=== PATIENT | female | born 1995 | race Caucasian/White ===

== ENCOUNTER 2023-05-19 19:37 | Emergency (ER) | payer MEDICAID, SELFPAY ==
[2023-05-19 20:03] VITALS: BP 135/86; PULSE 97; RESP 18; TEMP 37.2; O2SAT 99; BMI 28.1
--- NOTE | 2023-05-19 20:19 | ECG_ITS ---
Test Reason : LT ARM PAIN Blood Pressure : / mmHG Vent. Rate : 085 BPM Atrial Rate : 085 BPM P-R Int : 142 ms QRS Dur : 072 ms QT Int : 364 ms P-R-T Axes : 050 095 011 degrees QTc Int : 433 ms Normal sinus rhythm Rightward axis Cannot rule out Anterior infarct , age undetermined Abnormal ECG No previous ECGs available Referred By: Generic ED Physician Electronically Signed By:ZEE RODRÍGUEZ
--- NOTE | 2023-05-19 20:37 | MHC.EDTECH ---
Patient brought into triage area,EKG taken per order and signed by provider,labs obtained and sent to lab.
[2023-05-19 20:43] LABS: MANUAL DIFF FLAG NO
[2023-05-19 20:44] LABS: Basophils Percent Auto 0.5 % (0-2); Eosinophils Absolute Auto 0.1 X10*3/uL (0.0-0.4); Eosinophils Percent Auto 2.4 % (0-4); Hematocrit 39.1 % (37.0-47.0); Hemoglobin 12.8 g/dl (12.0-16.0); Lymphocytes Absolute Auto 1.8 X10*3/uL (1.2-4.9); Lymphocytes Percent Auto 43.8 % (20-40); Mean Corpuscular HGB Conc 32.7 g/dl (31.0-35.0); Mean Corpuscular Volume 88.7 fL (80.0-98.0); Mean Platelet Volume 9.6 fL (9.4-12.3); Monocytes Absolute Auto 0.4 X10*3/uL (0.1-1.2); Neutrophils Absolute Auto 1.8 x10*3/uL (2.0-8.3); Neutrophils Percent Auto 44.3 % (45-73); Platelet Count 203 X10*3/uL (160-400); Red Blood Count 4.41 X10*6/uL (4.20-5.50); Red Cell Distribution Width 13.2 % (11.0-16.0); White Blood Count 4.1 X10*3/uL (4.8-10.8)
[2023-05-19 21:01] LABS: Alanine Aminotransferase 14 U/L (0-31); Albumin Level 4.2 g/dL (3.5-5.0); Alkaline Phosphatase 86 U/L (39-117); Anion Gap 12 (12-20); Aspartate Amino Transferase 23 U/L (5-31); Bilirubin Total 0.2 mg/dL (0.0-1.0); Blood Urea Nitrogen 15 mg/dL (9-16); Calcium 9.3 mg/dL (8.4-10.2); Carbon Dioxide 21 mmol/L (22-29); Chloride 110 mmol/L (96-108); Creatinine Clr Calc Pharmacy 96.7; Estimated Glomerular Filt Rate > 60; Glucose Random 84 mg/dL (60-115); Potassium 3.9 mmol/L (3.3-5.1); Sodium 139 mmol/L (135-145); Total Protein 7.4 g/dL (6.5-8.0)
[2023-05-19 21:08] LABS: Troponin-I High Sensitivity < 2.7 ng/L (<3.5-17.0)
--- NOTE | 2023-05-19 22:01 | ED.NECK ---
HPI - Neck Pain/Injury General Chief Complaint: Neck Pain/Injury Stated Complaint: Neck pain Time Seen by Provider: 05/19/23 21:58 Source: patient Mode of arrival: ambulatory Limitations: no limitations History of Present Illness HPI Narrative: Patient with history of Moebius syndrome woke up in a.m. with spasm of the left sternocleidomastoid muscles and pain no fever no chills no cough no sore throat no earache no injury Related Data Previous Rx's Medication Instructions Recorded cyclobenzaprine 10 mg tablet 10 mg PO Q8H #20 tabs 05/19/23 ibuprofen 600 mg tablet 600 mg PO Q6H PRN fever or pain 05/19/23 #30 tabs Allergies Allergy/AdvReac Type Severity Reaction Status Date / Time watermelon Allergy Anaphylaxis Verified 05/19/23 20:02 Review of Systems Review of Systems: Yes all other systems are reviewed and are negative [facility] Social History Social History Advance Directives: No Advance Directives Information Provided: No Physical Exam Vital Signs: Vital Signs: Last Vital Signs Temp 98.9 F 05/19/23 20:03 Pulse 97 05/19/23 20:03 Resp 18 05/19/23 20:03 BP 135/86 05/19/23 20:03 Pulse Ox 99 05/19/23 20:03 O2 Del Method Room Air 05/19/23 20:03 BMI result Body Mass Index 28.1 Appearance: Alert. Oriented X3. Features of Moebius syndrome++ ENT: Pharynx normal. Oral Mucosa moist Neck: Normal inspection. Neck supple. Spasm sternocleidomastoid muscle no lymph node enlarged no midline tenderness CVS: Normal heart rate and rhythm. Pulses normal. Respiratory: No respiratory distress. Equal air entry bilateral, Abdomen: Soft and nontender. Neuro: Oriented X 3. Medical Decision Making Medical Decision Making MDM Narrative: Patient clinically with torticollis/spasm on the left sternocleidomastoid labs normal discharge patient home on ibuprofen plaques Lab Data [facility] Lab Attestation statement: I reviewed the patient's lab results. 05/19/23 20:36 05/19/23 20:36 Labs: Lab Results 05/19/23 Range/Units 20:36 WBC 4.1 L (4.8-10.8) X10*3/uL RBC 4.41 (4.20-5.50) X10*6/uL Hgb 12.8 (12.0-16.0) g/dl Hct 39.1 (37.0-47.0) % MCV 88.7 (80.0-98.0) fL MCH 29.0 (27.0-33.0) pg MCHC 32.7 (31.0-35.0) g/dl RDW 13.2 (11.0-16.0) % Plt Count 203 (160-400) X10*3/uL MPV 9.6 (9.4-12.3) fL Immature Gran % (Auto) 0.0 (0.0-0.4) % Neut % (Auto) 44.3 L (45-73) % Lymph % (Auto) 43.8 H (20-40) % [place] % (Auto) 9.0 (2-11) % Eos % (Auto) 2.4 (0-4) % Baso % (Auto) 0.5 (0-2) % Lymph # (Auto) 1.8 (1.2-4.9) X10*3/uL [place] # (Auto) 0.4 (0.1-1.2) X10*3/uL Eos # (Auto) 0.1 (0.0-0.4) X10*3/uL Baso # (Auto) 0.0 (0.0-0.2) X10*3/uL Abs Immat Gran (auto) 0.00 (0.00-0.03) X10*3/uL Absolute Neuts (auto) 1.8 L (2.0-8.3) x10*3/uL Absolute Nucleated RBC 0.000 (0.0-0.012) X10*3/uL Nucleated RBC % (auto) 0.0 (0.0-0.2) /100WBC Sodium 139 (135-145) mmol/L Potassium 3.9 (3.3-5.1) mmol/L Chloride 110 H (96-108) mmol/L Carbon Dioxide 21 L (22-29) mmol/L Anion Gap 12 (12-20) BUN 15 (9-16) mg/dL Creatinine 0.73 (0.5-1.4) mg/dL Estim Creat Clear Calc 96.7 Estimated GFR > 60 Random Glucose 84 (60-115) mg/dL Calcium 9.3 (8.4-10.2) mg/dL Total Bilirubin 0.2 (0.0-1.0) mg/dL AST 23 (5-31) U/L ALT 14 (0-31) U/L Alkaline Phosphatase 86 (39-117) U/L Troponin I High Sens < 2.7 (<3.5-17.0) ng/L Total Protein 7.4 (6.5-8.0) g/dL Albumin 4.2 (3.5-5.0) g/dL Discharge Plan Discharge Clinical Impression: Torticollis Patient Disposition: Home, Self-Care Instructions: Cervical Sprain (ED) Additional Instructions: Apply ice at the painful area Ibuprofen and muscle relaxants as prescribed Prescriptions: New cyclobenzaprine 10 mg tablet 10 mg PO Q8H Qty: 20 0RF ibuprofen 600 mg tablet 600 mg PO Q6H PRN (Reason: fever or pain) Qty: 30 0RF
[2023-05-19] MEDS: Cyclobenzaprine HCl 10 MG TABLET PO (22:30)
[2023-05-19] MEDS: Ibuprofen 600 MG TABLET PO (22:30)
[2023-05-19 22:41] VITALS: BP 124/76; PULSE 77; RESP 16; TEMP 36.7; O2SAT 99
--- NOTE | 2023-05-19 22:43 | PC.NURSE ---
pt medicated according to mar. pt friend at bedside. pt calm and cooperative. pt provided with discharge packet. pt verbalized understanding of discharge plan
== END 2023-05-19 22:44 | disposition home or self-care (01) ==
PROVIDERS: Emergency Provider Internal Medicine
DX: M43.6 Torticollis (principal); Q87.0 Congenital malformation syndromes predominantly affecting facial appearance
CPT/HCPCS: 36415; 80053; 84484; 85025; 93005; 99283; 99285

== ENCOUNTER → 2023-05-19 20:19 | Outpatient (BNV) | payer MEDICAID, SELFPAY | PROVIDERS: Emergency Provider Internal Medicine; Visit Provider Internal Medicine | DX: R94.31 Abnormal electrocardiogram [ECG] [EKG] (principal) | CPT/HCPCS: 93010 ==

== ENCOUNTER 2023-07-07 22:27 | Inpatient (IN) | payer MEDICAID, SELFPAY ==
--- NOTE | ~2023-07-07 | XR_ITS ---
EXAMINATION: XR CHEST CLINICAL INFORMATION: Cough, fever COMPARISON: None available. TECHNIQUE: 2 views of the chest were obtained. FINDINGS: Lung volumes are symmetric. Hiatal hernia is present with adjacent retrocardiac opacity which may reflect atelectasis or potentially consolidation. Right lung appears well-aerated. No evidence of pneumothorax, pleural effusion, or pulmonary edema. Cardiac size appears within normal limits. No acute osseous findings are seen. XR/XR chest 2V IMPRESSION: Hiatal hernia with adjacent retrocardiac opacity which may reflect atelectasis or potentially consolidation.
--- NOTE | ~2023-07-07 | CT_ITS ---
EXAMINATION: CTA CHEST PE STUDY CLINICAL INFORMATION: fever, dyspnea, d-dimer>ULN COMPARISON: 07/07/2023 chest x-ray TECHNIQUE: Prior to contrast administration, noncontrast localization images were obtained. After the administration of 65 mL of Omnipaque nonionic IV contrast, contiguous thin slice helical images were obtained through the thorax. Reformatted MIP images in the coronal and sagittal planes were obtained at the acquisition workstation. This CT examination was performed using dose optimization techniques as appropriate, variously including the following: *Automated exposure control *Adjustment of mA and/or kV according to patient size (this includes techniques or standardized protocols for targeted exams where dose is matched to indication/reason for exam; i.e. extremities or head) *Use of iterative reconstruction technique DLP: 323 mGy-cm. FINDINGS: The bolus timing on this study was acceptable for visualization of the pulmonary arterial tree. There are no intraluminal pulmonary arterial filling defects present to suggest pulmonary embolism. Dense consolidation in the retrocardiac left lower lobe with more patchy airspace disease seen in the contralateral right upper lobe. Infectious etiology would be strongly suspected with this appearance. No abnormal pulmonary nodules or masses are appreciated. No significant hilar or mediastinal adenopathy. There is no evidence of pleural effusion or pneumothorax. The heart is normal in size. No evidence of ventricular septal bowing or right heart strain. Great vessels are normal. Otherwise the mediastinum is unremarkable. There is no pericardial effusion or pericardial thickening. Limited evaluation of the upper abdominal viscera is unremarkable. CT/CT angio chest PE protocol IMPRESSION: 1. No evidence for pulmonary emboli. 2. Dense consolidation in the retrocardiac left lower lobe with more patchy airspace disease in the contralateral right upper lobe. Infectious etiology would be strongly suspected with this appearance. 3. VTE: Negative.
[2023-07-07 22:38] VITALS: BP 138/85; PULSE 144; RESP 18; TEMP 39.3; O2SAT 95; BMI 28.3
[2023-07-07 23:03] LABS: IDNOW Serial# 08D9AD1C; Strep A Nucleic Acid Negative (Negative)
[2023-07-07] MEDS: Ibuprofen 600 MG TABLET PO (23:26)
[2023-07-07 23:34] LABS: Influenza A PCR NEGATIVE (Negative); Influenza B PCR NEGATIVE (Negative); Resp Syncy Virus RNA Qual PCR NEGATIVE (Negative); SARS COV2 PCR INHOUSE NEGATIVE (Negative)
--- NOTE | 2023-07-07 23:39 | ED_ITS ---
HPI - Fever General Chief Complaint: Upper Respiratory Symptoms Stated Complaint: fever, asthma sob Time Seen by Provider: 07/07/23 23:18 Source: patient Mode of arrival: ambulatory Limitations: no limitations History of Present Illness HPI Narrative: 28 yo female with PMH of omphalocele, gastroschisis, Moebius syndrome here with c/o having a cough and sudden onset chills and fever today. No travel, no sick contacts. Took two tylenol [employer]. Illness came on suddenly. She notes she is vaccinated against the flu and COVID. MD elicited complaint: fever Onset (ago): hour(s) (few) Exacerbating factors: nothing Relieving factors: acetaminophen Associated symptoms: chills, myalgias, headache and cough Treatments prior to arrival fever: acetaminophen Related Data Previous Rx's Medication Instructions Recorded cyclobenzaprine 10 mg tablet 10 mg PO Q8H #20 tabs 05/19/23 ibuprofen 600 mg tablet 600 mg PO Q6H PRN fever or pain 05/19/23 #30 tabs Allergies Allergy/AdvReac Type Severity Reaction Status Date / Time watermelon Allergy Anaphylaxis Verified 05/19/23 20:02 Review of Systems 2 Review of Systems: Constitutional : pos Fever, pos Chills ENT/Mouth : No Hoarseness, No sore throat, No Rhinorrhea Eyes: No Redness, No Discharge, No Vision Changes Cardiovascular : No Chest Pain, no SOB, no Dyspnea on Exertion, No Edema Respiratory : positive Cough, No Sputum, no Wheezing, Gastrointestinal : No Nausea, No Vomiting, No Diarrhea, No abdominal Pain Genitourinary : No Dysuria, No Hematuria Musculoskeletal : No joint pain, No Myalgias Skin : No rash Neuro : No Weakness, No Numbness, No Headache Psych : No anxiety, depression Heme/Lymph: No Bruising, No Bleeding Endocrine : No Polyuria, No Polydipsia All other systems reviewed and are negative [facility] Past Medical History Attestation statement: The following information was validated with the patient. Source: old records reviewed Medical History (Updated 07/08/23 @ 04:38 by Maria Luisa Tolbert DO) Moebius' syndrome Social History Social History Smoked in Last 30 Days: No Use of substances other than those prescribed or required for medical reasons: No Advance Directives: No Advance Directives Information Provided: No Patient : No Physical Exam 2 Vital Signs: Vital Signs: Last Vital Signs Temp 99.9 F 07/08/23 00:40 Pulse 111 H 07/08/23 00:40 Resp 16 07/08/23 00:40 BP 118/80 07/08/23 00:40 Pulse Ox 97 07/08/23 00:40 O2 Del Method Room Air 07/08/23 00:40 BMI result Body Mass Index 28.3 Appearance: Alert. Oriented X3. No acute distress. Eyes: Pupils equal, round and reactive to light. ENT: Pharynx normal. normal TMs bilaterally Neck: Normal inspection. Neck supple. CVS: Normal heart rate and rhythm. Pulses normal. Respiratory: No respiratory distress. Breath sounds normal. Abdomen: Soft and nontender. Skin: Skin warm and dry. Normal skin color. Normal skin turgor. Extremities: No lower extremity edema. No calf ttp Neuro: Oriented X 3. No motor deficit. No sensory deficit. Course Course Course Narrative: VS are improving at this time, HR coming down, fever responding to medications Reevaluation(s) Reevaluation #1: Chest xray showing possible pneumonia at this time bacterial infection suspected IV and labs, culture ordered along with IV ceftriaxone for pneumonia 128am Reevaluation #2: has been stuck will defer will give more PO potassium and oral ceftin azithromycin she agrees declines further IV attempts at this time Reevaluation #3: patient vomiting up PO antibiotics and PO K agrees to stay at this time will admit start on IV ceftriaxone and admit for pneumonia, intractable n/v Medications Administered Discontinued Medications Generic Name Dose Route Start Last Admin Trade Name Santhoshq PRN Reason Stop Dose Admin Cefuroxime Axetil 500 mg 07/08/23 03:16 07/08/23 03:22 Cefuroxime Axetil 500 Mg Tablet PO 07/08/23 03:17 500 mg ONCE ONE Administration Sodium Chloride 1,000 mls @ 999 mls/hr 07/08/23 01:30 07/08/23 03:18 Ns IV 07/08/23 02:30 Infused .Q1H1M WILVER Infusion Ceftriaxone Sodium 1 gm/ 50 mls @ 100 mls/hr 07/08/23 01:23 07/08/23 02:52 Sodium Chloride IV 07/08/23 01:52 Infused ONCE ONE Infusion Potassium Chloride 10 meq in 100 mls @ 100 mls/hr 07/08/23 02:05 07/08/23 03:18 Potassium Chloride/H20 IV 07/08/23 03:04 Not Given ONCE ONE Ibuprofen 600 mg 07/07/23 23:12 07/07/23 23:26 Ibuprofen 600 Mg Tablet PO 07/07/23 23:13 600 mg ONCE ONE Administration Ondansetron HCl 4 mg 07/08/23 01:25 07/08/23 02:13 Ondansetron Hcl 4 Mg/2 Ml Vial IVPUSH 07/08/23 01:26 4 mg ONCE ONE Administration Potassium Chloride 40 meq 07/08/23 02:05 07/08/23 03:22 Potassium Chloride Packet 20 Meq Packet PO 07/08/23 02:06 40 meq ONCE ONE Administration Potassium Chloride 20 meq 07/08/23 03:16 07/08/23 03:22 Potassium Chloride Packet 20 Meq Packet PO 07/08/23 03:17 20 meq ONCE ONE Administration Procedures EJ/Peripheral Line Arm R: Time Out Performed: Yes Skin Cleansed in Sterile Fashion: Yes Size (gauge): 20 IV Secured and Dressing Applied: Yes Patient Tolerated Procedure: well and no complications Additional Comments: US guided Medical Decision Making Medical Decision Making MDM Narrative: 28 yo female with PMH of moebius syndrome here with c/o abrupt onset cough and fevers tonight without travel or known sick contacts symptoms started suddenly suspect more viral pathology given diffuse body aches and sudden onset. Reports she was fine earlier. Will order viral panel, CXR, UA, motrin and reassess. No hypoxia no wheezing on exam, no resp distress. Differential Diagnosis Differential Diagnoses: The differential diagnosis associated with the presentation includes flu, covid viral pathology more likely given sudden onset Admission/Observation Consideration of admission/observation: Escalation of care including admission/observation considered cannot tolerate PO will admit for further management Consult Healthcare Provider Management of the patient was discussed with: Hospitalist (will admit) Lab Data MDM Lab Attestation statement: I reviewed the patient's lab results. 07/08/23 02:11 07/08/23 01:37 Labs: Lab Results 07/07/23 07/07/23 07/08/23 Range/Units 22:45 23:55 01:37 WBC (4.8-10.8) X10*3/uL RBC (4.20-5.50) X10*6/uL Hgb (12.0-16.0) g/dl Hct (37.0-47.0) % MCV (80.0-98.0) fL MCH (27.0-33.0) pg MCHC (31.0-35.0) g/dl RDW (11.0-16.0) % Plt Count (160-400) X10*3/uL MPV (9.4-12.3) fL Immature Gran % (Auto) (0.0-0.4) % Neut % (Auto) (45-73) % Lymph % (Auto) (20-40) % [place] % (Auto) (2-11) % Eos % (Auto) (0-4) % Baso % (Auto) (0-2) % Lymph # (Auto) (1.2-4.9) X10*3/uL [place] # (Auto) (0.1-1.2) X10*3/uL Eos # (Auto) (0.0-0.4) X10*3/uL Baso # (Auto) (0.0-0.2) X10*3/uL Abs Immat Gran (auto) (0.00-0.03) X10*3/uL Absolute Neuts (auto) (2.0-8.3) x10*3/uL Absolute Nucleated RBC (0.0-0.012) X10*3/uL Nucleated RBC % (auto) (0.0-0.2) /100WBC Sodium 141 (135-145) mmol/L Potassium 2.9 L* D (3.3-5.1) mmol/L Chloride 115 H (96-108) mmol/L Carbon Dioxide 15 L (22-29) mmol/L Anion Gap 14 (12-20) BUN 8 L (9-16) mg/dL Creatinine 0.67 (0.5-1.4) mg/dL Estim Creat Clear Calc 105.7 Estimated GFR > 60 Random Glucose 117 H (60-115) mg/dL Lactic Acid (0.5-2.0) mmol/L Calcium 9.5 (8.4-10.2) mg/dL Urine Color Yellow Urine Appearance Clear Urine pH 5.0 (5.0-9.0) Ur Specific [place] 1.020 (1.005-1.025) Urine Protein Negative (Neg-Trace) mg/dL Urine Glucose (UA) Negative (Negative) mg/dL Urine Ketones Negative (Negative) mg/dL Urine Blood Large (3+) H (Negative) Urine Nitrite Negative (Negative) Ur Leukocyte Esterase Negative (Negative) Urine RBC >20 H (0-2) /HPF Urine WBC 0-5 (0-5) /HPF Ur Squamous Epith Cells 3-5 (0-2) /HPF Urine Bacteria None Seen (None Seen) Hyaline Casts 0-2 (0-2) /LPF Influenza Type A (PCR) NEGATIVE (Negative) Influenza Type B (PCR) NEGATIVE (Negative) RSV RNA Qual (PCR) NEGATIVE (Negative) SARS-CoV-2 RNA (RT-PCR) NEGATIVE (Negative) S. pyogenes GrpA THOMAS Negative (Negative) 07/08/23 Range/Units 02:11 WBC 8.4 (4.8-10.8) X10*3/uL RBC 4.02 L (4.20-5.50) X10*6/uL Hgb 12.0 (12.0-16.0) g/dl Hct 34.7 L (37.0-47.0) % MCV 86.3 (80.0-98.0) fL MCH 29.9 (27.0-33.0) pg MCHC 34.6 (31.0-35.0) g/dl RDW 14.6 (11.0-16.0) % Plt Count 173 (160-400) X10*3/uL MPV 9.6 (9.4-12.3) fL Immature Gran % (Auto) 0.6 H (0.0-0.4) % Neut % (Auto) 86.6 H (45-73) % Lymph % (Auto) 4.7 L (20-40) % [place] % (Auto) 7.9 (2-11) % Eos % (Auto) 0.1 (0-4) % Baso % (Auto) 0.1 (0-2) % Lymph # (Auto) 0.4 L (1.2-4.9) X10*3/uL [place] # (Auto) 0.7 (0.1-1.2) X10*3/uL Eos # (Auto) 0.0 (0.0-0.4) X10*3/uL Baso # (Auto) 0.0 (0.0-0.2) X10*3/uL Abs Immat Gran (auto) 0.05 H (0.00-0.03) X10*3/uL Absolute Neuts (auto) 7.3 (2.0-8.3) x10*3/uL Absolute Nucleated RBC 0.000 (0.0-0.012) X10*3/uL Nucleated RBC % (auto) 0.0 (0.0-0.2) /100WBC Sodium (135-145) mmol/L Potassium (3.3-5.1) mmol/L Chloride (96-108) mmol/L Carbon Dioxide (22-29) mmol/L Anion Gap (12-20) BUN (9-16) mg/dL Creatinine (0.5-1.4) mg/dL Estim Creat Clear Calc Estimated GFR Random Glucose (60-115) mg/dL Lactic Acid 1.2 (0.5-2.0) mmol/L Calcium (8.4-10.2) mg/dL Urine Color Urine Appearance Urine pH (5.0-9.0) Ur Specific [place] (1.005-1.025) Urine Protein (Neg-Trace) mg/dL Urine Glucose (UA) (Negative) mg/dL Urine Ketones (Negative) mg/dL Urine Blood (Negative) Urine Nitrite (Negative) Ur Leukocyte Esterase (Negative) Urine RBC (0-2) /HPF Urine WBC (0-5) /HPF Ur Squamous Epith Cells (0-2) /HPF Urine Bacteria (None Seen) Hyaline Casts (0-2) /LPF Influenza Type A (PCR) (Negative) Influenza Type B (PCR) (Negative) RSV RNA Qual (PCR) (Negative) SARS-CoV-2 RNA (RT-PCR) (Negative) S. pyogenes GrpA THOMAS (Negative) Independent Interpretation I performed an independent interpretation of an: Plain X-Ray (?new pneumonia) Radiology Impression Discussion of test interpretation with radiology: I have reviewed the radiologist's reading. Independent Historian Clinical information obtained from an independent historian. History obtained from or confirmed by: Friend External Record Review External record reviewed: Inpatient record Critical Care Time Critical Care Time Critical Care Time: Yes Total Critical Care Time: 45 Attestation: repeat assessments, IVF, IV magnesium and IV potassium I attest to this time spent taking care of the patient Discharge Plan Discharge Clinical Impression: Intractable vomiting with nausea, Hypomagnesemia, Acute hypokalemia Pneumonia Qualifiers: Pneumonia type: due to unspecified organism Laterality: left Lung location: l ower lobe of lung Qualified Code(s): J18.9 - Pneumonia, unspecified organism Fever Qualifiers: Fever type: unspecified Qualified Code(s): R50.9 - Fever, unspecified Patient Disposition: Admitted As Inpatient
[2023-07-08] VITALS (10 sets, daily range): BP systolic 118–129; BP diastolic 72–88; PULSE 86–111; RESP 16–18; TEMP 36.2–37.7; O2SAT 96–98
--- NOTE | 2023-07-08 | ECG_ITS ---
Test Reason : CP Blood Pressure : / mmHG Vent. Rate : 089 BPM Atrial Rate : 089 BPM P-R Int : 138 ms QRS Dur : 088 ms QT Int : 370 ms P-R-T Axes : 063 105 054 degrees QTc Int : 450 ms Normal sinus rhythm Rightward axis Borderline ECG When compared with ECG of 19-MAY-2023 20:27, No significant change was found Referred By: Toya Henry Electronically Signed By:IVANIA CHUNG MD
[2023-07-08 00:01] LABS: Appearance Urine Clear; Color Urine Yellow; Glucose Urine UA Negative (Negative); Leukocyte Esterase Urine Negative (Negative); Nitrite Urine Negative (Negative); UMIC TRIGGER UACC YES; Urine Blood Large (3+) (Negative); Urine Ketones Negative (Negative); Urine Protein Negative (Neg-Trace)
[2023-07-08 00:06] LABS: Bacteria Urine None Seen (None Seen); Hyaline Casts Urine 0-2 /LPF (0-2); RBC Urine >20 /HPF (0-2); WBC Urine 0-5 /HPF (0-5)
[2023-07-08 02:01] LABS: Anion Gap 14 (12-20); Blood Urea Nitrogen 8 mg/dL (9-16); Calcium 9.5 mg/dL (8.4-10.2); Carbon Dioxide 15 mmol/L (22-29); Chloride 115 mmol/L (96-108); Creatinine Clr Calc Pharmacy 105.7; Estimated Glomerular Filt Rate > 60; Glucose Random 117 mg/dL (60-115); Potassium 2.9 mmol/L (3.3-5.1); Sodium 141 mmol/L (135-145)
[2023-07-08] MEDS: 0.9 % Sodium Chloride 1,000 ML 999 ML IV ×2 (02:12→04:43)
[2023-07-08] MEDS: cefTRIAXone sodium 1 GM in 0.9 % Sodium Chloride 50 ML IV ×2 (02:13→19:58)
[2023-07-08] MEDS: ondansetron HCL 4 MG/2 ML VIAL IVPUSH ×3 (02:13→13:15)
[2023-07-08 02:21] LABS: MANUAL DIFF FLAG NO
[2023-07-08 02:22] LABS: Basophils Percent Auto 0.1 % (0-2); Eosinophils Percent Auto 0.1 % (0-4); Hematocrit 34.7 % (37.0-47.0); Imm Gran Abs Auto 0.05 X10*3/uL (0.00-0.03); Imm Gran Pct Auto 0.6 % (0.0-0.4); Lymphocytes Absolute Auto 0.4 X10*3/uL (1.2-4.9); Lymphocytes Percent Auto 4.7 % (20-40); Mean Corpuscular HGB Conc 34.6 g/dl (31.0-35.0); Mean Corpuscular Hemoglobin 29.9 pg (27.0-33.0); Mean Corpuscular Volume 86.3 fL (80.0-98.0); Mean Platelet Volume 9.6 fL (9.4-12.3); Monocytes Absolute Auto 0.7 X10*3/uL (0.1-1.2); Monocytes Percent Auto 7.9 % (2-11); Neutrophils Absolute Auto 7.3 x10*3/uL (2.0-8.3); Neutrophils Percent Auto 86.6 % (45-73); Platelet Count 173 X10*3/uL (160-400); Red Blood Count 4.02 X10*6/uL (4.20-5.50); Red Cell Distribution Width 14.6 % (11.0-16.0); White Blood Count 8.4 X10*3/uL (4.8-10.8)
[2023-07-08 02:33] LABS: Lactic Acid 1.2 mmol/L (0.5-2.0)
[2023-07-08] MEDS: cefuroxime axetiL 500 MG TABLET PO (03:22)
[2023-07-08] MEDS: Potassium Chloride Packet 20 MEQ PACKET 40 MEQ PO (03:22)
[2023-07-08] MEDS: Potassium Chloride Packet 20 MEQ PACKET PO (03:22)
--- NOTE | 2023-07-08 03:30 | PC.NURSE ---
Multiple failed attempts at obtaining an IV line. 22G IV line obtained on the left foot. IV ab administered as ordered. Left foot IV line infiltrated. Failed attempt at obtaining an EJ by MD. IV meds changed to PO as per MD. Pt aware of plan of care.
--- NOTE | 2023-07-08 03:58 | PC.NURSE ---
Pt vomited po antibiotics and potassium given. aware and at bedside attempting U/S IV line. 20G place on the R AC. New orders placed in JUN.
[2023-07-08] MEDS: Potassium Chloride/H20 10 MEQ/100 ML PIGGYBACK 100 MEQ IV (04:00)
--- NOTE | 2023-07-08 04:33 | PM.IMHP ---
History of Present Illness Date of Service: 07/08/23 Chief Complaint: Fever This is a 28-year-old female with pertinent history of Moebius syndrome, gastroschisis, asthma not on home oxygen who presents to the emergency department for evaluation of fevers. Patient states she was doing well until on the day of presentation when she developed fevers and chills. Also has been having cough with intermittent sputum production. Endorses chest discomfort which worsens with deep inspiration. No coughing or choking with food or water. No dysuria. Patient has associated dyspnea which is worse with exertion and wheezing. Endorses nausea and nonbloody emesis. No chest discomfort, palpitations, abdominal pain, changes in urinary or bowel habits. In the emergency department, patient was found to be septic and imaging concerning for pneumonia. Review of Systems Constitutional: Constitutional: Reports chills and Reports fever(s) Cardiovascular: Cardiovascular: Reports dyspnea on exertion Respiratory: Respiratory: Reports cough, Reports dyspnea on exertion and Reports wheezing Gastrointestinal: Gastrointestinal: Reports no additional gastrointestinal complaints Genitourinary: Genitourinary: Reports no additional female genitourinary complaints Allergic/Immunologic: Allergic/Immunologic: Reports wheezing [facility] Medical History Asthma Moebius' syndrome Pertinent family history: No family history of early CAD Social History Smoked in Last 30 Days: No Use of substances other than those prescribed or required for medical reasons: No Advance Directives: No Advance Directives Information Provided: No Patient : No Meds Allergies Allergy/AdvReac Type Severity Reaction Status Date / [facility] An[facility] Verified 05/19/23 20:02 Active Medications: Current Medications Doxycycline Hyclate 100 mg/ (Sodium Chloride) 250 mls @ 166.67 mls/hr IV ONCE ONE Stop: 07/08/23 05:25 Sodium Chloride (Ns) 1,000 mls @ 999 mls/hr IV .Q1H1M WILVER Stop: 07/08/23 05:00 Potassium Chloride (Potassium Chloride/H20) 10 meq in 100 mls @ 100 mls/hr IV ONCE ONE Stop: 07/08/23 05:27 Physical Exam Vital Signs and Narrative: Vital Signs: Last Vital Signs Temp 99.9 F 07/08/23 00:40 Pulse 111 H 07/08/23 00:40 Resp 16 07/08/23 00:40 BP 118/80 07/08/23 00:40 Pulse Ox 97 07/08/23 00:40 O2 Del Method Room Air 07/08/23 00:40 BMI result Body Mass Index 28.3 Middle-aged female lying in bed in no distress Neck supple, no JVD Regular rate and rhythm, S1-S2 heard Bilateral wheezing appreciated Abdomen soft nontender, no guarding, no rigidity Patient is awake, alert and oriented to self, place, time and person ; no focal motor deficit Psych: Normal mood No pedal edema Results Labs 07/08/23 05:09 07/08/23 05:09 Labs: Laboratory Results - last 24 hr 07/07/23 07/07/23 07/08/23 22:45 23:55 01:37 MCV MCH MCHC RDW Plt Count MPV Immature Gran % (Auto) Neut % (Auto) Lymph % (Auto) [place] % (Auto) Eos % (Auto) Baso % (Auto) Lymph # (Auto) [place] # (Auto) Eos # (Auto) Baso # (Auto) Abs Immat Gran (auto) Absolute Neuts (auto) Absolute Nucleated RBC Nucleated RBC % (auto) Anion Gap 14 Estim Creat Clear Calc 105.7 Estimated GFR > 60 Random Glucose 117 H Lactic Acid Calcium 9.5 Urine Color Yellow Urine Appearance Clear Urine pH 5.0 Ur Specific [place] 1.020 Urine Protein Negative Urine Glucose (UA) Negative Urine Ketones Negative Urine Blood Large (3+) H Urine Nitrite Negative Ur Leukocyte Esterase Negative Urine RBC >20 H Urine WBC 0-5 Ur Squamous Epith Cells 3-5 Urine Bacteria None Seen Hyaline Casts 0-2 Influenza Type A (PCR) NEGATIVE Influenza Type B (PCR) NEGATIVE RSV RNA Qual (PCR) NEGATIVE SARS-CoV-2 RNA (RT-PCR) NEGATIVE S. pyogenes GrpA THOMAS Negative 07/08/23 02:11 MCV 86.3 MCH 29.9 MCHC 34.6 RDW 14.6 Plt Count 173 MPV 9.6 Immature Gran % (Auto) 0.6 H Neut % (Auto) 86.6 H Lymph % (Auto) 4.7 L [place] % (Auto) 7.9 Eos % (Auto) 0.1 Baso % (Auto) 0.1 Lymph # (Auto) 0.4 L [place] # (Auto) 0.7 Eos # (Auto) 0.0 Baso # (Auto) 0.0 Abs Immat Gran (auto) 0.05 H Absolute Neuts (auto) 7.3 Absolute Nucleated RBC 0.000 Nucleated RBC % (auto) 0.0 Anion Gap Estim Creat Clear Calc Estimated GFR Random Glucose Lactic Acid 1.2 Calcium Urine Color Urine Appearance Urine pH Ur Specific [place] Urine Protein Urine Glucose (UA) Urine Ketones Urine Blood Urine Nitrite Ur Leukocyte Esterase Urine RBC Urine WBC Ur Squamous Epith Cells Urine Bacteria Hyaline Casts Influenza Type A (PCR) Influenza Type B (PCR) RSV RNA Qual (PCR) SARS-CoV-2 RNA (RT-PCR) S. pyogenes GrpA THOMAS Imaging Radiologist's Impressions: Impressions Chest X-Ray 07/07/23 23:47 IMPRESSION: Hiatal hernia with adjacent retrocardiac opacity which may reflect atelectasis or potentially consolidation. Assessment and Plan (1) Fever: Qualifiers: Fever type: unspecified Qualified Code(s): R50.9 - Fever, unspecified Status: Acute (2) Pneumonia: Qualifiers: Laterality: left Lung location: lower lobe of lung Pneumonia type: due to unspecified organism Qualified Code(s): J18.9 - Pneumonia, unspecified organism Status: Acute Plan This is a 28-year-old female with pertinent history of Moebius syndrome, gastroschisis, asthma not on home oxygen who presents to the emergency department for evaluation of fevers. #. Sepsis due to community-acquired pneumonia: Resuscitated with IV crystalloids. Lactic acid and blood culture obtained. Initiating empiric IV antibiotics. D-dimer pending #. Acute respiratory distress in the setting of above leading to acute asthma exacerbation: Initiating IV steroids. Scheduled and p.r.n. DuoNebs. #. Hypokalemia and hypomagnesemia due to GI losses: Repleted DVT prophylaxis: Lovenox Full code Admit as inpatient and will require two night minimum hospital stay for IV antibiotics (as above), which is not possible in a lesser acute setting. Quality Stroke Does the patient have a stroke diagnosis?: No VTE Prior VTE?: No VTE Risk Level:: Medical - moderate - high VTE Device Contraindication: Treatment Not Indicated VTE Drug Contraindication: N/A - Med Ordered
[2023-07-08 04:38] LABS: Magnesium 1.3 mg/dL (1.6-2.6)
[2023-07-08] MEDS: Magnesium Sulfate/H2O 2 GM/50 ML PIGGYBACK IV (04:42)
[2023-07-08 05:13] LABS: MANUAL DIFF FLAG NO
[2023-07-08 05:14] LABS: Basophils Percent Auto 0.1 % (0-2); Eosinophils Percent Auto 0.1 % (0-4); Imm Gran Abs Auto 0.03 X10*3/uL (0.00-0.03); Imm Gran Pct Auto 0.3 % (0.0-0.4); Lymphocytes Absolute Auto 0.6 X10*3/uL (1.2-4.9); Lymphocytes Percent Auto 6.3 % (20-40); Mean Corpuscular HGB Conc 33.3 g/dl (31.0-35.0); Mean Corpuscular Hemoglobin 29.1 pg (27.0-33.0); Mean Corpuscular Volume 87.3 fL (80.0-98.0); Mean Platelet Volume 9.5 fL (9.4-12.3); Monocytes Absolute Auto 1.2 X10*3/uL (0.1-1.2); Monocytes Percent Auto 12.7 % (2-11); Neutrophils Absolute Auto 7.4 x10*3/uL (2.0-8.3); Neutrophils Percent Auto 80.5 % (45-73); Platelet Count 160 X10*3/uL (160-400); Red Blood Count 3.78 X10*6/uL (4.20-5.50); Red Cell Distribution Width 14.6 % (11.0-16.0); White Blood Count 9.2 X10*3/uL (4.8-10.8)
[2023-07-08 05:37] LABS: Anion Gap 11 (12-20); Blood Urea Nitrogen 6 mg/dL (9-16); Calcium 8.4 mg/dL (8.4-10.2); Carbon Dioxide 16 mmol/L (22-29); Chloride 117 mmol/L (96-108); Creatinine Clr Calc Pharmacy 128.8; Estimated Glomerular Filt Rate > 60; Glucose Random 143 mg/dL (60-115); Potassium 3.6 mmol/L (3.3-5.1); Sodium 140 mmol/L (135-145)
[2023-07-08] MEDS: Doxycycline Hyclate 100 MG in 0.9 % Sodium Chloride 250 ML 166.67 MG IV (06:06)
[2023-07-08 06:32] LABS: D Dimer High Sensitivity 271 NG/ML
[2023-07-08] MEDS: Enoxaparin Sodium 40 MG/0.4 ML SYRINGE SUBCUT (06:44)
--- NOTE | 2023-07-08 07:48 | PHA.MEDREC ---
Pharmacy Consult ? Medication Reconciliation Pharmacy has completed the medication reconciliation. Spoke with patient to confirm.
[2023-07-08] MEDS: methylPREDNISolone Sod Succ 40 MG/ML VIAL IVPUSH ×2 (07:58→18:40)
[2023-07-08] MEDS: Azithromycin 500 MG in 0.9 % Sodium Chloride 250 ML 125 MG IV (07:59)
--- NOTE | 2023-07-08 08:07 | PC.NURSE ---
patient resting quietly in bed watching tv, patient medicated per MAR, states she feels okay but not 100%. patient VSS, skin dry and intact, patient is alert and oriented x3. visitor at bedside
[2023-07-08] MEDS: iohexoL 350 MG/ML 75 ML INFUS..BTL 65 ML IV (08:50)
[2023-07-08] MEDS: Albuterol/Iprat 2.5/0.5MG 3 ML AMPUL.NEB INHALE ×4 (08:58→20:31)
--- NOTE | 2023-07-08 10:10 | PM.EVENT ---
Event Note Date of Service: 07/08/23 Event Note: Day hospitalist update S: febrile to 102.8 overnight c/o productive cough not hypoxic O: Temp Pulse Resp BP Pulse Ox O2 Del Method 98.4 F 87 18 118/88 96 Room Air 07/08/23 07:32 07/08/23 08:58 07/08/23 08:58 07/08/23 07:32 07/08/23 07:32 07/08/23 07:32 Gen: in no acute distress HEENT: sclera anicteric, moist mucus membranes Neck: supple Lungs: diminished L base Heart: regular rate and rhythm, no murmurs Abd: soft, non-tender, non-distended Ext: no edema Skin: warm/well-perfused Neuro: alert and oriented x3, no focal findings Psych: appropriate affect Chest X-Ray 07/07/23 23:47 IMPRESSION: Hiatal hernia with adjacent retrocardiac opacity which may reflect atelectasis or potentially consolidation. Chest CTA 07/08/23 09:12 IMPRESSION: 1. No evidence for pulmonary emboli. 2. Dense consolidation in the retrocardiac left lower lobe with more patchy airspace disease in the contralateral right upper lobe. Infectious etiology would be strongly suspected with this appearance. 3. VTE: Negative. A/P: d1 28yo F with Moebies syndrome, gastroschisis, mild intermittent asthma presenting with acute fever, dyspnea + productive cough; admitted for sepsis due to CAP sepsis due to CAP - follow BCx, check PCT + SpCx + HIV, continue ceftriaxone + azithromycin mild intermittent asthma with acute exacerbation - steroids, nebs hypoK - repleted hypoMg - repleted, recheck pending VTE ppx - LMWH dispo - eventual home In my clinical judgment, the patient requires continued inpatient hospitalization for the following reasons: IV ABX, electrolyte repletion Time Spent With Patient Time: Total time managing care of this patient today ____ minutes.
[2023-07-08 12:39] LABS: Procalcitonin 0.67 ng/mL
[2023-07-08 13:29] LABS: Magnesium 2.4 mg/dL (1.6-2.6)
[2023-07-08] MEDS: 0.9 % Sodium Chloride Flush 3 ML SYRINGE IVFLUSH ×2 (16:00→23:56)
[2023-07-08 16:59] LABS: Troponin-I High Sensitivity < 2.7 ng/L (<3.5-17.0)
[2023-07-08] MEDS: Lidocaine 4 % Patch ADH..PATCH 1 PATCH TRANSDERMA (17:10)
--- NOTE | 2023-07-08 17:45 | PC.NURSE ---
Approximately 1600- patient reported constant 7/10, sharp chest pain to the left upper chest that worsened with deep breathing. Vitals signs obtained and stable. Dr. Henry notified. STAT EKG and labs ordered, and obtained. CTA in ED negative for PE prior to admission to floor. Lidocaine patch ordered and applied. Of note- patient presenting with frequent, productive cough. Pain re-assessed after lidocaine patch application. Patient reports small improvement in pain. Pain is now tolerable at 6/10 pain.
[2023-07-08 20:18] LABS: Troponin-I High Sensitivity < 2.7 ng/L (<3.5-17.0)
[2023-07-09] VITALS (7 sets, daily range): BP systolic 112–135; BP diastolic 71–89; PULSE 54–100; RESP 16–20; TEMP 36.5–36.8; O2SAT 96–98
[2023-07-09] MEDS: guaiFENesin 100 MG/5 ML LIQUID PO ×2 (06:03→17:27)
[2023-07-09] MEDS: Enoxaparin Sodium 40 MG/0.4 ML SYRINGE SUBCUT (06:04)
[2023-07-09] MEDS: Azithromycin 500 MG in 0.9 % Sodium Chloride 250 ML 125 MG IV (06:05)
[2023-07-09] MEDS: methylPREDNISolone Sod Succ 40 MG/ML VIAL IVPUSH (06:05)
[2023-07-09] MEDS: Acetaminophen 325 MG TABLET 650 MG PO ×2 (06:17→17:27)
[2023-07-09] MEDS: Albuterol/Iprat 2.5/0.5MG 3 ML AMPUL.NEB INHALE ×3 (07:37→19:49)
[2023-07-09 08:23] LABS: Hematocrit 33.5 % (37.0-47.0); Hemoglobin 11.4 g/dl (12.0-16.0); Mean Corpuscular Hemoglobin 29.2 pg (27.0-33.0); Mean Corpuscular Volume 85.9 fL (80.0-98.0); Mean Platelet Volume 9.6 fL (9.4-12.3); Platelet Count 195 X10*3/uL (160-400); Red Cell Distribution Width 15.1 % (11.0-16.0); White Blood Count 10.1 X10*3/uL (4.8-10.8)
[2023-07-09] MEDS: Lidocaine 4 % Patch ADH..PATCH 1 PATCH TRANSDERMA (08:36)
[2023-07-09 08:49] LABS: Anion Gap 13 (12-20); Blood Urea Nitrogen 7 mg/dL (9-16); Carbon Dioxide 19 mmol/L (22-29); Chloride 115 mmol/L (96-108); Creatinine Clr Calc Pharmacy 114.2; Estimated Glomerular Filt Rate > 60; Glucose Random 129 mg/dL (60-115); Potassium 3.4 mmol/L (3.3-5.1); Sodium 144 mmol/L (135-145)
[2023-07-09 09:01] LABS: Calcium 9.6 mg/dL (8.4-10.2); HIV AB/AG Nonreactive (Nonreactive); HIV Num 1 0.07 S/CO (0.00-0.99)
--- NOTE | 2023-07-09 09:34 | MHC.CM.PN ---
pt lives with mother has no services has own ride home dc plan home no services
--- NOTE | 2023-07-09 11:39 | HO.PM.IMPN ---
Subjective Subjective Date of Service: 07/09/23 Interval History: Still notes some mild shortness of breath with minimal exertion. Review of Systems Denies chest pain Admit shortness of breath that has minimally improved since admission Denies nausea vomiting diarrhea Denies fever chills Physical Exam Vital Signs: Vital Signs: Last Vital Signs Temp 98.0 F 07/09/23 07:14 Pulse 80 07/09/23 07:37 Resp 18 07/09/23 07:37 BP 112/71 07/09/23 07:14 Pulse Ox 98 07/09/23 07:14 O2 Del Method Room Air 07/09/23 07:14 BMI result Body Mass Index 28.3 Const: Other: Awake alert no acute distress Resp: Other: Diminished at left base with scattered expiratory wheezes left greater than right Cardio: Other: No S4; positive S1-S2; no S3 murmurs rubs or gallops GI: Other: Soft nontender nondistended normoactive bowel sounds Neuro: Other: Cranial nerves 2-12 grossly intact as tested. Motor is 5/5 all extremities. Sensation is intact. Cognition appropriate. Gait steady Extrem: Other: No edema bilaterally Objective Data Active Medications Acetaminophen (Acetaminophen 325 Mg Tablet) 650 mg PO Q6H PRN PRN Reason: Pain, Mild (Pain Scale 1-3) Last Admin: 07/09/23 06:17 Dose: 650 mg Documented By: JENNIFER Albuterol Sulfate (Albuterol Sulfate 90 Mcg 8 Gm Inhaler) 2 puff INHALE RQ4H PRN PRN Reason: Shortness Of Breath Or Wheezing Albuterol/Ipratropium (Albuterol/Iprat 2.5/0.5mg 3 Ml Ampul.Neb) 3 ml INHALE RQ4H WHILE AWAKE [facility] Last Admin: 07/09/23 11:32 Dose: Not Given Documented By: DAVID Non-Admin Reason: Patient Refused Albuterol/Ipratropium (Albuterol/Iprat 2.5/0.5mg 3 Ml Ampul.Neb) 3 ml INHALE Q4H PRN PRN Reason: Wheezing Enoxaparin Sodium (Enoxaparin Sodium 40 Mg/0.4 Ml Syringe) 40 mg SUBCUT Q24H [facility] Last Admin: 07/09/23 06:04 Dose: 40 mg Documented By: JENNIFER Guaifenesin (Guaifenesin 100 Mg/5 Ml Liquid) 5 ml PO Q6H PRN PRN Reason: Cough Last Admin: 07/09/23 06:03 Dose: 5 ml Documented By: JENNIFER Ceftriaxone Sodium 1 gm/ (Sodium Chloride) 50 mls @ 100 mls/hr IV Q24H [facility] Last Infusion: 07/08/23 20:30 Dose: Infused Documented By: BRIANA Azithromycin 500 mg/ Sodium (Chloride) 250 mls @ 125 mls/hr IV Q24H [facility] Last Infusion: 07/09/23 08:38 Dose: Infused Documented By: RICHARD Lidocaine (Lidocaine 4 % Patch Adh..Patch) 1 patch TRANSDERMA DAILY [facility]; Protocol Last Admin: 07/09/23 08:36 Dose: 1 patch Documented By: RICHARD Melatonin (Melatonin 3 Mg Tablet) 6 mg PO BEDTIME PRN PRN Reason: Insomnia Methylprednisolone Sodium Succinate (Methylprednisolone Sod Succ 125 Mg/2 Ml Vial) 60 mg IVPUSH Q6H [place]IL[place] Ondansetron HCl (Ondansetron Hcl 4 Mg/2 Ml Vial) 4 mg IVPUSH Q8H PRN PRN Reason: Nausea and Vomiting Last Admin: 07/08/23 13:15 Dose: 4 mg Documented By: AGUILAR Sodium Chloride (0.9 % Sodium Chloride Flush 3 Ml Syringe) 3 ml IVFLUSH QSHIFT [facility] Last Admin: 07/09/23 07:34 Dose: Not Given Documented By: RICHARD Non-Admin Reason: IV Running Labs 07/09/23 08:17 07/09/23 08:17 Labs: Laboratory Results - last 24 hr 07/08/23 07/08/23 07/08/23 05:09 16:34 19:33 MCV MCH MCHC RDW Plt Count MPV Absolute Nucleated RBC Nucleated RBC % (auto) Anion Gap Estim Creat Clear Calc Estimated GFR Random Glucose Calcium Magnesium 2.4 Troponin I High Sens < 2.7 < 2.7 Procalcitonin 0.67 HIV 1&2 Ab/P24 Ag 4thGn 07/09/23 08:17 MCV 85.9 MCH 29.2 MCHC 34.0 RDW 15.1 Plt Count 195 MPV 9.6 Absolute Nucleated RBC 0.000 Nucleated RBC % (auto) 0.0 Anion Gap 13 Estim Creat Clear Calc 114.2 Estimated GFR > 60 Random Glucose 129 H Calcium 9.6 D Magnesium 2.0 Troponin I High Sens Procalcitonin HIV 1&2 Ab/P24 Ag 4thGn Nonreactive Microbiology Microbiology Results: Microbiology 07/08/23 02:11 Blood Culture - Preliminary Blood - Venous No growth after 24 hours. 07/08/23 01:37 Blood Culture - Preliminary Blood - Venous No growth after 24 hours. Assessment and Plan (1) Left lower lobe pneumonia: Status: Acute (2) Mild intermittent asthma with exacerbation: Status: Acute Plan 28-year-old female with pertinent past medical history of Moebius syndrome, gastroschisis, and mild intermittent asthma presents with worsening shortness of breath along with low-grade fevers. Seen in the emergency room given IV Solu-Medrol and a dose of ceftriaxone. CT scan of chest confirmed x-ray findings of retrocardiac shadow consistent with left lower lobe pneumonia 1. Left lower lobe pneumonia -ceftriaxone/azithromycin (2) -DuoNebs q.4 hours p.r.n. while awake -increase IV Solu-Medrol to 60 mg q.6 hours times 24 hours -re-evaluate in a.m. 2. Mild intermittent asthma with exacerbation -as per 1. 3. Moebius syndrome -stable and well compensated Full code Lovenox Patient requires ongoing hospitalization for IV antibiotics and IV steroids to treat asthma exacerbation in the backdrop of left lower lobe pneumonia. Patient is at high risk for outpatient failure at this time. Quality Stroke Does the patient have a stroke diagnosis?: No VTE Prior VTE?: No VTE Risk Level:: Medical - moderate - high VTE Device Contraindication: Treatment Not Indicated VTE Drug Contraindication: N/A - Med Ordered
[2023-07-09] MEDS: methylPREDNISolone Sod Succ 125 MG/2 ML VIAL 60 MG IVPUSH ×2 (12:41→17:27)
[2023-07-09] MEDS: 0.9 % Sodium Chloride Flush 3 ML SYRINGE IVFLUSH ×2 (17:28→21:19)
[2023-07-09] MEDS: cefTRIAXone sodium 1 GM in 0.9 % Sodium Chloride 50 ML IV (21:19)
[2023-07-09] MEDS: diphenhydrAMINE HCL 25 MG CAPSULE PO (21:19)
[2023-07-10] VITALS (10 sets, daily range): BP systolic 125–158; BP diastolic 49–93; PULSE 46–63; RESP 15–24; TEMP 36.1–36.7; O2SAT 95–99
[2023-07-10] MEDS: Ketorolac Tromethamine 30 MG/ML VIAL IVPUSH (02:26)
[2023-07-10] MEDS: guaiFENesin 100 MG/5 ML LIQUID PO ×2 (02:34→10:27)
--- NOTE | 2023-07-10 02:43 | PC.NURSE ---
Addendum entered by Annel Coker RN 07/10/23 06:42: Patient states relief now, napping on and off. Addendum entered by Annel Coker RN 07/10/23 04:58: Troponin negative, patient states chest hurts more with deep breaths and there is no relief yet with present treatment. Dr Reyes updated and is going to order Tramadol. Bradycardia, pulse 48, asymptomatic.Rest of vitals ok. Addendum entered by Annel Coker RN 07/10/23 03:43: EKG completed and reviewed by Dr Reyes. Troponin ordered. Patient states chest still feels tight ( Md aware). Tylenol and breathing treatment given. Addendum entered by Annel Coker RN 07/10/23 03:08: Reassessed BP 137/66 , pulse 46. patient states pain is still same. Dr Reyes updated. EKG ordered, recommended to give breathing treatment and Tylenol. Original Note: Patient is here for left lobe pneumonia ,c/o chest tightness very similar to that on admission 07/07. Slight wheezing left lung, BP elevated 158/93, rest vitals WNL. Non-productive cough, Robitussin given. Dr Reyes notified, Toradol one dose ordered and administered. No other orders at this time. Will continue to monitor.
--- NOTE | 2023-07-10 03:12 | ECG_ITS ---
Test Reason : Bradycardia Blood Pressure : / mmHG Vent. Rate : 044 BPM Atrial Rate : 044 BPM P-R Int : 132 ms QRS Dur : 070 ms QT Int : 452 ms P-R-T Axes : 072 106 076 degrees QTc Int : 386 ms Baseline wander Marked sinus bradycardia with Premature supraventricular complexes Rightward axis Nonspecific ST abnormality Abnormal ECG When compared with ECG of 08-JUL-2023 16:13, Premature supraventricular complexes are now Present Vent. rate has decreased BY 45 BPM QT has shortened Referred By: Tamara Acosta Electronically Signed By:IVANIA CHUNG MD
[2023-07-10] MEDS: Acetaminophen 325 MG TABLET 975 MG PO (03:20)
[2023-07-10] MEDS: Albuterol/Iprat 2.5/0.5MG 3 ML AMPUL.NEB INHALE ×4 (03:27→19:55)
[2023-07-10 04:27] LABS: MANUAL DIFF FLAG NO
[2023-07-10 04:28] LABS: Basophils Percent Auto 0.2 % (0-2); Hematocrit 33.7 % (37.0-47.0); Hemoglobin 11.1 g/dl (12.0-16.0); Imm Gran Abs Auto 0.07 X10*3/uL (0.00-0.03); Imm Gran Pct Auto 0.8 % (0.0-0.4); Lymphocytes Absolute Auto 0.7 X10*3/uL (1.2-4.9); Lymphocytes Percent Auto 7.5 % (20-40); Mean Corpuscular HGB Conc 32.9 g/dl (31.0-35.0); Mean Corpuscular Hemoglobin 29.4 pg (27.0-33.0); Mean Corpuscular Volume 89.2 fL (80.0-98.0); Mean Platelet Volume 10.2 fL (9.4-12.3); Monocytes Absolute Auto 0.3 X10*3/uL (0.1-1.2); Neutrophils Absolute Auto 7.7 x10*3/uL (2.0-8.3); Neutrophils Percent Auto 88.5 % (45-73); Platelet Count 228 X10*3/uL (160-400); Red Blood Count 3.78 X10*6/uL (4.20-5.50); Red Cell Distribution Width 15.1 % (11.0-16.0); White Blood Count 8.7 X10*3/uL (4.8-10.8)
[2023-07-10 04:42] LABS: Alanine Aminotransferase 59 U/L (0-31); Albumin Level 3.9 g/dL (3.5-5.0); Alkaline Phosphatase 60 U/L (39-117); Anion Gap 13 (12-20); Aspartate Amino Transferase 54 U/L (5-31); Bilirubin Total 0.3 mg/dL (0.0-1.0); Blood Urea Nitrogen 16 mg/dL (9-16); Calcium 9.4 mg/dL (8.4-10.2); Carbon Dioxide 20 mmol/L (22-29); Chloride 114 mmol/L (96-108); Creatinine Clr Calc Pharmacy 118.1; Estimated Glomerular Filt Rate > 60; Glucose Fasting 140 mg/dL (60-99); Potassium 3.5 mmol/L (3.3-5.1); Sodium 143 mmol/L (135-145)
[2023-07-10 04:51] LABS: Troponin-I High Sensitivity < 2.7 ng/L (<3.5-17.0)
[2023-07-10] MEDS: traMADoL HCL 50 MG TABLET 25 MG PO ×2 (05:34→12:24)
[2023-07-10] MEDS: Enoxaparin Sodium 40 MG/0.4 ML SYRINGE SUBCUT (05:35)
[2023-07-10] MEDS: methylPREDNISolone Sod Succ 125 MG/2 ML VIAL 60 MG IVPUSH ×5 (05:35→23:09)
[2023-07-10] MEDS: ondansetron HCL 4 MG/2 ML VIAL IVPUSH (05:52)
[2023-07-10] MEDS: Azithromycin 500 MG in 0.9 % Sodium Chloride 250 ML 125 MG IV (05:52)
[2023-07-10] MEDS: 0.9 % Sodium Chloride Flush 3 ML SYRINGE IVFLUSH ×3 (08:10→23:09)
--- NOTE | 2023-07-10 14:12 | HO.PM.IMPN ---
Subjective Subjective Date of Service: 07/10/23 Interval History: Breathing slowly improving; still short of breath with minimal movement Review of Systems Denies chest pain Admit shortness of breath that has minimally improved since admission Denies nausea vomiting diarrhea Denies fever chills Physical Exam Vital Signs: Vital Signs: Last Vital Signs Temp 97.8 F 07/10/23 07:59 Pulse 52 07/10/23 11:19 Resp 18 07/10/23 11:19 BP 128/65 07/10/23 07:59 Pulse Ox 97 07/10/23 07:59 O2 Del Method Room Air 07/10/23 07:59 BMI result Body Mass Index 28.3 Const: Other: Awake alert no acute distress Resp: Other: Diminished at left base with scattered expiratory wheezes left greater than right; now with audible crackles left lower lobe Cardio: Other: No S4; positive S1-S2; no S3 murmurs rubs or gallops GI: Other: Soft nontender nondistended normoactive bowel sounds Neuro: Other: Cranial nerves 2-12 grossly intact as tested. Motor is 5/5 all extremities. Sensation is intact. Cognition appropriate. Gait steady Extrem: Other: No edema bilaterally Objective Data Active Medications Acetaminophen (Acetaminophen 325 Mg Tablet) 975 mg PO Q6H PRN PRN Reason: Pain, Severe (Pain Scale 7-10) Last Admin: 07/10/23 03:20 Dose: 975 mg Documented By: JENNIFER Albuterol Sulfate (Albuterol Sulfate 90 Mcg 8 Gm Inhaler) 2 puff INHALE RQ4H PRN PRN Reason: Shortness Of Breath Or Wheezing Albuterol/Ipratropium (Albuterol/Iprat 2.5/0.5mg 3 Ml Ampul.Neb) 3 ml INHALE RQ4H WHILE AWAKE [facility] Last Admin: 07/10/23 11:19 Dose: 3 ml Documented By: DAVID Albuterol/Ipratropium (Albuterol/Iprat 2.5/0.5mg 3 Ml Ampul.Neb) 3 ml INHALE Q4H PRN PRN Reason: Wheezing Diphenhydramine HCl (Diphenhydramine Hcl 25 Mg Capsule) 25 mg PO BEDTIME [facility] Last Admin: 07/09/23 21:19 Dose: 25 mg Documented By: JENNIFER Enoxaparin Sodium (Enoxaparin Sodium 40 Mg/0.4 Ml Syringe) 40 mg SUBCUT Q24H [facility] Last Admin: 07/10/23 05:35 Dose: 40 mg Documented By: JENNIFER Guaifenesin (Guaifenesin 100 Mg/5 Ml Liquid) 5 ml PO Q6H PRN PRN Reason: Cough Last Admin: 07/10/23 10:27 Dose: 5 ml Documented By: RICHARD Guaifenesin/Codeine Phosphate (Guaifen/Codeine Sf 200/20/10ml 10 Ml Liquid) 10 ml PO Q4H PRN PRN Reason: Cough Ceftriaxone Sodium 1 gm/ (Sodium Chloride) 50 mls @ 100 mls/hr IV Q24H [facility] Last Infusion: 07/09/23 22:06 Dose: Infused Documented By: JENNIFER Azithromycin 500 mg/ Sodium (Chloride) 250 mls @ 125 mls/hr IV Q24H [facility] Last Infusion: 07/10/23 07:52 Dose: Infused Documented By: RICHARD Lidocaine (Lidocaine 4 % Patch Adh..Patch) 1 patch TRANSDERMA DAILY [facility]; Protocol Last Admin: 07/10/23 08:11 Dose: Not Given Documented By: RICHARD Non-Admin Reason: Patient Refused Methylprednisolone Sodium Succinate (Methylprednisolone Sod Succ 125 Mg/2 Ml Vial) 60 mg IVPUSH Q6H [facility] Last Admin: 07/10/23 12:25 Dose: 60 mg Documented By: RICHARD Ondansetron HCl (Ondansetron Hcl 4 Mg/2 Ml Vial) 4 mg IVPUSH Q8H PRN PRN Reason: Nausea and Vomiting Last Admin: 07/10/23 05:52 Dose: 4 mg Documented By: JENNIFER Sodium Chloride (0.9 % Sodium Chloride Flush 3 Ml Syringe) 3 ml IVFLUSH QSHIFT [facility] Last Admin: 07/10/23 08:10 Dose: 3 ml Documented By: RICHARD Tramadol HCl (Tramadol Hcl 50 Mg Tablet) 25 mg PO Q6H PRN PRN Reason: Pain, Severe (Pain Scale 7-10) Last Admin: 07/10/23 12:24 Dose: 25 mg Documented By: RICHARD Labs 07/10/23 04:14 07/10/23 04:14 Labs: Laboratory Results - last 24 hr 07/10/23 04:14 MCV 89.2 MCH 29.4 MCHC 32.9 RDW 15.1 Plt Count 228 MPV 10.2 Immature Gran % (Auto) 0.8 H Neut % (Auto) 88.5 H Lymph % (Auto) 7.5 L [place] % (Auto) 3.0 Eos % (Auto) 0.0 Baso % (Auto) 0.2 Lymph # (Auto) 0.7 L [place] # (Auto) 0.3 Eos # (Auto) 0.0 Baso # (Auto) 0.0 Abs Immat Gran (auto) 0.07 H Absolute Neuts (auto) 7.7 Absolute Nucleated RBC 0.000 Nucleated RBC % (auto) 0.0 Anion Gap 13 Estim Creat Clear Calc 118.1 Estimated GFR > 60 Fasting Glucose 140 H Calcium 9.4 Total Bilirubin 0.3 AST 54 H ALT 59 H Alkaline Phosphatase 60 Troponin I High Sens < 2.7 Total Protein 7.0 Albumin 3.9 Microbiology Microbiology Results: Microbiology 07/08/23 15:55 Gram Stain - Final Sputum - Expectorated Sputum Culture - Preliminary Culture in progress. 07/08/23 02:11 Blood Culture - Preliminary Blood - Venous No growth after 48 hours. 07/08/23 01:37 Blood Culture - Preliminary Blood - Venous No growth after 48 hours. Assessment and Plan (1) Left lower lobe pneumonia: Status: Acute (2) Mild intermittent asthma with exacerbation: Status: Acute Plan 28-year-old female with pertinent past medical history of Moebius syndrome, gastroschisis, and mild intermittent asthma presents with worsening shortness of breath along with low-grade fevers. Seen in the emergency room given IV Solu-Medrol and a dose of ceftriaxone. CT scan of chest confirmed x-ray findings of retrocardiac shadow consistent with left lower lobe pneumonia 1. Left lower lobe pneumonia -ceftriaxone/azithromycin (3) -DuoNebs q.4 hours p.r.n. while awake -increase IV Solu-Medrol to 60 mg q.6 hours times 24 hours -likely 24 hours additional steroids 2. Mild intermittent asthma with exacerbation -as per 1. 3. Moebius syndrome -stable and well compensated Full code Lovenox Patient requires ongoing hospitalization for IV antibiotics and IV steroids to treat asthma exacerbation in the backdrop of left lower lobe pneumonia. Patient is at high risk for outpatient failure at this time. Quality Stroke Does the patient have a stroke diagnosis?: No VTE Prior VTE?: No VTE Risk Level:: Medical - moderate - high VTE Device Contraindication: Treatment Not Indicated VTE Drug Contraindication: N/A - Med Ordered
[2023-07-10] MEDS: guaiFEN/Codeine SF 200/20/10ML 10 ML LIQUID PO (17:26)
[2023-07-10] MEDS: cefTRIAXone sodium 1 GM in 0.9 % Sodium Chloride 50 ML IV (21:35)
[2023-07-10] MEDS: diphenhydrAMINE HCL 25 MG CAPSULE PO (23:09)
[2023-07-11 03:12] VITALS: BP 131/85; PULSE 48; RESP 16; TEMP 36.4; O2SAT 96
[2023-07-11] MEDS: traMADoL HCL 50 MG TABLET 25 MG PO (03:16)
[2023-07-11] MEDS: methylPREDNISolone Sod Succ 125 MG/2 ML VIAL 60 MG IVPUSH (05:23)
[2023-07-11] MEDS: Enoxaparin Sodium 40 MG/0.4 ML SYRINGE SUBCUT (05:24)
[2023-07-11] MEDS: Azithromycin 500 MG in 0.9 % Sodium Chloride 250 ML 125 MG IV (06:29)
[2023-07-11] MEDS: guaiFEN/Codeine SF 200/20/10ML 10 ML LIQUID PO (06:44)
[2023-07-11 06:54] VITALS: BP 150/80; PULSE 54; RESP 16; TEMP 35.5; O2SAT 96
[2023-07-11] MEDS: Albuterol/Iprat 2.5/0.5MG 3 ML AMPUL.NEB INHALE (08:06)
[2023-07-11 08:08] VITALS: PULSE 65; RESP 16; O2SAT 95
[2023-07-11] MEDS: Acetaminophen 325 MG TABLET 975 MG PO (08:28)
[2023-07-11] MEDS: 0.9 % Sodium Chloride Flush 3 ML SYRINGE IVFLUSH (08:30)
[2023-07-11 09:21] VITALS: BP 134/85
--- NOTE | 2023-07-11 10:32 | MHC.CM.PN ---
pt home no servies self arranged transport home
--- NOTE | 2023-07-11 10:35 | PM.DS ---
DS: Providers Provider Date of Service: 07/11/23 Date of admission: 07/08/23 04:31 Date of discharge: 07/11/23 Primary care physician: Unknown Physician DS: Diagnosis Discharge Diagnosis (1) Left lower lobe pneumonia: Status: Acute (2) Mild intermittent asthma with exacerbation: Status: Acute DS: Summary Hospital Course Hospital Course: 28-year-old female with pertinent history of Moebius syndrome, gastroschisis, asthma not on home oxygen who presents to the emergency department for evaluation of fevers. Patient states she was doing well until on the day of presentation when she developed fevers and chills. Also has been having cough with intermittent sputum production. Endorses chest discomfort which worsens with deep inspiration. No coughing or choking with food or water. No dysuria. Patient has associated dyspnea which is worse with exertion and wheezing. Endorses nausea and nonbloody emesis. No chest discomfort, palpitations, abdominal pain, changes in urinary or bowel habits. Hospital Course Patient admitted to general medical floor and started on pulse dose steroids. Chest x-ray did demonstrate a retrocardiac infiltrate for which she was started on ceftriaxone and azithromycin. Over the next 48 hours she responded well to steroids and antibiotics and at this point is requesting discharge. She is without an O2 requirement and ambulating without difficulties. She is medically acceptable for same. She will be discharged to complete an oral course of doxycycline along with a prednisone taper Time Attestation Discharge Coordination Time (in mins): 35 Quality: Safe Use of Opioids Does Pt have an Active Cancer Diagnosis on the Problem List?: No Quality: Stroke Does the patient have a stroke diagnosis?: No Physical Exam Vital Signs: Vital Signs: Last Vital Signs Temp 96 F L 07/11/23 06:54 Pulse 65 07/11/23 08:08 Resp 16 07/11/23 08:08 BP 134/85 07/11/23 09:21 Pulse Ox 96 07/11/23 06:54 O2 Del Method Room Air 07/11/23 06:54 BMI result Body Mass Index 28.3 Const: Other: Awake alert no acute distress Resp: Other: Diminished at left base with scattered expiratory wheezes left greater than right; now with audible crackles left lower lobe Cardio: Other: No S4; positive S1-S2; no S3 murmurs rubs or gallops GI: Other: Soft nontender nondistended normoactive bowel sounds Neuro: Other: Cranial nerves 2-12 grossly intact as tested. Motor is 5/5 all extremities. Sensation is intact. Cognition appropriate. Gait steady Extrem: Other: No edema bilaterally DS: Data Data Completed and Pending Labs on day of discharge: Preliminary micro results at discharge 07/08/23 15:55 Sputum Culture - Preliminary Sputum - Expectorated Culture in progress. 07/08/23 02:11 Blood Culture - Preliminary Blood - Venous No growth after 48 hours. 07/08/23 01:37 Blood Culture - Preliminary Blood - Venous No growth after 48 hours. Discharge Plan Discharge Anticipated Discharge Date/Time: 07/11/23 10:26 Patient Disposition: Home, Self-Care Discharge Diagnosis: Left lower lobe pneumonia Referrals: Physician,Unknown J [Primary Care Provider] - 1 Week Discharge Medications: New doxycycline hyclate 100 mg tablet 100 mg PO BID Qty: 14 0RF prednisone 20 mg tablet See Rx Instructions .Route .COMPLEX Qty: 18 0RF Rx Instructions: 20 mg orally; 3 tabs daily for 3 days, 2 tabs daily for 3 days, 1 tab daily for 3 days hydrocodone-acetaminophen 5-325 mg tablet 1 tab PO Q6H PRN (Reason: cough/pain) Qty: 14 0RF Rx Instructions: Partial Fill upon patient request. Continued albuterol sulfate 90 mcg/actuation Hfa Aerosol Inhaler 2 puff INHALATION Q4-6H PRN (Reason: Shortness Of Breath Or Wheezing) Discharge Orders: Discharge Order (Routine); Ordered 07/11/23 Ordered By: Branden Helton Diet: Advance to usual diet Activity on Discharge: As tolerated Stand Alone Forms: Patient Portal Discharge page Care Plan Goals: Complete course of doxycycline twice daily for 7 days; prednisone taper as outlined Health Concerns: Take 1/2-1 Vicodin with 2 tsp of Robitussin for cough Plan of Treatment: Follow up with PCP next available Assessment: See discharge summary Patient Instructions: Viral Pneumonia (DC)
== END 2023-07-11 11:34 | disposition home or self-care (01) | DRG 720 ==
LOC: HO.ED 07-08 03:56 → HO.EDOVER 07-08 05:01 → HO.S3 07-08 10:40
PROVIDERS: Family Medicine; Internal Medicine; Admitting Provider Student in an Organized Health Care Education/Training Program; Emergency Provider Emergency Medicine; Visit Provider Hospitalist
DX: A41.9 Sepsis, unspecified organism (principal); Q79.3 Gastroschisis; J18.9 Pneumonia, unspecified organism; J45.21 Mild intermittent asthma with (acute) exacerbation; Q87.0 Congenital malformation syndromes predominantly affecting facial appearance; E87.6 Hypokalemia; E83.42 Hypomagnesemia; R06.03 Acute respiratory distress; Z20.822 Contact with and (suspected) exposure to COVID-19; Z79.899 Other long term (current) drug therapy
CPT/HCPCS: 0241U; 36415; 71046; 71275; 80048; 80053; 81001; 81003; 83605; 83735; 84145; 84484; 85025; 85027; 85379; 87040; 87070; 87205; 87389; 87651; 93005; 94640; 99285; J0456; J0696; J1650; J1885; J2405; J2920; J2930; J3475; J3480; Q9967

== ENCOUNTER 2023-07-08 04:31 | Outpatient (BNV) | payer MEDICAID, SELFPAY | END 2023-07-08 16:13 | PROVIDERS: Admitting Provider Student in an Organized Health Care Education/Training Program; Emergency Provider Emergency Medicine; Visit Provider Internal Medicine Cardiovascular Disease | DX: R07.9 Chest pain, unspecified (principal) | CPT/HCPCS: 93010 ==

== ENCOUNTER 2023-07-08 04:31 | Outpatient (BNV) | payer MEDICAID, SELFPAY | END 2023-07-10 03:12 | PROVIDERS: Admitting Provider Student in an Organized Health Care Education/Training Program; Emergency Provider Emergency Medicine; Visit Provider Internal Medicine Cardiovascular Disease | DX: R00.1 Bradycardia, unspecified (principal) | CPT/HCPCS: 93010 ==

== ENCOUNTER → 2023-07-08 04:31 | Outpatient (BNV) | payer MEDICAID, SELFPAY | PROVIDERS: Admitting Provider Student in an Organized Health Care Education/Training Program; Emergency Provider Emergency Medicine; Visit Provider Student in an Organized Health Care Education/Training Program | DX: J18.9 Pneumonia, unspecified organism (principal); J45.21 Mild intermittent asthma with (acute) exacerbation | CPT/HCPCS: 99222; 99232; 99239; 99499 ==

== ENCOUNTER 2023-07-17 17:54 | Emergency (ER) | payer MEDICAID, SELFPAY ==
--- NOTE | ~2023-07-17 | XR_ITS ---
EXAMINATION: XR CERVICAL SPINE CLINICAL INFORMATION: Right-sided neck pain. COMPARISON: None available. TECHNIQUE: AP, lateral, open-mouth, and foraminal views of the cervical spine were obtained. FINDINGS: There are no prevertebral soft tissue or bony abnormalities demonstrated. No compression fractures or subluxations are identified. Alignment is maintained at the atlanto-axial articulation. The disc spaces are preserved. No endplate changes are seen. The prevertebral soft tissues are normal. The foramina are patent. XR/XR cervical spine 2V IMPRESSION: Unremarkable examination.
[2023-07-17 18:45] VITALS: BP 130/96; PULSE 111; RESP 16; TEMP 37.1; O2SAT 97; BMI 28.6
--- NOTE | 2023-07-17 18:46 | ED.GENADULT ---
HPI - General Adult General Chief complaint: Headache Stated complaint: Neck pain, weakness Time Seen by Provider: 07/18/23 01:12 Source: patient Mode of arrival: ambulatory Limitations: no limitations History of Present Illness HPI narrative: Patient is a 28-year-old female who presents emergency department for evaluation of a diffuse headache with onset Sunday night, right lateral neck pain described as stiffness with onset Sunday morning reports associated nausea and multiple episodes of vomiting, reports 5 episodes of vomiting today she reports that she was recently admitted to the hospital and treated for pneumonia, discharged home with doxycycline and prednisone, she did feel as though things were improving until the headache and neck pain began. Denies any dizziness, lightheadedness, vision changes, fall or injury, chest pain, shortness of breath. Related Data Home Medications ?Medication ?Instructions ?Recorded ?Confirmed albuterol sulfate 90 mcg/actuation 2 puff inhalation Q4-6H PRN 07/08/23 07/08/23 aerosol inhaler Shortness Of Breath Or Wheezing Previous Rx's ?Medication ?Instructions ?Recorded doxycycline hyclate 100 mg tablet 100 mg PO BID #14 tabs 07/11/23 hydrocodone 5 mg-acetaminophen 325 1 tab PO Q6H PRN cough/pain #14 07/11/23 mg tablet tabs prednisone 20 mg tablet See Rx Instructions .Route 07/11/23 .COMPLEX #18 tabs ondansetron 4 mg disintegrating 4 mg PO Q6H PRN nausea and 07/18/23 tablet vomiting #3 tabs Allergies Allergy/AdvReac Type Severity Reaction Status Date / Time watermelon Allergy Anaphylaxis Verified 07/17/23 18:48 Review of Systems Review of Systems: Yes all other systems are reviewed and are negative PMFSH Past Medical History Attestation statement: The following information was validated with the patient. Source: old records reviewed Medical History Asthma Moebius' syndrome Social History Social History Household Members: Family Housing: House Do you presently have visiting nurse or other home services: No Patient Tobacco Use Status: Never used Tobacco Smoked in Last 30 Days: No Use of substances other than those prescribed or required for medical reasons: No Advance Directives: No Advance Directives Information Provided: Yes service: No Physical Exam ED Vital Signs: Vital Signs - 24 hr 07/17/23 18:45 07/17/23 22:08 07/18/23 01:34 Temperature 98.7 F 99.0 F 97.8 F Pulse Rate 111 H 109 H 86 Respiratory Rate 16 20 18 Blood Pressure 130/96 H 146/86 H 110/83 Pulse Oximetry 97 98 100 Oxygen Delivery Method Room Air Room Air Room Air 07/18/23 04:00 07/18/23 06:00 Temperature 97.7 F 97.6 F Pulse Rate 77 83 Respiratory Rate 16 18 Blood Pressure 100/69 105/67 Pulse Oximetry 98 100 Oxygen Delivery Method Room Air Room Air BMI result Body Mass Index 28.6 Appearance: Alert.?Oriented to person, place and time. No acute distress.?Normal affect. Eyes: Pupils equal, round and reactive to light.? EOMI. No nystagmus. ENT: Pharynx normal.?? Neck: Normal inspection.? Neck supple.??Full AROM is present, exacerbation of pain with lateral rotation words affected side CVS: Heart sounds normal. Normal heart rate and rhythm.? Pulses normal.?? Respiratory: No respiratory distress.? Lung sounds clear to auscultation bilaterally?? Abdomen: Soft and non-tender. Normoactive bowel sounds. ? Skin: Skin warm and dry.? Normal skin color.? Extremities: No lower extremity edema.? Neuro: Moves all extremities spontaneously. Sensation intact bilaterally. Negative Kernig sign, negative Brudzinski sign. CN II-XII intact. No focal neuro deficits. Ambulates with normal steady gait. Course Course Course Narrative: RME:?28 yo female with PMH of omphalocele, gastroschisis, Moebius syndrome here with complaint of headache and neck pain that began last night while she was lying down. assoc nausea secondary to pain. recently admitted to medicine for pneumonia, discharged home w/ antibiotics which she has been taking as prescribed. basic labs, xr c spine ordered Full HPI, ROS and PE to be performed by the primary ED provider. Reevaluation(s) Reevaluation #1: Patient signed out to ED attending, Dr. Poole pending re-evaluation after medication and disposition. Time: 02:00 Reevaluation #2: Patient re-evaluated, feeling much better after medications. Workup reassuring. Patient requesting school note as well as nausea medication. Patient discharged with Zofran, given strict return precautions. She understands agrees with plan. Patient stable for discharge. Time: 08:47 Medications Administered Discontinued Medications Generic Name Dose Route Start Last Admin Trade Name Corey PRN Reason Stop Dose Admin Diphenhydramine HCl 25 mg 07/18/23 01:30 07/18/23 02:03 Diphenhydramine Hcl 50 Mg/Ml Vial IVPUSH 07/18/23 01:31 25 mg ONCE ONE Administration Sodium Chloride 1,000 mls @ 999 mls/hr 07/18/23 01:30 07/18/23 03:30 Ns IV 07/18/23 02:30 Infused .Q1H1M WILVER Infusion Ketorolac Tromethamine 15 mg 07/18/23 01:30 07/18/23 02:03 Ketorolac Tromethamine 15 Mg/Ml Vial IVPUSH 07/18/23 01:31 15 mg ONCE ONE Administration Ondansetron HCl 4 mg 07/17/23 22:01 07/17/23 22:04 Ondansetron Odt 4 Mg Tab.Rapdis TRANSLINGU 07/17/23 22:02 4 mg ONCE ONE Administration Ondansetron HCl 4 mg 07/18/23 01:30 07/18/23 02:03 Ondansetron Hcl 4 Mg/2 Ml Vial IVPUSH 07/18/23 01:31 4 mg ONCE ONE Administration Medical Decision Making Medical Decision Making [facility] [place] Narrative: Patient is a 28-year-old female with past medical history of omphalocele, gastroschisis, Moebius syndrome presenting to emergency department for evaluation of headache and right lateral neck pain as per HPI. On exam she has no nuchal rigidity, clinically have lower suspicion for meningitis. She has no focal neurological deficits. Her abdominal examination is benign. Has pain and tenderness upon palpation of the right sternocleidomastoid muscle exacerbated with rotation of the head towards the affected sign, concerning for muscular etiology, with resultant tension headache. Labs were obtained prior to my assumption of care, CBC reveals no leukocytosis or anemia. CMP is overall unremarkable. HCG negative. Viral panel is negative. XR of the cervical spine is without acute pathology. Patient received normal saline 1 L IV fluid, in addition to Toradol and Zofran. Differential Diagnosis Differential Diagnoses: The differential diagnosis associated with the presentation includes (See narrative above) Admission/Observation Consideration of admission/observation: Escalation of care including admission/observation considered Lab Data MDM Lab Attestation statement: I reviewed the patient's lab results. (See narrative above) 07/17/23 19:01 07/17/23 19:01 Labs: Lab Results 07/17/23 07/18/23 Range/Units 19:01 01:36 WBC 4.9 (4.8-10.8) X10*3/uL RBC 5.01 D (4.20-5.50) X10*6/uL Hgb 14.5 D (12.0-16.0) g/dl Hct 43.3 D (37.0-47.0) % MCV 86.4 (80.0-98.0) fL MCH 28.9 (27.0-33.0) pg MCHC 33.5 (31.0-35.0) g/dl RDW 14.5 (11.0-16.0) % Plt Count TNP MPV Not Reportable Immature Gran % (Auto) 2.0 H (0.0-0.4) % Neut % (Auto) 52.3 (45-73) % Lymph % (Auto) 33.1 (20-40) % [place] % (Auto) 9.1 (2-11) % Eos % (Auto) 3.3 (0-4) % Baso % (Auto) 0.2 (0-2) % Lymph # (Auto) 1.6 (1.2-4.9) X10*3/uL [place] # (Auto) 0.5 (0.1-1.2) X10*3/uL Eos # (Auto) 0.2 (0.0-0.4) X10*3/uL Baso # (Auto) 0.0 (0.0-0.2) X10*3/uL Abs Immat Gran (auto) 0.10 H (0.00-0.03) X10*3/uL Absolute Neuts (auto) 2.6 (2.0-8.3) x10*3/uL Absolute Nucleated RBC 0.000 (0.0-0.012) X10*3/uL Nucleated RBC % (auto) 0.0 (0.0-0.2) /100WBC Smear Tech's Comments VERIFIED Sodium 140 (135-145) mmol/L Potassium 4.4 D (3.3-5.1) mmol/L Chloride 102 (96-108) mmol/L Carbon Dioxide 26 (22-29) mmol/L Anion Gap 16 (12-20) BUN 14 (9-16) mg/dL Creatinine 0.65 (0.5-1.4) mg/dL Estim Creat Clear Calc 109.6 Estimated GFR > 60 Random Glucose 91 (60-115) mg/dL Calcium 10.6 H D (8.4-10.2) mg/dL Magnesium 2.4 (1.6-2.6) mg/dL Total Bilirubin 0.4 (0.0-1.0) mg/dL AST 22 (5-31) U/L ALT 35 H (0-31) U/L Alkaline Phosphatase 74 (39-117) U/L Total Protein 7.8 (6.5-8.0) g/dL Albumin 4.4 (3.5-5.0) g/dL Beta HCG, Quant < 2 mIU/mL Urine Color Yellow Urine Appearance Cloudy Urine pH 7.0 (5.0-9.0) Ur Specific Baker 1.015 (1.005-1.025) Urine Protein Negative (Neg-Trace) mg/dL Urine Glucose (UA) Negative (Negative) mg/dL Urine Ketones Negative (Negative) mg/dL Urine Blood Moderate (2+) H (Negative) Urine Nitrite Negative (Negative) Ur Leukocyte Esterase Negative (Negative) Urine RBC 11-20 H (0-2) /HPF Urine WBC 0-5 (0-5) /HPF Ur Squamous Epith Cells >20 (0-2) /HPF Urine Bacteria Trace (None Seen) Hyaline Casts 0-2 (0-2) /LPF Influenza Type A (PCR) NEGATIVE (Negative) Influenza Type B (PCR) NEGATIVE (Negative) RSV RNA Qual (PCR) NEGATIVE (Negative) SARS-CoV-2 RNA (RT-PCR) NEGATIVE (Negative) Independent Interpretation I performed an independent interpretation of an: Plain X-Ray (No acute fracture/subluxation) Radiology Impression Discussion of test interpretation with radiology: I have reviewed the radiologist's reading. Radiologist Impression: XR/XR cervical spine 2V IMPRESSION: Unremarkable examination. Independent Historian Clinical information obtained from an independent historian. History obtained from or confirmed by: Friend (Present who confirms history) External Record Review External record reviewed: Inpatient record Admitted to [facility] 07/08/2023-07/11/2023 for retrocardiac infiltrate treated with ceftriaxone, azithromycin, and pulse steroids - was discharged home with doxycycline and prednisone taper over 9 days Discharge Plan Discharge Clinical Impression: Headache, Cervical strain Patient Disposition: Still a Patient Instructions: Acute Headache (ED), Cervical Strain (ED) Additional Instructions: You were seen in the emergency department due to a headache. Your labs were reassuring. Your CT scan of your neck was normal. Please rest, stay well hydrated. I am prescribing a medication called Odansetron. Only use this as needed for nausea. If any new or worsening symptoms occur including but not limited to worsening headaches, dizziness, lightheadedness, chest pain, shortness of breath, please return for re-evaluation. Prescriptions: New ondansetron 4 mg tablet,disintegrating 4 mg PO Q6H PRN (Reason: nausea and vomiting) Qty: 3 0RF No Action albuterol sulfate 90 mcg/actuation Hfa Aerosol Inhaler 2 puff INHALATION Q4-6H PRN (Reason: Shortness Of Breath Or Wheezing) doxycycline hyclate 100 mg tablet 100 mg PO BID Qty: 14 0RF prednisone 20 mg tablet See Rx Instructions .Route .COMPLEX Qty: 18 0RF Rx Instructions: 20 mg orally; 3 tabs daily for 3 days, 2 tabs daily for 3 days, 1 tab daily for 3 days hydrocodone-acetaminophen 5-325 mg tablet 1 tab PO Q6H PRN (Reason: cough/pain) Qty: 14 0RF Rx Instructions: Partial Fill upon patient request. Stand Alone Forms: Work/School Release Print Language: [place] Citizen
[2023-07-17 19:14] LABS: Basophils Percent Auto 0.2 % (0-2); Eosinophils Absolute Auto 0.2 X10*3/uL (0.0-0.4); Eosinophils Percent Auto 3.3 % (0-4); Hematocrit 43.3 % (37.0-47.0); Hemoglobin 14.5 g/dl (12.0-16.0); Lymphocytes Absolute Auto 1.6 X10*3/uL (1.2-4.9); Lymphocytes Percent Auto 33.1 % (20-40); MANUAL DIFF FLAG SCAN; Mean Corpuscular HGB Conc 33.5 g/dl (31.0-35.0); Mean Corpuscular Hemoglobin 28.9 pg (27.0-33.0); Mean Corpuscular Volume 86.4 fL (80.0-98.0); Monocytes Absolute Auto 0.5 X10*3/uL (0.1-1.2); Monocytes Percent Auto 9.1 % (2-11); Neutrophils Absolute Auto 2.6 x10*3/uL (2.0-8.3); Neutrophils Percent Auto 52.3 % (45-73); PLT CLUMP 1; Red Blood Count 5.01 X10*6/uL (4.20-5.50); Red Cell Distribution Width 14.5 % (11.0-16.0); SCAN SMEAR FLAG 1
[2023-07-17 19:35] LABS: White Blood Count 4.9 X10*3/uL (4.8-10.8)
[2023-07-17 19:36] LABS: SLIDE REVIEW VERIFIED
[2023-07-17 19:39] LABS: Alanine Aminotransferase 35 U/L (0-31); Albumin Level 4.4 g/dL (3.5-5.0); Alkaline Phosphatase 74 U/L (39-117); Anion Gap 16 (12-20); Aspartate Amino Transferase 22 U/L (5-31); Bilirubin Total 0.4 mg/dL (0.0-1.0); Blood Urea Nitrogen 14 mg/dL (9-16); Calcium 10.6 mg/dL (8.4-10.2); Carbon Dioxide 26 mmol/L (22-29); Chloride 102 mmol/L (96-108); Creatinine Clr Calc Pharmacy 109.6; Estimated Glomerular Filt Rate > 60; Glucose Random 91 mg/dL (60-115); HCG Quantitative < 2 mIU/mL; Magnesium 2.4 mg/dL (1.6-2.6); Potassium 4.4 mmol/L (3.3-5.1); Sodium 140 mmol/L (135-145); Total Protein 7.8 g/dL (6.5-8.0)
[2023-07-17 19:47] LABS: Influenza A PCR NEGATIVE (Negative); Influenza B PCR NEGATIVE (Negative); Resp Syncy Virus RNA Qual PCR NEGATIVE (Negative); SARS COV2 PCR INHOUSE NEGATIVE (Negative)
[2023-07-17] MEDS: Ondansetron ODT 4 MG TAB.RAPDIS TRANSLINGU (22:04)
[2023-07-17 22:08] VITALS: BP 146/86; PULSE 109; RESP 20; TEMP 37.2; O2SAT 98
--- NOTE | 2023-07-17 22:16 | PC.NURSE ---
pt waiting in waiting room per ed reg staff pt reports feeling like going to pass out pt brought back into triage. pt reports multiple episode of vomiting in waiting room. pt vomiting in triage. pt medicated with po zofran. revitaled HR 109 charge histotechnologist made aware. pt placed in wheelchair and placed back to waiting room per charge histotechnologist
[2023-07-18 01:34] VITALS: BP 110/83; PULSE 86; RESP 18; TEMP 36.6; O2SAT 100
--- NOTE | 2023-07-18 01:34 | MHC.EDTECH ---
Patient ambulated to bathroom with a steady gait,urine sample obtained and sent to lab.Hourly rounds and vitals completed,patient changed into hospital attire,call barnes in reach
[2023-07-18 01:45] LABS: Appearance Urine Cloudy; Color Urine Yellow; Glucose Urine UA Negative (Negative); Leukocyte Esterase Urine Negative (Negative); Nitrite Urine Negative (Negative); Specific Gravity - Urine 1.015 (1.005-1.025); UMIC TRIGGER UACC YES; Urine Blood Moderate (2+) (Negative); Urine Ketones Negative (Negative); Urine Protein Negative (Neg-Trace)
[2023-07-18 01:50] LABS: Bacteria Urine Trace (None Seen); Hyaline Casts Urine 0-2 /LPF (0-2); Squamous Epithelial Cell Urine >20 /HPF (0-2); WBC Urine 0-5 /HPF (0-5)
[2023-07-18] MEDS: Ketorolac Tromethamine 15 MG/ML VIAL IVPUSH (02:03)
[2023-07-18] MEDS: diphenhydrAMINE HCL 50 MG/ML VIAL 25 MG IVPUSH (02:03)
[2023-07-18] MEDS: 0.9 % Sodium Chloride 1,000 ML 999 ML IV (02:03)
[2023-07-18] MEDS: ondansetron HCL 4 MG/2 ML VIAL IVPUSH (02:03)
[2023-07-18 04:00] VITALS: BP 100/69; PULSE 77; RESP 16; TEMP 36.5; O2SAT 98
--- NOTE | 2023-07-18 04:21 | MHC.EDTECH ---
Hourly rounds and vitals completed,patient is resting at this time,call barnes in reach
[2023-07-18 06:00] VITALS: BP 105/67; PULSE 83; RESP 18; TEMP 36.4; O2SAT 100
[2023-07-18 09:31] VITALS: BP 105/67; PULSE 83; RESP 18; TEMP 36.4; O2SAT 100
== END 2023-07-18 09:47 | disposition still patient (30) ==
PROVIDERS: Nurse Practitioner Family; Physician Assistant Medical; Emergency Provider Emergency Medicine Emergency Medical Services
DX: S16.1XXA Strain of muscle, fascia and tendon at neck level, initial encounter (principal); R51.9 Headache, unspecified; M54.2 Cervicalgia; R11.2 Nausea with vomiting, unspecified; X58.XXXA Exposure to other specified factors, initial encounter; Y93.9 Activity, unspecified; Y92.9 Unspecified place or not applicable; Y99.8 Other external cause status; Z03.818 Encounter for observation for suspected exposure to other biological agents ruled out; Z79.899 Other long term (current) drug therapy
CPT/HCPCS: 0241U; 36415; 72040; 80053; 81001; 83735; 84702; 85025; 96361; 96374; 96375; 99284; J1200; J1885; J2405

== ENCOUNTER 2023-12-19 11:35 | Emergency (ER) | payer MEDICAID, SELFPAY ==
--- NOTE | ~2023-12-19 | XR_ITS ---
EXAMINATION: XR CHEST CLINICAL INFORMATION: Chest pain. COMPARISON: X-ray chest 11/12/2023, CTA chest 11/13/2023. TECHNIQUE: Frontal view of the chest was obtained. FINDINGS: Lungs are well-inflated. There is no gross pneumothorax. S-shaped thoracolumbar scoliosis. Heart size within normal limits. No pleural effusion. Redemonstration of retrocardiac air-fluid level, possibly related to previously identified hiatal hernia. Mild streaky opacities at the left lung base may represent atelectasis, although an infectious/inflammatory process should also be considered in the appropriate clinical setting. XR/XR chest 1V IMPRESSION: Mild streaky opacities at the left lung base may represent atelectasis, although an infectious/inflammatory process should also be considered in the appropriate clinical setting. This study was presented today 12/19/2023 for interpretation. Stat results provided at this time as requested by referring provider. Electronically signed by: Josselyn Devries MD 12/19/2023 01:17 PM EDT
--- NOTE | 2023-12-19 11:37 | ECG_ITS ---
Test Reason : CHEST PAIN Blood Pressure : / mmHG Vent. Rate : 093 BPM Atrial Rate : 093 BPM P-R Int : 134 ms QRS Dur : 072 ms QT Int : 358 ms P-R-T Axes : 059 115 009 degrees QTc Int : 445 ms Normal sinus rhythm Right axis deviation Abnormal ECG When compared with ECG of 10-JUL-2023 03:11, Premature supraventricular complexes are no longer Present Vent. rate has increased BY 49 BPM Nonspecific T wave abnormality no longer evident in Lateral leads QT has lengthened Referred By: Rishabh Peck Electronically Signed By:MAKAYLA GALEANO
[2023-12-19 12:23] VITALS: BP 131/78; PULSE 102; RESP 18; TEMP 36.8; O2SAT 96; BMI 27.3
--- NOTE | 2023-12-19 12:27 | ED_ITS ---
HPI - URI/Sore Throat General Chief Complaint: Upper Respiratory Symptoms Stated Complaint: CP-cough Time Seen by Provider: 12/19/23 12:48 Source: patient Mode of arrival: ambulatory Limitations: no limitations History of Present Illness ED Provider: Sadia MEDELLIN HPI Narrative: 28yo F hx of asthma presenting with a few days of cough and chest discomfort secondary to cough, rhinorrhea, sinus congestion, sore throat, subjective fevers. Friend tested (+) for COVID recently. Denies N/V, SOB, drooling. Related Data Home Medications ?Medication ?Instructions ?Recorded ?Confirmed albuterol sulfate 90 mcg/actuation 2 puff inhalation Q4-6H PRN 07/08/23 07/08/23 aerosol inhaler Shortness Of Breath Or Wheezing Previous Rx's ?Medication ?Instructions ?Recorded doxycycline hyclate 100 mg tablet 100 mg PO BID #14 tabs 07/11/23 hydrocodone 5 mg-acetaminophen 325 1 tab PO Q6H PRN cough/pain #14 07/11/23 mg tablet tabs prednisone 20 mg tablet See Rx Instructions .Route 07/11/23 .COMPLEX #18 tabs ondansetron 4 mg disintegrating 4 mg PO Q6H PRN nausea and 07/18/23 tablet vomiting #3 tabs albuterol sulfate 90 mcg/actuation 2 inh inhalation Q4-6H PRN 12/19/23 breath activated powder inhaler shortness of breath or wheezing #1 ea Allergies Allergy/AdvReac Type Severity Reaction Status Date / Time watermelon Allergy Anaphylaxis Verified 12/19/23 12:24 Review of Systems Review of Systems: Yes all other systems are reviewed and are negative PMFSH Past Medical History Attestation statement: The following information was validated with the patient. Source: old records reviewed and nursing notes reviewed Medical History Asthma Moebius' syndrome Social History Social History Household Members: Family Housing: House Do you presently have visiting nurse or other home services: No Patient Tobacco Use Status: Never used Tobacco Do you have a plan to hurt others: No Plan service: No Physical Exam Vital Signs: Vital Signs: Last Vital Signs Temp 98.3 F 12/19/23 12:23 Pulse 102 H 12/19/23 12:23 Resp 18 12/19/23 12:23 BP 131/78 12/19/23 12:23 Pulse Ox 96 12/19/23 12:23 O2 Del Method Room Air 12/19/23 12:23 BMI result Body Mass Index 27.3 VSS Appearance: Alert.? Oriented X3.? No acute distress.? Head: Normocephalic, atraumatic, no step-offs or deformities Eyes: Pupils equal, round and reactive to light.? CVS: Normal heart rate and rhythm.? Pulses normal.? Respiratory: No respiratory distress.? Breath sounds normal.? Skin: Skin warm and dry.? Normal skin color.? Normal skin turgor.? Extremities: No lower extremity edema.? No calf ttp. 5/5 strength to bilateral upper and lower extremities Neuro: Oriented X 3.? No motor deficit.? No sensory deficit. CN 2-12 intact Course Course Course Narrative: This is an RME done by RUSTY Peck: Additional HPI, ROS, PE not included below will be deferred to primary provider. 28yo F hx of asthma presenting with a few days of cough and chest discomfort secondary to cough, rhinorrhea, sinus congestion, sore throat, subjective fevers. Friend tested (+) for COVID recently. Denies N/V, SOB, drooling. Appearance: Alert.? Oriented X3.? No acute cardiopulmonary distress distress.? Head: Normocephalic, atraumatic, no step-offs or deformities CVS: Pulses normal.? Respiratory: No respiratory distress.? Skin: ? Normal skin color. Neuro: Oriented X 3.? Reevaluation(s) Reevaluation #1: Labs pending. EKG normal. CXR unremarkable. Time: 12:53 Medical Decision Making Medical Decision Making MDM Narrative: 28yo F hx of asthma presenting with a few days of cough and chest discomfort secondary to cough, rhinorrhea, sinus congestion, sore throat, subjective fevers. Friend tested (+) for COVID recently. Denies N/V, SOB, drooling. PE: Diffuse b/l expiratory wheezing, mild Hx and PE concerning for COVID-19. Less likely, epiglotitis, pneumonia, PE, ACS, discetion, ARDS, threat to airway, metabolic derangements Plan: serology Differential Diagnosis Differential Diagnoses: The differential diagnosis associated with the presentation includes (Hx and PE concerning for COVID-19. Less likely, epiglotitis, pneumonia, PE, ACS, discetion, ARDS, threat to airway, metabolic derangements) Admission/Observation Consideration of admission/observation: Escalation of care including admission/observation considered (Not indicated) Lab Data MDM Lab Attestation statement: I reviewed the patient's lab results. Labs: Lab Results 12/19/23 Range/Units 12:13 COVID-19 (ZAK) Positive A (Negative) COVID-19 Clin Com See Note Independent Interpretation I performed an independent interpretation of an: EKG (Vent. Rate : 093 BPM Atrial Rate : 093 BPM P-R Int : 134 ms QRS Dur : 072 ms QT Int : 358 ms P-R-T Axes : 059 115 009 degrees QTc Int : 445 ms Normal sinus rhythm Right axis deviation Abnormal ECG When compared with ECG of 10-JUL-2023 03:11, Premature supraventricular ) and Plain X-Ray Radiology Impression Discussion of test interpretation with radiology: I have reviewed the radiologist's reading. External Record Review External record reviewed: Inpatient record, Office record, Outpatient record, Prior outpatient labs and Prior outpatient radiology Prescription Management I considered prescription management with: Other (Inhaler) Chronic Conditions Patient?s care impacted by: Other (Asthma) Discharge Plan Discharge Clinical Impression: COVID-19 Patient Disposition: Home, Self-Care Instructions: COVID-19 (Coronavirus Disease 2019) (ED) Additional Instructions: Take your medications as prescribed. If you were prescribed antibiotics today, it is important that you take your medication to their entirety, do not skip any doses, do not finish them early. Today you tested positive for COVID-19. Take Ibuprofen or Tylenol as needed for fevers or body aches. Quarantine for 5 days and ensure you wear a mask. After 5 days you should wear a mask for 5 days after that. Practice social distancing and good hand hygiene. Drink plenty of fluids. Follow-up with your primary care provider this week. Return to the emergency department with new or worsening symptoms. In case of emergency call 911 You can purchase a pulse oximeter from your local pharmacy or grocery store, and monitor your oxygen saturation if it goes below 94% you should return to the emergency department for further evaluation. Prescriptions: New albuterol sulfate 90 mcg/actuation aerosol powdr breath activated 2 inh inhalation Q4-6H PRN (Reason: shortness of breath or wheezing) Qty: 1 0RF No Action albuterol sulfate 90 mcg/actuation Hfa Aerosol Inhaler 2 puff INHALATION Q4-6H PRN (Reason: Shortness Of Breath Or Wheezing) doxycycline hyclate 100 mg tablet 100 mg PO BID Qty: 14 0RF prednisone 20 mg tablet See Rx Instructions .Route .COMPLEX Qty: 18 0RF Rx Instructions: 20 mg orally; 3 tabs daily for 3 days, 2 tabs daily for 3 days, 1 tab daily for 3 days hydrocodone-acetaminophen 5-325 mg tablet 1 tab PO Q6H PRN (Reason: cough/pain) Qty: 14 0RF Rx Instructions: Partial Fill upon patient request. ondansetron 4 mg tablet,disintegrating 4 mg PO Q6H PRN (Reason: nausea and vomiting) Qty: 3 0RF Referrals: Physician,Nonstaff [Primary Care Provider] - 2 days Print Language: Peruvian
[2023-12-19 12:32] LABS: COVID-19 Test Positive (Negative); IDNOW Serial# 08D9AD1C
[2023-12-19 12:51] LABS: Troponin-I High Sensitivity < 2.7 ng/L (<3.5-17.0)
[2023-12-19 12:52] VITALS: BP 131/78; PULSE 102; RESP 18; TEMP 36.8; O2SAT 96
[2023-12-19 17:45] LABS: Alanine Aminotransferase 21 U/L (0-31); Albumin Level 4.5 g/dL (3.5-5.0); Alkaline Phosphatase 84 U/L (39-117); Anion Gap 13 (12-20); Aspartate Amino Transferase 33 U/L (5-31); Bilirubin Total 0.3 mg/dL (0.0-1.0); Blood Urea Nitrogen 7 mg/dL (9-16); Calcium 9.4 mg/dL (8.4-10.2); Carbon Dioxide 22 mmol/L (22-29); Chloride 109 mmol/L (96-108); Creatinine Clr Calc Pharmacy 96.7; Estimated Glomerular Filt Rate > 60; Glucose Random 88 mg/dL (60-115); Magnesium 2.4 mg/dL (1.6-2.6); Potassium 4.6 mmol/L (3.3-5.1); Sodium 139 mmol/L (135-145)
== END 2023-12-19 12:55 | disposition home or self-care (01) ==
LOC: HO.ED 12:55
PROVIDERS: Physician Assistant; Emergency Provider Emergency Medicine Emergency Medical Services
DX: U07.1 COVID-19 (principal); R07.89 Other chest pain; R05.9 Cough, unspecified; R50.9 Fever, unspecified; Z79.899 Other long term (current) drug therapy
CPT/HCPCS: 36415; 71045; 80053; 83735; 84484; 87635; 93005; 99283

== ENCOUNTER 2024-01-01 03:18 | Inpatient (IN) | payer MEDICAID, SELFPAY ==
[2024-01-01] VITALS (7 sets, daily range): BP systolic 101–133; BP diastolic 52–80; PULSE 58–91; RESP 15–20; TEMP 36.1–37.3; O2SAT 96–100; BMI 27.3
--- NOTE | ~2024-01-01 | FL_ITS ---
EXAMINATION: FL SMALL BOWEL SERIES CLINICAL INFORMATION: Abdominal pain. Concern for small bowel obstruction. COMPARISON: CT scan January 01, 2024 TECHNIQUE: Following a senior capital markets specialist image of the abdomen, contrast was administered orally, and interval abdominal radiographs were performed to assess for contrast progression through the small bowel. Following contrast transit through the small bowel and into the colon, the patient was placed on the fluoroscopy table, and multiple spot images were obtained. FINDINGS: Culled Fruit Packer image of the abdomen demonstrates a nonspecific bowel gas pattern with a large amount of stool noted in the right and left colon. After 30 minutes, Gastrografin is observed in the left colon. There are some mildly dilated loops of small bowel in the lower central and left pelvis, as seen on recent CT. Contrast does become diluted as it passes to the right colon. A moderate amount of contrast still present in the stomach. FLUOROSCOPY TIME: 2 seconds DOSE AREA PRODUCT: 731.2 uGy-m2 (microgray-meter squared) FL/FL small bowel follow through IMPRESSION: 1. Mildly dilated loops of small bowel in the pelvis as seen on recent CT. Contrast is seen in the left colon after 30 minutes. This suggest a low-grade or partial small bowel obstruction. 2. Constipation. 3. When correlating proximal dilated ileal loops with recent CT scan, there are a few enhancing foci noted in the dilated proximal ileal loops. These may represent small polyps but is nonspecific. IBD is a consideration. This is best seen on coronal series 7, images 21 through 26. Consider correlating with capsule endoscopy. Alternatively, MR or CT enterography could be performed. This procedure was performed by Bryant Diaz PA-C, and supervised by Dr. Canales Electronically signed by: Edwin Canales MD 01/04/2024 04:20 PM EDT
--- NOTE | ~2024-01-01 | XR_ITS ---
EXAMINATION: XR ABDOMEN KUB CLINICAL INDICATION: Partial small bowel obstruction COMPARISON: CT abdomen from January 01, 2024 TECHNIQUE: AP view of the abdomen. FINDINGS: There is nonspecific bowel gas pattern through the colon with moderate amount of retained feces is no evidence of free air or bowel obstruction. XR/XR KUB IMPRESSION: Nonspecific bowel gas pattern Electronically signed by: Jan Bernardo MD 01/03/2024 04:18 PM EDT
--- NOTE | ~2024-01-01 | CT_ITS ---
EXAMINATION: CT ABDOMEN AND PELVIS WITH CONTRAST CLINICAL INFORMATION: COMPARISON: None available. TECHNIQUE: Multidetector volumetric images were obtained from the superior aspect of the liver through the pubic symphysis following administration 85 mL of Omnipaque 350 intravenous contrast. Sagittal and 7/22, sagittal 8:61. Reformatted images were obtained on the technologist's workstation. Oral contrast: No This CT examination was performed using dose optimization techniques as appropriate, variously including the following: *Automated exposure control *Adjustment of mA and/or kV according to patient size (this includes techniques or standardized protocols for targeted exams where dose is matched to indication/reason for exam; i.e. extremities or head) *Use of iterative reconstruction technique DLP: 691 mGy-cm FINDINGS: BELT BUILDER HELPER: Nonobstructive bowel pattern. LUNG BASES: Mild atelectasis. LIVER, GALLBLADDER, AND BILIARY TREE: The liver is normal in size, shape, and attenuation. No focal hepatic lesion or biliary ductal dilatation is present. The gallbladder is unremarkable with no evidence of radiopaque gallstones, gallbladder wall thickening, or obvious pericholecystic inflammatory changes. PANCREAS: Unremarkable. SPLEEN: Unremarkable. ADRENAL GLANDS: Unremarkable. KIDNEYS AND URETERS: The kidneys are normal in size, shape, and attenuation. No hydronephrosis, hydroureter, or calculi seen. No perinephric stranding. BLADDER: Decompressed. GASTROINTESTINAL TRACT: Moderately large hiatal hernia. GE junction clips again seen. Decompressed stomach with posterior gastric diverticulum. Several prominent fluid-filled small bowel loops in the midabdomen and pelvis. Fairly abrupt transition from dilated fluid-filled small bowel loops to decompressed small bowel loop in the mid anterior pelvis, axial CT , coronal 7:22, sagittal 8:61. Terminal ileum is unremarkable. Question previous appendectomy. Moderately severe fecal retention. Descending colon is decompressed with possible mild wall thickening and stranding. Small amount of left pericolonic fluid again seen. ABDOMINAL WALL: No significant hernia is appreciated. Nonspecific anterior midline infra and supraclavicular umbilical soft tissue stranding. LYMPH NODES: Normal. VASCULAR: Unremarkable. PELVIC VISCERA: Prominent heterogeneous uterus and endometrium, similar to previous. Involuting right ovarian follicle. OSSEOUS STRUCTURES: Unremarkable. CT/CT abdomen pelvis w IV con IMPRESSION: Multiple prominent fluid-filled small bowel loops mid abdomen and pelvis with possible zone of transition distal small bowel as described above. Partial small bowel obstruction questioned. Descending colonic wall thickening and mild pericolonic stranding, mild colitis not excluded. Moderately severe fecal retention. Small amount of left paracolic gutter fluid is also seen on previous study. Redemonstration prominent heterogeneous uterus and endometrial. If symptoms are referable, consider pelvic ultrasound. Fleischner guidelines were followed. Electronically signed by: Ann Alexander MD 01/01/2024 11:30 AM EDT
--- NOTE | 2024-01-01 03:31 | ECG_ITS ---
Test Reason : ABD PAIN Blood Pressure : / mmHG Vent. Rate : 085 BPM Atrial Rate : 085 BPM P-R Int : 142 ms QRS Dur : 074 ms QT Int : 368 ms P-R-T Axes : 068 115 021 degrees QTc Int : 437 ms Normal sinus rhythm Right axis deviation Abnormal ECG When compared with ECG of 19-DEC-2023 11:38, No significant change was found Referred By: Generic ED Physician Electronically Signed By:MAKAYLA GALEANO
[2024-01-01 04:16] LABS: Basophils Percent Auto 0.4 % (0-2); Eosinophils Absolute Auto 0.2 X10*3/uL (0.0-0.4); Eosinophils Percent Auto 3.6 % (0-4); Hematocrit 39.1 % (37.0-47.0); Hemoglobin 13.1 g/dl (12.0-16.0); Imm Gran Abs Auto 0.02 X10*3/uL (0.00-0.03); Imm Gran Pct Auto 0.4 % (0.0-0.4); Lymphocytes Absolute Auto 0.8 X10*3/uL (1.2-4.9); Lymphocytes Percent Auto 15.5 % (20-40); MANUAL DIFF FLAG SCAN; Mean Corpuscular HGB Conc 33.5 g/dl (31.0-35.0); Mean Corpuscular Hemoglobin 29.2 pg (27.0-33.0); Mean Corpuscular Volume 87.1 fL (80.0-98.0); Mean Platelet Volume 9.6 fL (9.4-12.3); Monocytes Absolute Auto 0.4 X10*3/uL (0.1-1.2); Monocytes Percent Auto 8.3 % (2-11); Neutrophils Absolute Auto 3.6 x10*3/uL (2.0-8.3); Neutrophils Percent Auto 71.8 % (45-73); PLT CLUMP 1; Red Blood Count 4.49 X10*6/uL (4.20-5.50); Red Cell Distribution Width 15.6 % (11.0-16.0); SCAN SMEAR FLAG 1
[2024-01-01 04:17] LABS: White Blood Count 4.9 X10*3/uL (4.8-10.8)
[2024-01-01 04:34] LABS: Platelet Count 239 X10*3/uL (160-400)
[2024-01-01 04:38] LABS: SLIDE REVIEW VERIFIED
[2024-01-01 04:39] LABS: Alanine Aminotransferase 15 U/L (0-31); Albumin Level 4.3 g/dL (3.5-5.0); Alkaline Phosphatase 70 U/L (39-117); Anion Gap 13 (12-20); Aspartate Amino Transferase 24 U/L (5-31); Bilirubin Total 0.6 mg/dL (0.0-1.0); Blood Urea Nitrogen 10 mg/dL (9-16); Calcium 9.7 mg/dL (8.4-10.2); Carbon Dioxide 20 mmol/L (22-29); Chloride 112 mmol/L (96-108); Estimated Glomerular Filt Rate > 60; Glucose Random 109 mg/dL (60-115); Lipase 53 U/L (8-78); Potassium 4.4 mmol/L (3.3-5.1); Sodium 141 mmol/L (135-145); Total Protein 7.4 g/dL (6.5-8.0); Troponin-I High Sensitivity < 2.7 ng/L (<3.5-17.0)
[2024-01-01 04:45] LABS: Influenza A PCR NEGATIVE (Negative); Influenza B PCR NEGATIVE (Negative); Resp Syncy Virus RNA Qual PCR NEGATIVE (Negative); SARS COV2 PCR INHOUSE NEGATIVE (Negative)
--- NOTE | 2024-01-01 06:35 | ED_ITS ---
HPI - Abdominal Pain General Chief Complaint: Abdominal Pain Stated Complaint: stomach pain Time Seen by Provider: 01/01/24 06:27 Source: patient Mode of arrival: ambulatory Limitations: no limitations History of Present Illness ED Provider: Gautam Frazier PA-C HPI narrative: 28 yo female with history of gastrochisis, Moebius syndrome, asthma, hx PNA, hx bowel obstruction x2 in the past who presents to the ER for evaluation of acute onset of severe central abdominal pain that started at 2-3am along with 3 episodes of vomiting. She reports the pain is 10/10 and constant. No further vomiting since arrival to the ER. Her last bowel movement was yesterday and was normal. She denies any fevers or chills. No cough or upper respiratory symptoms. No pelvic pain or urinary symptoms. MD elicited complaint: abdominal pain Pertinent past history: other (hx bowel obstruction) Onset (ago): hour(s) (4) Pain Consistency: constant Location: periumbilical Severity: severe Pain scale (0-10): 10 Quality: stabbing Radiation: epigastric Migration to: no migration Exacerbating factors: nothing Relieving factors: nothing Context: history of similar episodes Associated symptoms: nausea and vomiting Related Data Home Medications ?Medication ?Instructions ?Recorded ?Confirmed albuterol sulfate 90 mcg/actuation 2 puff inhalation Q4-6H PRN 07/08/23 07/08/23 aerosol inhaler Shortness Of Breath Or Wheezing albuterol sulfate 90 mcg/actuation inhalation 01/01/24 breath activated powder inhaler (ProAir RespiClick) Allergies Allergy/AdvReac Type Severity Reaction Status Date / Time watermelon Allergy Anaphylaxis Verified 01/01/24 03:24 metoclopramide [From Reglan] AdvReac Shakiness Verified 01/01/24 03:35 Review of Systems Review of Systems Yes all other systems are reviewed and are negative [facility] Past Medical History Medical History (Updated 01/01/24 @ 12:55 by RUSTY Marcano) Asthma Moebius' syndrome Surgical History (Updated 01/01/24 @ 12:49 by Moon Liu PA-C) History of laparotomy Social History Social History Household Members: Family Housing: House Do you presently have visiting nurse or other home services: No Patient Tobacco Use Status: Never used Tobacco Smoked in Last 30 Days: No Use of substances other than those prescribed or required for medical reasons: No Advance Directives: No Advance Directives Information Provided: No Do you have a plan to hurt others: No Plan service: No Physical Exam ED Vital Signs: Vital Signs - 24 hr 01/01/24 03:23 01/01/24 06:15 01/01/24 08:12 Temperature 97.9 F 97.0 F 98 F Pulse Rate 91 85 58 Respiratory Rate 18 17 18 Blood Pressure 119/74 102/57 L 103/62 Pulse Oximetry 96 100 98 Oxygen Delivery Method Room Air Room Air Room Air 01/01/24 12:42 Temperature 98.2 F Pulse Rate 68 Respiratory Rate 16 Blood Pressure 101/52 L Pulse Oximetry 97 Oxygen Delivery Method Room Air BMI result Body Mass Index 27.3 Appearance: Alert. Oriented X3. No acute distress. Head: normocephalic, atraumatic. Eyes: Pupils equal, round and reactive to light. ENT: Pharynx normal. No tonsillar swelling or exudate. Neck: Normal inspection. Neck supple. CVS: Normal heart rate and rhythm. Pulses normal. Respiratory: No respiratory distress. Breath sounds normal. Abdomen: Well-healed longitudinal surgical scar, distended and tender abdomen with guarding, tenderness mostly in the periumbilical area in the right middle abdomen. Decreased but present +BS x4 Skin: Skin warm and dry. Normal skin color. Normal skin turgor. No rashes. Extremities: No lower extremity edema. No joint swelling. 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 Normal speech and cognition. 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 Abdomen is tender with guarding throughout, somewhat firm. No vomiting. She is nontoxic appearing. She is reporting 10/10 pain. IV was established she was given IV morphine. Lab work shows normal CBC. Urinalysis negative for infection and . Upon re-evaluation patient reports the pain was decreased but is now increasing back to an 8. Repeat morphine ordered with good effect. CT scan was done that shows evidence of a possible small bowel obstruction with a transition point. Will plan for admission to the hospital, Dr. Huber accepts patient for admission. Differential Diagnosis Differential Diagnoses: The differential diagnosis associated with the presentation includes SBO, gastroenteritis, ileus, pancreatitis, cholecystitis, appendicitis, perforated bowel Admission/Observation Consideration of admission/observation: Escalation of care including admission/observation considered Consult Healthcare Provider Management of the patient was discussed with: Clinical Research Physician Dr. Huber Lab Data MDM Lab Attestation statement: I reviewed the patient's lab results. Mild anemia, mildly elevated chloride, no major other metabolic derangement 01/01/24 04:03 01/01/24 04:03 Labs: Lab Results 01/01/24 01/01/24 Range/Units 04:03 07:37 WBC 4.9 (4.8-10.8) X10*3/uL RBC 4.49 (4.20-5.50) X10*6/uL Hgb 13.1 (12.0-16.0) g/dl Hct 39.1 (37.0-47.0) % MCV 87.1 (80.0-98.0) fL MCH 29.2 (27.0-33.0) pg MCHC 33.5 (31.0-35.0) g/dl RDW 15.6 (11.0-16.0) % Plt Count 239 (160-400) X10*3/uL MPV 9.6 (9.4-12.3) fL Immature Gran % (Auto) 0.4 (0.0-0.4) % Neut % (Auto) 71.8 (45-73) % Lymph % (Auto) 15.5 L (20-40) % [place] % (Auto) 8.3 (2-11) % Eos % (Auto) 3.6 (0-4) % Baso % (Auto) 0.4 (0-2) % Lymph # (Auto) 0.8 L (1.2-4.9) X10*3/uL [place] # (Auto) 0.4 (0.1-1.2) X10*3/uL Eos # (Auto) 0.2 (0.0-0.4) X10*3/uL Baso # (Auto) 0.0 (0.0-0.2) X10*3/uL Abs Immat Gran (auto) 0.02 (0.00-0.03) X10*3/uL Absolute Neuts (auto) 3.6 (2.0-8.3) x10*3/uL Absolute Nucleated RBC 0.000 (0.0-0.012) X10*3/uL Nucleated RBC % (auto) 0.0 (0.0-0.2) /100WBC Smear Tech's Comments VERIFIED Sodium 141 (135-145) mmol/L Potassium 4.4 (3.3-5.1) mmol/L Chloride 112 H (96-108) mmol/L Carbon Dioxide 20 L (22-29) mmol/L Anion Gap 13 (12-20) BUN 10 (9-16) mg/dL Creatinine 0.67 (0.5-1.4) mg/dL Estim Creat Clear Calc 104.0 Estimated GFR > 60 Random Glucose 109 (60-115) mg/dL Calcium 9.7 (8.4-10.2) mg/dL Total Bilirubin 0.6 (0.0-1.0) mg/dL AST 24 (5-31) U/L ALT 15 (0-31) U/L Alkaline Phosphatase 70 (39-117) U/L Troponin I High Sens < 2.7 (<3.5-17.0) ng/L Total Protein 7.4 (6.5-8.0) g/dL Albumin 4.3 (3.5-5.0) g/dL Lipase 53 (8-78) U/L Urine Color Yellow Urine Appearance Cloudy Urine pH >= 9.0 (5.0-9.0) Ur Specific [place] 1.025 (1.005-1.025) Urine Protein 30 (1+) H (Neg-Trace) mg/dL Urine Glucose (UA) Negative (Negative) mg/dL Urine Ketones Negative (Negative) mg/dL Urine Blood Small (1+) H (Negative) Urine Nitrite Negative (Negative) Ur Leukocyte Esterase Trace H (Negative) Urine RBC 0-2 (0-2) /HPF Urine WBC 0-5 (0-5) /HPF Ur Squamous Epith Cells >20 (0-2) /HPF Urine Bacteria Trace (None Seen) Hyaline Casts 0-2 (0-2) /LPF Urine Test NEGATIVE (NEGATIVE) Influenza Type A (PCR) NEGATIVE (Negative) Influenza Type B (PCR) NEGATIVE (Negative) RSV RNA Qual (PCR) NEGATIVE (Negative) SARS-CoV-2 RNA (RT-PCR) NEGATIVE (Negative) Independent Interpretation I performed an independent interpretation of an: CT Scan Interpretation: Multiple dilated loops of bowel, agrees radiology read Radiology Impression Discussion of test interpretation with radiology: I have reviewed the radiologist's reading. Radiologist Impression: EXAMINATION: CT ABDOMEN AND PELVIS WITH CONTRAST CLINICAL INFORMATION: COMPARISON: None available. TECHNIQUE: Multidetector volumetric images were obtained from the superior aspect of the liver through the pubic symphysis following administration 85 mL of Omnipaque 350 intravenous contrast. Sagittal and 7/22, sagittal 8:61. Reformatted images were obtained on the technologist's workstation. Oral contrast: No This CT examination was performed using dose optimization techniques as appropriate, variously including the following: *Automated exposure control *Adjustment of mA and/or kV according to patient size (this includes techniques or standardized protocols for targeted exams where dose is matched to indication/reason for exam; i.e. extremities or head) *Use of iterative reconstruction technique DLP: 691 mGy-cm FINDINGS: MOTORCOACH DRIVER: Nonobstructive bowel pattern. LUNG BASES: Mild atelectasis. LIVER, GALLBLADDER, AND BILIARY TREE: The liver is normal in size, shape, and attenuation. No focal hepatic lesion or biliary ductal dilatation is present. The gallbladder is unremarkable with no evidence of radiopaque gallstones, gallbladder wall thickening, or obvious pericholecystic inflammatory changes. PANCREAS: Unremarkable. SPLEEN: Unremarkable. ADRENAL GLANDS: Unremarkable. KIDNEYS AND URETERS: The kidneys are normal in size, shape, and attenuation. No hydronephrosis, hydroureter, or calculi seen. No perinephric stranding. BLADDER: Decompressed. GASTROINTESTINAL TRACT: Moderately large hiatal hernia. GE junction clips again seen. Decompressed stomach with posterior gastric diverticulum. Several prominent fluid-filled small bowel loops in the midabdomen and pelvis. Fairly abrupt transition from dilated fluid-filled small bowel loops to decompressed small bowel loop in the mid anterior pelvis, axial CT , coronal 7:22, sagittal 8:61. Terminal ileum is unremarkable. Question previous appendectomy. Moderately severe fecal retention. Descending colon is decompressed with possible mild wall thickening and stranding. Small amount of left pericolonic fluid again seen. ABDOMINAL WALL: No significant hernia is appreciated. Nonspecific anterior midline infra and supraclavicular umbilical soft tissue stranding. LYMPH NODES: Normal. VASCULAR: Unremarkable. PELVIC VISCERA: Prominent heterogeneous uterus and endometrium, similar to previous. Involuting right ovarian follicle. OSSEOUS STRUCTURES: Unremarkable. CT/CT abdomen pelvis w IV con IMPRESSION: Multiple prominent fluid-filled small bowel loops mid abdomen and pelvis with possible zone of transition distal small bowel as described above. Partial small bowel obstruction questioned. Descending colonic wall thickening and mild pericolonic stranding, mild colitis not excluded. Moderately severe fecal retention. Small amount of left paracolic gutter fluid is also seen on previous study. Redemonstration prominent heterogeneous uterus and endometrial. If symptoms are referable, consider pelvic ultrasound. External Record Review External record reviewed: Inpatient record, Outpatient record, Prior outpatient labs and Prior outpatient radiology Prescription Management I considered prescription management with: Pain Medication and Antibiotic Chronic Conditions Patient?s care impacted by: Other (History of bowel obstructions in the past) Medications Administered Discontinued Medications Generic Name Dose Route Start Last Admin Trade Name Freq PRN Reason Stop Dose Admin Sodium Chloride 1,000 mls @ 999 mls/hr 01/01/24 08:45 01/01/24 12:00 Ns IVCONT 01/01/24 09:45 Infused .Q1H1M WILVER Infusion Iohexol 85 ml 01/01/24 08:30 01/01/24 08:30 Iohexol 350 Mg/Ml 100 Ml Infus..Btl IV 01/01/24 08:31 85 ml ONCE ONE Administration Morphine Sulfate 4 mg 01/01/24 06:50 01/01/24 07:54 Morphine Sulfate 4 Mg/Ml Cartridge IVPUSH 01/01/24 06:51 4 mg ONCE ONE Administration Protocol Morphine Sulfate 4 mg 01/01/24 12:06 01/01/24 12:15 Morphine Sulfate 4 Mg/Ml Cartridge IVPUSH 01/01/24 12:07 4 mg ONCE ONE Administration Protocol Ondansetron HCl 4 mg 01/01/24 06:50 01/01/24 07:54 Ondansetron Hcl 4 Mg/2 Ml Vial IVPUSH 01/01/24 06:51 4 mg ONCE ONE Administration Critical Care Time Critical Care Time Critical Care Time: Yes Total Critical Care Time: 36 Attestation: I have personally provided critical care time exclusive of time spent on separately billable procedures. Time includes review of lab data, radiology results, discussion with consultants, bedside re-evaluation after administration of IV narcotics and monitoring for potential decompensation. Intervention performed as documented. Discharge Plan Discharge Clinical Impression: Partial small bowel obstruction Patient Disposition: Admitted As Inpatient Print Language: Polish
[2024-01-01 07:47] LABS: Appearance Urine Cloudy; Color Urine Yellow; Glucose Urine UA Negative (Negative); Leukocyte Esterase Urine Trace (Negative); Nitrite Urine Negative (Negative); PH >= 9.0 (5.0-9.0); Specific Gravity - Urine 1.025 (1.005-1.025); UMIC TRIGGER UACC YES; Urine Blood Small (1+) (Negative); Urine Ketones Negative (Negative); Urine Protein 30 (1+) mg/dL (Neg-Trace)
[2024-01-01 07:48] LABS: UPreg QC Valid YES; Urine Pregnancy NEGATIVE (NEGATIVE)
[2024-01-01 07:54] LABS: Bacteria Urine Trace (None Seen); Hyaline Casts Urine 0-2 /LPF (0-2); RBC Urine 0-2 /HPF (0-2); Squamous Epithelial Cell Urine >20 /HPF (0-2); WBC Urine 0-5 /HPF (0-5)
[2024-01-01] MEDS: ondansetron HCL 4 MG/2 ML VIAL IVPUSH (07:54)
[2024-01-01] MEDS: Morphine Sulfate 4 MG/ML CARTRIDGE IVPUSH ×4 (07:54→20:46)
[2024-01-01] MEDS: iohexoL 350 MG/ML 100 ML INFUS..BTL 85 ML IV (08:30)
[2024-01-01] MEDS: 0.9 % Sodium Chloride 1,000 ML 999 ML IVCONT (08:55)
--- NOTE | 2024-01-01 12:46 | PM.HPGS ---
History of Present Illness History of Present Illness Date of Service: 01/01/24 <Moon Liu PA-C - Last Filed: 01/01/24 14:14> 01/01/24 <Alyson Huber MD - Last Filed: 01/01/24 21:40> Chief complaint: PSBO <Moon Liu PA-C - Last Filed: 01/01/24 14:14> Narrative: Cecille Matthew is a 28 year old female PMH of Moebius syndrome, gastroschisis, asthma who presented to the ED with complaints of acute onset of abdominal pain and vomiting. She reports she developed mid abdominal pain last night. She was able to fall asleep but the pain continued to wake her up overnight. The pain became more severe and diffuse and she then developed nausea and vomiting. She reports this is similar to her prior episodes of SBOs. She reports her last episode was in 2018 and required surgery at [place]. She is unsure of the details but knows an appendectomy was performed. An NGT is usually placed without difficulty. Due to the severity of pain, she presented to the ED for evaluation. Work up in the ED included CBC, BMP, LFTs which were WNL. CT scan abd/pelvis shows prominent fluid filled small bowel loops in the midabdomen and pelvis with possible transition point in the mid anterior pelvis. She reports feeling somewhat improved now. She has some mild nausea but has not vomited since early this morning. She reports she has not passed flatus today but had a BM yesterday which was normal. She normally goes every 2-3 days. SHe is on oral iron therapy for anemia secondary to menorrhagia. She denies fever, chills, hematemesis, diarrhea, melena, hematochezia, sick contacts. She was sick with Covid 2 weeks prior. <Moon Liu PA-C - Last Filed: 01/01/24 14:14> Review of Systems Constitutional: Constitutional: Denies chills and Denies fever(s) <LACIE Montes Last Filed: 01/01/24 14:14> ENT: Denies dizziness <Moon Liu PA-C - Last Filed: 01/01/24 14:14> Cardiovascular: Cardiovascular: Denies chest pain and Denies dyspnea <Moon Liu PA-C - Last Filed: 01/01/24 14:14> Respiratory: Respiratory: Denies cough and Denies dyspnea <Moon Liu PA-C - Last Filed: 01/01/24 14:14> Gastrointestinal: Gastrointestinal: Reports as per HPI <Moon Liu PA-C - Last Filed: 01/01/24 14:14> Genitourinary: Genitourinary: Denies dysuria <oMon Liu PA-C - Last Filed: 01/01/24 14:14> Musculoskeletal: Musculoskeletal: Denies numbness <Moon Liu PA-C - Last Filed: 01/01/24 14:14> Integumentary/Breasts: Skin/Breast: Denies rash and Denies jaundice <Moon Liu PA-C - Last Filed: 01/01/24 14:14> Neurologic: Denies dizziness and Denies numbness <Moon Liu PA-C - Last Filed: 01/01/24 14:14> [facility] Past Medical History Medical History: Medical History (Updated 01/01/24 @ 12:55 by RUSTY Marcano) Asthma Moebius' syndrome <Moon Liu PA-C - Last Filed: 01/01/24 14:14> Surgical History Surgical History: Surgical History (Updated 01/01/24 @ 12:49 by Moon Liu PA-C) History of laparotomy <Moon Liu PA-C - Last Filed: 01/01/24 14:14> Social History Social History: Social History Household Members: Family Housing: House Do you presently have visiting nurse or other home services: No Patient Tobacco Use Status: Never used Tobacco Smoked in Last 30 Days: No Use of substances other than those prescribed or required for medical reasons: No Advance Directives: No Advance Directives Information Provided: No Do you have a plan to hurt others: No Plan Nutrition Risks: No Nutritional Risk service: No <Moon Liu PA-C - Last Filed: 01/01/24 14:14> Meds Allergies/Adverse reactions: Allergies Allergy/AdvReac Type Severity Reaction Status Date / Time watermelon Allergy Anaphylaxis Verified 01/01/24 03:24 metoclopramide [From Reglan] AdvReac Shakiness Verified 01/01/24 03:35 <Moon Liu PA-C - Last Filed: 01/01/24 14:14> Active Medications: Current Medications Acetaminophen (Acetaminophen 325 Mg Tablet) 650 mg PO Q6H PRN PRN Reason: Pain, Mild (Pain Scale 1-3), fever or headache Lactated Ringer's (Lr) 1,000 mls @ 100 mls/hr IVCONT .Q10H WILVER Ketorolac Tromethamine (Ketorolac Tromethamine 30 Mg/Ml Vial) 30 mg IVPUSH Q6H PRN PRN Reason: Pain, Mild (Pain Scale 1-3) Stop: 01/06/24 12:40 Melatonin (Melatonin 3 Mg Tablet) 6 mg PO BEDTIME PRN PRN Reason: Insomnia Morphine Sulfate (Morphine Sulfate 4 Mg/Ml Cartridge) 4 mg IVPUSH Q4H PRN; Protocol PRN Reason: Pain, Severe (Pain Scale 7-10) Ondansetron HCl (Ondansetron Hcl 4 Mg/2 Ml Vial) 4 mg IVPUSH Q8H PRN PRN Reason: Nausea and Vomiting Sodium Biphosphate/Sodium Phosphate (Sodium Phosphate,[place]-Dibasic 133 Ml Enema) 133 ml MI ONCE ONE Stop: 01/01/24 16:42 Sodium Chloride (0.9 % Sodium Chloride Flush 3 Ml Syringe) 3 ml IVFLUSH QSHIFT [facility] <Moon Liu PA-C - Last Filed: 01/01/24 14:14> Home medications: Home Medications ?Medication ?Instructions ?Recorded ?Confirmed ?Last Taken ?Type albuterol sulfate 90 mcg/actuation 2 inh inhalation Q4-6H PRN 01/01/24 01/01/24 Unknown History breath activated powder inhaler Shortness Of Breath Or Wheezing (ProAir RespiClick) iron,carbonyl 65 mg-vitamin C 125 1 tab PO Q OTHER DAY 01/01/24 01/01/24 12/31/23 History mg tablet,delayed release (Vitron-C) <LACIE Montes Last Filed: 01/01/24 14:14> Physical Exam Vital Signs: Vital Signs: Last Vital Signs Temp 98.2 F 01/01/24 12:42 Pulse 68 01/01/24 12:42 Resp 16 01/01/24 12:42 BP 101/52 L 01/01/24 12:42 Pulse Ox 97 01/01/24 12:42 O2 Del Method Room Air 01/01/24 12:42 BMI result Body Mass Index 27.3 <Moon Vázquezdeau RUSTY Last Filed: 01/01/24 14:14> Const: General: comfortable, no acute distress and alert <Moon Vázquezkatrina [facility] Last Filed: 01/01/24 14:14> Orientation/consciousness: patient oriented x3 <Moon Vázquezdeau [facility] Filed: 01/01/24 14:14> Neck: Neck: No JVD <Moonzack Vázquezdeau [facility] Filed: 01/01/24 14:14> Resp: Effort & Inspection: normal respiratory effort <Moon Liu RUSTY Filed: 01/01/24 14:14> Cardio: Rate: regular rate <Moon Liu [facility] Filed: 01/01/24 14:14> GI: Inspection: No distended and Yes scar <Moonzack Vázquezdeau [facility] Last Filed: 01/01/24 14:14> Palpation (GI): Soft to palpation, Tenderness to palpation present (GI) (mild diffuse tenderness) with no rebound tenderness, no guarding and not rigid <Moon Vázquezdeau [facility] Last Filed: 01/01/24 14:14> Percussion: Yes normal to percussion <Moonzack Vázquezkatrina [facility] [employer] Last Filed: 01/01/24 14:14> Abdomen image: 1. 2. <Moon Alvareznadir RUSTY [facility] Filed: 01/01/24 14:14> Skin: General skin exam: no rashes or lesions noted and no jaundice <Moon Alvareznadir [facility] [employer] Filed: 01/01/24 14:14> Neuro: General: patient oriented x3 <Moon Liu PA-C Last Filed: 01/01/24 14:14> Results Results Labs: Short CBC 01/01/24 Range/Units 04:03 WBC 4.9 (4.8-10.8) X10*3/uL Hgb 13.1 (12.0-16.0) g/dl Hct 39.1 (37.0-47.0) % Plt Count 239 (160-400) X10*3/uL BMP 01/01/24 04:03 Sodium 141 Potassium 4.4 Chloride 112 H Carbon Dioxide 20 L BUN 10 Creatinine 0.67 Calcium 9.7 Liver Function 01/01/24 Range/Units 04:03 Total Bilirubin 0.6 (0.0-1.0) mg/dL AST 24 (5-31) U/L ALT 15 (0-31) U/L Alkaline Phosphatase 70 (39-117) U/L Albumin 4.3 (3.5-5.0) g/dL Urine 01/01/24 Range/Units 07:37 Urine Color Yellow Urine Appearance Cloudy Urine pH >= 9.0 (5.0-9.0) Ur Specific [place] 1.025 (1.005-1.025) Urine Protein 30 (1+) H (Neg-Trace) mg/dL Urine Glucose (UA) Negative (Negative) mg/dL Urine Test NEGATIVE (NEGATIVE) <LACIE Montes Last Filed: 01/01/24 14:14> Abdomen CT scan report/results: report reviewed and image reviewed <Moon iLu PA-C Last Filed: 01/01/24 14:14> Assessment and Plan (1) Partial small bowel obstruction: Status: Acute <LACIE Montes Last Filed: 01/01/24 14:14> 28 year old female PMH of Moebius syndrome, gastroschisis, asthma with hx of SBOs requiring laparotomy presenting with acute onset of diffuse abdominal pain and vomiting overnight with CT scan showing dilated fluid filled small bowel loops concerning for PSBO. The patient will be admitted to the surgical service for further treatment. Patient is clinically appearing well with an overall benign abdominal exam. Will therefore continue nonoperative measures. Continue NPO status, IVF, PRN antiemetics and pain control. Will hold off on NGT insertion as she feels somewhat improved and has stopped vomiting. Further plan dependent on clinical course but hopefully surgical intervention can be avoided. Patient is comfortable with plan. Colon FOS. Will order enemas, place on bowel regimen once PSBO resolves. <Moon Liu PA-C - Last Filed: 01/01/24 14:14> 28 year old female PMH of Moebius syndrome, gastroschisis, asthma with hx of SBOs requiring laparotomy presenting with acute onset of diffuse abdominal pain and vomiting overnight with CT scan showing dilated fluid filled small bowel loops concerning for PSBO. The patient will be admitted to the surgical service for further treatment. Patient is clinically appearing well with an overall benign abdominal exam. Will therefore continue nonoperative measures. Continue NPO status, IVF, PRN antiemetics and pain control. Will hold off on NGT insertion as she feels somewhat improved and has stopped vomiting. Further plan dependent on clinical course but hopefully surgical intervention can be avoided. Patient is comfortable with plan. Colon FOS. Will order enemas, place on bowel regimen once PSBO resolves. pt seen and examined - pt with multiple previous surgeries and now with psbo - ? secondary to adhesion. abdo soft nondistended hypo but present bowel sounds. labs ok plan to npo ivf and reassess tomorow. <Alyson Huber MD - Last Filed: 01/01/24 21:40> Quality Stroke Does the patient have a stroke diagnosis?: No <Moon Liu PA-C - Last Filed: 01/01/24 14:14> VTE Prior VTE?: No <Moon Liu PA-C - Last Filed: 01/01/24 14:14> VTE Risk Level:: Medical - low <Moon Liu PA-C - Last Filed: 01/01/24 14:14> VTE Device Contraindication: N/A - Device Ordered <Moon Liu PA-C - Last Filed: 01/01/24 14:14> VTE Drug Contraindication: Treatment Not Indicated <Moon Liu PA-C - Last Filed: 01/01/24 14:14> Procedures Date of Service Date of Service: 01/01/24 <Moon Liu PA-C - Last Filed: 01/01/24 14:14> 01/01/24 <Alyson Huber MD - Last Filed: 01/01/24 21:40>
[2024-01-01] MEDS: Lactated Ringers 1,000 ML 100 ML IVCONT ×2 (13:16→21:57)
--- NOTE | 2024-01-01 13:58 | PHA.MEDREC ---
Addendum entered by Fred Peng RPh 01/01/24 14:02: Reviewed by [facility] Original Note: Pharmacy Consult ? Medication Reconciliation Pharmacy has completed the medication reconciliation. Spoke to patient to confirm medications.
--- NOTE | 2024-01-01 17:33 | PC.NURSE ---
Ok to have sips of liquids and ice chips until midnight tonight. Strict NPO at 00:00 on 01/02/24, per RUSTY Terrazas.
[2024-01-01] MEDS: Ketorolac Tromethamine 30 MG/ML VIAL IVPUSH (22:01)
[2024-01-01] MEDS: Melatonin 3 MG TABLET 6 MG PO (22:01)
[2024-01-02] MEDS: Morphine Sulfate 4 MG/ML CARTRIDGE IVPUSH ×5 (02:08→23:11)
--- NOTE | 2024-01-02 02:10 | PC.NURSE ---
Assumed patient care @2300. PRN Pain medication administered per provider's order for c/o ABD pain 10/16. Pt ambulated to the bathroom w/o difficulties independently. Call barnes within [facility].
[2024-01-02 06:39] LABS: Anion Gap 12 (12-20); Blood Urea Nitrogen 8 mg/dL (9-16); Calcium 8.7 mg/dL (8.4-10.2); Carbon Dioxide 19 mmol/L (22-29); Chloride 112 mmol/L (96-108); Creatinine Clr Calc Pharmacy 107.2; Estimated Glomerular Filt Rate > 60; Glucose Random 79 mg/dL (60-115); Potassium 4.3 mmol/L (3.3-5.1); Sodium 139 mmol/L (135-145)
[2024-01-02 06:52] VITALS: BP 103/59; PULSE 57; RESP 17; TEMP 36.4; O2SAT 97
--- NOTE | 2024-01-02 07:00 | PC.NURSE ---
report recieved from previous RN, patient resting on stretcher, medicated for pain by previous RN, offering no complaints at this time awaiting admission plan
[2024-01-02] MEDS: Lactated Ringers 1,000 ML 100 ML IVCONT ×2 (07:33→18:26)
--- NOTE | 2024-01-02 09:37 | PC.NURSE ---
patient ambulatory with steady gait to take shower on unit, not offering any complaints at this time. ADLs performed independently.
[2024-01-02 09:50] LABS: MANUAL DIFF FLAG NO
[2024-01-02 09:55] LABS: Eosinophils Absolute Auto 0.2 X10*3/uL (0.0-0.4); Eosinophils Percent Auto 5.8 % (0-4); Hematocrit 37.9 % (37.0-47.0); Hemoglobin 12.4 g/dl (12.0-16.0); Imm Gran Abs Auto 0.01 X10*3/uL (0.00-0.03); Imm Gran Pct Auto 0.3 % (0.0-0.4); Lymphocytes Absolute Auto 1.3 X10*3/uL (1.2-4.9); Lymphocytes Percent Auto 42.4 % (20-40); Mean Corpuscular HGB Conc 32.7 g/dl (31.0-35.0); Mean Corpuscular Volume 88.8 fL (80.0-98.0); Mean Platelet Volume 9.9 fL (9.4-12.3); Monocytes Absolute Auto 0.4 X10*3/uL (0.1-1.2); Monocytes Percent Auto 11.3 % (2-11); Neutrophils Absolute Auto 1.2 x10*3/uL (2.0-8.3); Neutrophils Percent Auto 39.2 % (45-73); Platelet Count 184 X10*3/uL (160-400); Red Blood Count 4.27 X10*6/uL (4.20-5.50); Red Cell Distribution Width 15.5 % (11.0-16.0); White Blood Count 3.1 X10*3/uL (4.8-10.8)
--- NOTE | 2024-01-02 10:15 | PM.PNGS ---
Subjective Subjective Date of Service: 01/03/24 Interval history: Says she still has abdominal pain although better compared to yesterday No further vomiting since admission Denies flatus Physical Exam Vital Signs: Vital Signs: Last Vital Signs Temp 97.6 F 01/02/24 06:52 Pulse 57 01/02/24 06:52 Resp 17 01/02/24 06:52 BP 103/59 L 01/02/24 06:52 Pulse Ox 97 01/02/24 06:52 O2 Del Method Room Air 01/02/24 06:52 BMI result Body Mass Index 27.3 Const: General: no acute distress Orientation/consciousness: patient oriented x3 Resp: Effort & Inspection: normal respiratory effort Cardio: Rate: regular rate GI: Other: Some tenderness diffusely with no guarding rebound Palpation (GI): Soft to palpation and not firm Neuro: General: patient oriented x3 Objective Data Active Medications Acetaminophen (Acetaminophen 325 Mg Tablet) 650 mg PO Q6H PRN PRN Reason: Pain, Mild (Pain Scale 1-3), fever or headache Albuterol Sulfate (Albuterol Sulfate 90 Mcg 8 Gm Inhaler) 2 puff INHALE Q4H PRN PRN Reason: Shortness Of Breath Or Wheezing Lactated Ringer's (Lr) 1,000 mls @ 100 mls/hr IVCONT .Q10H WILVER Last Admin: 01/02/24 07:33 Dose: 100 mls/hr Documented By: ASHA Ketorolac Tromethamine (Ketorolac Tromethamine 30 Mg/Ml Vial) 30 mg IVPUSH Q6H PRN PRN Reason: Pain, Mild (Pain Scale 1-3) Stop: 01/06/24 12:40 Last Admin: 01/01/24 22:01 Dose: 30 mg Documented By: COLTON Melatonin (Melatonin 3 Mg Tablet) 6 mg PO BEDTIME PRN PRN Reason: Insomnia Last Admin: 01/01/24 22:01 Dose: 6 mg Documented By: COLTON Morphine Sulfate (Morphine Sulfate 4 Mg/Ml Cartridge) 4 mg IVPUSH Q4H PRN; Protocol PRN Reason: Pain, Severe (Pain Scale 7-10) Last Admin: 01/02/24 06:46 Dose: 4 mg Documented By: CARMELA Ondansetron HCl (Ondansetron Hcl 4 Mg/2 Ml Vial) 4 mg IVPUSH Q8H PRN PRN Reason: Nausea and Vomiting Sodium Chloride (0.9 % Sodium Chloride Flush 3 Ml Syringe) 3 ml IVFLUSH QSHIFT [facility] Last Admin: 01/02/24 07:34 Dose: Not Given Documented By: ASHA Non-Admin Reason: IV Running Labs 01/02/24 09:46 01/02/24 06:05 Labs: Laboratory Results - last 24 hr 01/02/24 01/02/24 06:05 09:46 MCV 88.8 MCH 29.0 MCHC 32.7 RDW 15.5 Plt Count 184 MPV 9.9 Immature Gran % (Auto) 0.3 Neut % (Auto) 39.2 L Lymph % (Auto) 42.4 H Mccracken % (Auto) 11.3 H Eos % (Auto) 5.8 H Baso % (Auto) 1.0 Lymph # (Auto) 1.3 [place]racken # (Auto) 0.4 Eos # (Auto) 0.2 Baso # (Auto) 0.0 Abs Immat Gran (auto) 0.01 Absolute Neuts (auto) 1.2 L Absolute Nucleated RBC 0.000 Nucleated RBC % (auto) 0.0 Anion Gap 12 Estim Creat Clear Calc 107.2 Estimated GFR > 60 Random Glucose 79 Calcium 8.7 D Laboratory Results WBC 3.1 X10*3/uL (4.8-10.8) L 01/02/24 09:46 RBC 4.27 X10*6/uL (4.20-5.50) 01/02/24 09:46 Hgb 12.4 g/dl (12.0-16.0) 01/02/24 09:46 Hct 37.9 % (37.0-47.0) 01/02/24 09:46 MCV 88.8 fL (80.0-98.0) 01/02/24 09:46 MCH 29.0 pg (27.0-33.0) 01/02/24 09:46 MCHC 32.7 g/dl (31.0-35.0) 01/02/24 09:46 RDW 15.5 % (11.0-16.0) 01/02/24 09:46 Plt Count 184 X10*3/uL (160-400) 01/02/24 09:46 MPV 9.9 fL (9.4-12.3) 01/02/24 09:46 Immature Gran % (Auto) 0.3 % (0.0-0.4) 01/02/24 09:46 Neut % (Auto) 39.2 % (45-73) L 01/02/24 09:46 Lymph % (Auto) 42.4 % (20-40) H 01/02/24 09:46 M[place]racken % (Auto) 11.3 % (2-11) H 01/02/24 09:46 Eos % (Auto) 5.8 % (0-4) H 01/02/24 09:46 Baso % (Auto) 1.0 % (0-2) 01/02/24 09:46 Lymph # (Auto) 1.3 X10*3/uL (1.2-4.9) 01/02/24 09:46 M[place]racken # (Auto) 0.4 X10*3/uL (0.1-1.2) 01/02/24 09:46 Eos # (Auto) 0.2 X10*3/uL (0.0-0.4) 01/02/24 09:46 Baso # (Auto) 0.0 X10*3/uL (0.0-0.2) 01/02/24 09:46 Abs Immat Gran (auto) 0.01 X10*3/uL (0.00-0.03) 01/02/24 09:46 Absolute Neuts (auto) 1.2 x10*3/uL (2.0-8.3) L 01/02/24 09:46 Absolute Nucleated RBC 0.000 X10*3/uL (0.0-0.012) 01/02/24 09:46 Nucleated RBC % (auto) 0.0 /100WBC (0.0-0.2) 01/02/24 09:46 Smear Tech's Comments VERIFIED 01/01/24 04:03 Sodium 139 mmol/L (135-145) 01/02/24 06:05 Potassium 4.3 mmol/L (3.3-5.1) 01/02/24 06:05 Chloride 112 mmol/L (96-108) H 01/02/24 06:05 Carbon Dioxide 19 mmol/L (22-29) L 01/02/24 06:05 Anion Gap 12 (12-20) 01/02/24 06:05 BUN 8 mg/dL (9-16) L 01/02/24 06:05 Creatinine 0.65 mg/dL (0.5-1.4) 01/02/24 06:05 Estim Creat Clear Calc 107.2 01/02/24 06:05 Estimated GFR > 60 01/02/24 06:05 Random Glucose 79 mg/dL (60-115) 01/02/24 06:05 Calcium 8.7 mg/dL (8.4-10.2) D 01/02/24 06:05 Total Bilirubin 0.6 mg/dL (0.0-1.0) 01/01/24 04:03 AST 24 U/L (5-31) 01/01/24 04:03 ALT 15 U/L (0-31) 01/01/24 04:03 Alkaline Phosphatase 70 U/L (39-117) 01/01/24 04:03 Troponin I High Sens < 2.7 ng/L (<3.5-17.0) 01/01/24 04:03 Total Protein 7.4 g/dL (6.5-8.0) 01/01/24 04:03 Albumin 4.3 g/dL (3.5-5.0) 01/01/24 04:03 Lipase 53 U/L (8-78) 01/01/24 04:03 Urine Color Yellow 01/01/24 07:37 Urine Appearance Cloudy 01/01/24 07:37 Urine pH >= 9.0 (5.0-9.0) 01/01/24 07:37 Ur Specific [place] 1.025 (1.005-1.025) 01/01/24 07:37 Urine Protein 30 (1+) mg/dL (Neg-Trace) H 01/01/24 07:37 Urine Glucose (UA) Negative mg/dL (Negative) 01/01/24 07:37 Urine Ketones Negative mg/dL (Negative) 01/01/24 07:37 Urine Blood Small (1+) (Negative) H 01/01/24 07:37 Urine Nitrite Negative (Negative) 01/01/24 07:37 Ur Leukocyte Esterase Trace (Negative) H 01/01/24 07:37 Urine RBC 0-2 /HPF (0-2) 01/01/24 07:37 Urine WBC 0-5 /HPF (0-5) 01/01/24 07:37 Ur Squamous Epith Cells >20 /HPF (0-2) 01/01/24 07:37 Urine Bacteria Trace (None Seen) 01/01/24 07:37 Hyaline Casts 0-2 /LPF (0-2) 01/01/24 07:37 Urine Test NEGATIVE (NEGATIVE) 01/01/24 07:37 Influenza Type A (PCR) NEGATIVE (Negative) 01/01/24 04:03 Influenza Type B (PCR) NEGATIVE (Negative) 01/01/24 04:03 RSV RNA Qual (PCR) NEGATIVE (Negative) 01/01/24 04:03 SARS-CoV-2 RNA (RT-PCR) NEGATIVE (Negative) 01/01/24 04:03 Impressions Abdomen/Pelvis CT 01/01/24 06:50 IMPRESSION: Multiple prominent fluid-filled small bowel loops mid abdomen and pelvis with possible zone of transition distal small bowel as described above. Partial small bowel obstruction questioned. Descending colonic wall thickening and mild pericolonic stranding, mild colitis not excluded. Moderately severe fecal retention. Small amount of left paracolic gutter fluid is also seen on previous study. Redemonstration prominent heterogeneous uterus and endometrial. If symptoms are referable, consider pelvic ultrasound. Fleischner guidelines were followed. Electronically signed by: Ann Alexander MD 01/01/2024 11:30 AM EDT RP Procedures Date of Service Date of Service: 01/03/24 Progress Note: A&P Assessment and plan (1) Partial small bowel obstruction: Status: Acute Assessment and Plan: No further vomiting Pain and tenderness improving slowly We will keep NPO except ice chips and small sips Stool softeners Abdomen soft and benign otherwise IV fluids Time Spent With Patient Time: Total time managing care of this patient today ____ minutes. Quality Stroke Does the patient have a stroke diagnosis?: No VTE Prior VTE?: No VTE Risk Level:: Medical - low VTE Device Contraindication: N/A - Device Ordered VTE Drug Contraindication: Treatment Not Indicated
--- NOTE | 2024-01-02 11:34 | PC.NURSE ---
patient resting comfortably on stretcher at this time, not offering any complaints to this RN, had endorsed some nausea to surgical PA, was provided with ice chips, no nausea or vomiting noted at this time. per Surgical PA if patient continues to have persistent nausea or vomiting to alert them ?NG tube placement, educated PA that if patient requires NG tube that she cannot be in the Overflow unit. will continue to monitor patient for nausea or vomiting, charge weigher to be updated on potential plan of care
[2024-01-02] MEDS: ondansetron HCL 4 MG/2 ML VIAL IVPUSH (11:42)
--- NOTE | 2024-01-02 12:43 | MHC.CM.PN ---
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 PT WILL SELF ARRANGE TRANSPORT AT [place]
--- NOTE | 2024-01-02 12:46 | PC.NURSE ---
patient ambulatory with steady gait to bathroom
--- NOTE | 2024-01-02 13:40 | PM.EVENT ---
Event Note Date of Service: 01/02/24 Event Note: Seen on follow-up afternoon rounds Complains of abdominal pain, not worse Abdomen is soft no guarding no rebound some diffuse tenderness No further vomiting She looks well overall Keep NPO IV fluids Follow-up KUB tomorrow Time Spent With Patient Time: Total time managing care of this patient today ____ minutes.
--- NOTE | 2024-01-02 14:22 | PC.NURSE ---
patient continues to endorse some nausea and pain despite medication administration, MD Milton made aware, plan of care to remain the same at this time.
--- NOTE | 2024-01-02 15:55 | PC.NURSE ---
PIV noted to be infiltrated, removed and this rn placed new 20g PIV in left shoulder. IV appears patent, patient denies pain, IV running on IV pump without complications, patient endorsing comfort with new IV site.
[2024-01-02 16:16] VITALS: BP 112/66; PULSE 85; RESP 16; TEMP 37; O2SAT 95
--- NOTE | 2024-01-02 17:09 | PC.NURSE ---
patient resting comfortably on stretcher, occasionally ambulatory to restroom independently. still offering some complaints of discomfort but states if she rests it gets a little better, remains NPO at this time. plan of care ongoing
[2024-01-02] MEDS: Docusate Sodium 100 MG CAPSULE PO (20:27)
[2024-01-02 21:17] VITALS: BP 122/66; PULSE 64; RESP 14; TEMP 36.9; O2SAT 100
[2024-01-03] MEDS: Lactated Ringers 1,000 ML 100 ML IVCONT ×2 (04:45→15:18)
[2024-01-03] MEDS: Morphine Sulfate 4 MG/ML CARTRIDGE IVPUSH ×3 (05:55→18:00)
--- NOTE | 2024-01-03 07:50 | PC.NURSE ---
pt being transported to [facility] at this time.
[2024-01-03] MEDS: Docusate Sodium 100 MG CAPSULE PO ×2 (08:17→20:31)
--- NOTE | 2024-01-03 08:18 | PC.NURSE ---
dr. gallo bedside discussing plan of care w/ pt. pt medicated per provider order. per dr. chacon, small sips of water as well as ice chips are allowed. pt currently reports 7/10 generalized abd pain and nausea at this time. no sob/wob noted. respirations even/unlabored. plan of care ongoing. call barnes placed within reach.
[2024-01-03 08:26] VITALS: BP 121/58; PULSE 69; RESP 16; O2SAT 97
--- NOTE | 2024-01-03 09:03 | P.PNGS_ITS ---
Subjective Subjective Date of Service: 01/03/24 Interval history: Denies flatus Some pain but clinically seems to be much improved Has some nausea but no vomiting Physical Exam 2 Vital Signs: Vital Signs: Last Vital Signs Temp 98.5 F 01/02/24 21:17 Pulse 69 01/03/24 08:26 Resp 16 01/03/24 08:26 BP 121/58 L 01/03/24 08:26 Pulse Ox 97 01/03/24 08:26 O2 Del Method Room Air 01/03/24 08:26 BMI result Body Mass Index 27.3 Const: General: comfortable and no acute distress Resp: Effort & Inspection: normal respiratory effort Cardio: Rate: regular rate GI: Palpation (GI): Soft to palpation, not firm, Tenderness to palpation present (GI) (Mild tenderness diffusely) and no guarding Objective Data Active Medications Acetaminophen (Acetaminophen 325 Mg Tablet) 650 mg PO Q6H PRN PRN Reason: Pain, Mild (Pain Scale 1-3), fever or headache Albuterol Sulfate (Albuterol Sulfate 90 Mcg 8 Gm Inhaler) 2 puff INHALE Q4H PRN PRN Reason: Shortness Of Breath Or Wheezing Docusate Sodium (Docusate Sodium 100 Mg Capsule) 100 mg PO BID [facility] Last Admin: 01/03/24 08:17 Dose: 100 mg Documented By: SINA Lactated Ringer's (Lr) 1,000 mls @ 100 mls/hr IVCONT .Q10H [facility] Last Admin: 01/03/24 04:45 Dose: 100 mls/hr Documented By: YARELY Ketorolac Tromethamine (Ketorolac Tromethamine 30 Mg/Ml Vial) 30 mg IVPUSH Q6H PRN PRN Reason: Pain, Mild (Pain Scale 1-3) Stop: 01/06/24 12:40 Last Admin: 01/01/24 22:01 Dose: 30 mg Documented By: COLTON Melatonin (Melatonin 3 Mg Tablet) 6 mg PO BEDTIME PRN PRN Reason: Insomnia Last Admin: 01/01/24 22:01 Dose: 6 mg Documented By: COLTON Morphine Sulfate (Morphine Sulfate 4 Mg/Ml Cartridge) 4 mg IVPUSH Q3H PRN; Protocol PRN Reason: Pain, Severe (Pain Scale 7-10) Last Admin: 01/03/24 05:55 Dose: 4 mg Documented By: YARELY Ondansetron HCl (Ondansetron Hcl 4 Mg/2 Ml Vial) 4 mg IVPUSH Q8H PRN PRN Reason: Nausea and Vomiting Last Admin: 01/02/24 11:42 Dose: 4 mg Documented By: ASHA Promethazine HCl (Promethazine Hcl 25 Mg Tablet) 25 mg PO Q6H PRN PRN Reason: Nausea Sodium Chloride (0.9 % Sodium Chloride Flush 3 Ml Syringe) 3 ml IVFLUSH QSHIFT [facility] Last Admin: 01/03/24 07:37 Dose: Not Given Documented By: SINA Non-Admin Reason: IV Running Labs 01/02/24 09:46 01/02/24 06:05 Labs: Laboratory Results - last 24 hr 01/02/24 09:46 MCV 88.8 MCH 29.0 MCHC 32.7 RDW 15.5 Plt Count 184 MPV 9.9 Immature Gran % (Auto) 0.3 Neut % (Auto) 39.2 L Lymph % (Auto) 42.4 H [place] % (Auto) 11.3 H Eos % (Auto) 5.8 H Baso % (Auto) 1.0 Lymph # (Auto) 1.3 [place] # (Auto) 0.4 Eos # (Auto) 0.2 Baso # (Auto) 0.0 Abs Immat Gran (auto) 0.01 Absolute Neuts (auto) 1.2 L Absolute Nucleated RBC 0.000 Nucleated RBC % (auto) 0.0 Procedures Date of Service Date of Service: 01/03/24 Progress Note: A&P Assessment and plan (1) Partial small bowel obstruction: Status: Acute Assessment and Plan: Has had no vomiting Abdomen soft and benign KUB seen - good amounts of air in the colon We will try on clear liquids Labs okay I explained above to the patient Time Spent With Patient Time: Total time managing care of this patient today ____ minutes. Quality Stroke Does the patient have a stroke diagnosis?: No VTE Prior VTE?: No VTE Risk Level:: Medical - low VTE Device Contraindication: N/A - Device Ordered VTE Drug Contraindication: Treatment Not Indicated
[2024-01-03] MEDS: ondansetron HCL 4 MG/2 ML VIAL IVPUSH ×2 (09:30→18:00)
--- NOTE | 2024-01-03 09:38 | PC.NURSE ---
Pt requested pain meds for increased abd pain. Has been ambultory. Awaits update from Dr Milton.
[2024-01-03 09:57] VITALS: BP 115/59; PULSE 61; RESP 16; O2SAT 96
[2024-01-03 11:26] VITALS: BP 109/63; PULSE 65; RESP 16; TEMP 36.6; O2SAT 95
[2024-01-03 11:29] VITALS: BMI 30.7
[2024-01-03 15:14] VITALS: BP 121/83; PULSE 87; RESP 18; TEMP 36.2; O2SAT 99
--- NOTE | 2024-01-03 15:29 | PM.EVENT ---
Event Note Date of Service: 01/03/24 Event Note: Seen on afternoon rounds Looks much better Says she has less pain Denies flatus Abdomen soft benign, much less tender Clinically looks well Keep on clear liquids for now and likely advance tomorrow Time Spent With Patient Time: Total time managing care of this patient today ____ minutes.
[2024-01-03 18:00] VITALS: RESP 17
[2024-01-03 19:10] VITALS: BP 125/58; PULSE 75; RESP 18; TEMP 36.7; O2SAT 94
[2024-01-04] MEDS: ondansetron HCL 4 MG/2 ML VIAL IVPUSH (00:24)
[2024-01-04] MEDS: Morphine Sulfate 4 MG/ML CARTRIDGE IVPUSH ×2 (00:25→09:26)
[2024-01-04] MEDS: Lactated Ringers 1,000 ML 100 ML IVCONT ×3 (00:25→20:35)
[2024-01-04 03:46] VITALS: BP 96/50; PULSE 70; RESP 16; TEMP 36.3; O2SAT 94
[2024-01-04 07:25] VITALS: BP 144/91; PULSE 99; RESP 14; TEMP 36.6; O2SAT 96
--- NOTE | 2024-01-04 07:40 | P.PNGS_ITS ---
Subjective Subjective Date of Service: 01/04/24 <Moon Liu PA-C - Last Filed: 01/04/24 08:44> 01/04/24 <Jon Milton MD - Last Filed: 01/04/24 09:23> Interval history: Increasing pain following liquids, nausea this morning. Continues to deny flatus or BM. Has been OOB and ambulating. <Moon Liu PA-C - Last Filed: 01/04/24 08:44> Physical Exam 2 Vital Signs: Vital Signs: Last Vital Signs Temp 97.8 F 01/04/24 07:25 Pulse 99 01/04/24 07:25 Resp 14 01/04/24 07:25 BP 144/91 H 01/04/24 07:25 Pulse Ox 96 01/04/24 07:25 O2 Del Method Room Air 01/04/24 07:25 BMI result Body Mass Index 30.7 <Moon Liu PA-C - Last Filed: 01/04/24 08:44> Const: Orientation/consciousness: patient oriented x3 <Moon Liu PA-C - Last Filed: 01/04/24 08:44> Resp: Effort & Inspection: normal respiratory effort <LACIE Montes Last Filed: 01/04/24 08:44> GI: Inspection: No distended <Moon Liu PA-C - Last Filed: 01/04/24 08:44> Palpation (GI): Soft to palpation, Tenderness to palpation present (GI) (mild diffuse) and no guarding <Moon Liu PA-C - Last Filed: 01/04/24 08:44> Percussion: Yes normal to percussion <Moon Liu PA-C - Last Filed: 01/04/24 08:44> Skin: General skin exam: no rashes or lesions noted <LACIE Montes Last Filed: 01/04/24 08:44> Neuro: General: patient oriented x3 and moves all extremities <LACIE Montes Last Filed: 01/04/24 08:44> Objective Data Active Medications Acetaminophen (Acetaminophen 325 Mg Tablet) 650 mg PO Q6H PRN PRN Reason: Pain, Mild (Pain Scale 1-3), fever or headache Albuterol Sulfate (Albuterol Sulfate 90 Mcg 8 Gm Inhaler) 2 puff INHALE Q4H PRN PRN Reason: Shortness Of Breath Or Wheezing Docusate Sodium (Docusate Sodium 100 Mg Capsule) 100 mg PO BID [facility] Last Admin: 01/03/24 20:31 Dose: 100 mg Documented By: JENNIFER Lactated Ringer's (Lr) 1,000 mls @ 100 mls/hr IVCONT .Q10H [facility] Last Admin: 01/04/24 00:25 Dose: 100 mls/hr Documented By: JENNIFER Ketorolac Tromethamine (Ketorolac Tromethamine 30 Mg/Ml Vial) 30 mg IVPUSH Q6H PRN PRN Reason: Pain, Mild (Pain Scale 1-3) Stop: 01/06/24 12:40 Last Admin: 01/01/24 22:01 Dose: 30 mg Documented By: COLTON Melatonin (Melatonin 3 Mg Tablet) 6 mg PO BEDTIME PRN PRN Reason: Insomnia Last Admin: 01/01/24 22:01 Dose: 6 mg Documented By: COLTON Morphine Sulfate (Morphine Sulfate 4 Mg/Ml Cartridge) 4 mg IVPUSH Q3H PRN; Protocol PRN Reason: Pain, Severe (Pain Scale 7-10) Last Admin: 01/04/24 00:25 Dose: 4 mg Documented By: JENNIFER Ondansetron HCl (Ondansetron Hcl 4 Mg/2 Ml Vial) 4 mg IVPUSH Q8H PRN PRN Reason: Nausea and Vomiting Last Admin: 01/04/24 00:24 Dose: 4 mg Documented By: JENNIFER Promethazine HCl (Promethazine Hcl 25 Mg Tablet) 25 mg PO Q6H PRN PRN Reason: Nausea Sodium Chloride (0.9 % Sodium Chloride Flush 3 Ml Syringe) 3 ml IVFLUSH QSHIFT [facility] Last Admin: 01/04/24 00:13 Dose: Not Given Documented By: JENNIFER Non-Admin Reason: IV Running <Moon Liu PA-C - Last Filed: 01/04/24 08:44> Labs CBC & Chem 7: 01/02/24 09:46 01/02/24 06:05 <Moon Liu PA-C - Last Filed: 01/04/24 08:44> Procedures Date of Service Date of Service: 01/04/24 <Moon Liu PA-C - Last Filed: 01/04/24 08:44> 01/04/24 <Jon Milton MD - Last Filed: 01/04/24 09:23> Progress Note: A&P Assessment and plan (1) Partial small bowel obstruction: Status: Acute <Moon Liu PA-C - Last Filed: 01/04/24 08:44> Assessment and Plan: Says she was able to rest overnight However, she says some pain with oral intake Abdomen remained soft and benign Small-bowel follow-through order Looks well overall No vomiting Seen and examined independently <Jon Milton MD - Last Filed: 01/04/24 09:23> Assessment and Plan: Overall abdomen remains benign but continued discomfort. SBFT ordered for today. Cont IVF, ambulation, clears as tolerated. <Moon Liu PA-C - Last Filed: 01/04/24 08:44> Time Spent With Patient Time: Total time managing care of this patient today ____ minutes. <Moon Liu PA-C - Last Filed: 01/04/24 08:44> Quality Stroke Does the patient have a stroke diagnosis?: No <Moon Liu PA-C - Last Filed: 01/04/24 08:44> VTE Prior VTE?: No <Moon Liu PA-C - Last Filed: 01/04/24 08:44> VTE Risk Level:: Medical - low <Moon Liu PA-C - Last Filed: 01/04/24 08:44> VTE Device Contraindication: N/A - Device Ordered <Moon Liu PA-C - Last Filed: 01/04/24 08:44> VTE Drug Contraindication: Treatment Not Indicated <Moon Liu PA-C - Last Filed: 01/04/24 08:44>
[2024-01-04] MEDS: Diatrizoate Meglumine, Sodium 120 ML SOLUTION 240 ML PO (08:17)
[2024-01-04] MEDS: Docusate Sodium 100 MG CAPSULE PO ×2 (09:26→20:19)
[2024-01-04 10:06] LABS: Anion Gap 14 (12-20); Blood Urea Nitrogen 4 mg/dL (9-16); Calcium 10.1 mg/dL (8.4-10.2); Carbon Dioxide 21 mmol/L (22-29); Chloride 112 mmol/L (96-108); Creatinine Clr Calc Pharmacy 98.3; Estimated Glomerular Filt Rate > 60; Glucose Random 97 mg/dL (60-115); Potassium 4.4 mmol/L (3.3-5.1); Sodium 143 mmol/L (135-145)
--- NOTE | 2024-01-04 10:28 | MHC.CM.PN ---
Patient not medically cleared for dc. CM will continue to follow.
[2024-01-04] MEDS: Potassium Chloride Packet 20 MEQ PACKET 40 MEQ PO (11:15)
[2024-01-04 15:27] VITALS: BP 111/53; PULSE 64; RESP 20; TEMP 36.6; O2SAT 97
[2024-01-04 19:40] VITALS: BP 145/80; PULSE 88; RESP 20; TEMP 36.6; O2SAT 92
[2024-01-05 03:39] VITALS: BP 115/71; PULSE 71; RESP 16; TEMP 36.4; O2SAT 98
[2024-01-05] MEDS: Lactated Ringers 1,000 ML 100 ML IVCONT ×2 (05:42→16:04)
[2024-01-05] MEDS: Morphine Sulfate 4 MG/ML CARTRIDGE IVPUSH ×3 (05:49→20:04)
[2024-01-05] MEDS: ondansetron HCL 4 MG/2 ML VIAL IVPUSH (05:49)
[2024-01-05 07:57] VITALS: BP 97/49; PULSE 54; RESP 16; TEMP 36.2; O2SAT 98
--- NOTE | 2024-01-05 09:05 | PM.PNGS ---
Subjective Subjective Date of Service: 01/05/24 Interval history: Patient did report some abdominal pain earlier this morning feels improved today. Has past multiple liquid stools consistent with oral contrast. She tolerated clear liquids well without nausea or vomiting and is interested in trying some pudding and ice pops. Physical Exam Vital Signs: Vital Signs: Last Vital Signs Temp 97.1 F 01/05/24 07:57 Pulse 54 01/05/24 07:57 Resp 16 01/05/24 07:57 BP 97/49 L 01/05/24 07:57 Pulse Ox 98 01/05/24 07:57 O2 Del Method Room Air 01/05/24 07:57 BMI result Body Mass Index 30.7 Const: General: no acute distress Nutritional Appearance: well nourished Orientation/consciousness: patient oriented x3 Resp: Effort & Inspection: normal respiratory effort GI: Inspection: Yes normal to inspection Palpation (GI): Soft to palpation, nontender, no guarding and not rigid Percussion: Yes normal to percussion Neuro: General: patient oriented x3 Objective Data Active Medications Acetaminophen (Acetaminophen 325 Mg Tablet) 650 mg PO Q6H PRN PRN Reason: Pain, Mild (Pain Scale 1-3), fever or headache Albuterol Sulfate (Albuterol Sulfate 90 Mcg 8 Gm Inhaler) 2 puff INHALE Q4H PRN PRN Reason: Shortness Of Breath Or Wheezing Docusate Sodium (Docusate Sodium 100 Mg Capsule) 100 mg PO BID [facility] Last Admin: 01/04/24 20:19 Dose: 100 mg Documented By: JENNIFER Lactated Ringer's (Lr) 1,000 mls @ 100 mls/hr IVCONT .Q10H [facility] Last Admin: 01/05/24 05:42 Dose: 100 mls/hr Documented By: JENNIFER Ketorolac Tromethamine (Ketorolac Tromethamine 30 Mg/Ml Vial) 30 mg IVPUSH Q6H PRN PRN Reason: Pain, Mild (Pain Scale 1-3) Stop: 01/06/24 12:40 Last Admin: 01/01/24 22:01 Dose: 30 mg Documented By: COLTON Melatonin (Melatonin 3 Mg Tablet) 6 mg PO BEDTIME PRN PRN Reason: Insomnia Last Admin: 01/01/24 22:01 Dose: 6 mg Documented By: COLTON Morphine Sulfate (Morphine Sulfate 4 Mg/Ml Cartridge) 4 mg IVPUSH Q3H PRN; Protocol PRN Reason: Pain, Severe (Pain Scale 7-10) Last Admin: 01/05/24 05:49 Dose: 4 mg Documented By: JENNIFER Ondansetron HCl (Ondansetron Hcl 4 Mg/2 Ml Vial) 4 mg IVPUSH Q8H PRN PRN Reason: Nausea and Vomiting Last Admin: 01/05/24 05:49 Dose: 4 mg Documented By: JENNIFER Promethazine HCl (Promethazine Hcl 25 Mg Tablet) 25 mg PO Q6H PRN PRN Reason: Nausea Sodium Chloride (0.9 % Sodium Chloride Flush 3 Ml Syringe) 3 ml IVFLUSH QSHIFT [facility] Last Admin: 01/05/24 07:36 Dose: Not Given Documented By: ERIC Non-Admin Reason: IV Running Labs 01/02/24 09:46 01/04/24 09:37 Labs: Laboratory Results - last 24 hr 01/04/24 09:37 Anion Gap 14 Estim Creat Clear Calc 98.3 Estimated GFR > 60 Random Glucose 97 Calcium 10.1 D Procedures Date of Service Date of Service: 01/05/24 Progress Note: A&P Assessment and plan (1) Partial small bowel obstruction: Status: Acute Plan 20-year-old female patient with multiple previous abdominal surgeries presenting with a partial small-bowel obstruction due to adhesions. This is now resolving and she is passing the oral contrast. She tolerated clear liquids with only mild abdominal pain. We will advance her to a full liquid diet for today. Patient expressed understanding and agrees with the plan. Time Spent With Patient Time: Total time managing care of this patient today ____ minutes. Quality Stroke Does the patient have a stroke diagnosis?: No VTE Prior VTE?: No VTE Risk Level:: Medical - low VTE Device Contraindication: N/A - Device Ordered VTE Drug Contraindication: Treatment Not Indicated
[2024-01-05 15:23] VITALS: BP 111/80; PULSE 64; RESP 16; TEMP 36.4; O2SAT 99
[2024-01-05 19:31] VITALS: BP 127/71; PULSE 66; RESP 20; TEMP 36.4; O2SAT 100
[2024-01-05] MEDS: Docusate Sodium 100 MG CAPSULE PO (20:03)
[2024-01-06] MEDS: ondansetron HCL 4 MG/2 ML VIAL IVPUSH ×3 (00:25→19:55)
[2024-01-06] MEDS: Morphine Sulfate 4 MG/ML CARTRIDGE IVPUSH ×4 (00:26→19:55)
[2024-01-06] MEDS: Lactated Ringers 1,000 ML 100 ML IVCONT ×2 (00:28→11:41)
[2024-01-06 04:00] VITALS: BP 101/63; PULSE 61; RESP 16; TEMP 36.1; O2SAT 98
[2024-01-06 07:56] VITALS: BP 105/79; PULSE 52; RESP 16; TEMP 36.3; O2SAT 96
[2024-01-06] MEDS: Docusate Sodium 100 MG CAPSULE PO ×2 (08:46→19:56)
--- NOTE | 2024-01-06 09:27 | P.PNGS_ITS ---
Subjective Subjective Date of Service: 01/06/24 Interval history: Alma Rosa again noted some abdominal pain this morning but is improved currently. She was able to tolerate her pudding without nausea or vomiting. She wishes to continue with the full liquid diet at this time. Physical Exam 2 Vital Signs: Vital Signs: Last Vital Signs Temp 97.3 F 01/06/24 07:56 Pulse 52 01/06/24 07:56 Resp 16 01/06/24 07:56 BP 105/79 01/06/24 07:56 Pulse Ox 96 01/06/24 07:56 O2 Del Method Room Air 01/06/24 07:56 BMI result Body Mass Index 30.7 Const: General: no acute distress Nutritional Appearance: well nourished Orientation/consciousness: patient oriented x3 Resp: Effort & Inspection: normal respiratory effort GI: Inspection: Yes normal to inspection Palpation (GI): Soft to palpation, nontender, no guarding and not rigid Percussion: Yes normal to percussion Neuro: General: patient oriented x3 Objective Data Active Medications Acetaminophen (Acetaminophen 325 Mg Tablet) 650 mg PO Q6H PRN PRN Reason: Pain, Mild (Pain Scale 1-3), fever or headache Albuterol Sulfate (Albuterol Sulfate 90 Mcg 8 Gm Inhaler) 2 puff INHALE Q4H PRN PRN Reason: Shortness Of Breath Or Wheezing Docusate Sodium (Docusate Sodium 100 Mg Capsule) 100 mg PO BID [facility] Last Admin: 01/06/24 08:46 Dose: 100 mg Documented By: AIDEN Lactated Ringer's (Lr) 1,000 mls @ 100 mls/hr IVCONT .Q10H [facility] Last Admin: 01/06/24 00:28 Dose: 100 mls/hr Documented By: GRETCHEN Melatonin (Melatonin 3 Mg Tablet) 6 mg PO BEDTIME PRN PRN Reason: Insomnia Last Admin: 01/01/24 22:01 Dose: 6 mg Documented By: COLTON Morphine Sulfate (Morphine Sulfate 4 Mg/Ml Cartridge) 4 mg IVPUSH Q3H PRN; Protocol PRN Reason: Pain, Severe (Pain Scale 7-10) Last Admin: 01/06/24 07:46 Dose: 4 mg Documented By: AIDEN Ondansetron HCl (Ondansetron Hcl 4 Mg/2 Ml Vial) 4 mg IVPUSH Q8H PRN PRN Reason: Nausea and Vomiting Last Admin: 01/06/24 08:46 Dose: 4 mg Documented By: AIDEN Promethazine HCl (Promethazine Hcl 25 Mg Tablet) 25 mg PO Q6H PRN PRN Reason: Nausea Sodium Chloride (0.9 % Sodium Chloride Flush 3 Ml Syringe) 3 ml IVFLUSH QSHIFT [facility] Last Admin: 01/06/24 07:50 Dose: Not Given Documented By: AIDEN Non-Admin Reason: IV Running Labs 01/02/24 09:46 01/04/24 09:37 Procedures Date of Service Date of Service: 01/06/24 Progress Note: A&P Assessment and plan (1) Partial small bowel obstruction: Status: Acute Plan 20-year-old female patient with multiple previous abdominal surgeries presenting with a partial small-bowel obstruction due to adhesions. She continues to pass loose stool but does have occasional abdominal discomfort. She is tolerating the full liquid diet but does not feel she can tolerate a regular diet at this time. We will continue the full liquid diet. Time Spent With Patient Time: Total time managing care of this patient today ____ minutes. Quality Stroke Does the patient have a stroke diagnosis?: No VTE Prior VTE?: No VTE Risk Level:: Medical - low VTE Device Contraindication: N/A - Device Ordered VTE Drug Contraindication: Treatment Not Indicated
[2024-01-06] MEDS: Promethazine HCL 25 MG TABLET PO (14:13)
[2024-01-06 15:45] VITALS: BP 122/74; PULSE 67; RESP 16; TEMP 36.6; O2SAT 98
[2024-01-06] MEDS: 0.9 % Sodium Chloride Flush 3 ML SYRINGE IVFLUSH ×2 (16:35→20:04)
[2024-01-06 20:00] VITALS: BP 115/61; PULSE 78; RESP 20; TEMP 36.8; O2SAT 94
[2024-01-07] MEDS: Morphine Sulfate 4 MG/ML CARTRIDGE IVPUSH ×5 (00:48→23:29)
[2024-01-07] MEDS: Melatonin 3 MG TABLET 6 MG PO (00:49)
[2024-01-07 03:28] VITALS: BP 110/62; PULSE 54; RESP 18; TEMP 36.7; O2SAT 100
[2024-01-07] MEDS: ondansetron HCL 4 MG/2 ML VIAL IVPUSH ×3 (03:56→23:27)
[2024-01-07] MEDS: 0.9 % Sodium Chloride Flush 3 ML SYRINGE IVFLUSH ×3 (07:37→23:36)
[2024-01-07] MEDS: Docusate Sodium 100 MG CAPSULE PO ×2 (07:37→21:14)
--- NOTE | 2024-01-07 07:51 | PM.PNGS ---
Subjective Subjective Date of Service: 01/07/24 <Moon Liu PA-C - Last Filed: 01/07/24 07:53> 01/07/24 <Jon Milton MD - Last Filed: 01/07/24 08:02> Interval history: Tolerated full liquid diet. Continues to pass liquid stools. C/o crampy pain overnight but improved this morning. <Moon Liu PA-C - Last Filed: 01/07/24 07:53> Physical Exam Vital Signs: Vital Signs: Last Vital Signs Temp 98.1 F 01/07/24 03:28 Pulse 54 01/07/24 03:28 Resp 18 01/07/24 03:28 BP 110/62 01/07/24 03:28 Pulse Ox 100 01/07/24 03:28 O2 Del Method Room Air 01/07/24 03:28 BMI result Body Mass Index 30.7 <Moon Liu PA-C - Last Filed: 01/07/24 07:53> Const: General: comfortable, no acute distress and alert <Moon Liu PA-C - Last Filed: 01/07/24 07:53> Orientation/consciousness: patient oriented x3 <Moon Liu PA-C - Last Filed: 01/07/24 07:53> Resp: Effort & Inspection: normal respiratory effort <Moon Liu PA-C - Last Filed: 01/07/24 07:53> GI: Inspection: No distended <Moon Liu PA-C - Last Filed: 01/07/24 07:53> Palpation (GI): Soft to palpation, nontender and no guarding <Moon Liu PA-C - Last Filed: 01/07/24 07:53> Neuro: General: patient oriented x3 <LACIE Montes Last Filed: 01/07/24 07:53> Objective Data Active Medications Acetaminophen (Acetaminophen 325 Mg Tablet) 650 mg PO Q6H PRN PRN Reason: Pain, Mild (Pain Scale 1-3), fever or headache Albuterol Sulfate (Albuterol Sulfate 90 Mcg 8 Gm Inhaler) 2 puff INHALE Q4H PRN PRN Reason: Shortness Of Breath Or Wheezing Docusate Sodium (Docusate Sodium 100 Mg Capsule) 100 mg PO BID [facility] Last Admin: 01/07/24 07:37 Dose: 100 mg Documented By: ERIC Melatonin (Melatonin 3 Mg Tablet) 6 mg PO BEDTIME PRN PRN Reason: Insomnia Last Admin: 01/07/24 00:49 Dose: 6 mg Documented By: GRETCHEN Morphine Sulfate (Morphine Sulfate 4 Mg/Ml Cartridge) 4 mg IVPUSH Q4H PRN; Protocol PRN Reason: Pain, Severe (Pain Scale 7-10) Ondansetron HCl (Ondansetron Hcl 4 Mg/2 Ml Vial) 4 mg IVPUSH Q8H PRN PRN Reason: Nausea and Vomiting Last Admin: 01/07/24 03:56 Dose: 4 mg Documented By: GRETCHEN Oxycodone HCl (Oxycodone Hcl Immed Release 5 Mg Tablet) 5 mg PO Q4H PRN PRN Reason: Pain, Moderate(Pain Scale 4-6) Promethazine HCl (Promethazine Hcl 25 Mg Tablet) 25 mg PO Q6H PRN PRN Reason: Nausea Last Admin: 01/06/24 14:13 Dose: 25 mg Documented By: AIDEN Sodium Chloride (0.9 % Sodium Chloride Flush 3 Ml Syringe) 3 ml IVFLUSH QSHIFT [facility] Last Admin: 01/07/24 07:37 Dose: 3 ml Documented By: ERIC <Moon Liu PA-C - Last Filed: 01/07/24 07:53> Labs CBC & Chem 7: 01/02/24 09:46 01/04/24 09:37 <Moon Liu PA-C - Last Filed: 01/07/24 07:53> Procedures Date of Service Date of Service: 01/07/24 <Moon Liu PA-C - Last Filed: 01/07/24 07:53> 01/07/24 <Jon Milton MD - Last Filed: 01/07/24 08:02> Progress Note: A&P Assessment and plan (1) Partial small bowel obstruction: Status: Acute <Moon Liu PA-C - Last Filed: 01/07/24 07:53> Assessment and Plan: Says she feels better this morning Tolerating full liquids Denies significant abdominal pain Soft and benign Passing flatus and BMs Okay to try on regular food again Seen and examined independently <Jon Milton MD - Last Filed: 01/07/24 08:02> Assessment and Plan: C/o occasional crampy abdominal pains but tolerating full liquids and with good GI function. Abd remains very benign. Will advance to solid diet. Reassess later today. <Moon Liu PA-C - Last Filed: 01/07/24 07:53> Time Spent With Patient Time: Total time managing care of this patient today ____ minutes. <Moon Liu PA-C - Last Filed: 01/07/24 07:53> Quality Stroke Does the patient have a stroke diagnosis?: No <Moon Liu PA-C - Last Filed: 01/07/24 07:53> VTE Prior VTE?: No <Moon Liu PA-C - Last Filed: 01/07/24 07:53> VTE Risk Level:: Medical - low <Moon Liu PA-C - Last Filed: 01/07/24 07:53> VTE Device Contraindication: N/A - Device Ordered <Moon Liu PA-C - Last Filed: 01/07/24 07:53> VTE Drug Contraindication: Treatment Not Indicated <Moon Liu PA-C - Last Filed: 01/07/24 07:53>
[2024-01-07 07:53] VITALS: BP 105/76; PULSE 71; RESP 16; TEMP 36.8; O2SAT 98
--- NOTE | 2024-01-07 10:52 | MHC.CM.PN ---
Per MD patient not medically cleared for dc at this time. CM will continue to follow.
[2024-01-07 15:23] VITALS: BP 132/89; PULSE 78; RESP 18; TEMP 37.2; O2SAT 96
[2024-01-07 19:14] VITALS: BP 103/59; PULSE 62; RESP 18; TEMP 36.9; O2SAT 94
[2024-01-07 23:26] VITALS: BP 133/70; PULSE 66; RESP 16; O2SAT 98
[2024-01-08 03:30] VITALS: BP 104/46; PULSE 64; RESP 18; TEMP 37; O2SAT 97
[2024-01-08 04:17] VITALS: BP 110/57; PULSE 64; RESP 16
[2024-01-08] MEDS: Promethazine HCL 25 MG TABLET PO (04:19)
[2024-01-08] MEDS: Morphine Sulfate 4 MG/ML CARTRIDGE IVPUSH (04:20)
[2024-01-08] MEDS: 0.9 % Sodium Chloride Flush 3 ML SYRINGE IVFLUSH (07:19)
[2024-01-08] MEDS: Docusate Sodium 100 MG CAPSULE PO (07:20)
--- NOTE | 2024-01-08 07:38 | P.PNGS_ITS ---
Subjective Subjective Date of Service: 01/11/24 Interval history: staets she feels welll tolerating diet denies signficant pain states she feels ready to go home Physical Exam 2 Vital Signs: Vital Signs: Last Vital Signs Temp 98.6 F 01/08/24 03:30 Pulse 64 01/08/24 04:17 Resp 16 01/08/24 04:17 BP 110/57 L 01/08/24 04:17 Pulse Ox 97 01/08/24 03:30 O2 Del Method Room Air 01/08/24 03:30 BMI result Body Mass Index 30.7 Const: General: comfortable and no acute distress Resp: Effort & Inspection: normal respiratory effort Cardio: Rate: regular rate GI: Palpation (GI): Soft to palpation, not firm, nontender and no guarding Objective Data Active Medications Acetaminophen (Acetaminophen 325 Mg Tablet) 650 mg PO Q6H PRN PRN Reason: Pain, Mild (Pain Scale 1-3), fever or headache Albuterol Sulfate (Albuterol Sulfate 90 Mcg 8 Gm Inhaler) 2 puff INHALE Q4H PRN PRN Reason: Shortness Of Breath Or Wheezing Docusate Sodium (Docusate Sodium 100 Mg Capsule) 100 mg PO BID WILVER Last Admin: 01/08/24 07:20 Dose: 100 mg Documented By: ERIC Melatonin (Melatonin 3 Mg Tablet) 6 mg PO BEDTIME PRN PRN Reason: Insomnia Last Admin: 01/07/24 00:49 Dose: 6 mg Documented By: GRETCHEN Morphine Sulfate (Morphine Sulfate 4 Mg/Ml Cartridge) 4 mg IVPUSH Q4H PRN; Protocol PRN Reason: Pain, Severe (Pain Scale 7-10) Last Admin: 01/08/24 04:20 Dose: 4 mg Documented By: HILDA Ondansetron HCl (Ondansetron Hcl 4 Mg/2 Ml Vial) 4 mg IVPUSH Q8H PRN PRN Reason: Nausea and Vomiting Last Admin: 01/07/24 23:27 Dose: 4 mg Documented By: HILDA Oxycodone HCl (Oxycodone Hcl Immed Release 5 Mg Tablet) 5 mg PO Q4H PRN PRN Reason: Pain, Moderate(Pain Scale 4-6) Promethazine HCl (Promethazine Hcl 25 Mg Tablet) 25 mg PO Q6H PRN PRN Reason: Nausea Last Admin: 01/08/24 04:19 Dose: 25 mg Documented By: TUMASY Sodium Chloride (0.9 % Sodium Chloride Flush 3 Ml Syringe) 3 ml IVFLUSH QSHIFT [facility] Last Admin: 01/08/24 07:19 Dose: 3 ml Documented By: TERESSAA Labs 01/02/24 09:46 01/04/24 09:37 Procedures Date of Service Date of Service: 01/11/24 Progress Note: A&P Assessment and plan (1) Partial small bowel obstruction: Status: Acute Assessment and Plan: symptoms resolved denies pain passing flatus has BMs tolerating diet looks well she states she is ready to be discharged plan to dc home later today Time Spent With Patient Time: Total time managing care of this patient today ____ minutes. Quality Stroke Does the patient have a stroke diagnosis?: No VTE Prior VTE?: No VTE Risk Level:: Medical - low VTE Device Contraindication: N/A - Device Ordered VTE Drug Contraindication: Treatment Not Indicated
[2024-01-08 07:44] VITALS: BP 100/56; PULSE 52; RESP 16; TEMP 36.3; O2SAT 97
[2024-01-08] MEDS: ondansetron HCL 4 MG/2 ML VIAL IVPUSH (08:45)
--- NOTE | 2024-01-08 10:54 | MHC.CM.PN ---
Patient medically cleared for dc. Friend will provide transport home at 3pm. May wait in dc lounge. RN aware.
--- NOTE | 2024-01-08 13:47 | P.DS_ITS ---
DS: Providers Provider Date of Service: 01/08/24 Date of admission: 01/01/24 12:42 Date of discharge: 01/08/24 Primary care physician: Shay Physician Attending physician on admission: Alyson Huber Attending physician on discharge: Jon Milton DS: Diagnosis Discharge Diagnosis (1) Partial small bowel obstruction: Status: Acute DS: Summary Hospital Course Hospital Course: HPI AT ADMISSION: Cecille Matthew is a 28 year old female PMH of Moebius syndrome, gastroschisis, asthma who presented to the ED with complaints of acute onset of abdominal pain and vomiting. She reports she developed mid abdominal pain last night. She was able to fall asleep but the pain continued to wake her up overnight. The pain became more severe and diffuse and she then developed nausea and vomiting. She reports this is similar to her prior episodes of SBOs. She reports her last episode was in 2018 and required surgery at [facility]. She is unsure of the details but knows an appendectomy was performed. An NGT is usually placed without difficulty. Due to the severity of pain, she presented to the ED for evaluation. Work up in the ED included CBC, BMP, LFTs which were WNL. CT scan abd/pelvis shows prominent fluid filled small bowel loops in the midabdomen and pelvis with possible transition point in the mid anterior pelvis. She reports feeling somewhat improved now. She has some mild nausea but has not vomited since early this morning. She reports she has not passed flatus today but had a BM yesterday which was normal. She normally goes every 2-3 days. SHe is on oral iron therapy for anemia secondary to menorrhagia. She denies fever, chills, hematemesis, diarrhea, melena, hematochezia, sick contacts. She was sick with Covid 2 weeks prior. HOSPITAL COURSE: The patient was admitted to the surgical service for further treatment of the PSBO secondary to adhesions. She was clinically appearing well with an overall benign abdominal exam and nonoperative measures were continued with bowel rest, IVF, PRN antiemetics and pain control. Will hold off on NGT insertion as she feels somewhat improved and has stopped vomiting. Further plan dependent on clinical course but hopefully surgical intervention can be avoided. Patient is comfortable with plan. Her colon FOS. Enemas were ordered and bowel regimen initiated. She had an uncomplicated hospital stay but had slow improvement in her symptoms. She had continued crampy abdominal pain and nausea without evidence of GI function after a few days of bowel rest. SBFT was obtained with contrast seen in the left colon after 30 minutes. She began to have liquid bowel movements and her abdominal pain improved. Her diet was slowly advanced following this. On the day of discharge, she was tolerating a solid diet, she denied significant pain, she had good GI function. Her abdomen was benign nondistended and soft. She was discharged to home on 01/08/24 on a bowel regimen. She is to follow up with her PCP. Status at Discharge Functional status at discharge: independent ambulation Time Attestation Discharge Coordination Time (in mins): 40 Quality: Safe Use of Opioids Does Pt have an Active Cancer Diagnosis on the Problem List?: No Quality: Stroke Does the patient have a stroke diagnosis?: No Physical Exam Vital Signs: Vital Signs: Last Vital Signs Temp 97.3 F 01/08/24 07:44 Pulse 52 01/08/24 07:44 Resp 16 01/08/24 07:44 BP 100/56 L 01/08/24 07:44 Pulse Ox 97 01/08/24 07:44 O2 Del Method Room Air 01/08/24 07:44 BMI result Body Mass Index 30.7 Const: General: comfortable, no acute distress and alert Orientation/consciousness: patient oriented x3 Resp: Effort & Inspection: normal respiratory effort GI: Inspection: No distended Palpation (GI): Soft to palpation and no guarding Skin: General skin exam: no rashes or lesions noted Neuro: General: patient oriented x3 Discharge Plan Discharge Anticipated Discharge Date/Time: 01/05/24 13:18 Patient Disposition: Home, Self-Care Discharge Diagnosis: PSBO Referrals: Physician,Unknown J [Primary Care Provider] - 1 Week Discharge Medications: New docusate sodium [Colace] 100 mg capsule 100 mg PO BID Qty: 60 0RF polyethylene glycol 3350 [Miralax] 17 gram/dose powder 17 g PO DAILY Qty: 238 0RF Continued ProAir RespiClick 90 mcg/actuation aerosol powdr breath activated 2 inh inhalation Q4-6H PRN (Reason: Shortness Of Breath Or Wheezing) Vitron-C 65 mg iron- 125 mg tablet,delayed release (DR/EC) 1 tab PO Q OTHER DAY Discharge Orders: Discharge Order (Routine); Ordered 01/08/24 Ordered By: Jon Milton Diet: Advance to usual diet Activity on Discharge: As tolerated Stand Alone Forms: Patient Portal Discharge page, Work/School Release Print Language: [place] Care Plan Goals: Return to baseline health and resume normal activities. Health Concerns: hx of multiple abdominal surgeries PSBO constipation Plan of Treatment: Supportive management F/u with PCP bowel regimen Assessment: Improved Discharge Date/Time: 01/08/24 12:29
== END 2024-01-08 12:29 | disposition home or self-care (01) | DRG 247 ==
LOC: HO.ED 12:55 → HO.EDOVER 12:56 → HO.S3 01-03 10:21
PROVIDERS: Surgery; Admitting Provider Physician Assistant Surgical; Emergency Provider Emergency Medicine; Visit Provider Physician Assistant Surgical
DX: K56.51 Intestinal adhesions [bands], with partial obstruction (principal); Q87.0 Congenital malformation syndromes predominantly affecting facial appearance; Z20.822 Contact with and (suspected) exposure to COVID-19; Z79.899 Other long term (current) drug therapy
CPT/HCPCS: 0241U; 36415; 74018; 74177; 74250; 80048; 80053; 81001; 81025; 83690; 84484; 85025; 93005; 99285; J1885; J2270; J2405; J7120; Q9967

== ENCOUNTER 2024-01-01 12:42 | Outpatient (BNV) | payer MEDICAID, SELFPAY | END 2024-01-04 07:47 | PROVIDERS: Admitting Provider Physician Assistant Surgical; Emergency Provider Emergency Medicine; Visit Provider Radiology Diagnostic Radiology | DX: K56.600 Partial intestinal obstruction, unspecified as to cause (principal) | CPT/HCPCS: 74250 ==

== ENCOUNTER → 2024-01-01 12:42 | Outpatient (BNV) | payer MEDICAID, SELFPAY | PROVIDERS: Admitting Provider Physician Assistant Surgical; Emergency Provider Emergency Medicine; Visit Provider Physician Assistant Surgical | DX: K56.600 Partial intestinal obstruction, unspecified as to cause (principal) | CPT/HCPCS: 99222; 99232; 99239; 99499 ==

== ENCOUNTER 2024-05-12 15:23 | Emergency (ER) | payer MEDICAID, SELFPAY ==
--- NOTE | ~2024-05-12 | XR_ITS ---
CLINICAL HISTORY: Cough, SOB 2 view chest x-ray Comparison: CR/SR - XR CHEST 1V - 12/19/23 11:59 EDT Findings: The lungs are clear. Heart size is normal. No acute fracture. IMPRESSION: 1. No acute findings. This document has been electronically signed by: Lela Chaidez MD on 05/12/2024 17:09:29
[2024-05-12 15:58] VITALS: BP 130/88; PULSE 91; RESP 18; TEMP 36.7; O2SAT 96; BMI 28.7
--- NOTE | 2024-05-12 16:00 | ED_ITS ---
HPI - URI/Sore Throat General Chief Complaint: Upper Respiratory Symptoms Stated Complaint: Headache/sore throat/cough Time Seen by Provider: 05/12/24 19:41 Source: patient Mode of arrival: ambulatory Limitations: no limitations History of Present Illness ED Provider: Lina Luque PA-C HPI Narrative: Patient is a 29 year old assigned female at with a history of asthma presenting to the emergency department today with a headache, sore throat, and cough. Patient states that over the last day she has had a sore throat, cough, and headache. Patient denies any dizziness, lightheadedness, abdominal pain, nausea, vomiting, fever, chills, blurry vision, double vision, loss of vision, chest pain, difficulty breathing, shortness of breath, back pain, night sweats, pain with urination, increased urinary frequency, increased urinary urgency, blood in her urine or stool, syncope or a near syncopal episode, recent trauma or falls, bowel incontinence, bladder incontinence, or any other complaints at this time. MD elicited complaint: cough and sore throat Treatments prior to arrival: none Related Data Home Medications ?Medication ?Instructions ?Recorded ?Confirmed albuterol sulfate 90 mcg/actuation 2 inh inhalation Q4-6H PRN 01/01/24 01/01/24 breath activated powder inhaler Shortness Of Breath Or Wheezing (ProAir RespiClick) iron,carbonyl 65 mg-vitamin C 125 1 tab PO Q OTHER DAY 01/01/24 01/01/24 mg tablet,delayed release (Vitron-C) Previous Rx's ?Medication ?Instructions ?Recorded docusate sodium 100 mg capsule 100 mg PO BID #60 caps 01/03/24 (Colace) polyethylene glycol 3350 17 17 g PO DAILY #238 grams 01/03/24 gram/dose oral powder (Miralax) penicillin V potassium 500 mg 500 mg PO BID 10 days #20 tabs 05/12/24 tablet Allergies Allergy/AdvReac Type Severity Reaction Status Date / Time watermelon Allergy Anaphylaxis Verified 05/12/24 16:00 metoclopramide [From Reglan] AdvReac Shakiness Verified 05/12/24 16:00 Review of Systems Constitutional: Constitutional: Reports no additional constitutional complaints, Denies chills, Denies fever(s), Reports headache(s) and Denies night sweats Eyes: Eyes: Reports no additional eye complaints, Denies blurry vision, Denies change in vision, Denies diplopia, Denies eye discharge, Denies loss of vision and Denies eye pain ENT: Denies dizziness, Reports headache(s) and Reports sore throat Cardiovascular: Cardiovascular: Reports no additional cardiovascular complaints, Denies chest pain, Denies lightheadedness, Denies Loss of Consciousness and Denies dyspnea Respiratory: Respiratory: Reports no additional respiratory complaints, Reports cough and Denies dyspnea Gastrointestinal: Gastrointestinal: Reports no additional gastrointestinal complaints, Denies abdominal pain, Denies melena, Denies hematochezia, Denies change in bowel habits and Denies change in stool character Genitourinary: Genitourinary: Denies hematuria, Denies urinary frequency, Denies dysuria, Denies urinary incontinence, Denies urinary hesitancy and Denies urinary urgency Musculoskeletal: Musculoskeletal: Reports no additional musculoskeletal complaints, Denies numbness and Denies tingling Neurologic: Denies dizziness, Reports headache(s), Denies loss of vision, Denies numbness and Denies tingling Psychiatric: Psychiatric: Reports no additional psychiatric complaints Endocrine: Endocrine: Reports no additional endocrine complaints Hematologic/Lymphatic: Hematologic/Lymphatic: Reports no additional hematologic/lymphatic complaints Allergic/Immunologic: Allergic/Immunologic: Reports no additional allergic/immunologic complaints [facility] Past Medical History Attestation statement: The following information was validated with the patient. Source: old records reviewed and nursing notes reviewed Medical History Asthma Moebius' syndrome Surgical History History of laparotomy Social History Social History Household Members: Family Housing: House Do you presently have visiting nurse or other home services: No Patient Tobacco Use Status: Never used Tobacco Second Hand Smoke Exposure: No Advance Directives: No Advance Directives Information Provided: No Do you have a plan to hurt others: No Plan service: No Physical Exam Vital Signs: Vital Signs: Last Vital Signs Temp 98.3 F 05/12/24 19:45 Pulse 90 05/12/24 19:45 Resp 18 05/12/24 19:45 BP 134/104 H 05/12/24 19:45 Pulse Ox 100 05/12/24 19:45 O2 Del Method Room Air 05/12/24 19:45 BMI result Body Mass Index 28.7 Const: General: cooperative, no acute distress, alert and awake Nutritional Appearance: well nourished Orientation/consciousness: patient oriented x3 Limitations: no limitations HEENT: Head: Yes normal to inspection and Yes atraumatic Ears: hearing grossly normal bilaterally and external ears normal General nose exam: Normal external nose present, no nasal discharge noted and no epistaxis Face and sinus: Yes normal facial exam, No abrasion and No laceration Mouth: Normal oral and palatal mucosa present, no drooling and no muffled voice Eyes: General: appearance normal, both eyes and all related structures Periorbital: periorbital findings normal Eyelids: Yes eyelids normal Conjunctivae: conjunctivae normal Pupils: Equal, round and reactive pupils present EOM: EOMs intact bilaterally Neck: Neck: Yes normal visual inspection, Yes full ROM and Yes no lymphadenopathy Chest: Chest palpation & inspection: normal inspection of the chest Resp: Effort & Inspection: normal respiratory effort and able to speak in complete sentences GI: Inspection: Yes normal to inspection Neuro: General: patient oriented x3 and moves all extremities Cranial nerves: Yes Equal, round and reactive pupils present Cognition (Neuro): normal cognition Extrem: General: Yes normal to inspection, Yes full ROM and Yes capillary refill normal Psych: Appearance: grossly normal Mental Status: mental status grossly normal Affect: normal affect Attitude: cooperative Thought process: Normal thought process present Thought content: Normal thought content present Insight: Good insight present (Psych) Course Course Course Narrative: This is a Rapid Medical Exam performed in triage by Antoinette Rangel PA-C. Full HPI, ROS and PE to be performed by primary ED provider. 29-year-old female with a past medical history of asthma presenting to the ED c/o sore throat, cough, headache, neck pain x yesterday PE: Mild posterior oropharyngeal erythema. Diffuse expiratory wheeze. Uvula midline Plan: SARs, Rapid strep, CXR, ED bronch protocol Medications Administered Discontinued Medications Generic Name Dose Route Start Last Admin Trade Name Freq PRN Reason Stop Dose Admin Albuterol Sulfate 2.5 mg/ 0 mg 05/12/24 16:13 05/12/24 16:15 Albuterol/Ipratropium 3 ml INHALE 05/12/24 16:14 1 dose ONCE ONE Administration Medical Decision Making Medical Decision Making [facility] Narrative: Patient is a 29 year old assigned female at with a history of asthma presenting to the emergency department today with a headache, sore throat, and cough. Patient's physical exam was unremarkable. Patient's chest x-ray showed no acute process. Patient's RSV and strep testing were positive. I explained my physical exam findings as well as all test results to the patient. I answered all questions asked by the patient. I stressed the importance of the patient taking her medication as directed (either prescribed or as the over the counter packaging recommends). I stressed the importance of the patient following up with her primary care provider. I stressed the importance of the patient returning to the emergency department immediately if her symptoms were to worsen or if she were to develop any dizziness, shortness of breath, difficulty breathing, chest pain, blurry vision, loss of vision, nausea, vomiting, abdom inal pain, fever, chills, back pain, or any other complaints. Patient verbalized agreement and understanding with this treatment plan and discharge. Differential Diagnosis Differential Diagnoses: The differential diagnosis associated with the presentation includes RSV Viral illness Influenza COVID-19 Strep pharyngitis Admission/Observation Consideration of admission/observation: Escalation of care including admission/observation considered Patient would have been admitted to the hospital had her work up had any findings where hospital admission was appropriate and her clinical presentation warranted hospital admission. Lab Data [facility] Lab Attestation statement: I reviewed the patient's lab results. My interpretation of these results are in the [facility] Rationale portion of this note . Labs: Lab Results 05/12/24 Range/Units 16:30 Influenza Type A (PCR) NEGATIVE (Negative) Influenza Type B (PCR) NEGATIVE (Negative) RSV RNA Qual (PCR) POSITIVE A (Negative) SARS-CoV-2 RNA (RT-PCR) NEGATIVE (Negative) S. pyogenes GrpA THOMAS Positive A (Negative) Independent Interpretation I performed an independent interpretation of an: Plain X-Ray Interpretation: My interpretation is in agreement with the radiologist's impression of this imaging study. CLINICAL HISTORY: Cough, SOB 2 view chest x-ray Comparison: CR/SR - XR CHEST 1V - 12/19/23 11:59 EDT Findings: The lungs are clear. Heart size is normal. No acute fracture. IMPRESSION: 1. No acute findings. This document has been electronically signed by: Lela Chaidez MD on 05/12/2024 17:09:29 Dictated By: Lela Chaidez MD Signed By: Electronically signed by Lela Chaidez MD 05/12/24 1710 Radiology Impression Discussion of test interpretation with radiology: I have reviewed the radiologist's reading. Prescription Management I considered prescription management with: Antibiotic (patient prescribed an antibiotic for strep pharyngitis) Discharge Plan Discharge Clinical Impression: Respiratory syncytial virus (RSV), Strep pharyngitis Patient Disposition: Home, Self-Care Instructions: Respiratory Syncytial Virus (ED), Strep Throat (DC) Additional Instructions: You should throw away your toothbrush 24 hours after being on antibiotics to avoid giving yourself strep again. Follow up with your primary care provider. Return to the emergency department immediately if your symptoms worsen or if you develop any dizziness, shortness of breath, difficulty breathing, chest pain, blurry vision, loss of vision, nausea, vomiting, abdominal pain, fever, chills, back pain, or any other complaints. Prescriptions: New penicillin V potassium 500 mg tablet 500 mg PO BID 10 Days Qty: 20 0RF No Action ProAir RespiClick 90 mcg/actuation aerosol powdr breath activated 2 inh inhalation Q4-6H PRN (Reason: Shortness Of Breath Or Wheezing) Vitron-C 65 mg iron- 125 mg tablet,delayed release (DR/EC) 1 tab PO Q OTHER DAY docusate sodium [Colace] 100 mg capsule 100 mg PO BID Qty: 60 0RF polyethylene glycol 3350 [Miralax] 17 gram/dose powder 17 g PO DAILY Qty: 238 0RF Referrals: [facility] [place] Family Medicine [Provider Group] (Call to establish and follow up with a primary care provider. If you already have a primary care provider, please follow up with them.) [facility] [place] Primary Care, Jeri [Provider Group] (Call to establish and follow up with a primary care provider. If you already have a primary care provider, please follow up with them.) [facility] [place] Primary [facility] [Provider Group] (Call to establish and follow up with a primary care provider. If you already have a primary care provider, please follow up with them.) Stand Alone Forms: Work/School Release Interventions: ED Discharge Assessment Last Done: 05/12/24 19:45 Discharge Date/Time: 05/12/24 19:46 Print Language: Bulgarian
[2024-05-12] MEDS: Albuterol Sulfate 2.5 MG, Albuterol/Iprat 2.5/0.5MG 3 ML 3 ML INHALE (16:15)
[2024-05-12 16:17] VITALS: PULSE 91; RESP 18; O2SAT 96
[2024-05-12 16:53] LABS: IDNOW Serial# 58CA691E; Strep A Nucleic Acid Positive (Negative)
--- OUTSIDE RECORDS SUMMARY | 2024-05-12 17:21 | XMS_ITS | Clinical Summary ---
Author Organization [facility] Building Address [address] [place] [address] Phone Care Team Providers Care Book Repairer Name Role Phone Katharine Hernández MD Primary Care Provider [phone] Allergies Active Allergy Reactions Criticality Noted Date Comments Fentanyl Hives,Itching 06/08/2019 Metoclopramide Anaphylaxis High 12/14/2019 Watermelon Anaphylaxis High 10/24/2013 Medications Medication Sig Dispensed Refills Start Date End Date Status albuterol HFA (PROAIR HFA ; PROVENTIL HFA ; VENTOLIN HFA) 90 mcg/actuation inhaler Inhale 2 puffs by mouth every 6 hours as needed. 07/20/2021 Active diclofenac (VOLTAREN) 1 % topical gel Apply 8 g topically daily. 04/03/2023 Active methocarbamoL (ROBAXIN) 500 mg tablet Take 1 tablet (500 mg total) by mouth 4 (four) times a day. 08/07/2023 Active benzonatate (TESSALON) 200 mg capsule Take 1 capsule (200 mg total) by mouth every 8 hours as needed. 02/20/2024 Active Symbicort 160-4.5 mcg/actuation inhaler Inhale 2 puffs by mouth 2 (two) times a day. Rinse mouth with water after use to reduce aftertaste and incidence of candidiasis. Do not swallow. 68 each 03/04/2024 Active clotrimazole-betame thasone (LOTRISONE) 1-0.05 % cream Apply topically 2 (two) times a day. 15 g 03/04/2024 05/03/2024 Active Problems Problem Noted Date Diagnosed Date Cyst of left ovary 12/02/2023 Overview (12/02/2023): 10/10 USN: Left ovarian cystic mass 2.9x3.5x3.8cm, complex. Likely hemorrhagic. Repeat scan in 6-8 weeks recommended. 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 Encounters Date Type Department Care Team Description 05/07/2024 12:30 PM EST Telemedicine [address] [phone] Esperanza Aviles, RENTAL SALES ASSOCIATE Adjustment disorder with mixed anxiety and depressed mood (Primary Dx) 04/16/2024 8:00 AM EST Telemedicine [address] [phone] Esperanza Aviles, RENTAL SALES ASSOCIATE Adjustment disorder with mixed anxiety and depressed mood (Primary Dx) 04/10/2024 1:30 PM EST Telemedicine [address] [phone] Esperanza Aviles, RENTAL SALES ASSOCIATE Adjustment disorder with mixed anxiety and depressed mood (Primary Dx) 04/04/2024 11:00 AM EST Telemedicine [address] [place] [phone] Esperanza Aviles, RENTAL SALES ASSOCIATE Adjustment disorder with mixed anxiety and depressed mood (Primary Dx) 03/27/2024 2:30 PM EST Telemedicine [address] [phone] Esperanza Aviles, RENTAL SALES ASSOCIATE Adjustment disorder with mixed anxiety and depressed mood (Primary Dx) 03/19/2024 4:30 PM EST Telemedicine [address] [phone] Esperanza Aviles, CELINA Adjustment disorder with mixed anxiety and depressed mood (Primary Dx) 03/05/2024 12:30 PM EST Telemedicine [facility] [address] [place] [address] Esperanza Aviles LCSW Adjustment disorder with anxiety (Primary Dx) 03/04/2024 2:31 PM EST - 03/04/2024 11:59 PM EST Hospital Encounter [facility] [address] [place] [phone] Right foot pain Discharge Disposition: Home or Self Care 03/04/2024 1:30 PM EST Office Visit [facility] - [place] [address] [place] [phone] Katharine Hernández MD Right foot pain (Primary Dx); Dry skin; Moderate persistent asthma without complication 02/28/2024 8:00 AM EST Telemedicine [facility] [address] [phone] Esperanza Aviles LCSW Adjustment disorder with anxiety (Primary Dx) 02/13/2024 10:00 AM EST Telemedicine [facility] [address] [place] [address] Esperanza Aviles, CELINA Adjustment disorder with anxiety (Primary Dx) from Last 3 Months Immunizations Name Administration Dates Next Due Influenza Quadrivalent, 0.5m l, preservative free (Fluarix; FluLaval; Fluzone) ages 6mo and older (Afluria) 3yo and older 04/03/2023,01/18/2022,06/16/2019,2017 Influenza trivalent, 0.5mL, preservative free (Fluarix; FluLaval; Fluzone) ages 6mo and older (Afluria) 3 years and older 03/04/2024 MePlease SARS-CoV-2 COVID-19, mRNA, LNP-S, preservative free 06/14/2021,09/17/2020,08/27/2020 Pneumococcal conjugate 20 va lent (Prevnar 20, PCV 20) 2mo and older 04/03/2023 Surgical History Surgery Date Site/Laterality Comments FOOT SURGERY Right PROCEDURE:FOOT SURGERY;COMMENT:as baby ABDOMINAL SURGERY PROCEDURE:ABDOMINAL SURGERY;COMMENT:gastroschisis repair at LAPAROSCOPY DIAGNOSTIC / BIOPSY / ASPIRATION / LYSIS 09/07/2016 N/A PROCEDURE:DIAGNOSTIC LAPAROSCOPY;COMMENT:Procedure: LAPAROSCOPY DIAGNOSTIC; Surgeon: Salomon Canela MD; Location: [facility] RO[facility]; Service: General; Laterality: N/A; EXPLORATORY LAPAROTOMY 09/07/2016 N/A PROCEDURE:EXPLORATORY LAPAROTOMY;COMMENT:Procedure: LAPAROTOMY EXPLORATORY; Surgeon: Salomon Canela MD; Location: [facility]; Service: General; Laterality: N/A; ABDOMINAL SURGERY 09/07/2016 N/A PROCEDURE:ABDOMINAL SURGERY;COMMENT:Procedure: LAPAROTOMY LYSIS OF ADHESIONS; Surgeon: Salomon Canela MD; Location: [facility]; Service: General; Laterality: N/A; APPENDECTOMY 09/07/2016 N/A PROCEDURE:APPENDECTOMY;COMMENT :Procedure: APPENDECTOMY; Surgeon: Salomon Canela MD; Location: [facility]; Service: General; Laterality: N/A; UPPER GASTROINTESTINAL ENDOSCOPY 06/12/2019 N/A PROCEDURE:UPPER GASTROINTESTINAL ENDOSCOPY;COMMENT:Procedure: UPPER ENDOSCOPY-EGD; Surgeon: Lennie Rosen MD; Location: [facility]; Service: Gastroenterology; Laterality: N/A; Medical History Medical History Date Comments Asthma DX:Asthma Moebius syndrome DX:Moebius synd artem Gastroschisis, congenital DX:Gas troschisis, congenital Partial small bowel obstruction (CMS/HCC) DX:Partial small bowel obstruction (HCC) Left ovarian cyst DX:Left ovaria n cyst Migraine DX:Migraine 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 For example, children counselor or elderly care for an older adult? [...] Date Recorded What is your living situation? 1 05/04/2023 Sex and Gender Information Value Date Recorded Sex Assigned at Not on file Gender Identity Not on file Sexual Orientation Not on file Job Start Date Occupation Industry Not on file Not on file Not on file Obstetrics History Last Filed Vital Signs Vital Sign Reading Time Taken Comments Blood Pressure 102/64 03/04/2024 1:26 PM EST Pulse 101 03/04/2024 1:26 PM EST Temperature 36.3 ??C (97.4 ??F) 03/04/2024 1:26 PM ES T Respiratory Rate 18 03/04/2024 1:26 PM EST Oxygen Saturation 93% 03/04/2024 1:26 PM EST Inhaled Oxygen Concentration - - Weight 66.7 kg (147 lb) 03/04/2024 1:26 PM EST Height 152.4 cm (5') 03/04/2024 1:26 PM EST Body Mass Index 28.71 03/04/2024 1:26 PM EST Plan of Treatment Upcoming Encounters Date Type Department Care Team (Late st Contact Info) Description 05/21/2024 3:30 PM EST Telemedicine [address] [place] [phone] Esperanza Aviles, [facility] [address] [address] 06/03/2024 9:00 AM EST Telemedicine [address] [place] [phone] Esperanza Aviles, [facility] [address] [address] 06/05/2024 1:00 PM EST Office Visit Hematology and Oncology - [place] [address] [place] [phone] Cecille Herrera PA [address] [place], [place] [phone] 06/19/2024 3:00 PM EDT Office Visit [facility] [place] [address] [place] [address] Katharine Hernández MD [address] [place] [address] Health Maintenance Due Date Last Done Comments IPV Vaccines (4 of 4 - 4-dose series) 1999 1995, 1995, 1995 DTaP,Tdap,and Td Vaccines (6 - Tdap) 2006 01/31/1999, 07/21/1996, 1995, Additional history exists HPV Vaccines (3 - 2-dose series) 07/08/2010 03/16/2010, 01/07/2010 Hepatitis A Vaccines (2 of 2 - 2-dose series) 07/08/2010 01/07/2010 COVID-19 Vaccine ( season) 2023 06/14/2021, 09/17/2020, 08/27/2020 Depression Screening 03/04/2025 03/04/2024, 04/03/20 23 Social Influencers of Health Screening 03/04/2025 03/04/2024 Cervical Cancer Screening: Pap Smear 10/11/2025 10/11/2022, 10/11/2022, 10/16/2018 Hepatitis B Vaccines Completed 05/09/1996, 1995, 1995 HIB Vaccines Completed 07/21/1996, 09/07, 1995, Additional history exists MMR Vaccines Completed 08/31/1999, 05/09/1996 Meningococcal ACWY Vaccine Aged Out 09/03/2008 N o longer eligible based on patient's age to complete this topic Varicella Vaccines Completed 09/03/2008, 07/21/1996 Pneumococcal Vaccine: Pediatrics (0 to 5 Years) and At-Risk Patients (6 to 64 Years) Completed 04/03/2023 HIV Screening Completed 08/02/2023 Hepatitis C Screening Completed 08/02/2023, 024 Influenza Vaccine Completed 03/04/2024, , 01/18/2022, Additional history exists RSV Immunization Patients Under 20 months Aged Out No longer eligible based on patient's age to complete this topic Procedures Procedure Name Priority Date/Time Associated Diagnosis Comments XR FOOT 3+ VIEWS RIGHT Routine 03/04/2024 2:47 PM EST Right foot pain HEPATITIS C SCREENING Routine 08/02/2023 HIV SCREENING Routine 08/02/2023 DEPRESSION SCREENING Routine 04/03/2023 PAP SMEAR Routine 10/11/2022 12:00 AM EDT from Last 3 Months or Most Recently Relevant to Health Maintenance Results * XR Foot 3+ Views Right (03/04/2024 2:47 PM EST) Anatomical Region Laterality Modality Lower Extremities, Foot Right Radiogra phic Imaging 03/04/2024 2:57 PM EST Impressions 03/04/2024 3:05 PM EST 1. Chronic cavus foot. 2. Valgus first toe 3. No arthritis is seen. 4. No fracture is seen. Report reviewed and signed by : Dr. Saqib Wong on 03/04/2024 3:05 PM. Workstation Name - [id number] -------- FINAL REPORT -------- Dictated By: Saqib Wong Dictated Date: 03/04/2024 14:57 ET Assigned Physician: Saqib Wong Reviewed and Electronically Signed By: Saqib Wong Signed Date: 03/04/2024 15:05 ET Workstation ID: [id number] Transcribed By: Self Edit Transcribed Date: 03/04/2024 14:57 ET Narrative 03/04/2024 3:05 PM EST Study: Radiographs right foot HISTORY: Right foot swelling and pain TECHNIQUE: 3 views of the right foot COMPARISON: Radiographs of the right foot performed on 03/14/2013 FINDINGS: There is a cavus foot. There is a valgus deformity of the great toe. A mild second hammertoe is present. No osteoporosis is noted. No acute fracture is seen. No posttraumatic arthritis, inflammatory arthritis or depositional arthritis can be seen. There is no significant interval change in the appearance of the right foot when compared to the prior radiographs that were performed on 03/14/2013. Procedure Note Saqib Wong MD - 03/04/2024 Study: Radiographs right foot HISTORY: Right foot swelling and pain TECHNIQUE: 3 views of the right foot COMPARISON: Radiographs of the right foot performed on 03/14/2013 FINDINGS: There is a cavus foot. There is a valgus deformity of the greattoe. A mild second hammertoe is present. No osteoporosis is noted. Noacute fracture is seen. No posttraumatic arthritis, inflammatory arthritisor depositional arthritis can be seen. There is no significant interval change in the appearance of the rightfoot when compared to the prior radiographs that were performed on03/14/2013. IMPRESSION: 1. Chronic cavus foot. 2. Valgus first toe 3. No arthritis is seen. 4. No fracture is seen. Report reviewed and signed by : Dr. Saqib Wong on 03/04/2024 3:05PM. Workstation Name - [id number] -------- FINAL REPORT -------- Dictated By: Saqib Wong Dictated Date: 03/04/2024 14:57 ET Assigned Physician: Saqib Wong Reviewed and Electronically Signed By: Saqib Wong Signed Date: 03/04/2024 15:05 ET Workstation ID: [id number] Transcribed By: Self Edit Transcribed Date: 03/04/2024 14:57 ET Salomon Rand MD IMG XR PROCEDURE S * HIV Screening (08/02/2023) Pathologist [facility] HIV Screening ABSTRACTED Historical Provider [facility] E * Hepatitis C Screening (08/02/2023) [facility] Hepatitis C Screening ABSTRACTED Historical Provider [facility] E * Depression Screening (04/03/2023) [facility] Depression Screening ABSTRACTED Historical Provider [facility] E * Pap smear (10/11/2022 12:00 AM EDT) Case Results Patient Name: VIVIEN MATTHEW MR#: [id number] Collected Date: 10/11/2022 Reported Date: 10/30/2022 Specimen #[id number] Final Diagnosis Satisfactory for evaluation. ??Endocervical transformation zone component present. Negative for Intraepithelial Lesion or Malignancy. Clinical Diagnosis Z12.4 Source: A: ThinPrep Imaged Pap Cervical-SC Electronically Signed Out By Zakia Sawant [facility](ASCP) Note: The Pap test is a screening test with an inherent false negative rate. Automated prescreening of all liquid based specimens is performed by the ThinPrep Imaging System unless otherwise stated. Test Performed by: [address] ??[id number] Nida Hickey M.D., Director HISTORICAL TESTING LAB RESULTING AGENCY 10/11/2022 Olivia Payne MD LAB CYTOLOGY ORDERAB LES HISTORICAL TESTING LAB RESULTING AGENCY from Last 3 Months or Most Recently Relevant to Health Maintenance Care Teams Book Repairer Relationship Specialty Start Date End Date Katharine Hernández MD [address] [place] [phone] PCP - General 10/13/22
--- OUTSIDE RECORDS SUMMARY | 2024-05-12 17:21 | XMS_ITS | Encounter Summary ---
Author Organization [facility] Address [address] [place] [address] Care Team Providers Care Multimedia Coordinator Name Role Phone Susan Best MD Primary Care Provider Unavailabl e Encounter Details Date Type Department Care Team (Late st Contact Info) Description 02/01/2021 Orders Only [place] [phone] Darlin Frias DMD, MD Neutropenia, unspecified type (HCC) (Primary Dx) Social History Tobacco Use Types Packs/Day Years Used Date Smoking Tobacco: Never Assessed Comments Unknown Sex and Gender Information Value Date Recorded Sex Assigned at Not on file Legal Sex Female 2:06 AM EST Gender Identity Not on file Sexual Orientation Not on file documented as of this encounter Plan of Treatment Scheduled Orders Name Type Priority Associated Diagnoses Orde r Schedule Complete blood count (CBC) and differential Lab STAT Neutropenia, unspecified type (HCC) Expected: 02/02/2021, Expires: 08/02/2022 documented as of this encounter Visit Diagnoses Diagnosis Neutropenia, unspecified type (HCC)- Primary documented in this encounter Care Teams Multimedia Coordinator Relationship Specialty Start Date End Date Susan Best MD [address] [place] [id number] PCP - General 07/01/17 documented as of this encounter
--- OUTSIDE RECORDS SUMMARY | 2024-05-12 17:21 | XMS_ITS | Clinical Summary ---
Author Organization [facility] Address [address] [place] [address] Care Team Providers Care Tractor Trailer Driver Name Role Phone Katharine Hernández MD Primary Care Provider Unava ilable Allergies Active Allergy Reactions Criticality Noted Date Comments Fentanyl Hives,Itching 06/08/2019 Metoclopramide Anaphylaxis High 12/14/2019 Watermelon Anaphylaxis High 10/24/2013 Medications Medication Sig Dispensed Refills Start Date End Date Status albuterol 108 (90 Base) MCG/ACT inhaler Inhale 2 puffs into the lungs every 6 (six) hours as needed for wheezing. 8 g 3 07/20/2021 Active Diclofenac Sodium 1 % GEL Apply 8 g topically daily. 350 g 0 04/03/2023 Active ibuprofen 600 MG tablet Take 1 tablet (600 mg total) by mouth every 8 (eight) hours as needed for pain. One tid prn pain 20 tablet 0 08/07/2023 Active methocarbamol (ROBAXIN) 500 MG tablet Take 1 tablet (500 mg total) by mouth 4 (four) times a day. 30 tablet 0 08/07/2023 Active polyethylene glycol (MIRALAX) 17 g packetIndications:Con stipation, unspecified constipation type Take 17 g by mouth daily. 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 Likely hemorrhagic. Repeat scan in 6-8 weeks recommended. Resolved Problems Problem Noted Date Diagnosed Date Resolved Date Musculoskeletal strain 11/01/202003/29 Enteritis 06/09/2019 03/29/2023 Encounter for gynecological examination without abnormal finding 10/16/2018 03/29/2023 Constipation by delayed colonic transit 10/23/2016 03/29/2023 Postoperative ileus 09/18/2016 05/15/19 18 SBO (small bowel obstruction) 09/07/2016 11/17/2016 Abdominal pain 03/29/2023 Pelvic pain in female 2022 Immunizations Name Administration Dates Next Due Covid-19 (Pfizer) Dilution Required 09/17/2020,0 08/27/2020 Influenza Quad (Fluarix/Fluzone/FluLaval) 0.5mL (SD-IIV4) 04/03/2023,01/18/2022,06/16/2019,2017 Pneumococcal Conjugate PCV20 04/03/2023 Family History Medical History Relation Name Comments Asthma Father Diabetes Maternal Grandmother Hypertension Maternal Grandmother Arthritis Mother Asthma Mother Breast cancer Neg Hx Ovarian cancer Neg Hx Uterine cancer Neg Hx Relation Name Status Comments Father Alive Maternal Grandmother Alive Mother Alive Social History Tobacco Use Types Packs/Day Years Used Date Smoking Tobacco: Never Smokeless Tobacco: Never Tobacco Cessation:Counseling Given: Not Answered Alcohol Use Standard Drinks/Week Comments No 0 (1 standard drink = 0.6 oz pur e alcohol) Sex and Gender Information Value Date Recorded Sex Assigned at Female 05/19/2018 6:12 PM EST Gender Identity Female 08/06/2023 6:20 PM EDT Sexual Orientation Not on file Job Start Date Occupation Industry Not on file Not on file Not on file Last Filed Vital Signs Vital Sign Reading Time Taken Comments Blood Pressure 144/83 02/05/2024 9:29 AM EDT Pulse 90 02/05/2024 9:29 AM EDT Temperature 36.1 ??C (97 ??F) 02/05/2024 9:29 AM EDT Respiratory Rate 18 01/31/2024 7:54 AM EDT Oxygen Saturation 98% 02/05/2024 9:29 AM EDT Inhaled Oxygen Concentration - - Weight 65.8 kg (145 lb) 02/05/2024 9:29 AM EDT Height 152.4 cm (5') 02/05/2024 9:29 AM EDT Body Mass Index 28.32 02/05/2024 9:29 AM EDT Plan of Treatment Health Maintenance Due Date Last Done Comments DTap / Tdap / Td (6 - Tdap) 01/19/200601/08, 07/21/1996, 1995, Additional history exists Preventative Health Evaluation 10/12/2023 10/11/2022, 10/16/2018 COVID-19 Vaccine ( season) 2023 06/14/2021, 09/17/2020, 08/27/2020 Influenza Vaccine (#1) 2023 , 01/18/2022, 02/02/2020, Additional history exists BMI Counseling 01/30/2024 01/29/2023, 02/0 06/2021, 11/09/2020, Additional history exists Depression Screening 04/03/2024 04/03/2023, 01/29/2023, 09/06/2022, Additional history exists Cervical Cancer Screening (Pap Smear) 10/11/2025 10/11/2022, 10/16/2018 Hepatitis B Vaccines Completed 05/09/1996, 1995, 1995 Pneumococcal Vaccine Aged Out 04/03/2023 No long er eligible based on patient's age to complete this topic Hepatitis C Screening Completed 08/02/2023 , 10/11/2022, 05/28/2018 RSV Ped < 20 months Aged Out No longe r eligible based on patient's age to complete this topic Advance Directives For more information, please contact: [phone] Latest Code Status on File Code Status Date Activated Date Inactivated Comments Full Code 06/09/2019 12:06 AM 06/16/2019 5:27 PM Discus sed bedside with pt Code Status History Code Status Date Activated Date Inactivated Comments Full Code 06/08/2019 10:35 PM 06/09/2019 12:05 AM Full Code 10/23/2016 2:16 AM 10/25/2016 10:01 PM This code status was ascertained in the following way: discussion with patient . Full Code 10/14/2016 1:31 AM 10/16/2016 12:54 AM This code status was ascertained in the following way: discussion with patient . Full Code 10/11/2016 6:53 AM 10/12/2016 1:41 AM This co de status was ascertained in the following way: discussion with patient . Care Teams Tractor Trailer Driver Relationship Specialty Start Date End Date Katharine Hernández MD PCP - General Internal Medicine 10/13/22
--- OUTSIDE RECORDS SUMMARY | 2024-05-12 17:21 | XMS_ITS | Encounter Summary ---
Author Organization [facility] Address [address] [place] [address] Care Team Providers Care Dub Room Engineer Name Role Phone Katharine Hernández MD Primary Care Provider Encounter Details Date Type Department Care Team (Late st Contact Info) Description 02/05/2024 12:03 PM EDT Hospital Encounter TH HISTORIC ENCOUNTERS EAST[facility] CONVERSION ONLY Cecille Herrera PA [address] [place], [place] [phone] Social History Tobacco Use Types Packs/Day Years [...] care for your loved ones. For example, child care centre director or elderly care for an older adult? [...] file Not on file Not on file documented as of this encounter Last Filed [...] Info) Description 05/21/2024 3:30 PM EST Telemedicine [address] [place] [address] Esperanza Aviles, TELEVISION TECHNICIAN [address] [facility] [address] [place] [address] 06/03/2024 9:00 AM EST Telemedicine [facility] [address] [place] [address] Esperanza Aviles, TELEVISION TECHNICIAN [address] [facility] [address] [place] [address] 06/05/2024 1:00 PM EST Office Visit Hematology and Oncology - [place] [address] [place] [phone] Cecille Herrera PA [address] [place], [place] [phone] 06/19/2024 3:00 PM EDT Office Visit [facility] [place] [address] [place] [phone] Katharine Hernández MD [address] [place] [phone] documented as of this encounter Visit Diagnoses Not on filedocumented in this encounter Care Teams Dub Room Engineer Relationship Specialty Start Date End Date Katharine Hernández MD [address] [place] [phone] PCP - General 10/13/22 documented as of this encounter
--- OUTSIDE RECORDS SUMMARY | 2024-05-12 17:21 | XMS_ITS ---
Author Name [facility] Organization Unknown Results Test Name/Text Value Interpretation Date Range Source Globulin Ser Calc-mCnc 3.1g/dL Normal [id number] 1.5 - 3.9 [facility] ALT SerPl-cCnc 18U/L Normal [id number] 10 - 50 HH CCT AST SerPl-cCnc 32U/L Normal [id number] 10 - 50 HH CCT GFR/BSA.pred SerPlBld LAL-CLA-[id number] 90 Normal 59 - [facility] Albumin SerPl-mCnc 4.6g/dL Normal 3.5 - 5 [facility] Albumin/Glob SerPl 1.5Ratio Normal 1 - 3 [facility] Creat SerPl-mCnc 0.6mg/dL Normal 0.4 - 1.1 [facility] Bilirub SerPl-mCnc 0.3mg/dL Normal 0.2 - 1 [facility] Anion Gap Bld-sCnc 12 Normal [id number] 7 - 17 [facility] Sodium SerPl-sCnc 141mmol/L Normal [id number] 136 - 145 [facility] Potassium SerPl-sCnc 3.8mmol/L Normal 3.4 - 5.3 [facility] Chloride SerPl-sCnc 108mmol/L Above high normal [id number] 98 - 107 [facility] Glucose SerPl-mCnc 88mg/dL Normal [id number] 65 - 99 [facility] Prot SerPl-mCnc 7.7g/dL Normal 6.3 - 8.3 H [facility] BUN/Creat SerPl 17Ratio Normal 10 - 25 H [facility] Calcium SerPl-mCnc 9.7mg/dL Normal 8.7 - 10 .5 [facility] CO2 SerPl-sCnc 21mmol/L Below low normal [id number] 22 - 33 [facility] BUN SerPl-mCnc 10mg/dL Normal [id number] 8 - 21 HH CCT ALP SerPl-cCnc 75U/L Normal [id number] 32 - 122 HH CCT Imm Granulocytes/leuk NFr Bld Auto 0.6% Normal [id number] [facility] Lymphocytes/leuk NFr Bld Auto 43.3% Normal [id number] [facility] PMV Bld Auto 9.2fL Normal [id number] 7.5 - 12.[address] Monocytes num Bld Auto 0.3Thou/uL Normal [id number] 0.2 - 1.5 [facility] Hct VFr Bld Auto 38.8% Normal [id number] 35 - 47 [facility] Neutrophils num Bld Auto 1.59Thou/uL Below low normal [id number] 2 - 7.5 [facility] Neutrophils/leuk NFr Bld Auto 43.6% Normal [id number] [facility] Basophils/leuk NFr Bld Auto 0.3% Normal [id number] [facility] Basophils num Bld Auto 0.01Thou/uL Normal [id number] 0 - 0.2 [facility] Monocytes/leuk NFr Bld Auto 8.3% Normal [id number] [facility] Eosinophil num Bld Auto 0.14Thou/uL Normal [id number] 0 - 0.7 [facility] MCH RBC Qn Auto 29.5pg Normal [id number] 26 - 34 H [facility] Eosinophil/leuk NFr Bld Auto 3.9% Normal [id number] [facility] Imm Granulocytes num Bld Auto 0.02Thou/uL Normal [id number] 0 - 0.1 [facility] RDW RBC Auto-Rto 14.5% Normal [id number] 11.5 - 14.5 [facility] Platelet num Bld Auto 309Thou/uL Normal [id number] 150 - 450 [facility] MCHC RBC Auto-mCnc 33g/dL Normal [id number] 30 - 36 [facility] MCV RBC Auto 89fL Normal [id number] 80 - 100 [facility] T WBC num Bld Auto 3.6Thou/uL Below low normal [id number] 4 - 11 [facility] RBC num Bld Auto 4.34Mil/uL Normal [id number] 4 - 5.4 [facility] Hgb Bld-mCnc 12.8g/dL Normal 11.7 - 15.7 [facility] Lymphocytes num Bld Auto 1.57Thou/uL Normal 1.5 - 4.5 [facility] DIFFERENTIAL TYPE AUTOMATED Normal [facility] NEUTROPHILS NFR BLD AUTO 38.7% Below low normal 44 - 74 [facility] BASOPHILS NFR BLD AUTO 0.7% Normal 0 - 2 [facility] MONOCYTES NFR BLD AUTO 10% Normal 2 - 12 [facility] HCT VFR BLD AUTO 40.9% Normal 37 - 47 [facility] MONOCYTES NO. BLD AUTO 0.3K/uL Normal 0 - 0.8 [facility] RDW RBC AUTO RTO 15.4% Normal 12.1 - 16.2 [facility] PLATELET NO. BLD AUTO 211K/uL Normal 150 - 450 [facility] EOSINOPHIL NO. BLD AUTO 0.2K/uL Normal 0 - 0.5 [facility] RBC NO. BLD AUTO 4.62M/uL Normal 4.2 - 5.4 [facility] MCH RBC QN AUTO 29.3pg Normal 25 - 33 [facility] MCHC RBC AUTO MCNC 33.1g/dL Normal 32 - 36 [facility] HGB BLD MCNC 13.5g/dL Normal 12.5 - 16 [facility] BASOPHILS IN BLOOD BY AUTOMATED COUNT 0K/uL Normal 0 - 0.2 [facility] WBC NO. BLD AUTO 2.8K/uL Below low normal 4 - 10.5 [facility] EOSINOPHIL NFR BLD AUTO 7.3% Above high normal 0 - 6 [facility] LYMPHOCYTES NFR BLD AUTO 43.3% Normal 20 - 48 [facility] MCV RBC AUTO 88.6fL Normal [id number] 78 - 100 [facility] NEUTROPHILS NO. BLD AUTO 1.1K/uL Below low normal [id number] 1.8 - 7.8 [facility] LYMPHOCYTES NO. BLD AUTO 1.2K/uL Normal [id number] 1 - 3.2 [facility] PMV BLD AUTO 8.6fL Normal [id number] 7.4 - 11.4 [facility] FERRITIN SERPL MCNC 10ng/mL Normal [id number] 10 - 12 0 [facility] TIBC SERPL MCNC 423ug/dL Normal [id number] 250 - 450 [facility] UIBC SERPL MCNC 256ug/dL Normal 155 - 355 [facility] IRON SERPL MCNC 167mcg/dL Normal 37 - 170 [facility] IRON SATN MFR SERPL 39% Normal 20 - 45 [facility] NEUTROPHILS NFR BLD AUTO 36.7% Below low normal [id number] 44 - 74 [facility] BASOPHILS NFR BLD AUTO 1.2% Normal [id number] 0 - 2 [facility] MONOCYTES NFR BLD AUTO 13.2% Above high normal [id number] 2 - 12 [facility] HCT VFR BLD AUTO 41.1% Normal [id number] 37 - 47 [facility] MONOCYTES NO. BLD AUTO 0.4K/uL Normal [id number] 0 - 0.8 [facility] RDW RBC AUTO RTO 15.6% Normal [id number] 12.1 - 16.2 [facility] PLATELET NO. BLD AUTO 237K/uL Normal [id number] 150 - 450 [facility] EOSINOPHIL NO. BLD AUTO 0.3K/uL Normal [id number] 0 - 0.5 [facility] RBC NO. BLD AUTO 4.57M/uL Normal [id number] 4.2 - 5.4 [facility] MCH RBC QN AUTO 29.4pg Normal [id number] 25 - 33 [facility] MCHC RBC AUTO MCNC 32.8g/dL Normal [id number] 32 - 36 [facility] HGB BLD MCNC 13.4g/dL Normal [id number] 12.5 - 16 [facility] BASOPHILS IN BLOOD BY AUTOMATED COUNT 0K/uL Normal [id number] 0 - 0.2 [facility] WBC NO. BLD AUTO 2.7K/uL Below low normal [id number] 4 - 10.5 [facility] EOSINOPHIL NFR BLD AUTO 10.4% Above high normal [id number] 0 - 6 [facility] LYMPHOCYTES NFR BLD AUTO 38.5% Normal [id number] 20 - 48 [facility] MCV RBC AUTO 89.9fL Normal [id number] 78 - 100 [facility] NEUTROPHILS NO. BLD AUTO 1K/uL Below low normal [id number] 1.8 - 7.8 [facility] LYMPHOCYTES NO. BLD AUTO 1K/uL Normal [id number] 1 - 3.2 [facility] PMV BLD AUTO 7.4fL Normal [id number] 7.4 - 11.4 [facility] Neutrophils num Bld Auto 1.89Thou/uL Below low normal [id number] 2 - 7.5 [facility] Monocytes num Bld Auto 0.44Thou/uL Normal [id number] 0.2 - 1.5 [facility] Eosinophil num Bld Auto 0.09Thou/uL Normal [id number] 0 - 0.7 [facility] WBC num Bld Auto 3.8Thou/uL Below low normal [id number] 4 - 11 [facility] MCHC RBC Auto-mCnc 32.2g/dL Normal [id number] 30 - 36 [facility] Monocytes/leuk NFr Bld Auto 11.5% Normal [id number] H[facility] Hct VFr Bld Auto 36.7% Normal [id number] 35 - 47 [facility] RBC num Bld Auto 4.24Mil/uL Normal [id number] 4 - 5.4 [facility] RDW RBC Auto-Rto 14.3% Normal [id number] 11.5 - 14.5 [facility] PMV Bld Auto 10.3fL Normal [id number] 7.5 - 12.[address] Eosinophil/leuk NFr Bld Auto 2.4% Normal [id number] [facility]CT MCH RBC Qn Auto 27.8pg Normal [id number] 26 - 34 H [facility] Basophils/leuk NFr Bld Auto 0.5% Normal [id number] [facility] Basophils num Bld Auto 0.02Thou/uL Normal [id number] 0 - 0.2 [facility] Platelet num Bld Auto 192Thou/uL Normal [id number] 150 - 450 [facility] Neutrophils/leuk NFr Bld Auto 49.5% Normal [id number] [facility]CT MCV RBC Auto 87fL Normal [id number] 80 - 100 [facility] T Lymphocytes/leuk NFr Bld Auto 36.1% Normal [id number] [facility]CT Lymphocytes num Bld Auto 1.38Thou/uL Below low normal [id number] 1.5 - 4.5 [facility] Imm Granulocytes/leuk NFr Bld Auto 0% Normal [id number] [facility] Hgb Bld-mCnc 11.8g/dL Normal [id number] 11.7 - 15.7 [facility] Imm Granulocytes num Bld Auto 0Thou/uL Normal [id number] 0 - 0.1 [facility] B-HCG Preg SerPl Ql Normal [id number] - [facility] Delta Normal [id number] - 3 [facility]CT Troponin T SerPl-mCnc 6ng/L Normal [id number] - 15 [facility] AST SerPl-cCnc 30U/L Normal [id number] 10 - 50 HH CCT ALT SerPl-cCnc 15U/L Normal [id number] 10 - 50 HH CCT Creat SerPl-mCnc 0.6mg/dL Normal [id number] 0.4 - 1.1 [facility] Globulin Ser Calc-mCnc 3g/dL Normal [id number] 1.5 - 3.9 [facility]CT CO2 SerPl-sCnc 21mmol/L Below low normal [id number] 22 - 33 [facility] Albumin/Glob SerPl 1.4Ratio Normal [id number] 1 - 3 [facility] Anion Gap Bld-sCnc 15 Normal [id number] 7 - 17 [facility]CT Potassium SerPl-sCnc 4.2mmol/L Normal [id number] 3.4 - 5.3 H[facility]CT Bilirub SerPl-mCnc 0.3mg/dL Normal [id number] 0.2 - 1 [facility] Calcium SerPl-mCnc 9.9mg/dL Normal [id number] 8.7 - 10 .5 [facility]CT BUN SerPl-mCnc 9mg/dL Normal [id number] 8 - 21 HH CCT ALP SerPl-cCnc 76U/L Normal [id number] 32 - 122 HH CCT GFR/BSA.pred SerPlBld WEZ-TSH-PjQUgr 90 Normal [id number] 59 - HHCCT Chloride SerPl-sCnc 104mmol/L Normal [id number] 98 - 10 7 [facility]CT BUN/Creat SerPl 15Ratio Normal [id number] 10 - 25 H HCCT Albumin SerPl-mCnc 4.3g/dL Normal [id number] 3.5 - 5 [facility]CT Prot SerPl-mCnc 7.3g/dL Normal [id number] 6.3 - 8.3 H HCCT Glucose SerPl-mCnc 96mg/dL Normal [id number] 65 - 99 [facility]CT Sodium SerPl-sCnc 140mmol/L Normal [id number] 136 - 145 [facility] Comment Abnormal [id number] - [facility]HCCT D dimer FEU PPP-mCnc 333ng/mLDDU Above high normal [id number] 501 - 230 [facility] FERRITIN SERPL MCNC 7ng/mL Below low normal [id number] 10 - 120 [facility] FOLATE SERPL MCNC 18ng/mL Normal [id number] 3 - [facility] VIT B12 SER MCNC 251pg/mL Normal [id number] 180 - 914 [facility] TIBC SERPL MCNC 439ug/dL Normal [id number] 250 - 450 C [facility] UIBC SERPL MCNC 401ug/dL Above high normal [id number] 155 - 355 [facility] IRON SERPL MCNC 38mcg/dL Normal [id number] 37 - 170 C [facility] IRON SATN MFR SERPL 9% Below low normal [id number] 20 - 45 [facility] NEUTROPHILS NFR BLD AUTO 57.3% Normal [id number] 44 - 74 [facility] BASOPHILS NFR BLD AUTO 0.8% Normal [id number] 0 - 2 [facility] MONOCYTES NFR BLD AUTO 8.7% Normal [id number] 2 - 12 [facility] HCT VFR BLD AUTO 39.1% Normal [id number] 37 - 47 [facility] MONOCYTES NO. BLD AUTO 0.3K/uL Normal [id number] 0 - 0.8 [facility] RDW RBC AUTO RTO 14.6% Normal [id number] 12.1 - 16.2 [facility] PLATELET NO. BLD AUTO 217K/uL Normal [id number] 150 - 450 [facility] EOSINOPHIL NO. BLD AUTO 0.1K/uL Normal [id number] 0 - 0.5 [facility] RBC NO. BLD AUTO 4.58M/uL Normal [id number] 4.2 - 5.4 [facility] MCH RBC QN AUTO 27.7pg Normal [id number] 25 - 33 C [facility] MCHC RBC AUTO MCNC 32.4g/dL Normal [id number] 32 - 36 [facility] HGB BLD MCNC 12.7g/dL Normal [id number] 12.5 - 16 [facility] BASOPHILS IN BLOOD BY AUTOMATED COUNT 0K/uL Normal [id number] 0 - 0.2 [facility] WBC NO. BLD AUTO 3.9K/uL Below low normal [id number] 4 - 10.5 [facility] EOSINOPHIL NFR BLD AUTO 2.8% Normal [id number] 0 - 6 [facility] LYMPHOCYTES NFR BLD AUTO 30.4% Normal [id number] 20 - 48 [facility] MCV RBC AUTO 85.3fL Normal [id number] 78 - 100 [facility] NEUTROPHILS NO. BLD AUTO 2.2K/uL Normal [id number] 1.8 - 7.8 [facility] LYMPHOCYTES NO. BLD AUTO 1.2K/uL Normal [id number] 1 - 3.2 [facility] PMV BLD AUTO 8.8fL Normal [id number] 7.4 - 11.4 [facility]TT [facility] PLATELET NO. BLD AUTO 211K/uL Normal [id number] 150 - 450 [facility] PMV BLD AUTO 8.5fL Normal [id number] 7.4 - 11.4 [facility]TT [facility] MONOCYTES NFR BLD MANUAL 6% Normal [id number] 2 - 12 [facility] LYMPHOCYTES NFR BLD MANUAL 40% Normal [id number] 20 - 48 [facility] POLYS NFR BLD MANUAL 50% Normal [id number] 44 - 7 4 [facility] NEUTS BAND NFR BLD MANUAL 1% Normal [id number] 0 - 15 [facility] EOSINOPHIL NFR BLD MANUAL 3% Normal [id number] 0 - 6 [facility] RBC NO. BLD AUTO 4.46M/uL Normal [id number] 4.2 - 5.4 [facility] MCH RBC QN AUTO 29pg Normal [id number] 25 - 33 C [facility] MCHC RBC AUTO MCNC 33.2g/dL Normal [id number] 32 - 36 [facility] HGB BLD MCNC 12.9g/dL Normal [id number] 12.5 - 16 [facility] WBC NO. BLD AUTO 3K/uL Below low normal [id number] 4 - 10.5 [facility] HCT VFR BLD AUTO 38.9% Normal [id number] 37 - 47 [facility] MCV RBC AUTO 87.2fL Normal [id number] 78 - 100 [facility] RDW RBC AUTO RTO 14.6% Normal [id number] 12.1 - 16.2 [facility] FERRITIN SERPL MCNC 7ng/mL Below low normal [id number] 10 - 120 [facility] TIBC SERPL MCNC 471ug/dL Above high normal [id number] 250 - 450 [facility] UIBC SERPL MCNC 423ug/dL Above high normal [id number] 155 - 355 [facility] IRON SERPL MCNC 48mcg/dL Normal [id number] 37 - 170 C [facility] IRON SATN MFR SERPL 10% Below low normal [id number] 20 - 45 [facility] C trach rRNA Cvx Ql PCR NEGATIVE Normal [id number] - [facility] N gonorrhoea rRNA Cvx Ql PCR NEGATIVE Normal [id number] - [facility] T vaginalis rRNA Cvx Ql PCR NEGATIVE Normal [id number] - [facility] MARYAN DNA VAG QL BDNA NEGATIVE Normal [id number] - [facility] T VAGINALIS DNA VAG QL BDNA NEGATIVE Normal [id number] - [facility] G VAGINALIS DNA VAG QL BDNA NEGATIVE Normal [id number] - [facility] HBV SURFACE AG SER QL EIA NEGATIVE Normal [id number] - [facility] HCV IGG SER QL EIA NEGATIVE Normal [id number] - [facility] SPECIMEN SOURCE GENITAL Normal C [facility] SPECIMEN SOURCE XXX GENITAL Normal [facility] Antineutrophil Ab (M-TH) Normal [facility] ALBUMIN % 59.5 Normal [facility] AN GAMMA % 16.5 Normal [facility] GAMMA G/DL 1.2 Normal CT[facility] RAN ALPHA 2 % 8.6 Normal [facility] BETA G/DL 0.8 Normal [facility] AN ALPHA 1 % 3.8 Normal [facility] AN ALPHA 2 G/DL 0.6 Normal [facility] ALPHA 1 G/DL 0.3 Normal [facility] TOTAL PROTEIN 7.3 Normal CTT [facility] ALBUMIN G/DL 4.3 Normal [facility] SFR[facility] BETA % 11.6 Normal [facility] AN Free [place] Light Chains 1.99 Above high normal [facility] Free Lambda Light Chains 1.1 Normal [facility] K/L FLC Ratio 1.81 Above high normal [facility] IGM SER MCNC 123mg/dL Normal 45 - 281 [facility] IGG SERPL-MCNC 1174mg/dL Normal 635 - 1741 C [facility] IGA SERPL-MCNC 164mg/dL Normal 66 - 433 [facility] FERRITIN SERPL MCNC 10ng/mL Normal 10 - 12 0 [facility] TIBC SERPL MCNC 405ug/dL Normal 250 - 450 C [facility] UIBC SERPL MCNC 364ug/dL Above high normal 155 - 355 [facility] IRON SERPL MCNC 41mcg/dL Normal 37 - 170 C [facility] IRON SATN MFR SERPL 10% Below low normal 20 - 45 [facility] NEUTROPHILS NFR BLD AUTO 56.2% Normal 44 - 74 [facility] BASOPHILS NFR BLD AUTO 0.7% Normal 0 - 2 [facility] MONOCYTES NFR BLD AUTO 7.8% Normal 2 - 12 [facility] HCT VFR BLD AUTO 38.8% Normal 37 - 47 [facility] MONOCYTES NO. BLD AUTO 0.2K/uL Normal 0 - 0.8 [facility] RDW RBC AUTO RTO 13.9% Normal 12.1 - 16.2 [facility] PLATELET NO. BLD AUTO 186K/uL Normal 150 - 450 [facility] EOSINOPHIL NO. BLD AUTO 0.1K/uL Normal 0 - 0.5 [facility] RBC NO. BLD AUTO 4.31M/uL Normal 4.2 - 5.4 [facility] MCH RBC QN AUTO 30.1pg Normal 25 - 33 C [facility] MCHC RBC AUTO MCNC 33.4g/dL Normal 32 - 36 [facility] HGB BLD MCNC 13g/dL Normal 12.5 - 16 [facility] BASOPHILS IN BLOOD BY AUTOMATED COUNT 0K/uL Normal 0 - 0.2 [facility] WBC NO. BLD AUTO 3.2K/uL Below low normal 4 - 10.5 [facility] EOSINOPHIL NFR BLD AUTO 3.5% Normal 0 - 6 [facility] LYMPHOCYTES NFR BLD AUTO 31.8% Normal 20 - 48 [facility] MCV RBC AUTO 90fL Normal 78 - 100 [facility] NEUTROPHILS NO. BLD AUTO 1.8K/uL Normal 1.8 - 7.8 [facility] LYMPHOCYTES NO. BLD AUTO 1K/uL Normal [id number] 1 - 3.2 [facility] PMV BLD AUTO 8.3fL Normal 7.4 - 11.4 [facility]TT [facility] N GONORRHOEA RRNA UR QL PCR NEGATIVE Normal [id number] - [facility] C TRACH RRNA UR QL PCR NEGATIVE Normal - [facility] Glucose Ur Ql Strip.auto NEGATIVE Normal - [facility] Prot Ur Ql Strip.auto NEGATIVE Normal - [facility] Nitrite Ur Ql Strip.auto NEGATIVE Normal - [facility] Hgb Ur Ql Strip.auto NEGATIVE Normal - [facility] Leukocyte esterase Ur Ql Strip.auto NEGATIVE Normal - [facility] Clarity Ur Refract.auto SLIGHTLY CLOUDY Normal [facility] Ketones Ur Ql Strip.auto NEGATIVE Normal - [facility] Color Ur Auto YELLOW Normal [facility] pH Ur Strip.auto 7 Normal 4.5 - 8 [facility] Sp Gr Ur Strip.auto 1.015 Normal 1.0 05 - 1.03 [facility] LIPASE SERPL CCNC 51U/L Normal 11 - 82 [facility] CREAT SERPL MCNC 0.6mg/dL Normal 0.5 - 1 [facility] SODIUM SERPL SCNC 141mmol/L Normal 135 - 145 [facility] GLUCOSE SERPL MCNC 82mg/dL Normal 70 - 199 [facility] CHLORIDE SERPL SCNC 105mmol/L Normal 98 - 10 7 [facility] HCO3 SER SCNC 25mmol/L Normal 24 - 32 [facility] POTASSIUM SERPL SCNC 4.2mmol/L Normal 3.5 - 5.1 [facility] ANION GAP SERPL SCNC 11mmol/L Normal 5 - 14 [facility] BUN SERPL MCNC 10mg/dL Normal 7 - 17 [facility] CALCIUM SERPL MCNC 10.3mg/dL Above high normal 8.4 - 10.2 [facility] ALP SERPL-CCNC 81U/L Normal 34 - 104 [facility] AST SERPL [facility] 24U/L Normal 5 - 40 CT [facility] LDH SERPL L TO P CCNC 281U/L Above high normal 125 - 220 [facility] ALT SERPL CCNC 8U/L Normal 7 - 52 [facility] BILIRUB SERPL MCNC 0.4mg/dL Normal 0.3 - 1 [facility] BILIRUB DIRECT SERPL MCNC 0.1mg/dL Normal 0 - 0.2 [facility] AMYLASE SERPL CCNC 88U/L Normal 29 - 103 [facility] RBC NO. BLD AUTO 4.91M/uL Normal 4.2 - 5.4 [facility] MCH RBC QN AUTO 30.2pg Normal 25 - 33 C [facility] MCHC RBC AUTO MCNC 33.1g/dL Normal 32 - 36 [facility] HGB BLD MCNC 14.8g/dL Normal 12.5 - 16 [facility] WBC NO. BLD AUTO 4.8K/uL Normal 4 - 10.5 [facility] HCT VFR BLD AUTO 44.8% Normal 37 - 47 [facility] MCV RBC AUTO 91.1fL Normal 78 - 100 [facility] RDW RBC AUTO RTO 13.9% Normal 12.1 - 16.2 [facility] PLATELET NO. BLD AUTO 231K/uL Normal 150 - 450 [facility] PMV BLD AUTO 8.5fL Normal 7.4 - 11.4 [facility] SPECIMEN SOURCE XXX URINE CLEAN CATCH Normal [facility] RBC NO. BLD AUTO 4.4M/uL Normal [id number] 4.2 - 5.4 [facility] MCH RBC QN AUTO 30.6pg Normal [id number] 25 - 33 C [facility] MCHC RBC AUTO MCNC 33.4g/dL Normal [id number] 32 - 36 [facility] HGB BLD MCNC 13.5g/dL Normal [id number] 12.5 - 16 [facility] WBC NO. BLD AUTO 3.1K/uL Below low normal [id number] 4 - 10.5 [facility] HCT VFR BLD AUTO 40.3% Normal [id number] 37 - 47 [facility] MCV RBC AUTO 91.7fL Normal [id number] 78 - 100 [facility] RDW RBC AUTO RTO 13.7% Normal [id number] 12.1 - 16.2 [facility] PLATELET NO. BLD AUTO 194K/uL Normal [id number] 150 - 450 [facility] PMV BLD AUTO 8fL Normal [id number] 7.4 - 11.4 CTT [facility] TIBC SERPL MCNC 377ug/dL Normal [id number] 250 - 450 C [facility] UIBC SERPL MCNC 295ug/dL Normal [id number] 155 - 355 C [facility] IRON SERPL MCNC 82mcg/dL Normal [id number] 37 - 170 C [facility] IRON SATN MFR SERPL 22% Normal [id number] 20 - 45 [facility] History of Medication Use Medication Directions Dispensed Refills Start Date End Date Stat norethindrone-ethin yl estradiol (04/28) 1-20 MG-MCG per tablet Take 1 tablet by mouth daily. 10/11/2022 10/12/2023 active Lidocaine 4 % 1 patch 1 patch, Transdermal, Once, On Sun08/06/23 at 2045, For 1 doseApply to affected area??APPLY IN AM- REMOVE AFTER 12 HRS-MAY CUT...Apply patch to intact skin to cover the most painful area. 08/07/2023 active diclofenac (VOLTAREN) 1 % topical gel Apply 8 g topically daily. 04/03/2023 active Iron-Vitamin C 65-125 MG TABS Take 1 tablet by mouth every other day. 11/24/2022 11/08/2023 active bisacodyl (Dulcolax) [address] 1 suppository (10 mg total) rectally daily. 10/14/2022 active bisacodyl (Dulcolax) [address] 1 suppository (10 mg total) rectally daily. 10/14/2022 active senna (SENOKOT) 8.6 MG tablet Take 1 tablet by mouth daily as needed for constipation. active methocarbamol (ROBAXIN) 500 MG tablet Take 1 tablet (500 mg total) by mouth 4 (four) times a day. 08/07/2023 active influenza virus quadrivalent vaccine (FLUARIX) injection (6 MO+) 0.5 mL 01/29/2023 active influenza virus quadrivalent vaccine (FLUARIX) injection (6 MO+) 0.5 mL 01/29/2023 active polyethylene glycol (MIRALAX) 17 g packet Take 17 g by mouth daily. 10/14/2022 active pneumococcal vaccine (PREVNAR 20) injection 0.5 mL 01/29/2023 active lidocaine (LIDODERM) 5 % Place 1 patch onto the skin daily. Remove & Discard patch within 12 hours or as directed by 08/07/2023 active senna (SENOKOT) 8.6 MG tablet Take 1 tablet by mouth daily as needed for constipation. active olopatadine (drops) Instill 1 drop into both eyes once daily 08/24/2023 completed methocarbamol (ROBAXIN) 500 MG tablet Take 1 tablet (500 mg total) by mouth 4 (four) times a day. 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 [facility] AN Cyst of left ovary active 2023-12-02 ProblemAct [facility] Adjustment disorder with mixed anxiety and depressed mood active EncounterDiagnosisAct [facility] Iron deficiency anemia active 2024-01-31 ProblemAct [facility] Iron deficiency anemia due to chronic blood loss active EncounterDiagnosisAct [facility] MG Constipation, unspecified constipation type active EncounterDiagnosisAct C TTHSFRAN Cyst of left ovary active ProblemAct [facility] Immunizations Vaccine Date Source Lot Number Status Influenza Quadrivalent, 0.5m l, preservative free (Fluarix; FluLaval; Fluzone) ages 6mo and older (Afluria) 3yo and older 05/15/2017 [facility] [id number] completed Influenza Quadrivalent, 0.5m l, preservative free (Fluarix; FluLaval; Fluzone) ages 6mo and older (Afluria) 3yo and older 06/16/2019 [facility] ER [id number] completed Influenza Quadrivalent, 0.5m l, preservative free (Fluarix; FluLaval; Fluzone) ages 6mo and older (Afluria) 3yo and older 01/18/2022 [facility] [id number] completed [place] SARS-CoV-2 COVID-19, mRNA, LNP-S, preservative free 08/27/2020 [facility] [id number] completed [place] SARS-CoV-2 COVID-19, mRNA, LNP-S, preservative free 06/14/2021 [facility] [id number] completed Influenza Quadrivalent, 0.5m l, preservative free (Fluarix; FluLaval; Fluzone) ages 6mo and older (Afluria) 3yo and older 04/03/2023 [facility] ER [id number] completed Pneumococcal conjugate 20 va lent (Prevnar 20, PCV 20) 2mo and older 04/03/2023 [facility] ER [id number] comple yulissa [place] SARS-CoV-2 COVID-19, mRNA, LNP-S, preservative free 09/17/2020 [facility] [id number] completed Influenza trivalent, 0.5mL, preservative free (Fluarix; FluLaval; Fluzone) ages 6mo and older (Afluria) 3 years and older 03/04/2024 [facility] [id number] completed
--- OUTSIDE RECORDS SUMMARY | 2024-05-12 17:21 | XMS_ITS | Clinical Summary ---
Author Organization [facility] Address [address] [place] [address] Care Team Providers Care Hypo Dipper Name Role Phone Pcp, No Primary Care Provider Unavailabl e Allergies Active Allergy Reactions Criticality Noted Date Comments Metoclopramide Anaphylaxis High 12/14/2019 Watermelon Anaphylaxis High 10/24/2013 Medications Medication Sig Dispensed Refills Start Date End Date Status predniSONE (DELTASONE) 20 MG tablet Take 2 tablets (40 mg total) by mouth daily. 14 tablet 02/20/2024 Active benzonatate (TESSALON) 200 MG capsule Take 1 capsule (200 mg total) by mouth 3 times daily (every 8 hours) as needed for cough. 20 capsule 02/20/2024 Active albuterol (PROVENTIL HFA; VENTOLIN HFA) 108 (90 Base) MCG/ACT inhaler Inhale 1-2 puffs every 4 (four) hours as needed for wheezing. 1 each 02/20/2024 Active guaiFENesin (MUCINEX) 600 MG 12 hr tablet Take 2 tablets (1,200 mg total) by mouth 2 (two) times a day. 28 tablet 03/18/2024 Active Encounters Date Type Department Care Team Description 03/18/2024 4:24 PM EST - 03/18/2024 9:45 PM [facility] [address] [place] [address] Cough (Primary Dx) Discharge Disposition: Home or Self Care 03/18/2024 Travel 02/20/2024 1:29 PM EST - 02/20/2024 6:21 PM [facility] [address] [place] [address] Steph Kwok MD Asthma exacerbation (Primary Dx); Cough Discharge Disposition: Home or Self Care 02/20/2024 Travel from Last 3 Months Immunizations Name Administration Dates Next Due Covid-19 MRNA Vaccine - Pfizer 12+ (Purple Cap) 06/14/2021 Social History Tobacco Use Types Packs/Day Years Used Date Smoking Tobacco: Never Smokeless Tobacco: Never Tobacco Cessation:Counseling Given: Not Answered Alcohol Use Standard Drinks/Week Comments Never 0 (1 standard drink = 0.6 oz pur e alcohol) Sex and Gender Information Value Date Recorded Sex Assigned at Female 11/12/2023 3:55 PM EDT Gender Identity Female 11/12/2023 3:55 PM EDT Sexual Orientation Choose not to disclose 2023 3:55 PM EDT Last Filed Vital Signs Vital Sign Reading Time Taken Comments Blood Pressure 123/83 03/18/2024 4:22 PM EST Pulse 88 03/18/2024 9:39 PM EST Temperature 36.6 ??C (97.8 ??F) 03/18/2024 4:22 PM ES T Respiratory Rate 18 03/18/2024 4:22 PM EST Oxygen Saturation 97% 03/18/2024 4:22 PM EST Inhaled Oxygen Concentration - - Weight - - Height - - Body Mass Index - - Plan of Treatment Health Maintenance Due Date Last Done Comments Hepatitis C Virus Screening 1995 DTaP/Tdap/Td Vaccines (1 - Tdap) 2014 Hepatitis B Vaccines (1 of 3 - 19+ 3-dose series) 2014 Pap Smear (Ages 21-65) 01/20/2016 COVID-19 Vaccine ( season) 2023 06/14/2021, 09/17/2020, 08/27/2020 HIV Screening Completed 05/28/2018 Influenza Vaccine Completed 03/04/2024, , 01/18/2022, Additional history exists HPV Vaccines Aged Out No longer eligi ble based on patient's age to complete this topic Pneumococcal Vaccine: Pediatric (0-5 Years) and At-Risk Patients (6 to 49 Years) Aged Out No longer eligible based on patient's age to complete this topic Procedures Procedure Name Priority Date/Time Associated Diagnosis Comments XR CHEST 2 VIEWS STAT 03/18/2024 4:59 PM EST POCT , URINE STAT 02/20/2024 4:33 PM EST COMPREHENSIVE METABOLIC PANEL STAT 02/20/2024 1:49 PM EST COMPLETE BLOOD COUNT, WITH DIFFERENTIAL STAT 02/20/2024 1:49 PM EST XR CHEST 2 VIEWS STAT 02/20/2024 1:46 PM EST from Last 3 Months Results * XR Chest 2 views (03/18/2024 4:59 PM EST) Only the most recent of2 resultswithin the time period is included. Anatomical Region Laterality Modality Chest Computed Radiogr aphy 03/18/2024 4:30 PM EST Impressions 03/18/2024 5:44 PM EST No acute pulmonary findings. Interpreted by: ??Preston Garner DO Equ[employer]et I personally reviewed the images and the resident's preliminary report and AGREE with the report as it is now presented (RADPAL1). Narrative 03/18/2024 5:44 PM EST EXAMINATION: XR CHEST 2 VIEWS CLINICAL INFORMATION: Cough COMPARISON: Chest radiograph 02/20/2024 TECHNIQUE: AP view of the chest was obtained. FINDINGS: The lungs are well-expanded. No focal consolidation or opacities. No pneumothorax. No pleural effusions. Normal sized, unchanged cardiomediastinal silhouette. No acute osseous abnormalities. Procedure Note Arose, Maury Esposito MD - 03/18/2024 EXAMINATION: XR CHEST 2 VIEWS CLINICAL INFORMATION: Cough COMPARISON: Chest radiograph 02/20/2024 TECHNIQUE: AP view of the chest was obtained. FINDINGS: The lungs are well-expanded. No focal consolidation or opacities. No pneumothorax. No pleural effusions. Normal sized, unchanged cardiomediastinal silhouette. No acute osseous abnormalities. IMPRESSION: No acute pulmonary findings. Interpreted by: Preston Garner DO [employer]et I personally reviewed the images and the resident's preliminary report and AGREE with the report as it is now presented (RADPAL1). Lea OJEDA IMG DIAGNOSTIC IMAGI NG ORDERABLES * POCT , Urine (02/20/2024 4:33 PM EST) Preg Test, Ur Negative Lot Number [id number] Aerosol Supervisor Pass Urine Brian Pineda PA-C POINT OF CARE TEST O RDERABLES * (ABNORMAL) Complete Blood Count, with Differential (02/20/2024 1:49 PM EST) Pathologist [facility] White Blood Cell Count 3.6(L) 4.0 - 11.0 Thou/uL 02/20/2024 2:40 PM [facility] Platelet Count 309 150 - 450 Thou/uL 02/20/2024 2:40 PM [facility] Hemoglobin 12.8 11.7 - 15.7 g/dL 02/20/2024 2:40 PM [facility] Hematocrit 38.8 35.0 - 47.0 % 02/20/2024 2:40 PM [facility] Red Blood Cell Count 4.34 4.00 - 5.40 Mil/uL 02/20/2024 2:40 PM [facility] MCV 89 80 - 100 fL 02/20/2024 2:40 PM [facility] MCH 29.5 26.0 - 34.0 pg 02/20/2024 2:40 PM [facility] MCHC 33.0 30.0 - 36.0 g/dL 02/20/2024 2:40 PM [facility] RDW 14.5 11.5 - 14.5 % 02/20/2024 2:40 PM [facility] MPV 9.2 7.5 - 12.5 fL 02/20/2024 2:40 PM [facility] Neutrophils Auto 43.6 % 02/20/20 2:40 PM [facility] Immature Granulocytes 0.6 % 02/20/2024 2:40 PM [facility] Lymphocytes Auto 43.3 % 02/20/20 2:40 PM [facility] Monocytes Auto 8.3 % 02/20/2024 2:40 PM [facility] Eosinophils Auto 3.9 % 02/20/20 2:40 PM [facility] Basophils Auto 0.3 % 02/20/2024 2:40 PM [facility] Abs Neutrophils Auto 1.59(L) 2.00 - 7.50 Thou/uL 02/20/2024 2:40 PM [facility] Abs Immature Granulocytes 0.02 0.00 - 0.10 Thou/uL 02/20/2024 2:40 PM [facility] Abs Lymphocytes Auto 1.57 1.50 - 4.50 Thou/uL 02/20/2024 2:40 PM [facility] Abs Monocytes Auto 0.30 0.20 - 1.50 Thou/uL 02/20/2024 2:40 PM [facility] Abs Eosinophils Auto 0.14 0.00 - 0.70 Thou/uL 02/20/2024 2:40 PM [facility] Abs Basophils Auto 0.01 0.00 - 0.20 Thou/uL 02/20/2024 2:40 PM [facility] Blood Blood specimen / Unknown 02/20/2024 1:49 PM EST 02/20/2024 2:10 PM EST Brian Pineda PA-C [place] [address], [place] [address] * (ABNORMAL) Comprehensive Metabolic Panel (02/20/2024 1:49 PM EST) Glucose 88 65 - 99 mg/dL 02/20/2024 2:56 PM [facility] Comment:Fasting: <100 mg/dL, Non-Fasting: <200 mg/dL (ADA 2005) Blood Urea Nitrogen (BUN) 10 8 - 21 mg/dL 02/20/2024 2:56 PM [facility] Creatinine 0.6 0.4 - 1.1 mg/dL 02/20/2024 2:56 PM [facility] eGFR >90 >59 02/20/2024 2:56 PM [facility] Comment:CKD-EPI (2020) in mL /min/1.73 sq meters. Sodium 141 136 - 145 mmol/L 02/20/2024 2:56 PM [facility] Potassium 3.8 3.4 - 5.3 mmol/L 02/20/2024 2:56 PM [facility] Chloride 108(H) 98 - 107 mmol/L 02/20/2024 2:56 PM [facility] CO2 21(L) 22 - 33 mmol/L 02/20/2024 2:56 PM [facility] Calcium 9.7 8.7 - 10.5 mg/dL 02/20/2024 2:56 PM [facility] Alkaline Phosphatase 75 32 - 122 U/L 02/20/2024 2:56 PM [facility] Aspartate Aminotrans (AST) 32 10 - 50 U/L 02/20/2024 2:56 PM [facility] Alanine Aminotrans (ALT) 18 10 - 50 U/L 02/20/2024 2:56 PM [facility] Bilirubin, Total 0.3 0.2 - 1.0 mg/dL 02/20/2024 2:56 PM [facility] Protein, Total 7.7 6.3 - 8.3 g/dL 02/20/2024 2:56 PM [facility] Albumin 4.6 3.5 - 5.0 g/dL 02/20/2024 2:56 PM [facility] BUN/Creatinine Ratio 17 10.0 - 25.0 Ratio 02/20/2024 2:56 PM [facility] Globulin 3.1 1.5 - 3.9 g/dL 02/20/2024 2:56 PM [facility] Albumin/Globulin Ratio 1.5 1.0 - 3.0 Ratio 02/20/2024 2:56 PM [facility] Anion Gap 12 7 - 17 02/20/2024 2:56 PM [facility] Blood (Plasma/Serum) 02/20/2024 1:49 PM EST 02/20/2024 2:10 PM EST Brian Pineda PA-C LAB BLOOD ORDERABLES [facility] [address] [place] [address], [address] [address] from Last 3 Months Care Teams Hypo Dipper Relationship Specialty Start Date End Date Pcp, No PCP - General General Medicine 06/10/21
[2024-05-12 17:22] LABS: Influenza A PCR NEGATIVE (Negative); Influenza B PCR NEGATIVE (Negative); Resp Syncy Virus RNA Qual PCR POSITIVE (Negative); SARS COV2 PCR INHOUSE NEGATIVE (Negative)
--- OUTSIDE RECORDS SUMMARY | 2024-05-12 17:22 | XMS_ITS | Referral Summary ---
Author Organization [facility] Address [address] [place] [id number] Care Team Providers Care Machine Cementer Name Role Phone Self, Referred Primary Care Provider Unavailabl e Source Comments Please note that some or all of the patient's information could have additional privacy protections. State laws allow health care providers to render certain types of treatment to minors without parental consent. Please do not assume that this information can be shared solely by obtaining just the consent of the patient's parent/guardian. Please determine if all or part of the patient's care was rendered without parent/guardian involvement. 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 ) Abdominal pain 10/16/2013 Partial small bowel obstruction 10/16/2013 Social History Tobacco Use Types Packs/Day Years Used Date Smoking Tobacco: Never Alcohol Use Standard Drinks/Week Comments Not Asked 0 (1 standard drink = 0.6 oz pur e alcohol) Comments Unknown Sex and Gender Information Value Date Recorded Sex Assigned at Not on file Legal Sex Female 2:12 AM EST Gender Identity Not on file Sexual Orientation Not on file Last Filed Vital Signs Vital Sign Reading Time Taken Comments Blood Pressure 122/88 12/13/2019 9:28 PM EDT Pulse 89 12/13/2019 9:28 PM EDT Temperature 36.9 ??C (98.4 ??F) 12/13/2019 9:28 PM ED T Respiratory Rate 16 12/13/2019 9:28 PM EDT Oxygen Saturation 99% 12/13/2019 9:28 PM EDT Inhaled Oxygen Concentration - - Weight 55.7 kg (122 lb 12.7 oz) 12/13/2019 9:31 PM EDT Height 152.4 cm (5') 12/13/2019 9:28 PM EDT Body Mass Index 23.98 12/13/2019 9:28 PM EDT Plan of Treatment Not on file Insurance [employer] Care Teams Machine Cementer Relationship Specialty Start Date End Date Self, Referred [address] [place] [address] PCP - General 12/25/17
--- OUTSIDE RECORDS SUMMARY | 2024-05-12 17:22 | XMS_ITS | Clinical Summary ---
Author Organization [facility] Address [address] [place] [address] Care Team Providers Care Electronic Engineering Draftsperson Name Role Phone Self, Referred Primary Care [...] so, obtain the minor's consent prior to disclosure.[facility] Allergies Active Allergy Reactions Criticality Noted [...] pain 10/16/2013 Partial small bowel obstruction 10/16/2013 Family History Medical History Relation Name Comments Anesthesia problems Neg Hx Bleeding disorder Neg Hx Social History Tobacco Use Types Packs/Day Years [...] 12/13/2019 9:28 PM EDT Plan of Treatment Health Maintenance Due Date Last Done Comments DTaP/TDAP/TD VACCINES (1 - Tdap) 2002 ADOLESCENT HIV SCREENING 01/20/2008 COVID-19 Vaccine (2023-2 5 season) 2023 INFLUENZA (#1) 2023 NIRSEVIMAB VACCINES UNDER 8 MONTHS Aged Out No longer eligible based on patient's age to complete this topic Insurance [employer] Care Teams Electronic Engineering Draftsperson Relationship Specialty Start Date End Date Self, Referred [address] [place] [address] PCP - General 12/25/17
--- OUTSIDE RECORDS SUMMARY | 2024-05-12 17:22 | XMS_ITS | Clinical Summary ---
Author Organization [facility] Address [address] [place] [address] Care Team Providers Care Investor Relations Associate Name Role Phone Pcp, No MD Primary Care Provider Unavailabl e Social History Tobacco Use Types Packs/Day Years Used Date Smoking Tobacco: Never Assessed Comments Unknown Sex and Gender Information Value Date Recorded Sex Assigned at Not on file Legal Sex Female 2:06 AM EST Gender Identity Not on file Sexual Orientation Not on file Plan of Treatment Health Maintenance Due Date Last Done Comments DTaP,Tdap,and Td Vaccines (6 - Tdap) 2006 01/31/1999, 07/21/1996, 1995, Additional history exists HPV Vaccines (3 - 2-dose series) 07/08/2010 03/16/2010, 01/07/2010 Hepatitis A Vaccines (2 of 2 - 2-dose series) 07/08/2010 01/07/2010 Hepatitis C Screening 2013 COVID-19 Vaccine ( season) 2023 06/14/2021, 09/17/2020, 08/27/2020 Pap Smear 10/11/2025 10/11/2022 Zoster Vaccines (1 of 2) 2045 Hepatitis B Vaccines Completed 05/09/1996, 1995, 1995 MMR Vaccines Completed 08/31/1999, 05/09/1996 Meningococcal Vaccine Aged Out 09/03/2008 No emmanuelle chikis eligible based on patient's age to complete this topic Pneumococcal Vaccine: Pediatrics (0 to 5 Years) and At-Risk Patients (6 to 64 Years) Aged Out 04/03/2023 No longer eligible based on patient's age to complete this topic HIV Screening Completed 08/02/2023, 08/2022, 05/28/2018 Influenza Vaccine Completed 03/04/2024, , 01/18/2022, Additional history exists Insurance MEDICAID HUSKY D Care Teams Investor Relations Associate Relationship Specialty Start Date End Date Susan Best MD [address] [place] [address] PCP - General 07/01/17
--- OUTSIDE RECORDS SUMMARY | 2024-05-12 17:22 | XMS_ITS | Encounter Summary ---
Author Organization [facility] Address [address] [place] [address] Care Team Providers Care Strip Catcher Name Role Phone Katharine Hernández MD Primary Care Provider Encounter Details Date Type Department Care Team (Late st Contact Info) Description 05/07/2024 12:30 PM EST Telemedicine [facility] [address] [place] [phone] Esperanza Aviles, [facility] [address] [facility] [address] [place] [address] Adjustment disorder with mixed anxiety and depressed mood (Primary Dx) Social History Tobacco Use Types [...] for your loved ones. For example, child development assistant or elderly care for an older adult? [...] as of this encounter Plan of Treatment Upcoming Encounters Date Type Department Care Team (Late st Contact Info) Description 05/21/2024 3:30 PM EST Telemedicine [facility] [address] [place] [address] Esperanza Aviles, [facility] [address] [address] 06/03/2024 9:00 AM EST Telemedicine [facility] [address] [place] [address] Esperanza Aviles, JANITOR SUPERVISOR [address] [place] [address] 06/05/2024 1:00 PM EST Office Visit Hematology and Oncology - [place] [address] [place] [phone] Cecille Herrera PA [address] [place], [place] [phone] 06/19/2024 3:00 PM EDT Office Visit Internal Medicine Clinic - [place] [address] [place] [address] Katharine Hernández MD [address] [place] [address] documented as of this encounter Visit Diagnoses Diagnosis Adjustment disorder with mixed anxiety and depressed mood- Primary documented in this encounter Additional Health Concerns Assessment Noted Time PHQ-9 Depression Total Score: 1 03/04/20 24 1:07 PM EST documented as of this encounter Care Teams Strip Catcher Relationship Specialty Start Date End Date Katharine Hernández MD [address] [place] [address] PCP - General 10/13/22 documented as of this encounter
--- OUTSIDE RECORDS SUMMARY | 2024-05-12 17:22 | XMS_ITS | Encounter Summary ---
Author Organization [facility] Address [address] [place] [address] Care Team Providers Care Ecclesiastical Worker Name Role Phone Katharine Hernández MD Primary Care Provider Encounter Details Date Type Department Care Team (Late st Contact Info) Description 04/16/2024 8:00 AM EST Telemedicine [address] [place] [phone] Esperanza Aviles, [facility] [address] [facility] [address] [place] [address] Adjustment disorder with mixed anxiety [...] care for your loved ones. For example, professor of early childhood education or elderly care for an older adult? [...] Info) Description 05/21/2024 3:30 PM EST Telemedicine [facility] [address] [place] [address] Esperanza Aviles, [facility] [address] [address] 06/03/2024 9:00 AM EST Telemedicine [facility] [address] [place] [address] Esperanza Aviles, OPERATIONS SUPERVISOR [address] [place] [address] 06/05/2024 1:00 PM EST Office Visit Hematology and Oncology - [place] [address] [place] [phone] Cecille Herrera PA [address] [place], [place] [phone] 06/19/2024 3:00 PM EDT Office Visit [facility] [place] [address] [place] [address] Katharine Hernández MD [address] [place] [address] documented as of this encounter Visit Diagnoses Diagnosis Adjustment disorder with mixed anxiety and depressed mood- Primary documented in this encounter Additional Health Concerns Assessment Noted Time PHQ-9 Depression Total Score: 1 03/04/20 24 1:07 PM EST documented as of this encounter Care Teams Ecclesiastical Worker Relationship Specialty Start Date End Date Katharine Hernández MD [address] [place] [address] PCP - General 10/13/22 documented as of this encounter
[2024-05-12 19:41] VITALS: BP 134/104; PULSE 90; RESP 18; TEMP 36.8; O2SAT 100
[2024-05-12 19:45] VITALS: BP 134/104; PULSE 90; RESP 18; TEMP 36.8; O2SAT 100
== END 2024-05-12 19:46 | disposition home or self-care (01) ==
PROVIDERS: Physician Assistant; Emergency Provider Emergency Medicine Emergency Medical Services
DX: J22 Unspecified acute lower respiratory infection (principal); B97.4 Respiratory syncytial virus as the cause of diseases classified elsewhere; J02.0 Streptococcal pharyngitis; R05.9 Cough, unspecified; R51.9 Headache, unspecified; Z03.818 Encounter for observation for suspected exposure to other biological agents ruled out
CPT/HCPCS: 0241U; 71046; 87651; 94640; 99283; 99284

== ENCOUNTER → 2024-05-12 16:01 | Outpatient (BNV) | payer MEDICAID, SELFPAY | PROVIDERS: Visit Provider Radiology Diagnostic Radiology | DX: R06.02 Shortness of breath (principal) | CPT/HCPCS: 71046 ==

== ENCOUNTER 2024-05-28 19:41 | Emergency (ER) | payer MEDICAID, SELFPAY ==
--- NOTE | ~2024-05-28 | XR_ITS ---
CLINICAL HISTORY: cough 2 view chest x-ray Comparison: Chest x-ray from 05/12/2024 Findings: Mild bibasilar atelectasis. No pneumothorax or pleural effusion. Gas in the right hemidiaphragm is redemonstrated and appears within hepatic flexure. New cajxn-ek-whdtiupx hiatal hernia. Imaged mediastinum and osseous structures appear unchanged. IMPRESSION: 1. Mild bibasilar atelectasis. 2. Partially imaged hiatal hernia. This document has been electronically signed by: Goran Gomez MD on 05/28/2024 20:46:47
--- NOTE | 2024-05-28 19:48 | ED_ITS ---
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 Reports 2 weeks ago she had RSV as well as strep throat infection for which she completed her antibiotics. She was feeling better. But she states that tonight she began experiencing a mild headache, productive cough now with green phlegm previously cough had decreased significantly and was without phlegm. Denies fevers, chills, dizziness, neck pain, neck stiffness, chest pain, shortness of breath, difficulty breathing, sore throat, nausea, vomiting, abdominal pain, numbness or tingling of the extremities, genitourinary symptoms. Related Data Home Medications ?Medication ?Instructions ?Recorded ?Confirmed albuterol sulfate 90 mcg/actuation 2 inh inhalation Q4-6H PRN 01/01/24 01/01/24 breath activated powder inhaler Shortness Of Breath Or Wheezing (ProAir RespiClick) iron,carbonyl 65 mg-vitamin C 125 1 tab PO Q OTHER DAY 01/01/24 01/01/24 mg tablet,delayed release (Vitron-C) Previous Rx's ?Medication ?Instructions ?Recorded docusate sodium 100 mg capsule 100 mg PO BID #60 caps 01/03/24 (Colace) polyethylene glycol 3350 17 17 g PO DAILY #238 grams 01/03/24 gram/dose oral powder (Miralax) penicillin V potassium 500 mg 500 mg PO BID 10 days #20 tabs 05/12/24 tablet azithromycin 250 mg tablet See Rx Instructions PO .COMPLEX #6 05/29/24 tabs prednisone 20 mg tablet 40 mg (2 x 20 mg) PO DAILY #10 tabs 05/29/24 Allergies Allergy/AdvReac Type Severity Reaction Status Date / Time watermelon Allergy Anaphylaxis Verified 05/28/24 19:52 metoclopramide [From Reglan] AdvReac Shakiness Verified 05/28/24 19:52 Review of Systems Review of Systems: Yes all other systems are reviewed and are negative PMFSH Past Medical History Attestation statement: The following information was validated with the patient. Source: old records reviewed Medical History Asthma Moebius' syndrome Surgical History History of laparotomy Social History Social History Household Members: Family Housing: House Do you presently have visiting nurse or other home services: No Patient Tobacco Use Status: Never used Tobacco Smoked in Last 30 Days: No Second Hand Smoke Exposure: No Use of substances other than those prescribed or required for medical reasons: No Advance Directives: No Advance Directives Information Provided: Yes Patient : No service: No Physical Exam ED Vital Signs: Vital Signs - 24 hr 05/28/24 19:49 05/29/24 00:12 05/29/24 00:57 Temperature 97.8 F 98.0 F 98.0 F Pulse Rate 101 H 94 97 Respiratory Rate 24 H 18 18 Blood Pressure 126/86 129/89 126/86 Pulse Oximetry 94 96 97 Oxygen Delivery Method Room Air Room Air Room Air BMI result Body Mass Index 26.5 Appearance: Alert.?Oriented to person, place and time. No acute distress.?Normal affect. Eyes: Pupils equal, round and reactive to light.? ENT: TM normal bilaterally. Pharynx normal.?? Neck: Normal inspection.? Neck supple.??No cervical adenopathy CVS: Heart sounds normal. Normal heart rate and rhythm.? Pulses normal.?? Respiratory: No respiratory distress.? Lung sounds clear to auscultation bilaterally?? Abdomen: Soft and non-tender. Normoactive bowel sounds. Skin: Skin warm and dry.? Normal skin color.? ? Extremities: No lower extremity edema.? Neuro: Moves all extremities spontaneously. Sensation intact bilaterally. No motor deficits. Ambulates with normal steady gait. Course Course Course Narrative: RME, this is a rapid medical exam performed by Magdiel Salinas please refer to primary provider for complete H&P- 29-year-old female presents for evaluation of wheezing. The patient reports a history of asthma. Plan for chest x-ray and viral swabs. She is well-appearing Medical Decision Making Medical Decision Making MDM Narrative: Patient is a 29-year-old female with past medical history of asthma, Moebius syndrome, presenting for evaluation of upper respiratory symptoms. COVID- 19/influenza/RSV testing today is negative. CXR is without consolidation or infiltrate. Given recent illness, history of asthma, presenting symptoms and concerns I feel she likely has bronchitis, given her history of asthma she would benefit from course of azithromycin addition to prednisone, has an albuterol inhaler with her. She endorsed a headache, though she has no focal neurological deficits, no nuchal rigidity, not consistent with meningitis. No associated chest pain with these symptoms. Well-appearing, nontoxic, afebrile, no tachycardia or tachypnea/hypoxia. Speaking clear full sentences, ambulatory with steady gait. Discussed additionally conservative treatment including rest, hydration, Tylenol/ibuprofen as needed for fever and body aches, saline nasal spray, humidifier, pdxv-euk-jlvfnwp cold medication. Advised to follow-up with primary care provider as needed, discussed reasons to return back to the emergency department. All questions were answered. Patient discharged home in stable condition. Differential Diagnosis Differential Diagnoses: The differential diagnosis associated with the presentation includes ( See narrative above) Admission/Observation Consideration of admission/observation: Escalation of care including admission/observation considered ( see narrative above) Lab Data MDM Lab Attestation statement: I reviewed the patient's lab results. ( see narrative above) Labs: Lab Results 05/28/24 Range/Units 20:55 Influenza Type A (PCR) NEGATIVE (Negative) Influenza Type B (PCR) NEGATIVE (Negative) RSV RNA Qual (PCR) NEGATIVE (Negative) SARS-CoV-2 RNA (RT-PCR) NEGATIVE (Negative) Independent Interpretation I performed an independent interpretation of an: Plain X-Ray (See narrative abov e) Radiology Impression Discussion of test interpretation with radiology: I have reviewed the radiologist's reading. Radiologist Impression: 2 view chest x-ray Comparison: Chest x-ray from 05/12/2024 Findings: Mild bibasilar atelectasis. No pneumothorax or pleural effusion. Gas in the right hemidiaphragm is redemonstrated and appears within hepatic flexure. New vhheu-ar-ycngxioc hiatal hernia. Imaged mediastinum and osseous structures appear unchanged. IMPRESSION: 1. Mild bibasilar atelectasis. 2. Partially imaged hiatal hernia. External Record Review External record reviewed: Outpatient record Prescription Management I considered prescription management with: Pain Medication ( acetaminophen/ibuprofen) Discharge Plan Discharge Clinical Impression: Bronchitis Patient Disposition: Home, Self-Care Instructions: Acute Bronchitis (ED) Additional Instructions: Take prednisone daily with food to prevent stomach upset, complete the entire course of azithromycin. Be sure to rest, stay well hydrated drinking plenty of fluids, eat small frequent meals. Tylenol/ibuprofen can be used as needed for fever/pain. Atxu-kyy-mlbvuxd cold medications may be helpful as well for symptoms. Saline nasal spray, humidifier may be helpful for nasal congestion. You may return to the emergency department with any new or worsening symptoms or concerns. Follow-up with your primary care provider as needed. Prescriptions: New azithromycin 250 mg tablet See Rx Instructions .ROUTE .COMPLEX Qty: 6 0RF Rx Instructions: For 250 mg dose pack: take 500 mg today (day 1), then 250 mg for 4 days (days 2-5) prednisone 20 mg tablet 40 mg PO DAILY Qty: 10 0RF No Action penicillin V potassium 500 mg tablet 500 mg PO BID 10 Days Qty: 20 0RF ProAir RespiClick 90 mcg/actuation aerosol powdr breath activated 2 inh inhalation Q4-6H PRN (Reason: Shortness Of Breath Or Wheezing) Vitron-C 65 mg iron- 125 mg tablet,delayed release (DR/EC) 1 tab PO Q OTHER DAY docusate sodium [Colace] 100 mg capsule 100 mg PO BID Qty: 60 0RF polyethylene glycol 3350 [Miralax] 17 gram/dose powder 17 g PO DAILY Qty: 238 0RF Referrals: Physician,Unknown J [Primary Care Provider] - Interventions: ED Discharge Assessment Last Done: 05/29/24 00:57 Discharge Date/Time: 05/29/24 01:08 Print Language: Paraguayan
[2024-05-28 19:49] VITALS: BP 126/86; PULSE 101; RESP 24; TEMP 36.6; O2SAT 94; BMI 26.5
[2024-05-28 21:37] LABS: Influenza A PCR NEGATIVE (Negative); Influenza B PCR NEGATIVE (Negative); Resp Syncy Virus RNA Qual PCR NEGATIVE (Negative); SARS COV2 PCR INHOUSE NEGATIVE (Negative)
[2024-05-29 00:12] VITALS: BP 129/89; PULSE 94; RESP 18; TEMP 36.7; O2SAT 96
--- OUTSIDE RECORDS SUMMARY | 2024-05-29 00:33 | XMS_ITS | Clinical Summary ---
Author Organization [facility] Address [address] [place] [address] Care Team Providers Care Human Resource Advisor Name Role Phone Pcp, No MD Primary [...] exists Insurance MEDICAID HUSKY D Care Teams Human Resource Advisor Relationship Specialty Start Date End Date Susan Best MD [address] [place] [address] PCP - General 07/01/17
--- OUTSIDE RECORDS SUMMARY | 2024-05-29 00:33 | XMS_ITS | Encounter Summary ---
Author Organization [facility] Address [address] [place] [address] Care Team Providers Care Software Security Consultant Name Role Phone Katharine Hernández MD Primary Care Provider [phone] Encounter Details Date Type Department Care Team (Late st Contact Info) Description 05/07/2024 12:30 PM EST Telemedicine [facility] [address] [facility] [address] [place] [phone] Esperanza Aviles, [facility] [address] [facility] [address] [place] [address] Adjustment disorder with mixed anxiety [...] for your loved ones. For example, child day care center worker or elderly care for an older adult? [...] What is your living situation? 1 05/04/2023 Comments Unknown Sex and Gender Information Value Date Recorded Sex Assigned at Not on file Legal Sex Female 2:58 AM EST Gender Identity Not on file Sexual Orientation Not on file documented as of this encounter Plan of Treatment Upcoming Encounters Date Type Department Care Team (Late st Contact Info) Description 06/03/2024 9:00 AM EST Telemedicine [address] [place] [phone] Esperanza Aviles, REFRACTORY WORKER [address] [facility] [address] [place] [address] 06/05/2024 1:00 PM EST Office Visit [facility]ology [facility] - [facility] [address] [place] [address] Evie Davies NP [address] [place], [place] [phone] 06/19/2024 3:00 PM EDT Office Visit [facility] - [facility] [address] [place] [address] Katharine Hernández MD [address] [place] [phone] documented as of this encounter Visit Diagnoses Diagnosis Adjustment disorder with mixed anxiety and depressed mood- Primary documented in this encounter Additional Health Concerns Assessment Noted Time PHQ-9 Depression Total Score: 1 03/04/20 24 1:07 PM EST documented as of this encounter Care Teams Software Security Consultant Relationship Specialty Start Date End Date Katharine Hernández MD [address] [place] [phone] PCP - General 10/13/22 documented as of this encounter
--- OUTSIDE RECORDS SUMMARY | 2024-05-29 00:33 | XMS_ITS | Encounter Summary ---
Author Organization [facility] Address [address] [place] [address] Care Team Providers Care Needle Loom Weaver Name Role Phone Susan Best MD Primary Care Provider Unavailabl e Encounter Details Date Type Department Care Team (Late st Contact Info) Description 02/01/2021 Orders Only [place] [phone] Darlin Frias DMD, MD Neutropenia, unspecified type [...] Primary documented in this encounter Care Teams Needle Loom Weaver Relationship Specialty Start Date End Date Susan Best MD [address] [place] [address] PCP - General 07/01/17 documented as of this encounter
--- OUTSIDE RECORDS SUMMARY | 2024-05-29 00:33 | XMS_ITS | Clinical Summary ---
Author Organization [facility] Address [address] [place] [address] Care Team Providers Care Health Information Provider Name Role Phone Katharine Hernández MD Primary [...] Advance Directives For more information, please contact: [phone] Latest Code Status on File Code Status [...] way: discussion with patient . Care Teams Health Information Provider Relationship Specialty Start Date End Date Katharine Hernández MD PCP - General Internal Medicine 10/13/22
--- OUTSIDE RECORDS SUMMARY | 2024-05-29 00:33 | XMS_ITS | Clinical Summary ---
Author Organization [facility] Address [address] [place] [address] Phone Care Team Providers Care Editing Internship Name Role Phone Katharine Hernández MD Primary Care Provider [phone] Allergies Active Allergy Reactions Criticality Noted Date Comments Fentanyl Hives,Itching 06/08/2019 Metoclopramide Anaphylaxis High 12/14/2019 Watermelon Anaphylaxis High 10/24/2013 Medications albuterol HFA (PROAIR HFA ; PROVENTIL HFA ; VENTOLIN HFA) 90 mcg/actuation inhaler Inhale 2 puffs by mouth every 6 hours as needed. 2 Active diclofenac (VOLTAREN) 1 % topical gel Apply 8 g topically daily. 3 Active methocarbamoL (ROBAXIN) 500 mg tablet Take 1 tablet (500 mg total) by mouth 4 (four) times a day. 4 Active benzonatate (TESSALON) 200 mg capsule Take 1 capsule (200 mg total) by mouth every 8 hours as needed. 4 Active Symbicort 160-4.5 mcg/actuation inhaler Inhale 2 puffs by mouth 2 (two) times a day. Rinse mouth with water after use to reduce aftertaste and incidence of candidiasis. Do not swallow. 68 each 4 Active clotrimazole-be tamethasone (LOTRISONE) 1-0.05 % cream Apply topically 2 (two) times a day. 15 g 05/03/19 Active Problems Problem Noted Date Diagnosed Date Cyst of left ovary 12/02/2023 Overview (12/02/2023): 10/10 USN: Left ovarian cystic mass 2.9x3.5x3.8cm, complex. Likely hemorrhagic. Repeat scan in 6-8 weeks recommended. 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 Encounters Date Type Department Care Team Description 05/21/2024 3:30 PM EST Telemedicine [address] [phone] Esperanza Aviles, MARINE PILOT Adjustment disorder with mixed anxiety and depressed mood (Primary Dx) 05/07/2024 12:30 PM EST Telemedicine [address] [phone] Esperanza Aviles, MARINE PILOT Adjustment disorder with mixed anxiety and depressed mood (Primary Dx) 04/16/2024 8:00 AM EST Telemedicine [address] [phone] Esperanza Aviles, MARINE PILOT Adjustment disorder with mixed anxiety and depressed mood (Primary Dx) 04/10/2024 1:30 PM EST Telemedicine [address] [phone] Esperanza Aviles, MARINE PILOT Adjustment disorder with mixed anxiety and depressed mood (Primary Dx) 04/04/2024 11:00 AM EST Telemedicine [address] [phone] Esperanza Aviles, MARINE PILOT Adjustment disorder with mixed anxiety and depressed mood (Primary Dx) 03/27/2024 2:30 PM EST Telemedicine [address] [phone] Esperanza Aviles, CELINA Adjustment disorder with mixed anxiety and depressed mood (Primary Dx) 03/19/2024 4:30 PM EST Telemedicine [facility] [address] [facility] [address] [place] [address] Esperanza Aviles, CELINA Adjustment disorder with mixed anxiety and depressed mood (Primary Dx) 03/05/2024 12:30 PM EST Telemedicine [facility] [address] [place] [address] Esperanza Aviles, CELINA Adjustment disorder with anxiety (Primary Dx) 03/04/2024 2:31 PM EST - 03/04/2024 11:59 PM EST Hospital Encounter [facility] [address] [place] [phone] Right foot pain Discharge Disposition: Home or Self Care 03/04/2024 1:30 PM EST Office Visit [facility] Medicine [facility] - [place] [address] [place] [phone] Katharine Hernández MD Right foot pain (Primary Dx); Dry skin; Moderate persistent asthma without complication 02/28/2024 8:00 AM EST Telemedicine [facility] [address] [facility] [address] [place] [phone] Esperanza Aviles, CELINA Adjustment disorder with anxiety (Primary Dx) from Last 3 Months Immunizations Name Administration Dates Next Due Influenza Quadrivalent, 0.5m l, preservative free (Fluarix; FluLaval; Fluzone) ages 6mo and older (Afluria) 3yo and older 04/03/2023,01/18/2022,06/16/2019,2017 Influenza trivalent, 0.5mL, preservative free (Fluarix; FluLaval; Fluzone) ages 6mo and older (Afluria) 3 years and older 03/04/2024 [facility] SARS-CoV-2 COVID-19, mRNA, LNP-S, preservative free 06/14/2021,09/17/2020,08/27/2020 Pneumococcal conjugate 20 va lent (Prevnar 20, PCV 20) 2mo and older 04/03/2023 Surgical History Surgery Date Site/Laterality Comments FOOT SURGERY Right PROCEDURE:FOOT SURGERY;COMMENT:as baby ABDOMINAL SURGERY PROCEDURE:ABDOMINAL SURGERY;COMMENT:gastroschisis repair at LAPAROSCOPY DIAGNOSTIC / BIOPSY / ASPIRATION / LYSIS 09/07/2016 N/A PROCEDURE:DIAGNOSTIC LAPAROSCOPY;COMMENT:Procedure: LAPAROSCOPY DIAGNOSTIC; Surgeon: Salomon Canela MD; Location: [facility] MAIN OPERATING ROOM; Service: General; Laterality: N/A; EXPLORATORY LAPAROTOMY 09/07/2016 N/A PROCEDURE:EXPLORATORY LAPAROTOMY;COMMENT:Procedure: LAPAROTOMY EXPLORATORY; Surgeon: Salomon Canela MD; Location: [facility] MAIN OPERATING ROOM; Service: General; Laterality: N/A; ABDOMINAL SURGERY 09/07/2016 N/A PROCEDURE:ABDOMINAL SURGERY;COMMENT:Procedure: LAPAROTOMY LYSIS OF ADHESIONS; Surgeon: Salomon Canela MD; Location: [facility] MAIN OPERATING ROOM; Service: General; Laterality: N/A; APPENDECTOMY 09/07/2016 N/A PROCEDURE:APPENDECTOMY;COMMENT :Procedure: APPENDECTOMY; Surgeon: Salomon Canela MD; Location: [facility] MAIN OPERATING ROOM; Service: General; Laterality: N/A; UPPER GASTROINTESTINAL ENDOSCOPY 06/12/2019 N/A PROCEDURE:UPPER GASTROINTESTINAL ENDOSCOPY;COMMENT:Procedure: UPPER ENDOSCOPY-EGD; Surgeon: Lennie Rosen MD; Location: [facility] ENDOSCOPY; Service: Gastroenterology; Laterality: N/A; Medical History [...] care for your loved ones. For example, childrens club attendant or elderly care for an older adult? [...] on file Sexual Orientation Not on file Obstetrics History Last Filed [...] Info) Description 06/03/2024 9:00 AM EST Telemedicine [facility] [address] [place] [phone] Esperanza Aviles, MARINE PILOT [address] [facility] [address] [place], [place] [phone] 06/05/2024 1:00 PM EST Office Visit Hematology and Oncology - [place] [address] [place] [phone] Evie Davies, MAGGY [address] [place] [address] 06/19/2024 3:00 PM EDT Office Visit [facility] Medicine [facility] [place] [address] [place] [phone] Katharine Hernández MD [address] [place] [address] Health Maintenance Due Date Last Done Comments IPV Vaccines (4 of 4 - 4-dose series) 1999 1995, 1995, 1995 DTaP,Tdap,and Td Vaccines (6 - Tdap) 2006 01/31/1999, 07/21/1996, 1995, Additional history exists HPV Vaccines (3 - 2-dose series) 07/08/2010 03/16/2010, 01/07/2010 Hepatitis A Vaccines (2 of 2 - 2-dose series) 07/08/2010 01/07/2010 COVID-19 Vaccine (4 - season) 2023 06/14/2021, 09/17/2020, 08/27/2020 Depression Screening [...] Completed 03/04/2024, , 01/18/2022, Additional history exists Meningococcal B Vacine Aged Out No lo nger eligible based on patient's age to complete this topic RSV Immunization Patients Under 20 months Aged Out No longer eligible based on patient's age to complete this topic Procedures Procedure Name Priority Date/Time Associated Diagnosis Comments XR FOOT 3+ VIEWS RIGHT Routine 03/04/2024 2:47 PM EST Right foot pain HM HEPATITIS C SCREENING Routine 08/02/2023 HIV SCREENING Routine 08/02/2023 DEPRESSION SCREENING Routine 04/03/2023 PAP SMEAR Routine 10/11/2022 12:00 AM EDT from Last 3 Months or Most Recently Relevant to Health Maintenance Results * XR Foot 3+ Views Right (03/04/2024 2:47 PM EST) Anatomical Region Laterality Modality Lower Extremities, Foot Right [facility] 03/04/2024 2:57 PM EST Impressions 03/04/2024 3:05 PM EST 1. Chronic cavus foot. 2. Valgus first toe 3. No arthritis is seen. 4. No fracture is seen. Report reviewed and signed by : Dr. Saqib Wong on 03/04/2024 3:05 PM. Workstation Name - [id number] -------- FINAL REPORT -------- Dictated By: Saqib Wong Dictated Date: 03/04/2024 14:57 ET Assigned Physician: Saqib oWng Reviewed and Electronically Signed By: Saqib Wong Signed Date: 03/04/2024 15:05 ET Workstation ID: [id number] Transcribed By: Self Edit Transcribed Date: 03/04/2024 [...] Wong on 03/04/2024 3:05PM. Workstation Name - [id number] -------- FINAL REPORT -------- Dictated By: Saqib Wong Dictated Date: 03/04/2024 14:57 ET Assigned Physician: Saqib Wong Reviewed and Electronically Signed By: Saqib Wong Signed Date: 03/04/2024 15:05 ET Workstation ID: [id number] Transcribed By: Self Edit Transcribed Date: 03/04/2024 14:57 ET Salomon Rand MD IMG XR PROCEDURES Final Result * HIV Screening (08/02/2023) Pathologist [facility] HIV Screening ABSTRACTED Historical Provider HEALTH MAINTENANCE Final Result * Hepatitis C Screening (08/02/2023) Pathologist [facility] Hepatitis C Screening ABSTRACTED Historical Provider HEALTH MAINTENANCE Final Result * Depression Screening (04/03/2023) Pathologist [facility] Depression Screening ABSTRACTED Result [facility] Historical Provider HEALTH MAINTENANCE Final Result * Pap smear (10/11/2022 12:00 AM EDT) Pathologist [facility] Case Results Patient Name: VIVIEN MATTHEW MR#: [id number] Collected Date: 10/11/2022 Reported Date: 10/30/2022 Specimen #[id number] Final Diagnosis Satisfactory for evaluation. ??Endocervical transformation zone component present. Negative for Intraepithelial Lesion or Malignancy. Clinical Diagnosis Z12.4 Source: A: ThinPrep Imaged Pap Cervical-SC Electronically Signed Out By TAVARES Ambrose(ASCP) Note: The Pap test is a screening test with an inherent false negative rate. Automated prescreening of all liquid based specimens is performed by the ThinPrep Imaging System unless otherwise stated. Test Performed by: [address] ??[id number] Nida Hickey M.D., Director HISTORICAL TESTING LAB RESULTING AGENCY 10/11/2022 Olivia Payne MD LAB CYTOLOGY ORDERABLES Edited Result - Final HISTORICAL TESTING LAB RESULTING AGENCY from Last 3 Months or Most Recently Relevant to Health Maintenance Insurance MEDICAID - [place] Care Teams Editing Internship Relationship Specialty Start Date End Date Katharine Hernández MD [address] [place] [phone] PCP - General 10/13/22
--- OUTSIDE RECORDS SUMMARY | 2024-05-29 00:33 | XMS_ITS | Clinical Summary ---
Author Organization [facility] Address [address] [place] [address] Care Team Providers Care Extraction Operator Name Role Phone Self, Referred Primary Care [...] so, obtain the minor's consent prior to disclosure.[facility] Allergies Active Allergy Reactions Criticality Noted [...] this topic Insurance [employer] Care Teams Extraction Operator Relationship Specialty Start Date End Date Self, Referred [address] [place] [address] PCP - General 12/25/17
--- OUTSIDE RECORDS SUMMARY | 2024-05-29 00:33 | XMS_ITS | Clinical Summary ---
Author Organization [facility] Address [address] [place] [address] Care Team Providers Care Folder Tier Name Role Phone Pcp, No Primary Care [...] 4:24 PM EST - 03/18/2024 9:45 PM EST Emergency [facility] Emergency Department [address] [place] [address] Cough (Primary Dx) Discharge Disposition: Home or Self Care 03/18/2024 Travel from Last 3 Months Immunizations Name [...] 2 VIEWS STAT 03/18/2024 4:59 PM EST from Last 3 Months Results * XR Chest 2 views (03/18/2024 4:59 PM EST) Anatomical Region Laterality Modality Chest Computed Radiogr aphy 03/18/2024 4:30 PM EST Impressions 03/18/2024 5:44 PM EST No acute pulmonary findings. Interpreted by: ??Preston Garner DO Rn Pediatric Icu I personally reviewed the images and the [...] pulmonary findings. Interpreted by: Preston Garner DO Rn Pediatric Icu I personally reviewed the images and the resident's preliminary report and AGREE with the report as it is now presented ([id number]). Lea [facility] DI[facility]NO[facility] IMAGI NG ORDERABLES from Last 3 Months Care Teams Folder Tier Relationship Specialty Start Date End Date Pcp, No PCP - General General Medicine 06/10/21
--- OUTSIDE RECORDS SUMMARY | 2024-05-29 00:33 | XMS_ITS | Encounter Summary ---
Author Organization [facility] Address [address] [place] [address] Care Team Providers Care Rack Puncher Name Role Phone Katharine Hernández MD Primary Care Provider Encounter Details Date Type Department Care Team (Late st Contact Info) Description 05/21/2024 3:30 PM EST Telemedicine [facility] [address] [facility] [address] [place] [phone] Esperanza Aviles, [facility] [address] [facility] [address] [place] [address] Adjustment disorder with mixed anxiety [...] care for your loved ones. For example, childcare attendant or elderly care for an older [...] Info) Description 06/03/2024 9:00 AM EST Telemedicine [address] [place] [phone] Esperanza Aviles, [facility] [address] [facility] [address] [place] [address] 06/05/2024 1:00 PM EST Office Visit Hematology and Oncology - [place] [address] [place] [address] Evie Davies NP [address] [place], [place] [id number] 06/19/2024 3:00 PM EDT Office Visit [facility] - [place] [address] [place] [address] Katharine Hernández MD [address] [place] [phone] documented as of this encounter Visit Diagnoses Diagnosis Adjustment disorder with mixed anxiety and depressed mood- Primary documented in this encounter Additional Health Concerns Assessment Noted Time PHQ-9 Depression Total Score: 1 03/04/20 24 1:07 PM EST documented as of this encounter Care Teams Rack Puncher Relationship Specialty Start Date End Date Katharine Hernández MD [address] [place] [phone] PCP - General 10/13/22 documented as of this encounter
[2024-05-29 00:57] VITALS: BP 126/86; PULSE 97; RESP 18; TEMP 36.7; O2SAT 97
== END 2024-05-29 01:08 | disposition home or self-care (01) ==
PROVIDERS: Physician Assistant; Emergency Provider Emergency Medicine
DX: J40 Bronchitis, not specified as acute or chronic (principal); R05.9 Cough, unspecified; Z03.818 Encounter for observation for suspected exposure to other biological agents ruled out
CPT/HCPCS: 0241U; 71046; 99283; 99284

== ENCOUNTER → 2024-05-28 19:48 | Outpatient (BNV) | payer MEDICAID, SELFPAY | PROVIDERS: Visit Provider Radiology Neuroradiology | DX: J98.11 Atelectasis (principal); K44.9 Diaphragmatic hernia without obstruction or gangrene | CPT/HCPCS: 71046 ==

== ENCOUNTER 2025-01-05 16:05 | Emergency (ER) | payer MEDICAID, SELFPAY ==
--- OUTSIDE RECORDS SUMMARY | 2024-02-05 12:03 | XMS_ITS | Encounter Summary ---
Author Organization [facility] Address [address] [place] [address] Care Team Providers Care Drop Wire Aligner Name Role Phone Katharine Hernández MD Primary Care Provider [phone] Encounter Details Date Type Department Care Team (Late st Contact Info) Description 02/05/2024 12:03 PM EDT Hospital Encounter TH [facility]OR[facility] ONLY Cecille Herrera PA [address] [facility] [address] [place] [id number] Social History Tobacco Use Types Packs/Day Years [...] care for your loved ones. For example, exceptional children teacher or elderly care for an older [...] PM EST Lab [facility] Lab [address] [place] [address] 03/18/2025 11:00 AM EST Office Visit Hematology and Oncology - [address] [address] Kathy Pool PA [address] [place], [place] [phone] 03/23/2025 2:00 PM EST Office Visit [facility] Medicine Clinic - [place] [address] [place] [address] Katharine Hernández MD [address] [place] [address] documented as of this encounter Visit Diagnoses Not on filedocumented in this encounter Care Teams Drop Wire Aligner Relationship Specialty Start Date End Date Katharine Hernández MD [address] [place] [address] PCP - General 10/13/22 documented as of this encounter
--- NOTE | ~2025-01-05 | XR_ITS ---
EXAMINATION: XR CHEST CLINICAL INFORMATION: cough, wheezing COMPARISON: September 25, 2024 TECHNIQUE: 2 views of the chest were obtained. FINDINGS: Lungs are clear. Heart size is normal. Small air-filled hiatal hernia is again noted. XR/XR chest 2V IMPRESSION: No acute disease. Hiatal hernia. Electronically signed by: Mayank Hampton MD 01/05/2025 05:04 PM EDT
[2025-01-05 16:33] VITALS: BP 116/71; PULSE 113; RESP 22; TEMP 35.9; O2SAT 96; BMI 25.7
--- NOTE | 2025-01-05 16:33 | ED_ITS ---
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 Associated dry cough, sore throat, generalized malaise and fatigue. Subjective fevers. Patient states she has been having to use her inhaler more frequently. Denies known sick contacts with same symptoms Related Data Home Medications ?Medication ?Instructions ?Recorded ?Confirmed albuterol sulfate 90 mcg/actuation 2 inh inhalation Q4 -6H PRN 01/01/24 01/01/24 breath activated powder inhaler Shortness Of Breath Or Wheezing (ProAir RespiClick) iron,carbonyl 65 mg-vitamin C 125 1 tab PO Q OTHER DAY 01/01/24 01/01/24 mg tablet,delayed release (Vitron-C) Previous Rx's ?Medication ?Instructions ?Recorded docusate sodium 100 mg capsule 100 mg PO BID #60 caps 01/03/24 (Colace) polyethylene glycol 3350 17 17 g PO DAILY #238 grams 0 01/03/24 gram/dose oral powder (Miralax) penicillin V potassium 500 mg 500 mg PO BID 10 days #2 0 tabs 05/12/24 tablet azithromycin 250 mg tablet See Rx Instructions PO .COM PLEX #6 05/29/24 tabs prednisone 20 mg tablet 40 mg (2 x 20 mg) PO DAILY # 10 tabs 05/29/24 prednisone 20 mg tablet 40 mg (2 x 20 mg) PO DAILY # 8 tabs 01/05/25 Allergies Allergy/AdvReac Type Severity Reaction Status Date / Time watermelon Allergy Anaphylaxis Verified 01/05/25 16:37 metoclopramide (From Reglan) AdvReac Shakiness Verified 01/05/25 16:37 Review of Systems Review of Systems: Yes all other systems are reviewed and are negative Constitutional: Constitutional: Reports fatigue, Reports fever(s) and Reports malaise ENT: Reports sore throat Cardiovascular: Cardiovascular: Denies chest pain and Denies dyspnea Respiratory: Respiratory: Reports cough, Denies dyspnea and Reports wheezing Endocrine: Endocrine: Reports fatigue Allergic/Immunologic: Allergic/Immunologic: Reports wheezing PMFSH Past Medical History Attestation statement: The following information was validated with the patient. Medical History Asthma Moebius' syndrome Surgical History History of laparotomy Social History Social History Household Members: Family Housing: House Do you presently have visiting nurse or other home services: No Patient Tobacco Use Status: Never used Tobacco Second Hand Smoke Exposure: No service: No Physical Exam ED Vital Signs: Vital Signs - 24 hr 01/05/25 16:33 01/05/25 16:51 Temperature 96.7 F L Pulse Rate 113 H 121 H Respiratory Rate 22 H 24 H Blood Pressure 116/71 Pulse Oximetry 96 Oxygen Delivery Method Room Air BMI result Body Mass Index 25.7 Const Other: Alert well-appearing Orientation/consciousness: patient oriented x3 Resp Other: Nonlabored respirations, no wheezing, active bronchospasm cough Cardio Other: Normal peripheral perfusion Skin Other: Warm dry no rash Neuro General: patient oriented x3, gait normal, no focal motor deficits and CN's II- XI intact bilaterally Psych Other: Cooperative Course Course Course Narrative: Rapid medical examination performed in triage by Lina Luque PA-C. Patient is a 29 year old assigned female at presenting to the emergency department with a cough and wheezing. Detailed physical exam and review of systems are deferred to the army manager. Imaging and swabs ordered. Patient placed back in the waiting room pending room availability and results. 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 Associated dry cough, sore throat, generalized malaise and fatigue. Subjective fevers. Patient states she has been having to use her inhaler more frequently. Denies known sick contacts with same symptoms. Problem: Asthma History: Per patient I have considered the following differential diagnoses: Bronchitis, asthma exacerbation, pneumonia, viral syndrome Plan: Patient here with very mild symptoms, viral panel and chest x-ray obtained from triage . Giving a treatment, sending with steroid I have independently reviewed the following tests: Labs: Negative for COVID and influenza Chest x-ray:FINDINGS: Lungs are clear. Heart size is normal. Small air-filled hiatal hernia is again noted. XR/XR chest 2V IMPRESSION: No acute disease. Hiatal hernia. Electronically signed by: Mayank Mi Differential Diagnosis Differential Diagnoses: The differential diagnosis associated with the presentation includes See medical decision-making Admission/Observation Consideration of admission/observation: Escalation of care including admission/observation considered Not applicable Lab Data MDM Lab Attestation statement: I reviewed the patient's lab results. Labs: Lab Results 01/05/25 Range/Units 17:01 COVID-19 (ZAK) Negative (Negative) COVID-19 Clin Com See Note Influenza Type A (THOMAS) Negative (Negative) Influenza Type B (THOMAS) Negative (Negative) Influenza A & B Note See Note Radiology Impression Discussion of test interpretation with radiology: I have reviewed the radiologist's reading. Discharge Plan Discharge Clinical Impression: Asthma with acute exacerbation Patient Disposition: Home, Self-Care Instructions: Asthma (ED) Additional Instructions: You were tested for COVID and influenza, the viral panel was negative. The chest x-ray was clear you do not have pneumonia. You are being treated for a mild asthma exacerbation. See home care instructions. Use your inhaler as directed. Take the steroid as directed. Follow up with primary care as needed. Prescriptions: New prednisone 20 mg tablet 40 mg PO DAILY Qty: 8 0RF No Action penicillin V potassium 500 mg tablet 500 mg PO BID 10 Days Qty: 20 0RF ProAir RespiClick 90 mcg/actuation aerosol powdr breath activated 2 inh inhalation Q4-6H PRN (Reason: Shortness Of Breath Or Wheezing) Vitron-C 65 mg iron- 125 mg tablet,delayed release (DR/EC) 1 tab PO Q OTHER DAY docusate sodium [Colace] 100 mg capsule 100 mg PO BID Qty: 60 0RF polyethylene glycol 3350 [Miralax] 17 gram/dose powder 17 g PO DAILY Qty: 238 0RF azithromycin 250 mg tablet See Rx Instructions .ROUTE .COMPLEX Qty: 6 0RF Rx Instructions: For 250 mg dose pack: take 500 mg today (day 1), then 250 mg for 4 days (days 2-5) prednisone 20 mg tablet 40 mg PO DAILY Qty: 10 0RF Print Language: Panamanian
[2025-01-05 16:51] VITALS: PULSE 121; RESP 24; O2SAT 96
[2025-01-05] MEDS: Albuterol Sulfate 90 MCG 8 GM INHALER 12 PUFF INHALE (16:51)
[2025-01-05 17:35] LABS: COVID-19 Test Negative (Negative); IDNOW Serial# 58CA691E
[2025-01-05 17:45] LABS: IDNOW Serial# 6674DD1D; Influenza B2 Negative (Negative)
--- OUTSIDE RECORDS SUMMARY | 2025-01-05 22:01 | XMS_ITS | Clinical Summary ---
Author Organization [facility] Address [address] [place], [place] [address] [address] Care Team Providers Care Sustainability Specialist Name Role Phone Pcp, No MD Primary Care Provider Unavailabl e Allergies Active Allergy Reactions Criticality Noted Date Comments Fentanyl Hives,Itching 06/08/2019 Metoclopramide Anaphylaxis High 12/14/2019 Watermelon Anaphylaxis High 10/24/2013 Medications No known medications Active Problems No known active problems Social History Tobacco Use Types Packs/Day Years Used Date Smoking Tobacco: Never Smokeless Tobacco: Never Tobacco Cessation:Counseling Given: Not Answered Comments No Sex and Gender Information Value Date Recorded Sex Assigned at Not on file Legal Sex Female 2:06 AM EST Gender Identity Not on file Sexual Orientation Not on file Last Filed Vital Signs Vital Sign Reading Time Taken Comments Blood Pressure 147/85 08/27/2024 6:38 PM EDT Pulse 75 08/27/2024 6:38 PM EDT Temperature 36.3 C (97.3 F) 08/27/2024 6:38 PM EDT Respiratory Rate 18 08/27/2024 6:38 PM EDT Oxygen Saturation 98% 08/27/2024 6:38 PM EDT Inhaled Oxygen Concentration - - Weight 63.5 kg (140 lb) 08/27/2024 6:37 PM EDT Height 152.4 cm (5') 08/27/2024 6:37 PM EDT Body Mass Index 27.34 08/27/2024 6:37 PM EDT Plan of Treatment Health Maintenance Due Date Last Done Comments DTaP,Tdap,and Td Vaccines (6 - Tdap) 2006 01/31/1999, 07/21/1996, 1995, Additional history exists HPV Vaccines (3 - 2-dose series) 07/08/2010 03/16/2010, 01/07/2010 Hepatitis A Vaccines (2 of 2 - 2-dose series) 07/08/2010 01/07/2010 Hepatitis C Screening 2013 COVID-19 Vaccine (4 - 2024- season) 2024 06/14/2021, 09/17/2020, 08/27/2020 Influenza Vaccine (#1) 2024 , 04/03/2023, 01/18/2022, Additional history exists Pap Smear 10/11/2025 10/11/2022 Zoster Vaccines (1 of 2) 2045 Hepatitis B Vaccines Completed 05/09/1996, 1995, 1995 MMR Vaccines Completed 08/31/1999, 05/09/1996 Meningococcal Vaccine Aged Out 09/03/2008 No emmanuelle chikis eligible based on patient's age to complete this topic Pneumococcal Vaccine: Pediatrics (0 to 5 Years) and At-Risk Patients (6 to 49 Years) Completed 04/03/2023 HIV Screening Completed 08/02/2023, 07/0 08/2022, 05/28/2018 Insurance MEDICAID [id number] D Member Subscriber Plan / Payer (Ef fective 2021-Present) Name:Cecille Matthew Relation to Subscriber:Self Name:Cecille Matthew Payer ID:[id number] Group ID:Not on file Type:Medicaid Address: [place] [id number] Care Teams Sustainability Specialist Relationship Specialty Start Date End Date PcpSusan MD [address] [place] [address] PCP - General 07/01/17
--- OUTSIDE RECORDS SUMMARY | 2025-01-05 22:01 | XMS_ITS | Clinical Summary ---
Author Organization [facility] Address [address] [place] [address] Care Team Providers Care Loading Dock Helper Name Role Phone Katharine Hernández MD Primary [...] 90 02/05/2024 9:29 AM EDT Temperature 36.1 C (97 F) 02/05/2024 9:29 AM EDT Respiratory Rate 18 [...] exists Preventative Health Evaluation 10/12/2023 10/11/2022, 10/16/2018 BMI Counseling 01/30/2024 01/29/2023, 02/0 06/2021, 11/09/2020, Additional history exists Depression Screening 04/03/2024 04/03/2023, 01/29/2023, 09/06/2022, Additional history exists COVID-19 Vaccine ( season) 2024 06/14/2021, 09/17/2020, 08/27/2020 Influenza Vaccine (#1) 2024 , 01/18/2022, 02/02/2020, Additional history exists Cervical Cancer Screening (Pap [...] Advance Directives For more information, please contact: [phone] Latest Code Status on File Code Status [...] way: discussion with patient . Care Teams Loading Dock Helper Relationship Specialty Start Date End Date Katharine Hernández MD PCP - General Internal Medicine 10/13/22
--- OUTSIDE RECORDS SUMMARY | 2025-01-05 22:01 | XMS_ITS | Encounter Summary ---
Author Organization [facility] Address [address] [place] [address] Care Team Providers Care Warping Machine Operator Name Role Phone Susan Best MD Primary Care Provider Unavailabl e Encounter Details Date Type Department Care Team (Late st Contact Info) Description 02/01/2021 Orders Only [place] [phone] Darlin Frias, MD [place] Neutropenia, unspecified type (HCC) (Primary Dx) Social [...] Primary documented in this encounter Care Teams Warping Machine Operator Relationship Specialty Start Date End Date Susan Best MD [address] [place] [id number] PCP - General 07/01/17 documented as of this encounter
--- OUTSIDE RECORDS SUMMARY | 2025-01-05 22:01 | XMS_ITS ---
Author Name [facility] Organization Unknown Results Test Name/Text Value Interpretation Date Range Source RBC morph Bld RBC Morphology appears normal 11/14/2024 [facility] Neuts Seg NFr Bld Manual 33.0 % Below low normal 11/14/2024 44 - 74 [facility] WBC Total Counted 100.0 11/14/2024 C [facility] Basophils NFr Bld Manual 1.0 % 11/14/2024 0 - 2 [facility] Monocytes NFr Bld Manual 12.0 % 11/14/2024 2 - 12 [facility] Lymphocytes NFr Bld Manual 45.0 % 11/14/2024 20 - 48 [facility] Platelet Bld Ql Smear Normal 11/14/2024 - [facility] Eosinophil NFr Bld Manual 9.0 % Above high normal 11/14/2024 0 - 6 [facility] RBC # Bld Auto 4.51 M/mcL 11/14/2024 4.2 - 5.4 [facility] RBC Auto 88.5 FL 11/14/2024 78 - 100 [facility] Platelet # Bld Auto 236.0 K/mcL 11/14/2024 150 - 4 50 [facility] Hgb Bld-mCnc 13.5 g/dL 11/14/2024 12.5 - 16 [facility] PMV Bld Auto 7.5 FL 11/14/2024 7.4 - 11.4 [facility] WBC # Bld Auto 2.8 K/mcL Below low normal 11/14/2024 4 - 10. 5 [facility] RDW RBC Auto 14.4 % 11/14/2024 12.1 - 16.2 [facility] Hct VFr Bld Auto 39.9 % 11/14/2024 37 - 47 [facility] MCHC RBC Auto-EntMCnc 33.9 g/dL 11/14/2024 32 - 36 [facility] MCH RBC Qn Auto 30.0 pcg 11/14/2024 25 - 33 [facility] Vit B12 SerPl-mCnc 296.0 pcg/mL 11/14/2024 180 - 9 14 [facility] Ferritin SerPl-mCnc 27.0 ng/mL 11/14/2024 10 - 120 [facility] Fyb Antigen Negative 11/14/2024 [facility] Fy sup(a) Ag RBC Ql Negative 11/14/2024 [facility] Antigen Type RBC See specific Antigen order 11/14/2024 [facility] TIBC SerPl-mCnc 351.0 mcg/dL 11/14/2024 250 - 450 [facility] Iron SerPl-mCnc 83.0 mcg/dL 11/14/2024 37 - 170 [facility] UIBC SerPl-mCnc 268.0 mcg/dL 11/14/2024 155 - 355 [facility] Iron Satn MFr SerPl 24.0 % 11/14/2024 20 - 45 [facility] Ferritin SerPl-mCnc 52.0 ng/mL Normal 07/29/2024 10 - 120 [facility] Vit B12 SerPl-mCnc 303.0 pcg/mL Normal 07/29/2024 180 - 9 14 [facility] Basophils/leuk NFr Bld Auto 1.0 % Normal 07/29/2024 0 - 2 [facility] RDW RBC Auto-Rto 15.8 % Normal 07/29/2024 12.1 - 16.2 [facility] Eosinophil/leuk NFr Bld Auto 6.0 % Normal 07/29/2024 0 - 6 [facility] Lymphocytes/leuk NFr Bld Auto 43.7 % Normal 07/29/2024 20 - 48 [facility] Monocytes/leuk NFr Bld Auto 10.6 % Normal 07/29/2024 2 - 12 [facility] Lymphocytes # Bld Auto 1.0 K/mcL Normal 07/29/2024 1 - 3.2 [facility] Monocytes # Bld Auto 0.2 K/mcL Normal 07/29/2024 0 - 0.8 [facility] Hct VFr Bld Auto 40.8 % Normal 07/29/2024 37 - 47 [facility] WBC # Bld Auto 2.3 K/mcL Below low normal 07/29/2024 4 - 10. 5 [facility] RBC # Bld Auto 4.52 M/mcL Normal 07/29/2024 4.2 - 5.4 [facility] MCHC RBC Auto-mCnc 33.2 g/dL Normal 07/29/2024 32 - 36 [facility] MCV RBC Auto 90.1 FL Normal 07/29/2024 78 - 100 [facility] Basophils # Bld Auto 0.0 K/mcL Normal 07/29/2024 0 - 0.2 [facility] PMV Bld Auto 7.8 FL Normal 07/29/2024 7.4 - 11.4 [facility] MCH RBC Qn Auto 29.9 pcg Normal 07/29/2024 25 - 33 [facility] Neutrophils # Bld Auto 0.9 K/mcL Below low normal 07/29/2024 1.8 - 7.8 [facility] Platelet # Bld Auto 207.0 K/mcL Normal 07/29/2024 150 - 4 50 [facility] Neutrophils/leuk NFr Bld Auto 38.7 % Below low normal 07/29/2024 44 - 74 [facility] Hgb Bld-mCnc 13.5 g/dL Normal 07/29/2024 12.5 - 16 [facility] Eosinophil # Bld Auto 0.1 K/mcL Normal 07/29/2024 0 - 0.5 [facility] TIBC SerPl-mCnc 348.0 mcg/dL Normal 07/29/2024 250 - 450 [facility] Iron SerPl-mCnc 131.0 mcg/dL Normal 07/29/2024 37 - 170 [facility] Iron Satn MFr SerPl 38.0 % Normal 07/29/2024 20 - 45 [facility] UIBC SerPl-mCnc 217.0 mcg/dL Normal 07/29/2024 155 - 355 [facility] Ferritin SerPl-mCnc 8.0 ng/mL Below low normal 06/10/2024 10 - 120 [facility] Iron Satn MFr SerPl 21.0 % Normal 06/10/2024 20 - 45 [facility] TIBC SerPl-mCnc 424.0 mcg/dL Normal 06/10/2024 250 - 450 [facility] UIBC SerPl-mCnc 337.0 mcg/dL Normal 06/10/2024 155 - 355 [facility] Iron SerPl-mCnc 87.0 mcg/dL Normal 06/10/2024 37 - 170 [facility] Neutrophils # Bld Auto 2.0 K/mcL Normal 06/10/2024 1.8 - 7.8 [facility] Basophils/leuk NFr Bld Auto 1.0 % Normal 06/10/2024 0 - 2 [facility] PMV Bld Auto 7.6 FL Normal 06/10/2024 7.4 - 11.4 [facility] RBC # Bld Auto 4.52 M/mcL Normal 06/10/2024 4.2 - 5.4 [facility] RDW RBC Auto-Rto 14.0 % Normal 06/10/2024 12.1 - 16.2 [facility] Neutrophils/leuk NFr Bld Auto 50.9 % Normal 06/10/2024 44 - 74 [facility] Hgb Bld-mCnc 13.1 g/dL Normal 06/10/2024 12.5 - 16 [facility] Monocytes # Bld Auto 0.4 K/mcL Normal 06/10/2024 0 - 0.8 [facility] Lymphocytes # Bld Auto 1.3 K/mcL Normal 06/10/2024 1 - 3.2 [facility] Basophils # Bld Auto 0.0 K/mcL Normal 06/10/2024 0 - 0.2 [facility] MCV RBC Auto 87.3 FL Normal 06/10/2024 78 - 100 [facility] MCH RBC Qn Auto 28.9 pcg Normal 06/10/2024 25 - 33 [facility] Platelet # Bld Auto 235.0 K/mcL Normal 06/10/2024 150 - 4 50 [facility] Lymphocytes/leuk NFr Bld Auto 33.6 % Normal 06/10/2024 20 - 48 [facility] Eosinophil/leuk NFr Bld Auto 4.9 % Normal 06/10/2024 0 - 6 [facility] Monocytes/leuk NFr Bld Auto 9.6 % Normal 06/10/2024 2 - 12 [facility] Eosinophil # Bld Auto 0.2 K/mcL Normal 06/10/2024 0 - 0.5 [facility] Hct VFr Bld Auto 39.5 % Normal 06/10/2024 37 - 47 [facility] WBC # Bld Auto 3.9 K/mcL Below low normal 06/10/2024 4 - 10. 5 [facility] MCHC RBC Auto-mCnc 33.1 g/dL Normal 06/10/2024 32 - 36 [facility] Potassium SerPl-sCnc 3.8 mmol/L Normal 02/20/2024 3.4 - 5 .3 [facility] Albumin SerPl-mCnc 4.6 g/dL Normal 02/20/2024 3.5 - 5 [facility] ALP SerPl-cCnc 75.0 U/L Normal 02/20/2024 32 - 122 [facility] T ALT SerPl-cCnc 18.0 U/L Normal 02/20/2024 10 - 50 [facility] T Albumin/Glob SerPl 1.5 Ratio Normal 02/20/2024 1 - 3 [facility] Sodium SerPl-sCnc 141.0 mmol/L Normal 02/20/2024 136 - 14 5 [facility] Calcium SerPl-mCnc 9.7 mg/dL Normal 02/20/2024 8.7 - 10.5 [facility] Prot SerPl-mCnc 7.7 g/dL Normal 02/20/2024 6.3 - 8.[address] Glucose SerPl-mCnc 88.0 mg/dL Normal 02/20/2024 65 - 99 [facility] CO2 SerPl-sCnc 21.0 mmol/L Below low normal 02/20/2024 22 - 33 [facility] Bilirub SerPl-mCnc 0.3 mg/dL Normal 02/20/2024 0.2 - 1 [facility] Anion Gap Bld-sCnc 12.0 Normal 02/20/2024 7 - 17 [facility] GFR/BSA.pred SerPlBld VVO-KHK-VrHRze >90.0 Normal 02/20/2024 59 - [facility]CT BUN SerPl-mCnc 10.0 mg/dL Normal 02/20/2024 8 - [address] AST SerPl-cCnc 32.0 U/L Normal 02/20/2024 10 - 50 [facility] T Chloride SerPl-sCnc 108.0 mmol/L Above high normal 98 - 107 [facility] Globulin Ser Calc-mCnc 3.1 g/dL Normal 02/20/2024 1.5 - 3.9 [facility] Creat SerPl-mCnc 0.6 mg/dL Normal 02/20/2024 0.4 - 1.1 [facility] BUN/Creat SerPl 17.0 Ratio Normal 02/20/2024 10 - 25 [facility] Imm Granulocytes/leuk NFr Bld Auto 0.6 % Normal 02/20/2024 [facility] Monocytes num Bld Auto 0.3 Thou/uL Normal 02/20/2024 0.2 - 1.5 [facility] PMV Bld Auto 9.2 fL Normal 02/20/2024 7.5 - 12.5 [facility] Eosinophil/leuk NFr Bld Auto 3.9 % Normal 02/20/2024 [facility] Neutrophils/leuk NFr Bld Auto 43.6 % Normal 02/20/2024 [facility] WBC num Bld Auto 3.6 Thou/uL Below low normal 02/20/2024 4 - 11 [facility] RDW RBC Auto-Rto 14.5 % Normal 02/20/2024 11.5 - 14.5 [facility] RBC num Bld Auto 4.34 Mil/uL Normal 02/20/2024 4 - 5.4 [facility] Eosinophil num Bld Auto 0.14 Thou/uL Normal 02/20/2024 0 - 0.7 [facility] Lymphocytes/leuk NFr Bld Auto 43.3 % Normal 02/20/2024 [facility] Monocytes/leuk NFr Bld Auto 8.3 % Normal 02/20/2024 [facility] Basophils num Bld Auto 0.01 Thou/uL Normal 02/20/2024 0 - 0.2 [facility] Basophils/leuk NFr Bld Auto 0.3 % Normal 02/20/2024 [facility] Hgb Bld-mCnc 12.8 g/dL Normal 02/20/2024 11.7 - 15.7 [facility] MCV RBC Auto 89.0 fL Normal 02/20/2024 80 - 100 [facility] Imm Granulocytes num Bld Auto 0.02 Thou/uL Normal 02/20/2024 0 - 0.1 [facility] Neutrophils num Bld Auto 1.59 Thou/uL Below low normal 02/20/2024 2 - 7.5 [facility] Platelet num Bld Auto 309.0 Thou/uL Normal 02/20/2024 150 - 450 [facility] MCH RBC Qn Auto 29.5 pg Normal 02/20/2024 26 - [address] Lymphocytes num Bld Auto 1.57 Thou/uL Normal 02/20/2024 1.5 - 4.5 [facility] MCHC RBC Auto-mCnc 33.0 g/dL Normal 02/20/2024 30 - 36 [facility] Hct VFr Bld Auto 38.8 % Normal 02/20/2024 35 - 47 [facility] CCT IRON SERPL MCNC 167.0 mcg/dL Normal 02/05/2024 37 - 170 [facility] UIBC SERPL MCNC 256.0 ug/dL Normal 02/05/2024 155 - 355 [facility] IRON SATN MFR SERPL 39.0 % Normal 02/05/2024 20 - 45 [facility] TIBC SERPL MCNC 423.0 ug/dL Normal 02/05/2024 250 - 450 [facility] FERRITIN SERPL MCNC 10.0 ng/mL Normal 02/05/2024 10 - 120 [facility] HGB BLD MCNC 13.5 g/dL Normal 02/05/2024 12.5 - 16 [facility] MG HCT VFR BLD AUTO 40.9 % Normal 02/05/2024 37 - 47 [facility] WBC NO. BLD AUTO 2.8 K/uL Below low normal 02/05/2024 4 - 1 0.5 [facility] EOSINOPHIL NO. BLD AUTO 0.2 K/uL Normal 02/05/2024 0 - 0.5 [facility] RDW RBC AUTO RTO 15.4 % Normal 02/05/2024 12.1 - 16.2 [facility] PLATELET NO. BLD AUTO 211.0 K/uL Normal 02/05/2024 150 - 450 [facility] MCV RBC AUTO 88.6 fL Normal 02/05/2024 78 - 100 [facility] MG RBC NO. BLD AUTO 4.62 M/uL Normal 02/05/2024 4.2 - 5.4 [facility] MCHC RBC AUTO MCNC 33.1 g/dL Normal 02/05/2024 32 - 36 [facility] NEUTROPHILS NFR BLD AUTO 38.7 % Below low normal 02/05/2024 44 - 74 [facility] MONOCYTES NO. BLD AUTO 0.3 K/uL Normal 02/05/2024 0 - 0.8 [facility] BASOPHILS IN BLOOD BY AUTOMATED COUNT 0.0 K/uL Normal 02/05/2024 0 - 0.2 [facility] LYMPHOCYTES NO. BLD AUTO 1.2 K/uL Normal 02/05/2024 1 - 3.2 [facility] DIFFERENTIAL TYPE AUTOMATED Normal 02/05/2024 C [facility] PMV BLD AUTO 8.6 fL Normal 02/05/2024 7.4 - 11.4 [facility] EMG EOSINOPHIL NFR BLD AUTO 7.3 % Above high normal 02/05/2024 0 - 6 [facility] MCH RBC QN AUTO 29.3 pg Normal 02/05/2024 25 - 33 [facility] BASOPHILS NFR BLD AUTO 0.7 % Normal 02/05/2024 0 - 2 [facility] MONOCYTES NFR BLD AUTO 10.0 % Normal 02/05/2024 2 - 12 [facility] NEUTROPHILS NO. BLD AUTO 1.1 K/uL Below low normal 02/05/2024 1.8 - 7.8 [facility] LYMPHOCYTES NFR BLD AUTO 43.3 % Normal 02/05/2024 20 - 48 [facility] BASOPHILS IN BLOOD BY AUTOMATED COUNT 0.0 K/uL Normal 01/28/2024 0 - 0.2 [facility] WBC NO. BLD AUTO 2.7 K/uL Below low normal 01/28/2024 4 - 1 0.5 [facility] LYMPHOCYTES NFR BLD AUTO 38.5 % Normal 01/28/2024 20 - 48 [facility] LYMPHOCYTES NO. BLD AUTO 1.0 K/uL Normal 01/28/2024 1 - 3.2 [facility] MCH RBC QN AUTO 29.4 pg Normal 01/28/2024 25 - 33 [facility] MCHC RBC AUTO MCNC 32.8 g/dL Normal 01/28/2024 32 - 36 [facility] BASOPHILS NFR BLD AUTO 1.2 % Normal 01/28/2024 0 - 2 [facility] RBC NO. BLD AUTO 4.57 M/uL Normal 01/28/2024 4.2 - 5.4 CT [facility] HGB BLD MCNC 13.4 g/dL Normal 01/28/2024 12.5 - 16 [facility] NEUTROPHILS NFR BLD AUTO 36.7 % Below low normal 01/28/2024 44 - 74 [facility] RDW RBC AUTO RTO 15.6 % Normal 01/28/2024 12.1 - 16.2 [facility] MCV RBC AUTO 89.9 fL Normal 01/28/2024 78 - 100 [facility] PLATELET NO. BLD AUTO 237.0 K/uL Normal 01/28/2024 150 - 450 [facility] EOSINOPHIL NO. BLD AUTO 0.3 K/uL Normal 01/28/2024 0 - 0.5 [facility] MONOCYTES NO. BLD AUTO 0.4 K/uL Normal 01/28/2024 0 - 0.8 [facility] NEUTROPHILS NO. BLD AUTO 1.0 K/uL Below low normal 01/28/2024 1.8 - 7.8 [facility] MONOCYTES NFR BLD AUTO 13.2 % Above high normal 01/28/2024 2 - 12 [facility] HCT VFR BLD AUTO 41.1 % Normal 01/28/2024 37 - 47 [facility] PMV BLD AUTO 7.4 fL Normal 01/28/2024 7.4 - 11.4 [facility] EOSINOPHIL NFR BLD AUTO 10.4 % Above high normal 01/28/2024 0 - 6 [facility] Basophils/leuk NFr Bld Auto 0.5 % Normal 11/13/2023 [facility] RDW RBC Auto-Rto 14.3 % Normal 11/13/2023 11.5 - 14.5 [facility] Hgb Bld-mCnc 11.8 g/dL Normal 11/13/2023 11.7 - 15.7 [facility] Monocytes num Bld Auto 0.44 Thou/uL Normal 11/13/2023 0.2 - 1.5 [facility] MCH RBC Qn Auto 27.8 pg Normal 11/13/2023 26 - [address] Platelet num Bld Auto 192.0 Thou/uL Normal 11/13/2023 150 - 450 [facility] WBC num Bld Auto 3.8 Thou/uL Below low normal 11/13/2023 4 - 11 [facility] Monocytes/leuk NFr Bld Auto 11.5 % Normal 11/13/2023 [facility] RBC num Bld Auto 4.24 Mil/uL Normal 11/13/2023 4 - 5.4 [facility] Eosinophil num Bld Auto 0.09 Thou/uL Normal 11/13/2023 0 - 0.7 [facility] Lymphocytes/leuk NFr Bld Auto 36.1 % Normal 11/13/2023 [facility] Basophils num Bld Auto 0.02 Thou/uL Normal 11/13/2023 0 - 0.2 [facility] Lymphocytes num Bld Auto 1.38 Thou/uL Below low normal 11/13/2023 1.5 - 4.5 [facility] Eosinophil/leuk NFr Bld Auto 2.4 % Normal 11/13/2023 [facility] Hct VFr Bld Auto 36.7 % Normal 11/13/2023 35 - 47 [facility] Imm Granulocytes num Bld Auto 0.0 Thou/uL Normal 11/13/2023 0 - 0.1 [facility] MCHC RBC Auto-mCnc 32.2 g/dL Normal 11/13/2023 30 - 36 [facility] PMV Bld Auto 10.3 fL Normal 11/13/2023 7.5 - 12.5 [facility] Imm Granulocytes/leuk NFr Bld Auto 0.0 % Normal 11/13/2023 [facility] Neutrophils/leuk NFr Bld Auto 49.5 % Normal 11/13/2023 [facility] MCV RBC Auto 87.0 fL Normal 11/13/2023 80 - 100 [facility] Neutrophils num Bld Auto 1.89 Thou/uL Below low normal 11/13/2023 2 - 7.5 [facility] B-HCG Preg SerPl Ql Negative Normal 11/13/2023 - [facility] Delta NO PREVIOUS RESULT Normal 11/13/2023 - 3 [facility] Troponin T SerPl-mCnc <6.0 ng/L Normal 11/13/2023 - 15 [facility] BUN/Creat SerPl 15.0 Ratio Normal 11/13/2023 10 - 25 [facility] CCT Prot SerPl-mCnc 7.3 g/dL Normal 11/13/2023 6.3 - 8.[address] Glucose SerPl-mCnc 96.0 mg/dL Normal 11/13/2023 65 - 99 [facility] Albumin SerPl-mCnc 4.3 g/dL Normal 11/13/2023 3.5 - 5 [facility] Creat SerPl-mCnc 0.6 mg/dL Normal 11/13/2023 0.4 - 1.1 HH CCT BUN SerPl-mCnc 9.0 mg/dL Normal 11/13/2023 8 - 21 [facility] T Sodium SerPl-sCnc 140.0 mmol/L Normal 11/13/2023 136 - 14 5 [facility] Albumin/Glob SerPl 1.4 Ratio Normal 11/13/2023 1 - 3 [facility] Calcium SerPl-mCnc 9.9 mg/dL Normal 11/13/2023 8.7 - 10.5 [facility] ALP SerPl-cCnc 76.0 U/L Normal 11/13/2023 32 - 122 [facility] T AST SerPl-cCnc 30.0 U/L Normal 11/13/2023 10 - 50 [facility] T Anion Gap Bld-sCnc 15.0 Normal 11/13/2023 7 - 17 [facility] Potassium SerPl-sCnc 4.2 mmol/L Normal 11/13/2023 3.4 - 5 .3 [facility] ALT SerPl-cCnc 15.0 U/L Normal 11/13/2023 10 - 50 [facility] T GFR/BSA.pred SerPlBld [id number] >90.0 Normal 11/13/2023 59 - [facility]CT Chloride SerPl-sCnc 104.0 mmol/L Normal 11/13/2023 98 - 1 07 [facility] Globulin Ser Calc-mCnc 3.0 g/dL Normal 11/13/2023 1.5 - 3.9 [facility]CT Bilirub SerPl-mCnc 0.3 mg/dL Normal 11/13/2023 0.2 - 1 [facility] CO2 SerPl-sCnc 21.0 mmol/L Below low normal 11/13/2023 22 - 33 [facility] Comment Specimen clotted. Test not performed. Abnormal 11/13/2023 - [facility] D dimer FEU PPP-mCnc 333.0 ng/mL DDU Above high normal 11/12 - 230 [facility] UIBC SERPL MCNC 401.0 ug/dL Above high normal 11/06/2023 155 - 355 [facility] IRON SERPL MCNC 38.0 mcg/dL Normal 11/06/2023 37 - 170 [facility] TIBC SERPL MCNC 439.0 ug/dL Normal 11/06/2023 250 - 450 [facility] IRON SATN MFR SERPL 9.0 % Below low normal 11/06/2023 20 - 45 [facility] VIT B12 SER MCNC 251.0 pg/mL Normal 11/06/2023 180 - 914 [facility] FOLATE SERPL MCNC 18.0 ng/mL Normal 11/06/2023 3 - [facility] MONOCYTES NO. BLD AUTO 0.3 K/uL Normal 11/06/2023 0 - 0.8 [facility] EOSINOPHIL NFR BLD AUTO 2.8 % Normal 11/06/2023 0 - 6 [facility] PMV BLD AUTO 8.8 fL Normal 11/06/2023 7.4 - 11.4 [facility] MONOCYTES NFR BLD AUTO 8.7 % Normal 11/06/2023 2 - 12 [facility] RDW RBC AUTO RTO 14.6 % Normal 11/06/2023 12.1 - 16.2 [facility] HCT VFR BLD AUTO 39.1 % Normal 11/06/2023 37 - 47 [facility] WBC NO. BLD AUTO 3.9 K/uL Below low normal 11/06/2023 4 - 1 0.5 [facility] MCH RBC QN AUTO 27.7 pg Normal 11/06/2023 25 - 33 [facility] BASOPHILS IN BLOOD BY AUTOMATED COUNT 0.0 K/uL Normal 11/06/2023 0 - 0.2 [facility] HGB BLD MCNC 12.7 g/dL Normal 11/06/2023 12.5 - 16 [facility] MCV RBC AUTO 85.3 fL Normal 11/06/2023 78 - 100 [facility] NEUTROPHILS NFR BLD AUTO 57.3 % Normal 11/06/2023 44 - 74 [facility] LYMPHOCYTES NFR BLD AUTO 30.4 % Normal 11/06/2023 20 - 48 [facility] LYMPHOCYTES NO. BLD AUTO 1.2 K/uL Normal 11/06/2023 1 - 3.2 [facility] PLATELET NO. BLD AUTO 217.0 K/uL Normal 11/06/2023 150 - 450 [facility] NEUTROPHILS NO. BLD AUTO 2.2 K/uL Normal 11/06/2023 1.8 - 7.8 [facility] MCHC RBC AUTO MCNC 32.4 g/dL Normal 11/06/2023 32 - 36 [facility] RBC NO. BLD AUTO 4.58 M/uL Normal 11/06/2023 4.2 - 5.4 CT [facility] BASOPHILS NFR BLD AUTO 0.8 % Normal 11/06/2023 0 - 2 [facility] EOSINOPHIL NO. BLD AUTO 0.1 K/uL Normal 11/06/2023 0 - 0.5 [facility] FERRITIN SERPL MCNC 7.0 ng/mL Below low normal 11/06/2023 10 - 120 [facility] PMV BLD AUTO 8.5 fL Normal 08/23/2023 7.4 - 11.4 [facility] PLATELET NO. BLD AUTO 211.0 K/uL Normal 08/23/2023 150 - 450 [facility] HCT VFR BLD AUTO 38.9 % Normal 08/23/2023 37 - 47 [facility] MCV RBC AUTO 87.2 fL Normal 08/23/2023 78 - 100 [facility] HGB BLD MCNC 12.9 g/dL Normal 08/23/2023 12.5 - 16 [facility] MCH RBC QN AUTO 29.0 pg Normal 08/23/2023 25 - 33 [facility] MCHC RBC AUTO MCNC 33.2 g/dL Normal 08/23/2023 32 - 36 [facility] WBC NO. BLD AUTO 3.0 K/uL Below low normal 08/23/2023 4 - 1 0.5 [facility] RDW RBC AUTO RTO 14.6 % Normal 08/23/2023 12.1 - 16.2 [facility] RBC NO. BLD AUTO 4.46 M/uL Normal 08/23/2023 4.2 - 5.4 [facility] LYMPHOCYTES NFR BLD MANUAL 40.0 % Normal 08/23/2023 20 - 48 [facility] EOSINOPHIL NFR BLD MANUAL 3.0 % Normal 08/23/2023 0 - 6 [facility] POLYS NFR BLD MANUAL 50.0 % Normal 08/23/2023 44 - 74 [facility] NEUTS BAND NFR BLD MANUAL 1.0 % Normal 08/23/2023 0 - 15 [facility] MONOCYTES NFR BLD MANUAL 6.0 % Normal 08/23/2023 2 - 12 [facility] IRON SATN MFR SERPL 10.0 % Below low normal 08/21/2023 20 - 45 [facility] UIBC SERPL MCNC 423.0 ug/dL Above high normal 08/21/2023 155 - 355 [facility] IRON SERPL MCNC 48.0 mcg/dL Normal 08/21/2023 37 - 170 [facility] TIBC SERPL MCNC 471.0 ug/dL Above high normal 08/21/2023 250 - 450 [facility] FERRITIN SERPL MCNC 7.0 ng/mL Below low normal 08/21/2023 10 - 120 [facility] MARYAN DNA VAG QL BDNA NEGATIVE Normal 08/03/2023 - [facility] G VAGINALIS DNA VAG QL BDNA NEGATIVE Normal 08/03/2023 - [facility] T VAGINALIS DNA VAG QL BDNA NEGATIVE Normal 08/03/2023 - [facility] C trach rRNA Cvx Ql PCR NEGATIVE Normal 08/03/2023 - [facility] N gonorrhoea rRNA Cvx Ql PCR NEGATIVE Normal 08/03/2023 - [facility] SPECIMEN SOURCE XXX GENITAL Normal 08/02/2023 [facility] T vaginalis rRNA Cvx Ql PCR NEGATIVE Normal 08/03/2023 - [facility] SPECIMEN SOURCE GENITAL Normal 08/02/2023 [facility] HCV IGG SER QL EIA NEGATIVE Normal 08/03/2023 - [facility] HBV SURFACE AG SER QL EIA NEGATIVE Normal 08/03/2023 - [facility] LYMPHOCYTES NFR BLD AUTO 31.8 % Normal 03/29/2023 20 - 48 [facility] RDW RBC AUTO RTO 13.9 % Normal 03/29/2023 12.1 - 16.2 [facility] NEUTROPHILS NO. BLD AUTO 1.8 K/uL Normal 03/29/2023 1.8 - 7.8 [facility] EOSINOPHIL NO. BLD AUTO 0.1 K/uL Normal 03/29/2023 0 - 0.5 [facility] HGB BLD MCNC 13.0 g/dL Normal 03/29/2023 12.5 - 16 [facility] WBC NO. BLD AUTO 3.2 K/uL Below low normal 03/29/2023 4 - 1 0.5 [facility] EOSINOPHIL NFR BLD AUTO 3.5 % Normal 03/29/2023 0 - 6 [facility] BASOPHILS IN BLOOD BY AUTOMATED COUNT 0.0 K/uL Normal 03/29/2023 0 - 0.2 [facility] MCHC RBC AUTO MCNC 33.4 g/dL Normal 03/29/2023 32 - 36 [facility] MCH RBC QN AUTO 30.1 pg Normal 03/29/2023 25 - 33 CTT HS[facility] PLATELET NO. BLD AUTO 186.0 K/uL Normal 03/29/2023 150 - 450 [facility] PMV BLD AUTO 8.3 fL Normal 03/29/2023 7.4 - 11.4 [facility] BASOPHILS NFR BLD AUTO 0.7 % Normal 03/29/2023 0 - 2 [facility] MONOCYTES NFR BLD AUTO 7.8 % Normal 03/29/2023 2 - 12 [facility] HCT VFR BLD AUTO 38.8 % Normal 03/29/2023 37 - 47 [facility] LYMPHOCYTES NO. BLD AUTO 1.0 K/uL Normal 03/29/2023 1 - 3.2 [facility] NEUTROPHILS NFR BLD AUTO 56.2 % Normal 03/29/2023 44 - 74 [facility] RBC NO. BLD AUTO 4.31 M/uL Normal 03/29/2023 4.2 - 5.4 [facility] MONOCYTES NO. BLD AUTO 0.2 K/uL Normal 03/29/2023 0 - 0.8 [facility] MCV RBC AUTO 90.0 fL Normal 03/29/2023 78 - 100 [facility] Antineutrophil Ab (M-TH) SEE SEPARATE ARC REPORT TEST PERFORMED AT [facility] [place] [facility] NEGATIVE Normal 04/21/2023 [facility] FERRITIN SERPL MCNC 10.0 ng/mL Normal 03/29/2023 10 - 120 [facility] GAMMA % 16.5 Normal 04/03/2023 [facility] BETA G/DL 0.8 Normal 04/03/2023 [facility] ALPHA 1 G/DL 0.3 Normal 04/03/2023 [facility] BETA % 11.6 Normal 04/03/2023 [facility] ALBUMIN G/DL 4.3 Normal 04/03/2023 [facility] ALPHA 2 G/DL 0.6 Normal 04/03/2023 [facility] ALPHA 1 % 3.8 Normal 04/03/2023 [facility] ALBUMIN % 59.5 Normal 04/03/2023 [facility] TOTAL PROTEIN 7.3 Normal 04/03/2023 [facility] GAMMA G/DL 1.2 Normal 04/03/2023 [facility] N ALPHA 2 % 8.6 Normal 04/03/2023 [facility] K/L FLC Ratio 1.81 Above high normal 04/03/2023 [facility] Free Lambda Light Chains 1.1 Normal 04/03/2023 [facility] Free [place] Light Chains 1.99 Above high normal 04/03/2023 [facility] IGM SER MCNC 123.0 mg/dL Normal 03/29/2023 45 - 281 [facility] IGG SERPL-MCNC 1174.0 mg/dL Normal 03/29/2023 635 - 1741 [facility] IGA SERPL-MCNC 164.0 mg/dL Normal 03/29/2023 66 - 433 [facility] IRON SATN MFR SERPL 10.0 % Below low normal 03/29/2023 20 - 45 [facility] TIBC SERPL MCNC 405.0 ug/dL Normal 03/29/2023 250 - 450 C [facility] IRON SERPL MCNC 41.0 mcg/dL Normal 03/29/2023 37 - 170 C [facility] UIBC SERPL MCNC 364.0 ug/dL Above high normal 03/29/2023 155 - 355 [facility] Sp Gr Ur Strip.auto 1.015 Normal 02/13/2023 1.005 - 1.03 [facility] Clarity Ur Refract.auto SLIGHTLY CLOUDY Normal 02/13/2023 [facility] Hgb Ur Ql Strip.auto NEGATIVE Normal 02/13/2023 - [facility] Ketones Ur Ql Strip.auto NEGATIVE Normal 02/13/2023 - [facility] Nitrite Ur Ql Strip.auto NEGATIVE Normal 02/13/2023 - [facility] Leukocyte esterase Ur Ql Strip.auto NEGATIVE Normal 02/13/2023 - [facility] Prot Ur Ql Strip.auto NEGATIVE Normal 02/13/2023 - [facility] Color Ur Auto YELLOW Normal 02/13/2023 [facility] pH Ur Strip.auto 7.0 Normal 02/13/2023 4.5 - 8 [facility] Glucose Ur Ql Strip.auto NEGATIVE Normal 02/13/2023 - [facility] SPECIMEN SOURCE XXX URINE CLEAN CATCH Normal 02/13/2023 [facility] AMYLASE SERPL CCNC 88.0 U/L Normal 02/13/2023 29 - 103 [facility] LIPASE SERPL CCNC 51.0 U/L Normal 02/13/2023 11 - 82 C [facility] C TRACH RRNA UR QL PCR NEGATIVE Normal 02/15/2023 - [facility] N GONORRHOEA RRNA UR QL PCR NEGATIVE Normal 02/15/2023 - [facility] BILIRUB DIRECT SERPL MCNC 0.1 mg/dL Normal 02/13/2023 0 - 0.2 [facility] BILIRUB SERPL MCNC 0.4 mg/dL Normal 02/13/2023 0.3 - 1 [facility] ALP SERPL-CCNC 81.0 U/L Normal 02/13/2023 34 - 104 [facility] ALT SERPL CCNC 8.0 U/L Normal 02/13/2023 7 - 52 [facility] AST SERPL CCNC 24.0 U/L Normal 02/13/2023 5 - 40 [facility] LDH SERPL L TO P CCNC 281.0 U/L Above high normal 02/13/2023 125 - 220 [facility] MCH RBC QN AUTO 30.2 pg Normal 02/13/2023 25 - 33 CTT [facility] PMV BLD AUTO 8.5 fL Normal 02/13/2023 7.4 - 11.4 [facility] HGB BLD MCNC 14.8 g/dL Normal 02/13/2023 12.5 - 16 [facility] MCV RBC AUTO 91.1 fL Normal 02/13/2023 78 - 100 [facility] RBC NO. BLD AUTO 4.91 M/uL Normal 02/13/2023 4.2 - 5.4 [facility] PLATELET NO. BLD AUTO 231.0 K/uL Normal 02/13/2023 150 - 450 [facility] HCT VFR BLD AUTO 44.8 % Normal 02/13/2023 37 - 47 [facility] MCHC RBC AUTO MCNC 33.1 g/dL Normal 02/13/2023 32 - 36 [facility] WBC NO. BLD AUTO 4.8 K/uL Normal 02/13/2023 4 - 10.5 [facility] RDW RBC AUTO RTO 13.9 % Normal 02/13/2023 12.1 - 16.2 [facility] BUN SERPL MCNC 10.0 mg/dL Normal 02/13/2023 7 - 17 [facility] CHLORIDE SERPL SCNC 105.0 mmol/L Normal 02/13/2023 98 - 1 07 [facility] POTASSIUM SERPL SCNC 4.2 mmol/L Normal 02/13/2023 3.5 - 5 .1 [facility] SODIUM SERPL SCNC 141.0 mmol/L Normal 02/13/2023 135 - 14 5 [facility] CREAT SERPL MCNC 0.6 mg/dL Normal 02/13/2023 0.5 - 1 [facility] ANION GAP SERPL SCNC 11.0 mmol/L Normal 02/13/2023 5 - 14 [facility] CALCIUM SERPL MCNC 10.3 mg/dL Above high normal 02/13/2023 8 .4 - 10.2 [facility] HCO3 SER SCNC 25.0 mmol/L Normal 02/13/2023 24 - 32 CTT [facility] GLUCOSE SERPL MCNC 82.0 mg/dL Normal 02/13/2023 70 - 199 [facility] WBC NO. BLD AUTO 3.1 K/uL Below low normal 01/29/2023 4 - 1 0.5 [facility] PMV BLD AUTO 8.0 fL Normal 01/29/2023 7.4 - 11.4 [facility] EMG MCV RBC AUTO 91.7 fL Normal 01/29/2023 78 - 100 [facility] MG PLATELET NO. BLD AUTO 194.0 K/uL Normal 01/29/2023 150 - 450 [facility] RDW RBC AUTO RTO 13.7 % Normal 01/29/2023 12.1 - 16.2 [facility] RBC NO. BLD AUTO 4.4 M/uL Normal 01/29/2023 4.2 - 5.4 [facility] HCT VFR BLD AUTO 40.3 % Normal 01/29/2023 37 - 47 [facility] MCHC RBC AUTO MCNC 33.4 g/dL Normal 01/29/2023 32 - 36 [facility] HGB BLD MCNC 13.5 g/dL Normal 01/29/2023 12.5 - 16 [facility] MG MCH RBC QN AUTO 30.6 pg Normal 01/29/2023 25 - 33 CTT HNEMG UIBC SERPL MCNC 295.0 ug/dL Normal 01/29/2023 155 - 355 C [facility] TIBC SERPL MCNC 377.0 ug/dL Normal 01/29/2023 250 - 450 C [facility] IRON SERPL MCNC 82.0 mcg/dL Normal 01/29/2023 37 - 170 C [facility] IRON SATN MFR SERPL 22.0 % Normal 01/29/2023 20 - 45 [facility] History of Medication Use Medication Directions Dispensed Refills Start Date End Date Status ketoconazole (NIZORAL) 2 % cream Apply topically 2 (two) times a day. active ketoconazole (NIZORAL) 2 % cream Apply topically 2 (two) times a day. active ketoconazole (NIZORAL) 2 % shampoo Apply to damp scalp, lather, leave on 5 minutes, and rinse. active ketoconazole (NIZORAL) 2 % shampoo Apply to damp scalp, lather, leave on 5 minutes, and rinse. active nystatin (MYCOSTATIN) 100,000 unit/gram powder Apply topically 2 (two) times a day. active nystatin (MYCOSTATIN) 100,000 unit/gram powder Apply topically 2 (two) times a day. active hydrocortisone sod succ (PF) (SOLU-CORTEF) injection 50 mg 50 mg, intravenous, Once, On Sun06/23/24 at 1445, For 1 dose, Please administer prior to IV iron sucrose infusion. 5 06/24/19 completed Symbicort 160-4.5 mcg/actuation inhaler Inhale 2 puffs by mouth 2 (two) times a day. Rinse mouth with water after use to reduce aftertaste and incidence of candidiasis. Do not swallow. active iron sucrose (VENOFER) injection 200 mg 200 mg, intravenous, Administer over 5 Minutes, Once, On Sun06/17/24 at 1430, For 1 dose 5 06/18/19 completed albuterol 2.5 mg /3 mL (0.083 %) nebulizer solution 2.5 mg 2.5 mg, nebulization, Every 10 min PRN, hypoxemia, bronchospasm, wheezing, dyspnea, Starting on Sun06/17/24 at 1513, For 2 doses, Administer as needed per institutional policy where product is available and appropriate for clinical condition. May repeat x 1 if symptoms unresolved. Administer with 8L active hydrocortisone sod succ (PF) (SOLU-CORTEF) injection 100 mg 100 mg, intravenous, Once as needed, severe hypersensitivity / infusion reaction (grade 3), including systolic BP 80-90 mmHg, bradycardia or tachycardia, hypoxemia, dyspnea, cognitive changes, generalized rash, chest pain/pressure, Starting on Sun06/17/24 at 1513, Administer per institutional policy 5 active erythromycin 5 mg/gram (0.5 %) ophthalmic ointment Apply to right eye 4 (four) times a day for 7 days. 5 active erythromycin 5 mg/gram (0.5 %) ophthalmic ointment Apply to right eye at bedtime. 5 active benzonatate (TESSALON) 200 mg capsule Take 1 capsule (200 mg total) by mouth every 8 hours as needed. 4 active olopatadine (drops) Instill 1 drop into both eyes once daily 4 completed lidocaine (LIDODERM) 5 % Place 1 patch onto the skin daily. Remove & Discard patch within 12 hours or as directed by 4 active Lidocaine 4 % 1 patch 1 patch, Transdermal, Once, On Sun08/06/23 at 2045, For 1 doseApply to affected area APPLY IN AM- REMOVE AFTER 12 HRS-AUGUST CUT...Apply patch to intact skin to cover the most painful area. 4 active methocarbamol (ROBAXIN) 500 MG tablet Take 1 tablet (500 mg total) by mouth 4 (four) times a day. 4 active methocarbamol (ROBAXIN) 500 MG tablet Take 1 tablet (500 mg total) by mouth 4 (four) times a day. 4 active methocarbamoL (ROBAXIN) 500 mg tablet Take 1 tablet (500 mg total) by mouth 4 (four) times a day. 4 active diclofenac (VOLTAREN) 1 % topical gel Apply 8 g topically daily. 3 active diclofenac (VOLTAREN) 1 % topical gel Apply 8 g topically daily. 3 active influenza virus quadrivalent vaccine (FLUARIX) injection (6 MO+) 0.5 mL 3 active influenza virus quadrivalent vaccine (FLUARIX) injection (6 MO+) 0.5 mL 3 active influenza virus quadrivalent vaccine (FLUARIX) injection (6 MO+) 0.5 mL 3 active pneumococcal vaccine (PREVNAR 20) injection 0.5 mL 3 active Iron-Vitamin C 65-125 MG TABS Take 1 tablet by mouth every other day. 3 11/08/19 24 active bisacodyl (Dulcolax) [address] 1 suppository (10 mg total) rectally daily. 3 active bisacodyl (Dulcolax) [address] 1 suppository (10 mg total) rectally daily. 3 active polyethylene glycol (MIRALAX) 17 g packet Take 17 g by mouth daily. 3 active norethindrone-ethin yl estradiol (JUNEL FE 04/28) 1-20 MG-MCG per tablet Take 1 tablet by mouth daily. 3 10/12/19 24 active albuterol HFA (PROAIR HFA ; PROVENTIL HFA ; VENTOLIN HFA) 90 mcg/actuation inhaler Inhale 2 puffs by mouth every 6 hours as needed. 2 active acetaminophen (TYLENOL) 500 mg tablet Take 2 tablets (1,000 mg total) by mouth every 6 (six) hours if needed for mild pain. active acetaminophen (TYLENOL) 500 mg tablet Take 2 tablets (1,000 mg total) by mouth every 6 (six) hours if needed for mild pain. active polysorbate 80/glycerin (REFRESH DRY EYE THERAPY OPHT) Administer into affected eye(s). active polysorbate 80/glycerin (REFRESH DRY EYE THERAPY OPHT) Administer into affected eye(s). active senna (SENOKOT) 8.6 MG tablet Take 1 tablet by mouth daily as needed for constipation. active senna (SENOKOT) 8.6 MG tablet Take 1 tablet by mouth daily as needed for constipation. 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 ProblemAct [facility] 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[address] _[facility] Corneal scars, both eyes active 2024-08-14 ProblemAct [facility] Menometrorrhagia active 2023-01-29 ProblemAct C T_[facility] Iron deficiency active 2024-06-[address] [facility] Uncomplicated degenerative myopia of right eye active 2024-08-14 ProblemAct [facility] 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 ProblemAct [facility] Hordeolum externum of right upper eyelid active 2024-06-20 ProblemAct [facility] N Dry eye syndrome of both eyes active 2024-08-14 ProblemAct [facility] Cyst of left ovary active 2023-12-02 ProblemAct [facility] Neutropenia (CMS/HCC V24) active 2023-03-29 ProblemAct [facility] Adjustment disorder with mixed anxiety and depressed mood active EncounterDiagnosisAct [facility] Iron deficiency anemia due to chronic blood loss active EncounterDiagnosisAct CT[facility]NE MG Constipation, unspecified constipation type active EncounterDiagnosisAct C TTHSFRAN Cyst of left ovary active ProblemAct CTTHNEMG Iron deficiency anemia active 2024-01-31 ProblemAct CT[facility]NEMG Refractive error active EncounterDiagnosisAct [facility]NEMG Iron deficiency active 2024-06-12 [address] _[facility] 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[address] _[facility] Menometrorrhagia active 2023-01-29 ProblemAct C T_THSFRAN Cyst of left ovary active 2023-12-02 ProblemAct [facility] 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 ProblemAct [facility] 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 ProblemAct [facility] Adjustment disorder with mixed anxiety and depressed mood active EncounterDiagnosisAct [facility] Corneal scars, both eyes active 2024-08-14 ProblemAct [facility] Hordeolum externum of right upper eyelid active 2024-06-20 ProblemAct [facility] N Uncomplicated degenerative myopia of right eye active 2024-08-14 ProblemAct [facility] Neutropenia ([facility] V24) active 2023-03-29 ProblemAct [facility] Uncomplicated degenerative myopia of right eye active 2024-08-14 ProblemAct [facility] Cyst of left ovary active 2023-12-02 ProblemAct [facility] Hordeolum externum of right upper eyelid active 2024-06-20 ProblemAct [facility] N Menometrorrhagia active 2023-01-29 ProblemAct C T_THSFRAN Iron deficiency active 2024-06-[address] _[facility]AN 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 ProblemAct [facility] Corneal scars, both eyes active 2024-08-14 ProblemAct [facility] 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 ProblemAct [facility] Adjustment disorder with mixed anxiety and depressed mood active EncounterDiagnosisAct [facility] Dry eye syndrome of both eyes active 2024-08-14 ProblemAct [facility] Neutropenia ([facility] V24) active 2023-03-29 ProblemAct [facility] Immunizations Vaccine Date Source Lot Number Status Influenza trivalent, 0.5mL, preservative free (Fluarix; FluLaval; Fluzone) ages 6mo and older (Afluria) 3 years and older 03/04/2024 [facility] [id number] completed Influenza trivalent, 0.5mL, preservative free (Fluarix; FluLaval; Fluzone) ages 6mo and older (Afluria) 3 years and older 03/04/2024 [facility] [id number] completed Influenza trivalent, 0.5mL, preservative free (Fluarix; FluLaval; Fluzone) ages 6mo and older (Afluria) 3 years and older 03/04/2024 [facility] [id number] completed Influenza Quadrivalent, 0.5m l, preservative free (Fluarix; FluLaval; Fluzone) ages 6mo and older (Afluria) 3yo and older 04/03/2023 [id number] completed Influenza Quadrivalent, 0.5m l, preservative free (Fluarix; FluLaval; Fluzone) ages 6mo and older (Afluria) 3yo and older 04/03/2023 [facility] [id number] completed Pneumococcal conjugate 20 va lent (Prevnar 20, PCV 20) 2mo and older 04/03/2023 [facility] [id number] comple yulissa Pneumococcal conjugate 20 va lent (Prevnar 20, PCV 20) 2mo and older 04/03/2023 [facility] [id number] comple yulissa Influenza Quadrivalent, 0.5m l, preservative free (Fluarix; FluLaval; Fluzone) ages 6mo and older (Afluria) 3yo and older 01/18/2022 [id number] completed Influenza Quadrivalent, 0.5m l, preservative free (Fluarix; FluLaval; Fluzone) ages 6mo and older (Afluria) 3yo and older 01/18/2022 [facility] [id number] completed [employer] SARS-CoV-2 COVID-19, mRNA, LNP-S, preservative free 06/14/2021 [facility] [id number] completed [employer] SARS-CoV-2 COVID-19, mRNA, LNP-S, preservative free 06/14/2021 [facility] [id number] completed [employer] SARS-CoV-2 COVID-19, mRNA, LNP-S, preservative free 06/14/2021 [facility] [id number] completed Pfizer SARS-CoV-2 COVID-19, mRNA, LNP-S, preservative free 09/17/2020 [id number] Pfizer SARS-CoV-2 COVID-19, mRNA, LNP-S, preservative free 09/17/2020 [facility] [id number] completed [facility] SARS-CoV-2 COVID-19, mRNA, LNP-S, preservative free 08/27/2020 [facility] [id number] completed [employer] SARS-CoV-2 COVID-19, mRNA, LNP-S, preservative free 08/27/2020 [facility] [id number] completed Influenza Quadrivalent, 0.5m l, preservative free (Fluarix; FluLaval; Fluzone) ages 6mo and older (Afluria) 3yo and older 06/16/2019 [facility] [id number] completed Influenza Quadrivalent, 0.5m l, preservative free (Fluarix; FluLaval; Fluzone) ages 6mo and older (Afluria) 3yo and older 06/16/2019 [facility] [id number] completed Influenza Quadrivalent, 0.5m l, preservative free (Fluarix; FluLaval; Fluzone) ages 6mo and older (Afluria) 3yo and older 06/16/2019 [facility] [id number] completed Influenza Quadrivalent, 0.5m l, preservative free (Fluarix; FluLaval; Fluzone) ages 6mo and older (Afluria) 3yo and older 05/15/2017 [facility] [id number] completed Influenza Quadrivalent, 0.5m l, preservative free (Fluarix; FluLaval; Fluzone) ages 6mo and older (Afluria) 3yo and older 05/15/2017 [facility] [id number] completed Encounters Encounter Type Encounter Reason Primary Diagnosis Location Date Ambulatory 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[place] [facility] [place] Amb[place] Left lower quadrant pain Left lower quadrant pain [facility] 09/30/2024 Ambulatory Deficiency of other specified B group vitamins Deficiency of other specified B group vitamins [facility] 09/25/2024 Ambulatory [facility] 09/22/2024 Ambulatory [facility] 09/09/2024 Emergency Other specified disorders of teeth and s Other specified disorders of teeth and supporting structures [facility] 08/27/2024 Ambulatory Other specified disorders of teeth and supporting structures Other specified disorders of teeth and supporting structures [facility] 08/27/2024 Ambulatory Eyelid Mass Eyelid Mass [facility] 08/14/2024 Ambulatory 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) [facility] 08/05/2024 Ambulatory Seborrheic dermatitis, unspecified Seborrheic dermatitis, unspecified [facility] 07/24/2024 Ambulatory Iron deficiency Iron deficiency [facility] 06/23/2024 Ambulatory Hordeolum externum right upper eyelid Hordeolum externum right upper eyelid [facility] 06/19/2024 Ambulatory Unspecified complication following infusion and therapeutic injection, initial encounter Unspecified complication following infusion and therapeutic injection, initial encounter [facility] 06/17/2024 Ambulatory Iron deficiency Iron deficiency [facility] 06/17/2024 Ambulatory Iron deficiency Iron deficiency [facility] 06/12/2024 Ambulatory Hordeolum externum right upper eyelid Hordeolum externum right upper eyelid [facility] 06/11/2024 Emergency [facility]ough, [facility] Pain in right foot Pain in right foot [facility] 03/04/2024 Ambulatory Pain in right foot Pain in right foot [facility] 03/04/2024 Emergency Unspecified asthma with (acute) exacerbation Unspecified asthma with (acute) exacerbation [facility] 02/20/2024 Ambulatory Constipation, unspecified Constipation, unspecified [facility] 02/05/2024 Ambulatory Constipation, unspecified Constipation, unspecified [facility] [place]24 Ambulatory Pain in right leg Pain in right leg [facility] 02/05/2024 Ambulatory Pain in right leg Pain in right leg [facility] [place]/05/2024 Ambulatory Neutropenia, unspecified Neutropenia, unspecified [facility] 01/31/2024 Ambulatory Neutropenia, unspecified Neutropenia, unspecified [facility] [place]/31/2024 Ambulatory Neutropenia, unspecified Neutropenia, unspecified [facility] 01/28/2024 Ambulatory Neutropenia, unspecified Neutropenia, unspecified [facility] 01/28/2024 Ambulatory [facility] 11/14/2023 Emergency Chest pain, unspecified Chest pain, unspecified [facility] 11/12/2023 Ambulatory Neutropenia, unspecified Neutropenia, unspecified [facility] [place]/08/2023 Ambulatory Decreased white bloo d cell count, unspecified Decreased white blood cell count, unspecified [facility] 11/06/2023 Ambulatory [facility] 08/24/2023 Ambulatory Decreased white bloo d cell count, unspecified Decreased white blood cell count, unspecified [facility] 08/23/2023 Ambulatory Neutropenia, unspecified Neutropenia, unspecified [facility] 08/23/2023 Emergency Dorsalgia, unspecified Dorsalgia, unspecified [facility] 08/06/2023 Ambulatory 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 02/13/2023 Ambulatory Problem related to unspecified psychosocial circumstances Problem related to unspecified psychosocial circumstances [facility] 01/29/2023 Ambulatory Decreased white bloo d cell count, unspecified Decreased white blood cell count, unspecified [facility] 11/24/2022 Ambulatory Decreased white bloo d cell count, unspecified Decreased white blood cell count, unspecified [facility] 11/24/2022 Emergency Constipation, unspecified [facility] 10/14/2022 Ambulatory Unspecified asth ma, uncomplicated [facility] 10/13/2022 Ambulatory Encounter for screening for malignant neoplasm of cervix [facility] [place]/11/2022 Ambulatory Encounter for immunization [facility] 06/14/2021 Ambulatory Encounter for screening for other viral diseases [facility] 02/01/2021 Care Team Organization Name Specialty Phone Email Start Date End Da te [facility] Primary Care [phone] [facility] Primary Care 08/14/2024 [facility] [place] [facility] [place] [facility] PCP [facility] 11/13/2023 06/25/2024 [facility] 08/07/[address] [employer] [facility] 06/13/2023 [facility] 11/24/2022 [facility] 10/21/2024 [facility] ROBERTHeber PEREZ Primary Care 10/13/2022 10/13/2022 [facility] 02/08/2022 [facility] PCP,No Primary Care 06/14/2021 06/25/2024 [facility] [employer] NO PCP Primary Care 06/14/2021 06/14/2021 [facility] PCP,No Primary Care 02/18/2021 [facility] NO PCP Primary Care 02/01/2021 [facility] VIJAYA IRWIN Primary Care 07/16/2019 10/11/2022 [facility] BERYL SMITH Primary Care 0 07/16/2019 07/16/2019
--- OUTSIDE RECORDS SUMMARY | 2025-01-05 22:01 | XMS_ITS | Clinical Summary ---
Author Organization [facility] Address [address] [place] [id number] Care Team Providers Care Fruit Washer Name Role Phone Self, Referred Primary Care [...] 89 12/13/2019 9:28 PM EDT Temperature 36.9 C (98.4 F) 12/13/2019 9:28 PM EDT Respiratory Rate 16 12/13/2019 9:28 PM EDT [...] SCREENING 01/20/2008 COVID-19 Vaccine (2023-2 5 season) 2024 INFLUENZA (#1) 2024 NIRSEVIMAB VACCINES UNDER 8 MONTHS Aged Out No longer eligible based on patient's age to complete this topic Insurance [employer] [place] [id number] Care Teams Fruit Washer Relationship Specialty Start Date End Date Self, Referred [address] [place] [address] PCP - General 12/25/17
--- OUTSIDE RECORDS SUMMARY | 2025-01-05 22:01 | XMS_ITS | Clinical Summary ---
Author Organization [facility] Address [address] [place] [address] Phone Care Team Providers Care Harvest Field Ticketer Name Role Phone Katharine Hernández MD Primary Care Provider [phone] Allergies Active Allergy Reactions Criticality Noted Date [...] every 8 hours as needed. 4 Active acetaminophen (TYLENOL) 500 mg tablet Take 2 tablets (1,000 mg total) by mouth every 6 (six) hours if needed for mild pain. Active Symbicort 160-4.5 mcg/actuation inhaler Inhale 2 puffs by mouth 2 (two) times a day. Rinse mouth with water after use to reduce aftertaste and incidence of candidiasis. Do not swallow. 1 each 5 Active nystatin (MYCOSTATIN) 100,000 unit/gram powderIndicatio ns:Rash Apply topically 2 (two) times a day. 15 g 5 07/25/19 26 Active ketoconazole (NIZORAL) 2 % shampooIndicati ons:Seborrheic dermatitis Apply to damp scalp, lather, leave on 5 minutes, and rinse. 120 mL 3 5 Active erythromycin 5 mg/gram (0.5 %) ophthalmic ointment Apply to right eye at bedtime. 5 Active polysorbate 80/glycerin (REFRESH DRY EYE THERAPY OPHT) Administer into affected eye(s). Active Active Problems Problem Noted Date Diagnosed Date Dry eye syndrome of both eyes 08/14/2024 Uncomplicated degenerative myopia of right eye 0 08/14/2024 Corneal scars, both eyes 08/14/2024 Hordeolum externum of right upper eyelid 025 Assessment & Plan (06/20/2024 10:45 AM EDT): Patient has hordeolum externum of right upper eyelid without concerns for preseptal or orbital cellulitis. She has tried erythromycin eyedrops along with warm compresses without improvement of symptoms. At this time, she is interested in further management to alleviate the sensation of heaviness on her eyelid. - Patient to follow-up with ophthalmology for potential intralesional steroid injections - Continue warm compresses in the interim - Instructed patient to return sooner if any changes in symptoms, including involvement of the orbit Orders: Ambulatory referral to Ophthalmology; Future Iron deficiency 06/12/2024 Assessment & Plan (09/25/2024 8:37 AM EDT): S/p IV iron infusions with improvement in iron. Does not tolerate PO iron due to constipation. - continue to monitor - if future IV iron is needed, will need to premedicate with hydrocortisone (previous reaction) Cyst of left ovary 12/02/2023 Overview (12/02/2023): 7/ USN: Left ovarian cystic mass 2.9x3.5x3.8cm, complex. Likely hemorrhagic. Repeat scan in 6-8 weeks recommended. 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 Encounters Date Type Department Care Team Description 12/03/2024 12:30 PM EDT Telemedicine [facility] [place] [address] [place] [phone] Esperanza Aviles LCSW Adjustment disorder with mixed anxiety and depressed mood (Primary Dx) 11/19/2024 2:30 PM EDT Telemedicine [facility] - [place] [address] [place] [phone] Esperanza Aviles LCSW Adjustment disorder with mixed anxiety and depressed mood (Primary Dx) 11/14/2024 11:30 AM EDT Office Visit Hematology and Oncology - [address] [phone] Kathy Pool PA Iron deficiency anemia secondary to blood loss (chronic); Neutropenia, unspecified type ([facility] V24) from Last 3 Months Immunizations Immunization Administration Dates Next Due Influenza Quadrivalent, 0.5m l, preservative free (Fluarix; FluLaval; Fluzone) ages 6mo and older (Afluria) 3yo and older 04/03/2023,01/18/2022,06/16/2019,2017 Influenza trivalent, 0.5mL, preservative free (Fluarix; FluLaval; Fluzone) ages 6mo and older (Afluria) 3 years and older 03/04/2024 Ambrx SARS-CoV-2 COVID-19, mRNA, LNP-S, preservative free 06/14/2021,09/17/2020,08/27/2020 Pneumococcal conjugate 20 va lent (Prevnar 20, PCV 20) 2mo and older 04/03/2023 Surgical History Surgery Date Site/Laterality Comments FOOT SURGERY Right PROCEDURE:FOOT SURGERY;COMMENT:as baby ABDOMINAL SURGERY PROCEDURE:ABDOMINAL SURGERY;COMMENT:gastroschisis repair at LAPAROSCOPY DIAGNOSTIC / BIOPSY / ASPIRATION / LYSIS 09/07/2016 N/A PROCEDURE:DIAGNOSTIC LAPAROSCOPY;COMMENT:Procedure: LAPAROSCOPY DIAGNOSTIC; Surgeon: Salomon Canela MD; Location: [facility] MAIN OPERATING ROOM; Service: General; Laterality: N/A; EXPLORATORY LAPAROTOMY 09/07/2016 N/A PROCEDURE:EXPLORATORY LAPAROTOMY;COMMENT:Procedure: LAPAROTOMY EXPLORATORY; Surgeon: Salomon Canela MD; Location: [facility] MAIN OPERATING ROOM; Service: General; Laterality: N/A; ABDOMINAL SURGERY 09/07/2016 N/A PROCEDURE:ABDOMINAL SURGERY;COMMENT:Procedure: LAPAROTOMY LYSIS OF ADHESIONS; Surgeon: Salomon Canela MD; Location: [facility] MAIN OPERATING ROOM; Service: General; Laterality: N/A; APPENDECTOMY 09/07/2016 N/A PROCEDURE:APPENDECTOMY;COMMENT :Procedure: APPENDECTOMY; Surgeon: Salomon Canela MD; Location: [facility] MAIN OPERATING ROOM; Service: General; Laterality: N/A; UPPER GASTROINTESTINAL ENDOSCOPY 06/12/2019 N/A PROCEDURE:UPPER GASTROINTESTINAL ENDOSCOPY;COMMENT:Procedure: UPPER ENDOSCOPY-EGD; Surgeon: Lennie Rosen MD; Location: [facility] ENDOSCOPY; Service: Gastroenterology; Laterality: N/A; Medical History Medical History Date Comments Asthma DX:Asthma Moebius syndrome DX:Moebius synd artem Gastroschisis, congenital DX:Gas troschisis, congenital Partial small bowel obstruct ion (CMS/HCC V24, CMS/HCC V28) DX:Partial small bowel obst ruction (HCC) Left ovarian cyst DX:Left ovaria n cyst Migraine DX:Migraine 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 For example, children's institution attendant or elderly care for an older [...] or Miller 06/16/2024 10 :04 AM EDT Obstetrics History Last Filed Vital Signs Vital Sign Reading Time Taken Comments Blood Pressure 110/79 11/14/2024 11:17 AM EDT Pulse 61 11/14/2024 11:17 AM EDT Temperature 36.8 C (98.2 F) 11/14/2024 11:17 AM EDT Respiratory Rate 18 11/14/2024 11:17 AM EDT Oxygen Saturation 100% 11/14/2024 11:17 AM EDT Inhaled Oxygen Concentration - - Weight 67.8 kg (149 lb 7.6 oz) 11/14/2024 11:17 AM EDT Height 152.4 cm (5') 09/25/2024 1:13 PM EDT Body Mass Index 29.19 09/25/2024 1:13 PM EDT Plan of Treatment Upcoming Encounters Date Type Department Care Team (Late st Contact Info) Description 03/17/2025 2:30 PM EST [facility] [address] [place] [phone] 03/18/2025 11:00 AM EST Office Visit Hematology and Oncology - [address] [phone] Kathy Pool PA [address] [place], [place] [phone] 03/23/2025 2:00 PM EST Office Visit [facility] - [place] [address] [place] [phone] Katharine Hernández MD [address] [place] [phone] Health Maintenance Due Date Last Done Comments Dental Oral Exam 1995 IPV Vaccines (4 of 4 - 4-dose series) 1999 1995, 1995, 1995 DTaP,Tdap,and Td Vaccines (6 - Tdap) 2006 01/31/1999, 07/21/1996, 1995, Additional history exists HPV Vaccines (3 - 2-dose series) 07/08/2010 03/16/2010, 01/07/2010 Hepatitis A Vaccines (2 of 2 - 2-dose series) 07/08/2010 01/07/2010 Depression Screening 04/09/2024 03/04/2024, 04/03/20 23 Dental Prophylaxis 09/04/2024 Dental X-Ray: Bitewings 09/04/2024 COVID-19 Vaccine ( season) 2024 06/14/2021, 09/17/2020, 08/27/2020 Influenza Vaccine (#1) 2024 , 04/03/2023, 01/18/2022, Additional history exists Social Influencers of Health Screening 03/04/2025 03/04/2024 Cervical Cancer Screening: Pap Smear 10/11/2025 10/11/2022, 10/11/2022, 10/16/2018 Dental X-Ray: Full Mouth 09/11/2027 09/09/2024 RSV Immunization Adult Patients (1 - 1-dose 75+ series) 2070 Hepatitis B Vaccines Completed 05/09/1996, 1995, 1995 HIB Vaccines Completed 07/21/1996, 09/07, 1995, Additional history exists MMR Vaccines Completed 08/31/1999, 05/09/1996 Meningococcal ACWY Vaccine Aged Out 09/03/2008 N o longer eligible based on patient's age to complete this topic Varicella Vaccines Completed 09/03/2008, 07/21/1996 Pneumococcal Vaccine: Pediatrics (0 to 5 Years) and At-Risk Patients (6 to 49 Years) Aged Out 04/03/2023 No longer eligible based on patient's age to complete this topic HIV Screening Completed 08/02/2023 Hepatitis C Screening Completed 08/02/2023, 024 Meningococcal B Vaccine Aged Out No l onger eligible based on patient's age to complete this topic RSV Immunization Patients Under 20 months Aged Out No longer eligible based on patient's age to complete this topic Procedures Procedure Name Priority Date/Time Associated Diagnosis Comments MANUAL DIFFERENTIAL Routine 11/14/2024 1 1:57 AM EDT Iron deficiency anemia secondary to blood loss (chronic) Neutropenia, unspecified type (CMS/HCC V24) CBC WITH AUTO DIFFERENTIAL Routine 11/14/2024 11:57 AM EDT Iron deficiency anemia secondary to blood loss (chronic) Neutropenia, unspecified type (CMS/HCC V24) CBC AND DIFFERENTIAL Routine 11/14/2024 11:57 AM EDT Iron deficiency anemia secondary to blood loss (chronic) Neutropenia, unspecified type (CMS/HCC V24) FYB ANTIGEN TYPE Routine 11/14/2024 10:3 4 AM EDT Iron deficiency anemia secondary to blood loss (chronic) Neutropenia, unspecified type (CMS/HCC V24) FYA ANTIGEN TYPE Routine 11/14/2024 10:3 4 AM EDT Iron deficiency anemia secondary to blood loss (chronic) Neutropenia, unspecified type (CMS/HCC V24) ANTIGEN TYPING RBC Routine 11/14/2024 10 :34 AM EDT Iron deficiency anemia secondary to blood loss (chronic) Neutropenia, unspecified type (CMS/HCC V24) VITAMIN B12 Routine 11/14/2024 10:34 AM EDT Iron deficiency anemia secondary to blood loss (chronic) Neutropenia, unspecified type (CMS/HCC V24) IRON AND TIBC Routine 11/14/2024 10:34 AM EDT Iron deficiency anemia secondary to blood loss (chronic) Neutropenia, unspecified type (CMS/HCC V24) FERRITIN Routine 11/14/2024 10:34 AM EDT Iron deficiency anemia secondary to blood loss (chronic) Neutropenia, unspecified type (CMS/HCC V24) PANORAMIC RADIOGRAPHIC IMAGE Routine 09/09/2024 4:00 PM EDT HM HEPATITIS C SCREENING Routine 08/02/2023 HM HIV SCREENING Routine 08/02/2023 HM DEPRESSION SCREENING Routine 04/03/2023 PAP SMEAR Routine 10/11/2022 from Last 3 Months or Most Recently Relevant to Health Maintenance Results * (ABNORMAL) CBC auto differential (11/14/2024 11:57 AM EDT) WBC 2.8(L) 4.0 - 10.5 K/mcL LAB HEMETOLOGY METHOD 11/14/2024 12:41 PM EDT [facility] Comment:Verified by repeat a nalysis. RBC 4.51 4.20 - 5.40 M/mcL LAB HEMETOLOGY METHOD 11/14/2024 12:41 PM EDT [facility] Hemoglobin 13.5 12.5 - 16.0 g/dL LAB HEMETOLOGY METHOD 11/14/2024 12:41 PM EDT [facility] Hematocrit 39.9 37.0 - 47.0 % LAB HEMETOLOGY METHOD 11/14/2024 12:41 PM EDT [facility] MCV 88.5 78.0 - 100.0 FL LAB HEMETOLOGY METHOD 11/14/2024 12:41 PM EDT [facility] MCH 30.0 25.0 - 33.0 pcg LAB HEMETOLOGY METHOD 11/14/2024 12:41 PM EDT [facility] MCHC 33.9 32.0 - 36.0 g/dL LAB HEMETOLOGY METHOD 11/14/2024 12:41 PM EDT [facility] RDW 14.4 12.1 - 16.2 % LAB HEMETOLOGY METHOD 11/14/2024 12:41 PM EDT [facility] Platelets 236 150 - 450 K/mcL LAB HEMETOLOGY METHOD 11/14/2024 12:41 PM EDT [facility] Comment:Verified by repeat a nalysis. MPV 7.5 7.4 - 11.4 FL LAB HEMETOLOGY METHOD 11/14/2024 12:41 PM EDT [facility] Blood Venous blood specimen / Unknown Venipuncture / Unknown 11/14/2024 11:57 AM EDT 11/14/2024 11:58 AM EDT Kathy OJEDA LAB BLOOD ORDERABLES Final Res ult [facility] [address] [place] [address], [place] [phone] * (ABNORMAL) Manual differential (11/14/2024 11:57 AM EDT) WBC Total Counted 100 11/14/2024 12:41 PM EDT [facility] Neutrophils Percent Manual 33.0(L) 44.0 - 74.0 % 11/14/2024 12:41 PM EDT [facility] Lymphocytes Percent Manual 45.0 20.0 - 48.0 % 11/14/2024 12:41 PM EDT [facility] Monocytes Percent Manual 12.0 2.0 - 12.0 % 11/14/2024 12:41 PM EDT [facility] Eosinophils Percent Manual 9.0(H) 0.0 - 6.0 % 11/14/2024 12:41 PM EDT [facility] Basophils Percent Manual 1.0 0.0 - 2.0 % 11/14/2024 12:41 PM EDT [facility] RBC Morphology RBC Morphology appears normal 11/14/2024 12:41 PM EDT [facility] Platelet Estimate Normal Platelets Appear Increased, Platelets Appear Decreased, Normal 11/14/2024 12:41 PM EDT [facility] Blood Venous blood specimen / Unknown Venipuncture / Unknown 11/14/2024 11:57 AM EDT 11/14/2024 11:58 AM EDT us Kathy OJEDA LAB BLOOD ORDERABLES Final Res ult [facility] [address] [place] [address], [place] [phone] * Fyb antigen type (11/14/2024 10:34 AM EDT) Fyb Antigen Negative 11/14/2024 12:10 PM EDT [facility] Blood Venous blood specimen / Unknown Venipuncture / Unknown 11/14/2024 10:34 AM EDT 11/14/2024 11:19 AM EDT Kathy OJEDA LAB BLOOD BANK TEST ORDERABLES Final Result Performing Organization Address City/[facility]/ZIP Co de Phone Number [facility] [address] [place] [address], [place] [phone] * Fya antigen type (11/14/2024 10:34 AM EDT) Fya Antigen Negative 11/14/2024 12:09 PM EDT [facility] Blood Venous blood specimen / Unknown Venipuncture / Unknown 11/14/2024 10:34 AM EDT 11/14/2024 11:19 AM EDT Kathy OJEDA LAB BLOOD BANK TEST ORDERABLES Final Result [facility] [address] [place] [address], [place] [phone] * Iron and TIBC (11/14/2024 10:34 AM EDT) Iron 83 37 - 170 mcg/dL LAB CHEMISTRY METHOD 11/14/2024 11:59 AM EDT [facility] UIBC 268 155 - 355 mcg/dL LAB CHEMISTRY METHOD 11/14/2024 11:59 AM EDT [facility] TIBC 351 250 - 450 mcg/dL LAB CHEMISTRY METHOD 11/14/2024 11:59 AM EDT [facility] Iron Saturation 24 20 - 45 % LAB CHEMISTRY METHOD 11/14/2024 11:59 AM EDT [facility] Blood Venous blood specimen / Unknown Venipuncture / Unknown 11/14/2024 10:34 AM EDT 11/14/2024 11:19 AM EDT us Kathy OJEDA LAB BLOOD ORDERABLES Final Res ult [facility] [address] [place] [address], [place] [phone] * Antigen type, RBC (11/14/2024 10:34 AM EDT) Antigen Type RBC See specific Antigen order 11/14/2024 12:08 PM EDT [facility] Blood Venous blood specimen / Unknown Venipuncture / Unknown 11/14/2024 10:34 AM EDT 11/14/2024 11:19 AM EDT us Kathy OJEDA LAB BLOOD BANK TEST ORDERABLES Final Result [facility] [address] [place] [address], [place] [phone] * Ferritin (11/14/2024 10:34 AM EDT) Ferritin 27 10 - 120 ng/mL LAB CHEMISTRY METHOD 11/14/2024 12:20 PM EDT [facility] Blood Venous blood specimen / Unknown Venipuncture / Unknown 11/14/2024 10:34 AM EDT 11/14/2024 11:19 AM EDT Kathy OJEDA LAB BLOOD ORDERABLES Final Res ult [facility] [address] [place] [address], [place] [phone] * Vitamin B12 (11/14/2024 10:34 AM EDT) [facility] Vitamin B-12 296 180 - 914 pcg/mL LAB CHEMISTRY METHOD 11/14/2024 12:20 PM EDT [facility] Blood Venous blood specimen / Unknown Venipuncture / Unknown 11/14/2024 10:34 AM EDT 11/14/2024 11:19 AM EDT Kathy OJEDA LAB BLOOD ORDERABLES Final Res ult Performing Organization Address City/[facility]/ZIP Co de Phone Number [facility] [address] [place] [address], [place] [phone] * HIV Screening (08/02/2023) Pathologist [facility] HIV Screening ABSTRACTED Historical Provider HEALTH MAINTENANCE Final Result * Hepatitis C Screening (08/02/2023) Pathologist [facility] Hepatitis C Screening ABSTRACTED Historical Provider HEALTH MAINTENANCE Final Result * Depression Screening (04/03/2023) Pathologist [facility] Depression Screening ABSTRACTED Historical Provider HEALTH MAINTENANCE Final Result * Pap Smear (10/11/2022) Pathologist [facility] Pap smear NEGATIVE, ABSTRACTED Historical Provider HEALTH MAINTENANCE Final Result from Last 3 Months or Most Recently Relevant to Health Maintenance [place] Care Teams Harvest Field Ticketer Relationship Specialty Start Date End Date Katharine Hernández MD [address] [place] [phone] PCP - General 10/13/22
--- OUTSIDE RECORDS SUMMARY | 2025-01-05 22:01 | XMS_ITS | Clinical Summary ---
Author Organization [facility] Address [address] [place] [address] Care Team Providers Care Equity Research Analyst Name Role Phone Pcp, No Primary Care Provider Unavailabl e Allergies Active Allergy Reactions Criticality Noted Date Comments Metoclopramide Anaphylaxis High 12/14/2019 Watermelon Anaphylaxis High 10/24/2013 Medications predniSONE (DELTASONE) 20 MG tablet Take 2 [...] times a day. 28 tablet 03/18/2024 Active Immunizations Immunization Administration Dates Next Due Covid-19 MRNA Vaccine - Pfizer 12+ (Purple Cap) 06/14/2021 Social History Tobacco Use Types Packs/Day Years Used Date Smoking Tobacco: Never Smokeless Tobacco: Never Tobacco Cessation:Counseling Given: Not Answered Alcohol Use Standard Drinks/Week Comments Never 0 (1 standard drink = 0.6 oz pur e alcohol) Comments No Sex and Gender Information Value Date Recorded Sex Assigned at Female 11/12/2023 3:55 PM EDT Legal Sex Female 6:22 PM EDT Gender Identity Female 11/12/2023 3:55 PM EDT Sexual Orientation Choose not to disclose 2023 3:55 PM EDT Last Filed Vital Signs Vital Sign Reading Time Taken Comments Blood Pressure 123/83 03/18/2024 4:22 PM EST Pulse 88 03/18/2024 9:39 PM EST Temperature 36.6 C (97.8 F) 03/18/2024 4:22 PM EST Respiratory Rate 18 03/18/2024 4:22 PM EST [...] series) 2014 Pap Smear (Ages 21-65) 01/20/2016 HPV Vaccines (1 - 3-dose SCDM series) 2022 Influenza Vaccine 11/07/2024 03/04/2024, , 01/18/2022, Additional history exists COVID-19 Vaccine ( season) 2024 06/14/2021, 09/17/2020, 08/27/2020 HIV Screening Completed 05/28/2018 Pneumococcal Vaccine: Pediatric (0-5 Years) and At-Risk Patients (6 to 49 Years) Aged Out No longer eligible based on patient's age to complete this topic Insurance [facility] Care Teams Equity Research Analyst Relationship Specialty Start Date End Date Pcp, No PCP - General General Medicine 06/10/21
--- NOTE | 2025-01-05 22:04 | PC.NURSE ---
Pt medicated per Mar.
[2025-01-05] MEDS: Albuterol Sulfate (0.083%) 2.5 MG/3 ML VIAL.NEB INHALE (22:06)
[2025-01-05 22:08] VITALS: PULSE 110; RESP 20; O2SAT 96
[2025-01-05 22:13] VITALS: BP 99/63; PULSE 111; RESP 18; O2SAT 100
[2025-01-05 22:23] VITALS: BP 121/78; PULSE 102; RESP 16; TEMP 36.8; O2SAT 98
--- NOTE | 2025-01-05 22:37 | PC.NURSE ---
reviewed discharge instructions with pt. pt verbalized understanding, no sign of respiratory distress upon discharge
[2025-01-05 22:38] VITALS: BP 121/78; PULSE 102; RESP 16; TEMP 36.8; O2SAT 98
== END 2025-01-05 22:38 | disposition home or self-care (01) ==
PROVIDERS: Physician Assistant Medical; Emergency Provider Emergency Medicine
DX: R06.02 Shortness of breath (principal); J45.901 Unspecified asthma with (acute) exacerbation; R05.9 Cough, unspecified; J02.9 Acute pharyngitis, unspecified; Z11.52 Encounter for screening for COVID-19; R50.9 Fever, unspecified; Z79.899 Other long term (current) drug therapy
CPT/HCPCS: 71046; 87502; 87635; 94640; 99284; 99285

== ENCOUNTER → 2025-01-05 16:34 | Outpatient (BNV) | payer MEDICAID, SELFPAY | PROVIDERS: Visit Provider Radiology Diagnostic Radiology | DX: R05.9 Cough, unspecified (principal); R06.2 Wheezing; K44.9 Diaphragmatic hernia without obstruction or gangrene | CPT/HCPCS: 71046 ==

== ENCOUNTER 2025-02-14 19:42 | Emergency (ER) | payer MEDICAID, SELFPAY ==
--- OUTSIDE RECORDS SUMMARY | 2024-02-05 11:03 | XMS_ITS | Encounter Summary ---
Author Organization [facility] Address [address] [place] [address] Care Team Providers Care Biodiesel Technology Manager Name Role Phone Katharine Hernández MD Primary Care Provider [phone] Encounter Details Date Type Department Care Team (Late st Contact Info) Description 02/05/2024 12:03 PM EDT Hospital Encounter [facility] ONLY Cecille Herrera PA [address] [facility] [address] [place] [id number] Social History Tobacco Use Types Packs/Day Years Used Date Smoking Tobacco: Never Smokeless Tobacco: Never Alcohol Use Standard Drinks/Week Comments No 0 (1 standard drink = 0.6 oz pur e alcohol) Housing Instability Answer Date Recorde d Are you worried that in the next 2 months you may not have stable housing? No 03/04/2024 Food Access & Nutrition Answer Date Rec orded Do you have access to a vari ety of food including fruits and vegetables? Yes 03/04/2024 Health Literacy Answer Date Recorded How often do you need to hav e someone help you when you read instructions, pamphlets, or other written material from your doctor or pharmacy? Never 03/04/2024 Caregiver: How often do you need to have someone help you when you read instructions, pamphlets, or other written material from your doctor or pharmacy? Not on file 03/04/2024 Financial Risk Answer Date Recorded How hard is it for you to pa y for the very basics like food, housing, medical care, and air conditioning / heating? Not very hard 03/04/2024 Transportation Answer Date Recorded Has the lack of transportati on kept you from meetings, work, or from getting things needed for daily living? No Has the lack of transportati on kept you from medical appointments or from getting medications? No 03/04/2024 Social Isolation Answer Date Recorded How often do you feel lonely or isolated from th ose around you? Never 03/04/2024 Food Risk Answer Date Recorded Within the past 12 months we worried whether our food would run out before we got money to buy more. Never true 03/04/2024 Within the past 12 months th e food we bought just didn't last and we didn't have money to get more. Never true 03/04/2024 Dependent Care Answer Date Recorded Do you need help finding or paying for care for your loved ones. For example, childhood development teacher or elderly care for an older adult? No 03/04/2024 Education Answer Date Recorded Do you think completing more education or training, like finishing a GED, going to college, or learning a trade, would be helpful for you? Unable to respond 03/04/2024 Employment and Income Answer Date Recor ded During the last four weeks, have you been actively looking for work? No 03/04/2024 Living Situation Answer Date Recorded What is your living situation? Unrecognized valu e 03/04/2024 Comments Unknown Sex and Gender Information Value Date Recorded Sex Assigned at Female 06/16/2024 10:04 AM EDT Legal Sex Female 2:58 AM EST Gender Identity Female 06/16/2024 10:04 AM EDT Sexual Orientation Lesbian or Miller 06/16/2024 10 :04 AM EDT documented as of this encounter Last Filed Vital Signs Vital Sign Reading Time Taken Comments Blood Pressure - - Pulse - - Temperature - - Respiratory Rate - - Oxygen Saturation - - Inhaled Oxygen Concentration - - Weight 65.8 kg (145 lb) 02/05/2024 9:29 AM EDT Height 152.4 cm (5') 02/05/2024 9:29 AM EDT Body Mass Index 28.32 02/05/2024 9:29 AM EDT documented in this encounter Plan of Treatment Upcoming Encounters Date Type Department Care Team (Late st Contact Info) Description 03/17/2025 2:30 PM EST [facility] [address] [place] [address] 03/18/2025 11:00 AM EST Office Visit Hematology and Oncology - [address] [address] Kathy Pool PA [address] [place], [place] [id number] 03/23/2025 2:00 PM EST Office Visit [facility] Medicine [facility] - [place] [address] [place] [address] Katharine Hernández MD [address] [place] [address] documented as of this encounter Visit Diagnoses Not on filedocumented in this encounter Care Teams Biodiesel Technology Manager Relationship Specialty Start Date End Date Katharine Hernández MD [address] [place] [address] PCP - General 10/13/22 documented as of this encounter
--- NOTE | ~2025-02-14 | CT_ITS ---
CLINICAL HISTORY: abd pain, h o obstruction CT abdomen and pelvis with contrast Comparison: CT - CT ABDOMEN PELVIS W IV CON - 02/14/25 23:37 EST Findings: No lung base consolidation or pleural effusion. Moderate hiatal hernia. Normal liver morphology. Normal gallbladder. Normal pancreas and spleen. Normal adrenals. Normal kidneys. No obstructive urolithiasis. Transverse colon is superimposed anterior to liver, under the right hemidiaphragm. Oral contrast propagates to the distal small bowel. No evidence for bowel obstruction, pneumoperitoneum, or pneumatosis. Moderate colonic stool. Appendectomy. Anteverted uterus. No acute fracture. IMPRESSION: No acute abdominal or pelvic finding. Moderate hiatal hernia. This document has been electronically signed by: Bryant Couch MD on 02/15/2025 01:00:33
[2025-02-14 19:50] VITALS: BP 132/88; PULSE 81; RESP 16; TEMP 36.4; O2SAT 98; BMI 29.1
--- NOTE | 2025-02-14 19:52 | ED_ITS ---
HPI - General Adult General Chief complaint: Abdominal Pain Stated complaint: stomach pain/vomiting Time Seen by Provider: 02/14/25 22:58 Source: patient Mode of arrival: ambulatory Limitations: no limitations History of Present Illness ED Provider: Edwin OJEDA HPI narrative: The patient is a 30-year-old female with a history of Moebius syndrome, gastroschisis, and asthma presenting to the ED for evaluation of upper abdominal pain with bilious nonbloody vomiting which began yesterday. Patient reports history of multiple abdominal surgeries including appendectomy, and takedown of adhesions. Patient reports she has had previous small bowel obstructions, most recent was 1 year ago, managed conservatively at this facility. The patient denies associated fever/chills, chest pain, shortness of breath, diarrhea, hematochezia, or melena. The patient reports last bowel movement was approximately 3 days ago, which she states is not uncommon for her. The patient also reports she has been experiencing frequent urination with sensation of incomplete voiding, but denies overt dysuria. Related Data Home Medications ?Medication ?Instructions ?Recorded ?Confirmed albuterol sulfate 90 mcg/actuation 2 inh inhalation Q4 -6H PRN 01/01/24 01/01/24 breath activated powder inhaler Shortness Of Breath Or Wheezing (ProAir RespiClick) iron,carbonyl 65 mg-vitamin C 125 1 tab PO Q OTHER DAY 01/01/24 01/01/24 mg tablet,delayed release (Vitron-C) Previous Rx's ?Medication ?Instructions ?Recorded docusate sodium 100 mg capsule 100 mg PO BID #60 caps 01/03/24 (Colace) polyethylene glycol 3350 17 17 g PO DAILY #238 grams 0 01/03/24 gram/dose oral powder (Miralax) penicillin V potassium 500 mg 500 mg PO BID 10 days #2 0 tabs 05/12/24 tablet azithromycin 250 mg tablet See Rx Instructions PO .COM PLEX #6 05/29/24 tabs prednisone 20 mg tablet 40 mg (2 x 20 mg) PO DAILY # 10 tabs 05/29/24 prednisone 20 mg tablet 40 mg (2 x 20 mg) PO DAILY # 8 tabs 01/05/25 cephalexin 500 mg capsule 500 mg PO QID #28 caps 02/15 ondansetron 4 mg disintegrating 4 mg PO Q8H PRN nausea and 02/15/25 tablet vomiting #14 tabs Allergies Allergy/AdvReac Type Severity Reaction Status Date / Time watermelon Allergy Anaphylaxis Verified 02/14/25 19:53 metoclopramide (From Reglan) AdvReac Shakiness Verified 02/14/25 19:53 Review of Systems 2 Review of Systems: Yes all other systems are reviewed and are negative [facility] Past Medical History Medical History Asthma Moebius' syndrome Surgical History History of laparotomy Social History Social History Household Members: Family Housing: House Do you presently have visiting nurse or other home services: No Patient Tobacco Use Status: Never used Tobacco Second Hand Smoke Exposure: No Advance Directives: No Advance Directives Information Provided: Yes Do you have a plan to hurt others: No Plan Patient : No service: No Physical Exam ED Vital Signs: Vital Signs - 24 hr 02/14/25 19:50 02/14/25 22:41 Temperature 97.6 F 97.9 F Pulse Rate 81 60 Respiratory Rate 16 16 Blood Pressure 132/88 134/95 H Pulse Oximetry 98 97 Oxygen Delivery Method Room Air Room Air BMI result Body Mass Index 29.1 CONSTITUTIONAL: The patient appears non-toxic, well nourished and in no acute distress. Vital signs as documented. HEAD: Atraumatic, normocephalic. EYES: EOMs grossly intact, pupils equal, conjunctiva clear, no exudate. ENT: Nares patent, no discharge. Airway patent, no audible stridor, visible mucosa is pink and moist without noted lesions. NECK: Trachea is midline, no obvious masses or gross abnormalities. CHEST: Symmetric movement, normal appearance. LUNGS: LS present and CTAB, no w/r/r. Non-labored work of breathing. CARDIAC: Regular Rhythm, S1/S2 appreciated, no murmurs, rubs or gallops. ABDOMEN: Abdomen soft x4 quadrants, positive tenderness to the epigastrum/right upper quadrant, negative rebound, negative Soriano's, no palpable masses or organomegaly. : Deferred. EXTREMITIES: Normal tone, moves all extremities spontaneously without reported pain. No obvious acute injury or deformity noted. NEURO: Alert and oriented x3, CN II-XII appear grossly intact. Cerebellar Functioning grossly intact. No obvious sensory or motor deficits. Speech clear and appropriate. PSYCH: normal affect, appropriate eye contact, fluid speech, with appropriate response to questioning. No reported suicidality or homicidality. SKIN: Warm, dry, color appropriate, normal turgor. No rashes noted. Course Course Course Narrative: Medical screening exam performed. Please refer to detailed history, exam, evaluation, and management by primary provider. Patient with a history bowel obstruction, reporting diffuse abdominal pain, nausea. Check labs, CT. Medications Administered Discontinued Medications Generic Name Dose Route Start Last Admin Trade Name Freq PRN Reason Stop Dose Admin Al Hydroxide/Mg Hydroxide 30 ml 02/15/25 01:38 02/15/25 02:13 Magnesium Hydrox/Alum Hydrox 30 Ml Oral.Susp PO 02/15/25 01:39 30 ml ONCE ONE Administration Cephalexin HCl 500 mg 02/15/25 01:38 02/15/25 02:13 Cephalexin 500 Mg Capsule PO 02/15/25 01:39 500 mg ONCE ONE Administration Famotidine 20 mg 02/15/25 01:38 02/15/25 02:13 Famotidine 20 Mg Tablet PO 02/15/25 01:39 20 mg ONCE ONE Administration Sodium Chloride 1,000 mls @ 999 mls/hr 02/14/25 23:45 02/15/25 02:13 Ns IV 02/15/25 00:45 Infused .Q1H1M WILVER Infusion Iohexol 100 ml 02/14/25 23:52 02/14/25 23:52 Iohexol 350 Mg/Ml 100 Ml Infus..Btl IV 02/14/25 23:53 85 ml ONCE ONE Administration Ketorolac Tromethamine 15 mg 02/15/25 00:46 02/15/25 01:04 Ketorolac Tromethamine 15 Mg/Ml Vial IVPUSH 02/15/25 00:47 15 mg ONCE ONE Administration Lidocaine HCl 15 ml 02/15/25 01:38 02/15/25 02:13 Lidocaine Hcl Viscous 2 % 15 Ml Solution PO 02/15/25 01:39 15 ml ONCE ONE Administration Ondansetron HCl 4 mg 02/14/25 23:55 02/15/25 00:20 Ondansetron Hcl 4 Mg/2 Ml Vial IVPUSH 02/14/25 23:56 4 mg ONCE ONE Administration Medical Decision Making Medical Decision Making MDM Narrative: 11:56 PM 02/14/2025 (Lalita OJEDA): The patient is a 30-year-old female with a history of Moebius syndrome, gastroschisis, and asthma presenting to the ED for evaluation of upper abdominal pain with bilious nonbloody vomiting which began yesterday. Patient reports history of multiple abdominal surgeries including appendectomy, and takedown of adhesions. Patient reports she has had previous small bowel obstructions, most recent was 1 year ago, managed conservatively at this facility. The patient denies associated fever/chills, chest pain, shortness of breath, diarrhea, hematochezia, or melena. The patient reports last bowel movement was approximately 3 days ago, which she states is not uncommon for her. The patient also reports she has been experiencing frequent urination with sensation of incomplete voiding, but denies overt dysuria. The patient's exam demonstrates mild epigastric/RUQ tenderness, no rebound, negative Soriano's. The patient's laboratory evaluation shows no leukocytosis, anemia, electrolyte abnormality, or ELVIE. The patient's LFTs show mild transaminitis which is not new, T bili and alkaline phosphatase are normal. Patient's lipase is normal. The patient's urinalysis shows moderate blood with trace leukocyte esterase and 2+ bacteria however does show 11-20 squamous epithelial cells. Urinalysis may be consistent with contamination versus UTI. Given the patient's history of SBO we will obtain CT abdomen and pelvis to rule out acute intra- abdominal pathology. Given the patient's urinary frequency, sensation of incomplete voiding, vomiting, and questionable urinalysis, pending unremarkable CT we will consider treatment for UTI. 1:29 AM 02/15/2025 (Lalita OJEDA): The patient's CT abdomen shows no evidence of SBO, there is a moderate hiatal hernia, no other acute findings, gallbladder appears normal, no CT evidence of pericholecystic fluid or gallstones. As discussed above, given the patient's urinary symptoms, questionable urinalysis, and lack of other explanation for symptoms, we will treat prophylactically for UTI with cephalexin. We will also treat with GI cocktail and reassess epigastric tenderness. Admission/Observation Consideration of admission/observation: Escalation of care including admission/observation considered Lab Data MDM Lab Attestation statement: I reviewed the patient's lab results. 02/14/25 21:07 02/14/25 21:07 Labs: Lab Results 02/14/25 Range/Units 21:07 WBC 3.5 L (4.8-10.8) X10*3/uL RBC 4.91 (4.20-5.50) X10*6/uL Hgb 14.3 (12.0-16.0) g/dl Hct 43.6 (37.0-47.0) % MCV 88.8 (80.0-98.0) fL MCH 29.1 (27.0-33.0) pg MCHC 32.8 (31.0-35.0) g/dl RDW 14.3 (11.0-16.0) % Plt Count 201 (160-400) X10*3/uL MPV 9.2 L (9.4-12.3) fL Immature Gran % (Auto) 0.3 (0.0-0.4) % Neut % (Auto) 38.1 L (45-73) % Lymph % (Auto) 43.1 H (20-40) % [place] % (Auto) 6.9 (2-11) % Eos % (Auto) 11.0 H (0-4) % Baso % (Auto) 0.6 (0-2) % Lymph # (Auto) 1.5 (1.2-4.9) X10*3/uL [place] # (Auto) 0.2 (0.1-1.2) X10*3/uL Eos # (Auto) 0.4 (0.0-0.4) X10*3/uL Baso # (Auto) 0.0 (0.0-0.2) X10*3/uL Abs Immat Gran (auto) 0.01 (0.00-0.03) X10*3/uL Absolute Neuts (auto) 1.3 L (2.0-8.3) x10*3/uL Absolute Nucleated RBC 0.000 (0.0-0.012) X10*3/uL Nucleated RBC % (auto) 0.0 (0.0-0.2) /100WBC Sodium 143 (135-145) mmol/L Potassium 4.1 (3.3-5.1) mmol/L Chloride 111 H (96-108) mmol/L Carbon Dioxide 22 (22-29) mmol/L Anion Gap 14 (12-20) BUN 9 (9-16) mg/dL Creatinine 0.63 (0.5-1.4) mg/dL Estim Creat Clear Calc 111.9 Estimated GFR > 60 Random Glucose 88 (60-115) mg/dL Lactic Acid 1.1 (0.5-2.0) mmol/L Calcium 9.3 D (8.4-10.2) mg/dL Total Bilirubin 0.4 (0.0-1.0) mg/dL AST 52 H (5-31) U/L ALT 33 H (0-31) U/L Alkaline Phosphatase 90 (39-117) U/L Total Protein 8.0 (6.5-8.0) g/dL Albumin 4.8 (3.5-5.0) g/dL Lipase 52 (8-78) U/L Beta HCG, Quant < 2 mIU/mL Urine Color Yellow Urine Appearance Clear Urine pH 7.0 (5.0-9.0) Ur Specific [place] 1.020 (1.005-1.025) Urine Protein Negative (Neg-Trace) mg/dL Urine Glucose (UA) Negative (Negative) mg/dL Urine Ketones Negative (Negative) mg/dL Urine Blood Moderate (2+) H (Negative) Urine Nitrite Negative (Negative) Ur Leukocyte Esterase Trace H (Negative) Urine RBC 3-5 H (0-2) /HPF Urine WBC 0-5 (0-5) /HPF Ur Squamous Epith Cells 11-20 (0-2) /HPF Urine Bacteria 2+ (None Seen) Hyaline Casts 0-2 (0-2) /LPF Radiology Impression Discussion of test interpretation with radiology: I have reviewed the radiologist's reading. Radiologist Impression: CT abdomen and pelvis with contrast Comparison: CT - CT ABDOMEN PELVIS W IV CON - 02/14/25 23:37 EST Findings: No lung base consolidation or pleural effusion. Moderate hiatal hernia. Normal liver morphology. Normal gallbladder. Normal pancreas and spleen. Normal adrenals. Normal kidneys. No obstructive urolithiasis. Transverse colon is superimposed anterior to liver, under the right hemidiaphragm. Oral contrast propagates to the distal small bowel. No evidence for bowel obstruction, pneumoperitoneum, or pneumatosis. Moderate colonic stool. Appendectomy. Anteverted uterus. No acute fracture. IMPRESSION: No acute abdominal or pelvic finding. Moderate hiatal hernia. This document has been electronically signed by: Bryant Couch MD on 02/15/2025 01:00:33 External Record Review External record reviewed: Outpatient record and Prior outpatient labs Prescription Management I considered prescription management with: Pain Medication and Antibiotic Discharge Plan Discharge Clinical Impression: Urinary tract infection Patient Disposition: Home, Self-Care Instructions: Urinary Tract Infection in Women (ED) Additional Instructions: Thank you for choosing [facility]'s Emergency Department for your care today. Thankfully your CT today showed no evidence of a small-bowel obstruction. At this time there is no indication for surgical intervention, admission to the hospital or continued ED observation, and it is safe to discharge you home. Your urinalysis today was potentially concerning for a urinary tract infection. Based on this finding, in combination with your urinary frequency and sensation of incomplete voiding, it is possible that your vomiting and other symptoms are due to a urinary tract infection. We are treating you with cephalexin, please take this as prescribed until it is finished. Additionally we are treating your nausea and vomiting with the Zofran, please take this as prescribed as needed. Please stay well hydrated and get plenty of rest. Please follow up with your primary care physician for re-evaluation, additional management of your symptoms, and continued preventative care. If you do not have a primary care physician, please call the [facility] at [phone] to establish a new primary care physician. While waiting to establish your new primary care physician, you can call our [facility] at [phone] for non-emergency needs. Please return to the emergency department if you develop a severe or sudden change in your symptoms, a fever over 100.4 that does not improve with Tylenol or Ibuprofen, recurrent vomiting that does not improve with the Zofran, or any other new or worsening symptoms or concerns. Prescriptions: New cephalexin 500 mg capsule 500 mg PO QID Qty: 28 0RF ondansetron 4 mg tablet,disintegrating 4 mg PO Q8H PRN (Reason: nausea and vomiting) Qty: 14 0RF No Action penicillin V potassium 500 mg tablet 500 mg PO BID 10 Days Qty: 20 0RF prednisone 20 mg tablet 40 mg PO DAILY Qty: 8 0RF ProAir RespiClick 90 mcg/actuation aerosol powdr breath activated 2 inh inhalation Q4-6H PRN (Reason: Shortness Of Breath Or Wheezing) Vitron-C 65 mg iron- 125 mg tablet,delayed release (DR/EC) 1 tab PO Q OTHER DAY docusate sodium [Colace] 100 mg capsule 100 mg PO BID Qty: 60 0RF polyethylene glycol 3350 [Miralax] 17 gram/dose powder 17 g PO DAILY Qty: 238 0RF azithromycin 250 mg tablet See Rx Instructions .ROUTE .COMPLEX Qty: 6 0RF Rx Instructions: For 250 mg dose pack: take 500 mg today (day 1), then 250 mg for 4 days (days 2-5) prednisone 20 mg tablet 40 mg PO DAILY Qty: 10 0RF Interventions: ED Discharge Assessment Last Done: 02/15/25 02:49 Discharge Date/Time: 02/15/25 02:49 Print Language: Iraqi
--- OUTSIDE RECORDS SUMMARY | 2025-02-14 20:38 | XMS_ITS | Encounter Summary ---
Author Organization [facility] Address [address] [place] [address] Care Team Providers Care Court Bailiff Or Sheriff Name Role Phone Susan Best MD Primary Care Provider Unavailabl e Encounter Details Date Type Department Care Team (Late st Contact Info) Description 02/01/2021 Orders Only [place] [phone] Darlin Frias, MD MARIELA Neutropenia, unspecified type [...] Primary documented in this encounter Care Teams Court Bailiff Or Sheriff Relationship Specialty Start Date End Date Susan Best MD [address] [place] [id number] PCP - General 07/01/17 documented as of this encounter
--- OUTSIDE RECORDS SUMMARY | 2025-02-14 20:38 | XMS_ITS | Clinical Summary ---
Author Organization [facility] Address [address] [place] [id number] Care Team Providers Care Technical Documentation Specialist Name Role Phone Self, Referred Primary Care [...] so, obtain the minor's consent prior to disclosure.[facility] Allergies Active Allergy Reactions Criticality Noted [...] this topic Insurance [employer] Care Teams Technical Documentation Specialist Relationship Specialty Start Date End Date Self, Referred [address] [place] [address] PCP - General 12/25/17
--- OUTSIDE RECORDS SUMMARY | 2025-02-14 20:38 | XMS_ITS | Clinical Summary ---
Author Organization [facility] Address [address] [place], [place] [address] [address] Care Team Providers Care Digital Sales Manager Name Role Phone Pcp, No MD Primary [...] 2024 , 04/03/2023, 01/18/2022, Additional history exists HPV/Cotest 2025 Cervical Cancer Screening 10/11/2025 Pap Smear 10/11/2025 10/11/2022 Zoster Vaccines (1 of 2) 2045 Hepatitis B Vaccines Completed 05/09/1996, 1995, 1995 MMR Vaccines Completed 08/31/1999, 05/09/1996 Meningococcal Vaccine Aged Out 09/03/2008 No emmanuelle chikis eligible based on patient's age to complete this topic Pneumococcal Vaccine: Pediatrics (0 to 5 Years) and At-Risk Patients (6 to 49 Years) Completed 04/03/2023 HIV Screening Completed 08/02/2023, 08/2022, 05/28/2018 Insurance Care Teams Digital Sales Manager Relationship Specialty Start Date End Date Pcp, MD Susan [address] [place] [address] PCP - General 07/01/17
--- OUTSIDE RECORDS SUMMARY | 2025-02-14 20:38 | XMS_ITS | Clinical Summary ---
Author Organization [facility] Address [address] [place] [address] Phone Care Team Providers Care Vehicle Service Agent Name Role Phone Katharine Hernández MD Primary Care Provider [phone] Allergies Active Allergy Reactions Criticality Noted Date [...] Team Description 12/03/2024 12:30 PM EDT Telemedicine [facility] [place] [address] [place] [phone] Esperanza Aviles LCSW Adjustment disorder with mixed anxiety and depressed mood (Primary Dx) 11/19/2024 2:30 PM EDT Telemedicine [facility] - [place] [id number] [place] [phone] Esperanza Aviles LCSW Adjustment disorder with mixed anxiety and depressed mood (Primary Dx) 11/14/2024 11:30 AM EDT Office Visit Hematology and Oncology - [address] [phone] Kathy Pool PA Iron deficiency anemia secondary to blood loss (chronic); Neutropenia, unspecified type ([facility] V24) from Last 3 Months Immunizations Immunization Administration Dates Next Due Influenza Quadrivalent, 0.5m l, preservative free (Fluarix; FluLaval; Fluzone) ages 6mo and older (Afluria) 3yo and older 04/03/2023,01/18/2022,06/16/2019,2017 Influenza trivalent, 0.5mL, preservative free (Fluarix; FluLaval; Fluzone) ages 6mo and older (Afluria) 3 years and older 03/04/2024 [place] SARS-CoV-2 COVID-19, mRNA, LNP-S, preservative free 06/14/2021,09/17/2020,08/27/2020 [...] your loved ones. For example, child care counselor or elderly care for an older [...] 2:30 PM EST [facility] [address] [place] [phone] 03/18/2025 11:00 AM EST Office Visit Hematology and Oncology - [address] [phone] Kathy Pool PA [address] [place], [place] [phone] 03/23/2025 2:00 PM EST Office Visit Internal Medicine Clinic - [facility] [address] [place] [phone] Katharine Hernández MD [address] [place] [address] [place] [phone] Health Maintenance Due Date Last Done Comments [...] LAB HEMETOLOGY METHOD 11/14/2024 12:[address] [facility] Comment:Verified by repeat a nalysis. RBC 4.51 4.20 - 5.40 M/mcL LAB HEMETOLOGY METHOD 11/14/2024 12:[address] [facility] Hemoglobin 13.5 12.5 - 16.0 g/dL LAB HEMETOLOGY METHOD 11/14/2024 12:41 PM EDT [facility] Hematocrit 39.9 37.0 - 47.0 % LAB HEMETOLOGY METHOD 11/14/2024 12:41 PM EDT [facility] MCV 88.5 78.0 - 100.0 FL LAB HEMETOLOGY METHOD 11/14/2024 12:41 PM EDT [facility] MCH 30.0 25.0 - 33.0 pcg LAB HEMETOLOGY METHOD 11/14/2024 12:41 PM EDT [facility] MCHC 33.9 32.0 - 36.0 g/dL LAB HEMETOLOGY METHOD 11/14/2024 12:41 PM EDT [facility] RDW 14.4 12.1 - 16.2 % LAB HEMETOLOGY METHOD 11/14/2024 12:41 PM EDT [facility] Platelets 236 150 - 450 K/mcL LAB HEMETOLOGY METHOD 11/14/2024 12:41 PM EDT [facility] Comment:Verified by repeat a nalysis. MPV 7.5 7.4 - 11.4 FL LAB HEMETOLOGY METHOD 11/14/2024 12:[address] [facility] Blood Venous blood specimen / Unknown Venipuncture / Unknown 11/14/2024 11:57 AM EDT 11/14/2024 11:58 AM EDT Kathy OJEDA LAB BLOOD ORDERABLES Final Res ult [facility] [address] [place] [address], [place] [phone] * (ABNORMAL) Manual differential (11/14/2024 11:57 AM EDT) WBC Total Counted 100 11/14/2024 12:[address] [facility] Neutrophils Percent Manual 33.0(L) 44.0 - 74.0 % 11/14/2024 12:[address] [facility] Lymphocytes Percent Manual 45.0 20.0 - 48.0 % 11/14/2024 12:[address] [facility] Monocytes Percent Manual 12.0 2.0 - 12.0 % 11/14/2024 12:[address] [facility] Eosinophils Percent Manual 9.0(H) 0.0 - 6.0 % 11/14/2024 12:[address] [facility] Basophils Percent Manual 1.0 0.0 - 2.0 % 11/14/2024 12:[address] [facility] RBC Morphology RBC Morphology appears normal 11/14/2024 12:[address] [facility] Platelet Estimate Normal Platelets Appear Increased, Platelets Appear Decreased, Normal 11/14/2024 12:[address] [facility] Blood Venous blood specimen / Unknown Venipuncture / Unknown 11/14/2024 11:57 AM EDT 11/14/2024 11:58 AM EDT us Kathy OJEDA LAB BLOOD ORDERABLES Final Res ult [facility] [address] [place] [address], [place] [phone] * Fyb antigen type (11/14/2024 10:34 AM EDT) Fyb Antigen Negative 11/14/2024 12:10 PM EDT [facility] Blood Venous blood specimen / Unknown Venipuncture / Unknown 11/14/2024 10:34 AM EDT 11/14/2024 11:19 AM EDT Kathy OJEDA LAB BLOOD BANK TEST ORDERABLES Final Result Performing Organization Address City/[facility]/ZIP Co de Phone Number [facility] [address] [place] [address], [place] [phone] * Fya antigen type (11/14/2024 10:34 AM EDT) Fya Antigen Negative 11/14/2024 12:09 PM EDT [facility] Blood Venous blood specimen / Unknown Venipuncture / Unknown 11/14/2024 10:34 AM EDT 11/14/2024 11:19 AM EDT Kathy OJEDA LAB BLOOD BANK TEST ORDERABLES Final Result [facility] [address] [place] [address], [place] [phone] * Iron and TIBC (11/14/2024 10:34 AM EDT) Iron 83 37 - 170 mcg/dL LAB CHEMISTRY METHOD 11/14/2024 11:59 AM EDT [facility] UIBC 268 155 - 355 mcg/dL LAB CHEMISTRY METHOD 11/14/2024 11:59 AM EDT [facility] TIBC 351 250 - 450 mcg/dL LAB CHEMISTRY METHOD 11/14/2024 11:59 AM EDT [facility] Iron Saturation 24 20 - 45 % LAB CHEMISTRY METHOD 11/14/2024 11:59 AM EDT [facility] Blood Venous blood specimen / Unknown Venipuncture / Unknown 11/14/2024 10:34 AM EDT 11/14/2024 11:19 AM EDT us Kathy OJEDA LAB BLOOD ORDERABLES Final Res ult [facility] [address] [place] [address], [place] [phone] * Antigen type, RBC (11/14/2024 10:34 AM EDT) Antigen Type RBC See specific Antigen order 11/14/2024 12:08 PM EDT [facility] Blood Venous blood specimen / Unknown Venipuncture / Unknown 11/14/2024 10:34 AM EDT 11/14/2024 11:19 AM EDT us Kathy OJEDA LAB BLOOD BANK TEST ORDERABLES Final Result [facility] [address] [place] [address], [place] [phone] * Ferritin (11/14/2024 10:34 AM EDT) Ferritin 27 10 - 120 ng/mL LAB CHEMISTRY METHOD 11/14/2024 12:20 PM EDT [facility] Blood Venous blood specimen / Unknown Venipuncture / Unknown 11/14/2024 10:34 AM EDT 11/14/2024 11:19 AM EDT Kathy OJEDA LAB BLOOD ORDERABLES Final Res ult [facility] [address] [place] [address], [place] [phone] * Vitamin B12 (11/14/2024 10:34 AM EDT) [facility] Vitamin B-12 296 180 - 914 pcg/mL LAB CHEMISTRY METHOD 11/14/2024 12:20 PM EDT [facility] Blood Venous blood specimen / Unknown Venipuncture / Unknown 11/14/2024 10:34 AM EDT 11/14/2024 11:19 AM EDT Kathy OJEDA LAB BLOOD ORDERABLES Final Res ult Performing Organization Address City/[facility]/ZIP Co de Phone Number [facility] [address] [place] [address], [place] [phone] * HIV Screening (08/02/2023) Pathologist [facility] HIV Screening ABSTRACTED Historical Provider HEALTH MAINTENANCE Final Result * Hepatitis C Screening (08/02/2023) Pathologist [facility] Hepatitis C Screening ABSTRACTED Historical Provider HEALTH MAINTENANCE Final Result * Depression Screening (04/03/2023) Pathologist [facility] Depression Screening ABSTRACTED Historical Provider HEALTH MAINTENANCE Final Result * Pap Smear (10/11/2022) Pathologist [facility] Pap smear NEGATIVE, ABSTRACTED Historical Provider HEALTH MAINTENANCE Final Result from Last 3 Months or Most Recently Relevant to Health Maintenance [place] Care Teams Vehicle Service Agent Relationship Specialty Start Date End Date Katharine Hernández MD [address] [place] [phone] PCP - General 10/13/22
--- OUTSIDE RECORDS SUMMARY | 2025-02-14 20:38 | XMS_ITS | Clinical Summary ---
Author Organization [facility] Address [address] [place] [address] Care Team Providers Care Peel Oven Tender Name Role Phone Pcp, No Primary Care [...] series) 2014 Pap Smear (Ages 21-65) 01/20/2016 Influenza Vaccine 11/07/2024 03/04/2024, , 01/18/2022, Additional history exists COVID-19 Vaccine ( season) 2024 06/14/2021, 09/17/2020, 08/27/2020 HIV Screening Completed 05/28/2018 HPV Vaccines (No Doses Required) Completed Pneumococcal Vaccine: Pediatric (0-5 Years) and At-Risk Patients (6 to 49 Years) Aged Out No longer eligible based on patient's age to complete this topic Insurance [facility] Care Teams Peel Oven Tender Relationship Specialty Start Date End Date Pcp, No PCP - General General Medicine 06/10/21
--- OUTSIDE RECORDS SUMMARY | 2025-02-14 20:38 | XMS_ITS | Clinical Summary ---
Author Organization [facility] Address [address] [place] [address] Care Team Providers Care Rouge Mixer Name Role Phone Katharine Hernández MD Primary [...] Advance Directives For more information, please contact: [phone] Latest Code Status on File Code Status [...] way: discussion with patient . Care Teams Rouge Mixer Relationship Specialty Start Date End Date Katharine Hernández MD PCP - General Internal Medicine 10/13/22
[2025-02-14 21:15] LABS: Hematocrit 43.6 % (37.0-47.0); Hemoglobin 14.3 g/dl (12.0-16.0); Imm Gran Abs Auto 0.01 X10*3/uL (0.00-0.03); Imm Gran Pct Auto 0.3 % (0.0-0.4); Lymphocytes Absolute Auto 1.5 X10*3/uL (1.2-4.9); MANUAL DIFF FLAG NO; Mean Corpuscular HGB Conc 32.8 g/dl (31.0-35.0); Mean Corpuscular Hemoglobin 29.1 pg (27.0-33.0); Mean Corpuscular Volume 88.8 fL (80.0-98.0); NRBC Abs Auto 0.000 X10*3/uL (0.0-0.012); NRBC Pct Auto 0.0 /100WBC (0.0-0.2); Platelet Count 201 X10*3/uL (160-400); Red Blood Count 4.91 X10*6/uL (4.20-5.50); White Blood Count 3.5 X10*3/uL (4.8-10.8)
[2025-02-14 21:18] LABS: Appearance Urine Clear; Glucose Urine UA Negative (Negative); PH 7.0 (5.0-9.0); Specific Gravity - Urine 1.020 (1.005-1.025); UMIC TRIGGER UA YES
[2025-02-14 22:41] VITALS: BP 134/95; PULSE 60; RESP 16; TEMP 36.6; O2SAT 97
--- NOTE | 2025-02-14 22:52 | PC.NURSE ---
Aguila VAZQUEZ at bedside to attempt u/s iv for CT
[2025-02-14] MEDS: iohexoL 350 MG/ML 100 ML INFUS..BTL IV (23:52)
[2025-02-15 02:08] VITALS: BP 123/89; PULSE 66; RESP 16; TEMP 36.4; O2SAT 99
[2025-02-15] MEDS: Magnesium Hydrox/Alum Hydrox 30 ML ORAL.SUSP PO (02:13)
[2025-02-15] MEDS: Lidocaine HCl Viscous 2 % 15 ML SOLUTION PO (02:13)
[2025-02-15 02:49] VITALS: BP 123/89; PULSE 66; RESP 16; TEMP 36.4; O2SAT 99
== END 2025-02-15 02:49 | disposition home or self-care (01) ==
PROVIDERS: Physician Assistant; Emergency Provider Emergency Medicine
DX: N39.0 Urinary tract infection, site not specified (principal); J45.909 Unspecified asthma, uncomplicated; Q79.3 Gastroschisis; Q87.0 Congenital malformation syndromes predominantly affecting facial appearance
CPT/HCPCS: 36415; 74177; 80053; 81001; 83605; 83690; 84702; 85025; 96361; 96374; 96375; 99284; 99285; J1885; J2405; Q9967

== ENCOUNTER → 2025-02-14 19:53 | Outpatient (BNV) | payer MEDICAID, SELFPAY | PROVIDERS: Emergency Provider Emergency Medicine; Visit Provider Student in an Organized Health Care Education/Training Program | DX: K44.9 Diaphragmatic hernia without obstruction or gangrene (principal) | CPT/HCPCS: 74177 ==